=== PATIENT | male | born 1945 | race Caucasian/White ===

== ENCOUNTER → 2017-11-19 08:12 | Outpatient (CLI) | payer MEDICARE, OTHER, SELFPAY ==
[2017-11-19 12:10] LABS: Absolute Lymphocyte Count 2.06 X10^3/ul (0.83-4.51); Absolute Neutrophil Count 4.5 X10^3/uL (2.0-7.7); Basophil# 0.04 X10^3/uL; Basophil% 0.5 % (0-1); Eosinophil# 0.22 X10^3/uL; Hematocrit 39.1 % (40-54); Hemoglobin 12.3 g/dl (13.0-16.5); Lymphocyte # 2.06 X10^3/ul (4.0); Lymphocyte % 28.1 % (19-41); Mean Corp Hgb Conc 31.5 g/gl (32-36); Mean Corpuscular Hgb 28.1 pg (27.0-32.0); Mean Corpuscular Volume 89.3 fL (80-94); Mean Platelet Vol. 9.8 fl (6.2-12.0); Monocyte# 0.51 X10^3/uL; Monocyte% 6.9 % (0-10); Neutrophil # 4.51 X10^3/uL (2.7-7.7); Neutrophil % 61.5 % (47-70); Platelet Count 281 K/mm3 (150-450); RBC Distribution Width CV 14.4 % (11.6-14.6); Red Blood Count 4.38 M/mm3 (4.6-6.2); White Blood Count 7.3 K/mm3 (4.4-11.0)
[2017-11-19 12:14] LABS: POSITIVE COUNT NO; POSITIVE DIFFERENTIAL NO; POSITIVE MORPHOLOGY NO
[2017-11-19 12:43] LABS: AST(SGOT) 21 U/L (15-37); Alanine Aminotransfer ALT/SGPT 36 U/L (16-61); Albumin, Serum 3.8 g/dL (3.2-5.0); Alkaline Phosphatase 67 U/L (45-117); Anion Gap 10 (5-15); BUN 17 mg/dL (7-18); BUN/Creat Ratio 14.5 RATIO (10-20); Calcium,Total 8.9 mg/dL (8.5-10.1); Chloride 103 mmol/L (98-107); Cholesterol 125 mg/dL (200); Creatinine, Serum 1.17 mg/dL (0.70-1.30); EST Glomerular Filtration Rate 65 mL/min (>60); Est Glom Filt Rate - Afr Amer 79 mL/min (>60); Globulin 3.8 g/dL (2.2-4.2); Glucose 133 mg/dL (74-106); High Density Lipoprotein 47 mg/dL; Potassium 4.4 mmol/L (3.5-5.1); Protein, Total 7.6 g/dL (6.4-8.2); Sodium Level 139 mmol/L (136-145); Triglycerides 67 mg/dL; Very Low Density Lipoprotein 13 mg/dL (5-40)
[2017-11-19 12:44] LABS: Hemoglobin A1c 7.5 % (4.2-6.3)
[2017-11-19 12:47] LABS: Microalbumin,Random Urine < 5.0 mg/L (NO RANGE EST.)
== END ==
PROVIDERS: Visit Provider Family Medicine
DX: E11.9 Type 2 diabetes mellitus without complications (principal); I10 Essential (primary) hypertension; E78.00 Pure hypercholesterolemia, unspecified; Z12.5 Encounter for screening for malignant neoplasm of prostate
CPT/HCPCS: 36415; 80053; 80061; 82043; 82570; 83036; 85025

== ENCOUNTER → 2018-04-15 09:42 | Outpatient (CLI) | payer MEDICARE, OTHER, SELFPAY ==
[2018-04-15 09:50] LABS: Bacteria 0 SEEN /hpf (None Seen); Mucous, Urine 0 SEEN /hpf (<or=2+); Red Blood Cells-Urine 0 SEEN /hpf (0-5); Squamous Epithelial Cells - UA 0 SEEN /hpf (0-5); White Blood Cells 0 SEEN /hpf (0-5)
[2018-04-15 12:09] LABS: Color, Urine Yellow (Yellow); Glucose, Dipstick 1000 mg/dl (Normal); Ketone-Dipstick Negative (Negative); Leukocyte Esterase-Dipstick Negative /ul (Negative); Nitrite-Dipstick Negative (Negative); Occult Blood-Urine Negative /ul (Negative); Protein-Dipstick Negative (Negative); Urine Bilirubin Dipstick Negative (Negative); Urine Clarity Clear (Clear); Urine Urobilinogen Normal (Normal); Urine pH 6.5 (5.0 - 8.0)
[2018-04-15 12:12] LABS: Absolute Lymphocyte Count 1.36 X10^3/ul (0.83-4.51); Absolute Neutrophil Count 4.2 X10^3/uL (2.0-7.7); Basophil# 0.02 X10^3/uL; Basophil% 0.3 % (0-1); Eosinophil# 0.08 X10^3/uL; Eosinophils% 1.3 % (0-5); Hematocrit 38.9 % (40-54); Hemoglobin 12.3 g/dl (13.0-16.5); Lymphocyte # 1.36 X10^3/ul (4.0); Lymphocyte % 22.6 % (19-41); Mean Corp Hgb Conc 31.6 g/gl (32-36); Mean Corpuscular Hgb 28.6 pg (27.0-32.0); Mean Corpuscular Volume 90.5 fL (80-94); Mean Platelet Vol. 9.7 fl (6.2-12.0); Monocyte# 0.37 X10^3/uL; Monocyte% 6.2 % (0-10); Neutrophil # 4.17 X10^3/uL (2.7-7.7); Neutrophil % 69.4 % (47-70); Platelet Count 291 K/mm3 (150-450); RBC Distribution Width CV 13.5 % (11.6-14.6); RBC Distribution Width SD 44.9 fl (35.1-43.9)
[2018-04-15 12:19] LABS: POSITIVE COUNT NO; POSITIVE DIFFERENTIAL NO; POSITIVE MORPHOLOGY NO
[2018-04-15 12:25] LABS: Hemoglobin A1c 7.8 % (4.2-6.3)
[2018-04-15 12:27] LABS: Vitamin B12 393 pg/mL (211-911)
[2018-04-15 13:16] LABS: AST(SGOT) 20 U/L (15-37); Alanine Aminotransfer ALT/SGPT 36 U/L (16-61); Albumin, Serum 3.8 g/dL (3.2-5.0); Alkaline Phosphatase 70 U/L (45-117); Anion Gap 11 (5-15); BUN 18 mg/dL (7-18); BUN/Creat Ratio 13.8 RATIO (10-20); Calcium,Total 8.7 mg/dL (8.5-10.1); Chloride 102 mmol/L (98-107); Cholesterol 142 mg/dL (200); EST Glomerular Filtration Rate 58 mL/min (>60); Est Glom Filt Rate - Afr Amer 70 mL/min (>60); Ferritin 23 ng/mL (26-388); Globulin 3.7 g/dL (2.2-4.2); Glucose 238 mg/dL (74-106); High Density Lipoprotein 45 mg/dL; Iron 83 ug/dL (65-175); Iron Binding Capacity,Total 379 ug/dL (250-450); Potassium 4.1 mmol/L (3.5-5.1); Protein, Total 7.5 g/dL (6.4-8.2); Sodium Level 139 mmol/L (136-145); Thyroid Stim Hormone (TSH) 0.61 uIU/mL (0.358-3.74); Triglycerides 88 mg/dL; Very Low Density Lipoprotein 18 mg/dL (5-40)
== END ==
PROVIDERS: Family Provider Family Medicine; PCP Family Medicine; Visit Provider Family Medicine
DX: D64.9 Anemia, unspecified (principal); E11.9 Type 2 diabetes mellitus without complications; I10 Essential (primary) hypertension; E78.00 Pure hypercholesterolemia, unspecified
CPT/HCPCS: 36415; 80053; 80061; 81001; 82607; 82728; 82746; 83036; 83540; 83550; 84443; 85025

== ENCOUNTER → 2018-04-22 08:15 | Outpatient (CLI) | payer MEDICARE, OTHER, SELFPAY ==
[2018-04-22 10:47] LABS: Anion Gap 6 (5-15); BUN 19 mg/dL (7-18); BUN/Creat Ratio 15.1 RATIO (10-20); Calcium,Total 8.6 mg/dL (8.5-10.1); Chloride 101 mmol/L (98-107); Creatinine, Serum 1.26 mg/dL (0.70-1.30); EST Glomerular Filtration Rate 60 mL/min (>60); Est Glom Filt Rate - Afr Amer 72 mL/min (>60); Glucose 316 mg/dL (74-106); Potassium 4.7 mmol/L (3.5-5.1); Sodium Level 135 mmol/L (136-145)
== END ==
PROVIDERS: Family Provider Family Medicine; PCP Family Medicine; Referring Provider Family Medicine; Visit Provider Family Medicine
DX: R94.4 Abnormal results of kidney function studies (principal)
CPT/HCPCS: 36415; 80048

== ENCOUNTER → 2018-05-10 08:25 | Outpatient (CLI) | payer MEDICARE, OTHER, SELFPAY ==
[2018-05-10 10:36] LABS: BUN 21 mg/dL (7-18); Creatinine, Serum 1.19 mg/dL (0.70-1.30); EST Glomerular Filtration Rate 64 mL/min (>60); Glucose 275 mg/dL (74-106)
[2018-05-10 10:37] LABS: Anion Gap 10 (5-15); BUN/Creat Ratio 17.6 RATIO (10-20); Calcium,Total 8.4 mg/dL (8.5-10.1); Chloride 99 mmol/L (98-107); Est Glom Filt Rate - Afr Amer 77 mL/min (>60); Potassium 4.6 mmol/L (3.5-5.1); Sodium Level 136 mmol/L (136-145)
== END ==
PROVIDERS: Family Provider Family Medicine; PCP Family Medicine; Visit Provider Family Medicine
DX: I10 Essential (primary) hypertension (principal)
CPT/HCPCS: 36415; 80048

== ENCOUNTER → 2018-06-03 08:54 | Outpatient (CLI) | payer MEDICARE, OTHER, SELFPAY ==
[2018-06-03 10:14] LABS: Absolute Lymphocyte Count 1.72 X10^3/ul (0.83-4.51); Absolute Neutrophil Count 3.7 X10^3/uL (2.0-7.7); Basophil# 0.05 X10^3/uL; Basophil% 0.8 % (0-1); Eosinophil# 0.14 X10^3/uL; Eosinophils% 2.3 % (0-5); Hematocrit 39.6 % (40-54); Hemoglobin 12.5 g/dl (13.0-16.5); Lymphocyte # 1.72 X10^3/ul (4.0); Lymphocyte % 28.8 % (19-41); Mean Corp Hgb Conc 31.6 g/gl (32-36); Mean Corpuscular Hgb 28.3 pg (27.0-32.0); Mean Corpuscular Volume 89.8 fL (80-94); Mean Platelet Vol. 9.6 fl (6.2-12.0); Monocyte# 0.36 X10^3/uL; Neutrophil # 3.71 X10^3/uL (2.7-7.7); Neutrophil % 62.1 % (47-70); Platelet Count 333 K/mm3 (150-450); RBC Distribution Width CV 13.5 % (11.6-14.6); RBC Distribution Width SD 44.7 fl (35.1-43.9); Red Blood Count 4.41 M/mm3 (4.6-6.2)
[2018-06-03 10:15] LABS: POSITIVE COUNT NO; POSITIVE DIFFERENTIAL NO; POSITIVE MORPHOLOGY NO
[2018-06-03 10:46] LABS: Ferritin 21 ng/mL (26-388); Iron 55 ug/dL (65-175); Iron Binding Capacity,Total 373 ug/dL (250-450)
== END ==
PROVIDERS: Family Provider Family Medicine; PCP Family Medicine; Referring Provider Family Medicine; Visit Provider Family Medicine
DX: D64.9 Anemia, unspecified (principal); R79.0 Abnormal level of blood mineral
CPT/HCPCS: 36415; 82728; 83540; 83550; 85025

== ENCOUNTER → 2018-08-25 | Outpatient (CLI) | payer MEDICARE, OTHER, SELFPAY ==
[2018-08-25 10:10] LABS: Absolute Lymphocyte Count 1.84 X10^3/ul (0.83-4.51); Absolute Neutrophil Count 3.8 X10^3/uL (2.0-7.7); Basophil# 0.02 X10^3/uL; Basophil% 0.3 % (0-1); Eosinophil# 0.16 X10^3/uL; Eosinophils% 2.5 % (0-5); Hematocrit 39.9 % (40-54); Hemoglobin 13.2 g/dl (13.0-16.5); Lymphocyte # 1.84 X10^3/ul (4.0); Lymphocyte % 29.2 % (19-41); Mean Corp Hgb Conc 33.1 g/gl (32-36); Mean Corpuscular Hgb 28.9 pg (27.0-32.0); Mean Corpuscular Volume 87.5 fL (80-94); Mean Platelet Vol. 10.1 fl (6.2-12.0); Monocyte# 0.51 X10^3/uL; Monocyte% 8.1 % (0-10); Neutrophil # 3.77 X10^3/uL (2.7-7.7); Neutrophil % 59.7 % (47-70); Platelet Count 300 K/mm3 (150-450); RBC Distribution Width CV 13.7 % (11.6-14.6); RBC Distribution Width SD 43.5 fl (35.1-43.9); Red Blood Count 4.56 M/mm3 (4.6-6.2); White Blood Count 6.3 K/mm3 (4.4-11.0)
[2018-08-25 10:11] LABS: POSITIVE COUNT NO; POSITIVE DIFFERENTIAL NO; POSITIVE MORPHOLOGY NO
[2018-08-25 10:40] LABS: Microalbumin,Random Urine < 5.0 mg/L (NO RANGE EST.)
[2018-08-25 10:46] LABS: ALB/GLOB Ratio 1.1 RATIO (0.9-2.4); AST(SGOT) 31 U/L (15-37); Alanine Aminotransfer ALT/SGPT 32 U/L (16-61); Albumin, Serum 3.8 g/dL (3.2-5.0); Alkaline Phosphatase 74 U/L (45-117); Anion Gap 6 (5-15); BUN 21 mg/dL (7-18); BUN/Creat Ratio 17.8 RATIO (10-20); Calcium,Total 8.9 mg/dL (8.5-10.1); Chloride 104 mmol/L (98-107); Cholesterol 142 mg/dL (200); Creatinine, Serum 1.18 mg/dL (0.70-1.30); EST Glomerular Filtration Rate 64 mL/min (>60); Est Glom Filt Rate - Afr Amer 78 mL/min (>60); Ferritin 26 ng/mL (26-388); Globulin 3.4 g/dL (2.2-4.2); Glucose 140 mg/dL (74-106); High Density Lipoprotein 51 mg/dL; Iron 92 ug/dL (65-175); Iron Binding Capacity,Total 360 ug/dL (250-450); PERCENT IRON SATURATION 25.6 % (15.0-55.0); Protein, Total 7.2 g/dL (6.4-8.2); Sodium Level 137 mmol/L (136-145); Triglycerides 78 mg/dL; Very Low Density Lipoprotein 16 mg/dL (5-40)
[2018-08-25 10:47] LABS: Hemoglobin A1c 7.5 % (4.2-6.3)
== END | disposition home or self-care (01) ==
LOC: MFPLAB 08:19
PROVIDERS: Family Provider Family Medicine; PCP Family Medicine; Referring Provider Family Medicine; Visit Provider Family Medicine
DX: D64.9 Anemia, unspecified (principal); E11.9 Type 2 diabetes mellitus without complications; R79.0 Abnormal level of blood mineral; E78.00 Pure hypercholesterolemia, unspecified
CPT/HCPCS: 36415; 80053; 80061; 82043; 82570; 82728; 83036; 83540; 83550; 85025

== ENCOUNTER → 2018-11-24 08:12 | Outpatient (CLI) | payer MEDICARE, OTHER, SELFPAY ==
[2018-11-24 10:03] LABS: Absolute Lymphocyte Count 2.11 X10^3/uL (0.83-4.51); Absolute Neutrophil Count 4.5 X10^3/uL (2.0-7.7); Basophil# 0.06 X10^3/uL; Basophil% 0.8 % (0-1); Eosinophil# 0.41 X10^3/uL; Eosinophils% 5.3 % (0-5); Hematocrit 40.5 % (40-54); Hemoglobin 12.6 g/dL (13.0-16.5); Lymphocyte # 2.11 X10^3/ul (4.0); Lymphocyte % 27.2 % (19-41); Mean Corp Hgb Conc 31.1 g/dL (32-36); Mean Corpuscular Hgb 28.1 pg (27.0-32.0); Mean Corpuscular Volume 90.2 fL (80-94); Mean Platelet Vol. 9.8 fl (6.2-12.0); Monocyte# 0.63 X10^3/uL; Monocyte% 8.1 % (0-10); NRBC Flagged by Analyzer 0 % (0-5); Neutrophil # 4.53 X10^3/uL (2.7-7.7); Neutrophil % 58.5 % (47-70); Platelet Count 299 K/mm3 (150-450); RBC Distribution Width CV 13.4 % (11.6-14.6); RBC Distribution Width SD 44.3 fl (35.1-43.9); Red Blood Count 4.49 M/mm3 (4.6-6.2); White Blood Count 7.8 K/mm3 (4.4-11.0)
[2018-11-24 10:19] LABS: Hemoglobin A1c 7.1 % (4.2-6.3)
[2018-11-24 10:22] LABS: ALB/GLOB Ratio 0.9 RATIO (0.9-2.4); AST(SGOT) 16 U/L (15-37); Alanine Aminotransfer ALT/SGPT 31 U/L (16-61); Albumin, Serum 3.7 g/dL (3.2-5.0); Alkaline Phosphatase 68 U/L (45-117); Anion Gap 5 (5-15); BUN 22 mg/dL (7-18); BUN/Creat Ratio 17.6 RATIO (10-20); Calcium,Total 8.8 mg/dL (8.5-10.1); Chloride 102 mmol/L (98-107); Cholesterol 121 mg/dL (200); Creatinine, Serum 1.25 mg/dL (0.70-1.30); EST Glomerular Filtration Rate 60 mL/min (>60); Est Glom Filt Rate - Afr Amer 73 mL/min (>60); Glucose 135 mg/dL (74-106); High Density Lipoprotein 46 mg/dL; Potassium 4.6 mmol/L (3.5-5.1); Protein, Total 7.7 g/dL (6.4-8.2); Sodium Level 135 mmol/L (136-145); Triglycerides 86 mg/dL
[2018-11-24 10:23] LABS: Very Low Density Lipoprotein 17 mg/dL (5-40)
== END ==
PROVIDERS: Family Provider Family Medicine; PCP Family Medicine; Referring Provider Family Medicine; Visit Provider Family Medicine
DX: E11.22 Type 2 diabetes mellitus with diabetic chronic kidney disease (principal); N18.2 Chronic kidney disease, stage 2 (mild); E78.00 Pure hypercholesterolemia, unspecified
CPT/HCPCS: 36415; 80053; 80061; 83036; 85025

== ENCOUNTER → 2018-11-30 08:15 | Outpatient (CLI) | payer MEDICARE, OTHER, SELFPAY ==
[2018-11-30 10:59] LABS: Vitamin B12 435 pg/mL (211-911)
[2018-11-30 11:45] LABS: Ferritin 29 ng/mL (26-388); Iron 65 ug/dL (65-175); Iron Binding Capacity,Total 315 ug/dL (250-450); PSA,Total - Annual Screen 1.84 ng/mL (0.00-4.00)
== END ==
PROVIDERS: Family Provider Family Medicine; PCP Family Medicine; Referring Provider Family Medicine; Visit Provider Family Medicine
DX: D64.9 Anemia, unspecified (principal); Z12.5 Encounter for screening for malignant neoplasm of prostate
CPT/HCPCS: 36415; 82607; 82728; 82746; 83540; 83550; 84153; G0103

== ENCOUNTER → 2019-03-24 08:03 | Outpatient (CLI) | payer MEDICARE, OTHER, SELFPAY ==
[2019-03-24 08:06] LABS: Bacteria 0 SEEN /hpf (None Seen); Mucous, Urine 0 SEEN /hpf (<or=2+); Red Blood Cells-Urine 0 SEEN /hpf (0-5); Squamous Epithelial Cells - UA 0 SEEN /hpf (0-5); White Blood Cells 0 SEEN /hpf (0-5)
[2019-03-24 10:04] LABS: Absolute Lymphocyte Count 2.14 X10^3/uL (0.83-4.51); Absolute Neutrophil Count 4.7 X10^3/uL (2.0-7.7); Basophil# 0.05 X10^3/uL; Basophil% 0.6 % (0-1); Eosinophil# 0.32 X10^3/uL; Eosinophils% 4.1 % (0-5); Hematocrit 38.8 % (40-54); Hemoglobin 12.2 g/dL (13.0-16.5); Lymphocyte # 2.14 X10^3/ul (4.0); Lymphocyte % 27.5 % (19-41); Mean Corp Hgb Conc 31.4 g/dL (32-36); Mean Corpuscular Hgb 28.1 pg (27.0-32.0); Mean Corpuscular Volume 89.4 fL (80-94); Mean Platelet Vol. 9.7 fl (6.2-12.0); Monocyte# 0.52 X10^3/uL; Monocyte% 6.7 % (0-10); NRBC Flagged by Analyzer 0 % (0-5); Neutrophil # 4.72 X10^3/uL (2.7-7.7); Neutrophil % 60.8 % (47-70); Platelet Count 314 K/mm3 (150-450); RBC Distribution Width CV 13.2 % (11.6-14.6); RBC Distribution Width SD 43.2 fl (35.1-43.9); Red Blood Count 4.34 M/mm3 (4.6-6.2); White Blood Count 7.8 K/mm3 (4.4-11.0)
[2019-03-24 10:16] LABS: Color, Urine YELLOW (Yellow); Glucose, Dipstick NEGATIVE (Normal); Ketone-Dipstick Negative (Negative); Urine Bilirubin Dipstick Negative (Negative); Urine Clarity Clear (Clear)
[2019-03-24 10:17] LABS: Leukocyte Esterase-Dipstick Negative /ul (Negative); Nitrite-Dipstick Negative (Negative); Occult Blood-Urine Negative /ul (Negative); Protein-Dipstick Negative (Negative); Urine Urobilinogen Normal (Normal); Urine pH 6.5 (5.0 - 8.0)
[2019-03-24 10:18] LABS: Hemoglobin A1c 7.5 % (4.2-6.3)
[2019-03-24 10:33] LABS: AST(SGOT) 18 U/L (15-37); Alanine Aminotransfer ALT/SGPT 32 U/L (16-61); Albumin, Serum 3.7 g/dL (3.2-5.0); Alkaline Phosphatase 67 U/L (45-117); Anion Gap 5 (5-15); BUN 19 mg/dL (7-18); BUN/Creat Ratio 16.2 RATIO (10-20); Calcium,Total 8.7 mg/dL (8.5-10.1); Chloride 103 mmol/L (98-107); Cholesterol 131 mg/dL (200); Creatinine, Serum 1.17 mg/dL (0.70-1.30); EST Glomerular Filtration Rate 65 mL/min (>60); Est Glom Filt Rate - Afr Amer 79 mL/min (>60); Globulin 3.7 g/dL (2.2-4.2); Glucose 135 mg/dL (74-106); High Density Lipoprotein 48 mg/dL; Potassium 4.5 mmol/L (3.5-5.1); Protein, Total 7.4 g/dL (6.4-8.2); Sodium Level 137 mmol/L (136-145); Triglycerides 76 mg/dL; Very Low Density Lipoprotein 15 mg/dL (5-40)
[2019-03-24 10:45] LABS: Microalbumin,Random Urine < 5.0 mg/L (NO RANGE EST.)
== END ==
PROVIDERS: Family Provider Family Medicine; PCP Family Medicine; Referring Provider Family Medicine; Visit Provider Family Medicine
DX: I10 Essential (primary) hypertension (principal); E11.9 Type 2 diabetes mellitus without complications; E78.00 Pure hypercholesterolemia, unspecified
CPT/HCPCS: 36415; 80053; 80061; 81001; 82043; 82570; 83036; 85025

== ENCOUNTER → 2019-07-24 07:59 | Outpatient (CLI) | payer MEDICARE, OTHER, SELFPAY ==
[2019-05-10 08:37] VITALS: BMI 23.1
[2019-07-24 08:04] LABS: Bacteria 0 SEEN /hpf (None Seen); Mucous, Urine 0 SEEN /hpf (<or=2+); Red Blood Cells-Urine 0 SEEN /hpf (0-5); Squamous Epithelial Cells - UA 0 SEEN /hpf (0-5); White Blood Cells 0 SEEN /hpf (0-5)
[2019-07-24 09:46] LABS: Color, Urine Yellow (Yellow); Glucose, Dipstick Normal (Normal); Ketone-Dipstick Negative (Negative); Leukocyte Esterase-Dipstick Negative /ul (Negative); Nitrite-Dipstick Negative (Negative); Occult Blood-Urine Negative /ul (Negative); Protein-Dipstick Negative (Negative); Specific Gravity, Urine 1.015 (1.002-1.030); Urine Bilirubin Dipstick Negative (Negative); Urine Clarity Clear (Clear); Urine Urobilinogen Normal (Normal)
[2019-07-24 09:52] LABS: Absolute Lymphocyte Count 2.11 X10^3/uL (0.83-4.51); Absolute Neutrophil Count 4.1 X10^3/uL (2.0-7.7); Basophil# 0.04 X10^3/uL; Basophil% 0.6 % (0-1); Eosinophil# 0.23 X10^3/uL; Eosinophils% 3.3 % (0-5); Hematocrit 39.6 % (40-54); Hemoglobin 12.6 g/dL (13.0-16.5); Lymphocyte # 2.11 X10^3/ul (4.0); Lymphocyte % 30.1 % (19-41); Mean Corp Hgb Conc 31.8 g/dL (32-36); Mean Corpuscular Hgb 28.4 pg (27.0-32.0); Mean Corpuscular Volume 89.2 fL (80-94); Mean Platelet Vol. 9.8 fl (6.2-12.0); Monocyte# 0.55 X10^3/uL; Monocyte% 7.8 % (0-10); NRBC Flagged by Analyzer 0 % (0-5); Neutrophil # 4.08 X10^3/uL (2.7-7.7); Neutrophil % 58.1 % (47-70); Platelet Count 313 K/mm3 (150-450); RBC Distribution Width CV 13.5 % (11.6-14.6); RBC Distribution Width SD 44.2 fl (35.1-43.9); Red Blood Count 4.44 M/mm3 (4.6-6.2)
[2019-07-24 10:05] LABS: Microalbumin,Random Urine 5.1 mg/L (NO RANGE EST.); Microalbumin:Creatinine Ratio 6.3 mg/g CRE (<30 mg/g CRE)
[2019-07-24 10:20] LABS: PTHIN 85.4 pg/mL (18.4-80.1)
[2019-07-24 10:22] LABS: Hemoglobin A1c 7.6 % (4.2-6.3); Vitamin B12 410 pg/mL (211-911); Vitamin D,25 Hydroxy 41.5 ng/mL
[2019-07-24 11:07] LABS: ALB/GLOB Ratio 1.1 RATIO (0.9-2.4); AST(SGOT) 20 U/L (15-37); Alanine Aminotransfer ALT/SGPT 30 U/L (16-61); Alkaline Phosphatase 70 U/L (45-117); Anion Gap 6 (5-15); BUN 23 mg/dL (7-18); BUN/Creat Ratio 19.8 RATIO (10-20); Calcium,Total 8.7 mg/dL (8.5-10.1); Chloride 104 mmol/L (98-107); Cholesterol 145 mg/dL (200); Creatinine, Serum 1.16 mg/dL (0.70-1.30); EST Glomerular Filtration Rate 66 mL/min (>60); Est Glom Filt Rate - Afr Amer 79 mL/min (>60); Ferritin 20 ng/mL (26-388); Globulin 3.6 g/dL (2.2-4.2); Glucose 156 mg/dL (74-106); High Density Lipoprotein 46 mg/dL; Iron 74 ug/dL (65-175); Iron Binding Capacity,Total 392 ug/dL (250-450); Phosphorus 2.3 mg/dL (2.5-4.9); Potassium 4.5 mmol/L (3.5-5.1); Protein, Total 7.6 g/dL (6.4-8.2); Sodium Level 136 mmol/L (136-145); Triglycerides 81 mg/dL; Very Low Density Lipoprotein 16 mg/dL (5-40)
== END ==
PROVIDERS: PCP Family Medicine; Visit Provider Family Medicine
DX: D64.9 Anemia, unspecified (principal); E78.00 Pure hypercholesterolemia, unspecified; E11.22 Type 2 diabetes mellitus with diabetic chronic kidney disease; I12.9 Hypertensive chronic kidney disease with stage 1 through stage 4 chronic kidney disease, or unspecified chronic kidney disease; N18.2 Chronic kidney disease, stage 2 (mild)
CPT/HCPCS: 36415; 80053; 80061; 81001; 82043; 82306; 82570; 82607; 82728; 82746; 83036; 83540; 83550; 83970; 84100; 85025

== ENCOUNTER → 2019-11-22 08:04 | Outpatient (CLI) | payer MEDICARE, OTHER, SELFPAY ==
[2019-05-10 08:37] VITALS: BMI 23.1
[2019-11-22 10:09] LABS: Absolute Lymphocyte Count 2.24 X10^3/uL (0.83-4.51); Absolute Neutrophil Count 3.8 X10^3/uL (2.0-7.7); Basophil# 0.03 X10^3/uL; Basophil% 0.4 % (0-1); Eosinophil# 0.23 X10^3/uL; Eosinophils% 3.4 % (0-5); Hematocrit 39.7 % (40-54); Hemoglobin 12.7 g/dL (13.0-16.5); Lymphocyte # 2.24 X10^3/ul (4.0); Lymphocyte % 32.8 % (19-41); Mean Corpuscular Hgb 29.1 pg (27.0-32.0); Mean Corpuscular Volume 90.8 fL (80-94); Monocyte# 0.49 X10^3/uL; Monocyte% 7.2 % (0-10); NRBC Flagged by Analyzer 0 % (0-5); Neutrophil # 3.82 X10^3/uL (2.7-7.7); Neutrophil % 56.1 % (47-70); Platelet Count 294 K/mm3 (150-450); RBC Distribution Width CV 13.2 % (11.6-14.6); RBC Distribution Width SD 43.8 fl (35.1-43.9); Red Blood Count 4.37 M/mm3 (4.6-6.2); White Blood Count 6.8 K/mm3 (4.4-11.0)
[2019-11-22 10:31] LABS: Hemoglobin A1c 7.3 % (3.8-5.6)
[2019-11-22 10:35] LABS: ALB/GLOB Ratio 1.1 RATIO (0.9-2.4); AST(SGOT) 20 U/L (15-37); Alanine Aminotransfer ALT/SGPT 26 U/L (16-61); Albumin, Serum 3.8 g/dL (3.2-5.0); Alkaline Phosphatase 70 U/L (45-117); Anion Gap 5 (5-15); BUN 19 mg/dL (7-18); BUN/Creat Ratio 15.4 RATIO (10-20); Calcium,Total 8.6 mg/dL (8.5-10.1); Chloride 103 mmol/L (98-107); Cholesterol 141 mg/dL (200); Creatinine, Serum 1.23 mg/dL (0.70-1.30); EST Glomerular Filtration Rate 61 mL/min (>60); Est Glom Filt Rate - Afr Amer 74 mL/min (>60); Ferritin 30 ng/mL (26-388); Globulin 3.5 g/dL (2.2-4.2); Glucose 147 mg/dL (74-106); High Density Lipoprotein 45 mg/dL; Iron 87 ug/dL (65-175); Iron Binding Capacity,Total 376 ug/dL (250-450); Potassium 5.4 mmol/L (3.5-5.1); Protein, Total 7.3 g/dL (6.4-8.2); Sodium Level 137 mmol/L (136-145); Triglycerides 98 mg/dL; Very Low Density Lipoprotein 20 mg/dL (5-40)
[2019-11-22 10:46] LABS: Microalbumin,Random Urine < 5.0 mg/L (NO RANGE EST.)
== END ==
PROVIDERS: PCP Family Medicine; Referring Provider Family Medicine; Visit Provider Family Medicine
DX: D64.9 Anemia, unspecified (principal); E78.00 Pure hypercholesterolemia, unspecified; N18.2 Chronic kidney disease, stage 2 (mild); E11.22 Type 2 diabetes mellitus with diabetic chronic kidney disease
CPT/HCPCS: 36415; 80053; 80061; 82043; 82570; 82728; 83036; 83540; 83550; 85025

== ENCOUNTER → 2019-11-29 09:17 | Outpatient (CLI) | payer MEDICARE, OTHER, SELFPAY ==
[2019-05-10 08:37] VITALS: BMI 23.1
[2019-11-29 10:25] LABS: Potassium 4.5 mmol/L (3.5-5.1)
== END ==
PROVIDERS: PCP Family Medicine; Referring Provider Family Medicine; Visit Provider Family Medicine
DX: E87.5 Hyperkalemia (principal)
CPT/HCPCS: 36415; 84132

== ENCOUNTER → 2020-03-26 08:10 | Outpatient (CLI) | payer MEDICARE, OTHER, SELFPAY ==
[2019-05-10 08:37] VITALS: BMI 23.1
[2020-03-26 10:13] LABS: Absolute Lymphocyte Count 1.92 X10^3/uL (0.83-4.51); Absolute Neutrophil Count 4.4 X10^3/uL (2.0-7.7); Basophil# 0.05 X10^3/uL; Basophil% 0.7 % (0-1); Eosinophil# 0.22 X10^3/uL; Eosinophils% 3.1 % (0-5); Hemoglobin 13.1 g/dL (13.0-16.5); Lymphocyte # 1.92 X10^3/ul (4.0); Lymphocyte % 27.4 % (19-41); Mean Corpuscular Hgb 28.9 pg (27.0-32.0); Mean Corpuscular Volume 90.5 fL (80-94); Mean Platelet Vol. 10.1 fl (6.2-12.0); Monocyte# 0.44 X10^3/uL; Monocyte% 6.3 % (0-10); NRBC Flagged by Analyzer 0 % (0-5); Neutrophil # 4.37 X10^3/uL (2.7-7.7); Neutrophil % 62.2 % (47-70); Platelet Count 311 K/mm3 (150-450); RBC Distribution Width CV 13.5 % (11.6-14.6); Red Blood Count 4.53 M/mm3 (4.6-6.2)
[2020-03-26 10:33] LABS: Vitamin B12 471 pg/mL (211-911)
[2020-03-26 10:35] LABS: Hemoglobin A1c 7.1 % (3.8-5.6)
[2020-03-26 10:36] LABS: PTHIN 46.7 pg/mL (18.4-80.1)
[2020-03-26 11:08] LABS: AST(SGOT) 14 U/L (15-37); Alanine Aminotransfer ALT/SGPT 24 U/L (16-61); Albumin, Serum 3.9 g/dL (3.2-5.0); Alkaline Phosphatase 69 U/L (45-117); Anion Gap 7 (5-15); BUN 16 mg/dL (7-18); BUN/Creat Ratio 14.2 RATIO (10-20); Chloride 102 mmol/L (98-107); Cholesterol 148 mg/dL (200); Creatinine, Serum 1.13 mg/dL (0.70-1.30); EST Glomerular Filtration Rate 67 mL/min (>60); Est Glom Filt Rate - Afr Amer 82 mL/min (>60); Ferritin 28 ng/mL (26-388); Globulin 3.9 g/dL (2.2-4.2); Glucose 145 mg/dL (74-106); High Density Lipoprotein 58 mg/dL; Iron 73 ug/dL (65-175); Iron Binding Capacity,Total 380 ug/dL (250-450); Phosphorus 2.3 mg/dL (2.5-4.9); Potassium 4.6 mmol/L (3.5-5.1); Protein, Total 7.8 g/dL (6.4-8.2); Sodium Level 136 mmol/L (136-145); Triglycerides 90 mg/dL; Very Low Density Lipoprotein 18 mg/dL (5-40)
== END ==
PROVIDERS: PCP Family Medicine; Referring Provider Family Medicine; Visit Provider Family Medicine
DX: E11.22 Type 2 diabetes mellitus with diabetic chronic kidney disease (principal); I12.9 Hypertensive chronic kidney disease with stage 1 through stage 4 chronic kidney disease, or unspecified chronic kidney disease; N18.2 Chronic kidney disease, stage 2 (mild); D64.9 Anemia, unspecified; E78.00 Pure hypercholesterolemia, unspecified
CPT/HCPCS: 36415; 80053; 80061; 82607; 82728; 82746; 83036; 83540; 83550; 83970; 84100; 85025

== ENCOUNTER → 2020-08-28 08:06 | Outpatient (CLI) | payer MEDICARE, OTHER, SELFPAY ==
[2019-05-10 08:37] VITALS: BMI 23.1
[2020-08-28 10:01] LABS: Absolute Lymphocyte Count 2.17 X10^3/uL (0.83-4.51); Absolute Neutrophil Count 3.9 X10^3/uL (2.0-7.7); Basophil# 0.07 X10^3/uL; Eosinophil# 0.34 X10^3/uL; Eosinophils% 4.8 % (0-5); Hematocrit 38.3 % (40-54); Hemoglobin 12.2 g/dL (13.0-16.5); Lymphocyte # 2.17 X10^3/ul (0.83-4.51); Lymphocyte % 30.8 % (19-41); Mean Corp Hgb Conc 31.9 g/dL (32-36); Mean Corpuscular Hgb 28.6 pg (27.0-32.0); Mean Corpuscular Volume 89.9 fL (80-94); Monocyte# 0.51 X10^3/uL; Monocyte% 7.2 % (0-10); NRBC Flagged by Analyzer 0 % (0-5); Neutrophil # 3.94 X10^3/uL (2.7-7.7); Neutrophil % 56.1 % (47-70); Platelet Count 298 K/mm3 (150-450); RBC Distribution Width CV 13.2 % (11.6-14.6); RBC Distribution Width SD 43.1 fl (35.1-43.9); Red Blood Count 4.26 M/mm3 (4.6-6.2)
[2020-08-28 10:16] LABS: AST(SGOT) 20 U/L (15-37); Alanine Aminotransfer ALT/SGPT 28 U/L (16-61); Albumin, Serum 3.8 g/dL (3.2-5.0); Alkaline Phosphatase 65 U/L (45-117); Anion Gap 5 (5-15); BUN 20 mg/dL (7-18); Calcium,Total 8.9 mg/dL (8.5-10.1); Chloride 102 mmol/L (98-107); Cholesterol 131 mg/dL (200); Creatinine, Serum 1.11 mg/dL (0.70-1.30); EST Glomerular Filtration Rate 69 mL/min (>60); Est Glom Filt Rate - Afr Amer 83 mL/min (>60); Globulin 3.7 g/dL (2.2-4.2); Glucose 151 mg/dL (74-106); High Density Lipoprotein 52 mg/dL; Protein, Total 7.5 g/dL (6.4-8.2); Sodium Level 135 mmol/L (136-145); Triglycerides 69 mg/dL; Very Low Density Lipoprotein 14 mg/dL (5-40)
[2020-08-28 10:26] LABS: Hemoglobin A1c 7.5 % (3.8-5.6)
[2020-08-28 10:30] LABS: Microalbumin,Random Urine < 5.0 mg/L (NO RANGE EST.)
== END ==
PROVIDERS: PCP Family Medicine; Referring Provider Family Medicine; Visit Provider Family Medicine
DX: I10 Essential (primary) hypertension (principal); D64.9 Anemia, unspecified; E11.9 Type 2 diabetes mellitus without complications
CPT/HCPCS: 36415; 80053; 80061; 82043; 82570; 83036; 85025

== ENCOUNTER → 2020-09-03 08:57 | Outpatient (CLI) | payer MEDICARE, OTHER, SELFPAY ==
[2019-05-10 08:37] VITALS: BMI 23.1
[2020-09-03 11:06] LABS: PSA,Total - Annual Screen 2.89 ng/mL (0.00-4.00)
== END ==
PROVIDERS: PCP Family Medicine; Referring Provider Family Medicine; Visit Provider Family Medicine
DX: Z12.5 Encounter for screening for malignant neoplasm of prostate (principal)
CPT/HCPCS: 36415; 84153; G0103

== ENCOUNTER → 2020-11-29 08:01 | Outpatient (CLI) | payer MEDICARE, OTHER, SELFPAY ==
[2020-11-29 10:20] LABS: Absolute Lymphocyte Count 2.36 X10^3/uL (0.83-4.51); Absolute Neutrophil Count 3.8 X10^3/uL (2.0-7.7); Basophil# 0.05 X10^3/uL; Basophil% 0.7 % (0-1); Eosinophils% 4.2 % (0-5); Hematocrit 37.3 % (40-54); Hemoglobin 12.2 g/dL (13.0-16.5); Lymphocyte # 2.36 X10^3/ul (0.83-4.51); Lymphocyte % 32.8 % (19-41); Mean Corp Hgb Conc 32.7 g/dL (32-36); Mean Corpuscular Hgb 29.1 pg (27.0-32.0); Mean Platelet Vol. 10.4 fl (6.2-12.0); Monocyte# 0.66 X10^3/uL; Monocyte% 9.2 % (0-10); NRBC Flagged by Analyzer 0 % (0-5); Neutrophil % 52.8 % (47-70); Platelet Count 273 K/mm3 (150-450); RBC Distribution Width CV 13.9 % (11.6-14.6); RBC Distribution Width SD 45.1 fl (35.1-43.9); Red Blood Count 4.19 M/mm3 (4.6-6.2); White Blood Count 7.2 K/mm3 (4.4-11.0)
[2020-11-29 10:30] LABS: Vitamin B12 394 pg/mL (211-911)
[2020-11-29 11:18] LABS: ALB/GLOB Ratio 0.8 RATIO (0.9-2.4); AST(SGOT) 13 U/L (15-37); Alanine Aminotransfer ALT/SGPT 27 U/L (16-61); Albumin, Serum 3.4 g/dL (3.2-5.0); Alkaline Phosphatase 56 U/L (45-117); Anion Gap 7 (5-15); BUN 20 mg/dL (7-18); BUN/Creat Ratio 18.2 RATIO (10-20); Calcium,Total 8.9 mg/dL (8.5-10.1); Chloride 101 mmol/L (98-107); Cholesterol 118 mg/dL (200); EST Glomerular Filtration Rate 69 mL/min (>60); Est Glom Filt Rate - Afr Amer 84 mL/min (>60); Ferritin 37 ng/mL (26-388); Globulin 4.1 g/dL (2.2-4.2); Glucose 139 mg/dL (74-106); High Density Lipoprotein 47 mg/dL; Iron 61 ug/dL (65-175); Iron Binding Capacity,Total 335 ug/dL (250-450); Potassium 4.7 mmol/L (3.5-5.1); Protein, Total 7.5 g/dL (6.4-8.2); Sodium Level 135 mmol/L (136-145); Triglycerides 72 mg/dL; Very Low Density Lipoprotein 14 mg/dL (5-40)
[2020-11-29 11:53] LABS: Hemoglobin A1c 7.2 % (3.8-5.6)
== END ==
PROVIDERS: PCP Family Medicine; Referring Provider Family Medicine; Visit Provider Family Medicine
DX: E11.69 Type 2 diabetes mellitus with other specified complication (principal); D64.9 Anemia, unspecified
CPT/HCPCS: 36415; 80053; 80061; 82607; 82728; 82746; 83036; 83540; 83550; 85025

== ENCOUNTER → 2021-01-10 09:40 | Outpatient (CLI) | payer MEDICARE, OTHER, SELFPAY ==
[2021-01-10 12:37] LABS: Absolute Lymphocyte Count 2.26 X10^3/uL (0.83-4.51); Absolute Neutrophil Count 4.5 X10^3/uL (2.0-7.7); Basophil# 0.05 X10^3/uL; Basophil% 0.7 % (0-1); Eosinophil# 0.21 X10^3/uL; Eosinophils% 2.8 % (0-5); Hematocrit 38.4 % (40-54); Hemoglobin 12.4 g/dL (13.0-16.5); Lymphocyte # 2.26 X10^3/ul (0.83-4.51); Lymphocyte % 30.1 % (19-41); Mean Corp Hgb Conc 32.3 g/dL (32-36); Mean Corpuscular Hgb 29.1 pg (27.0-32.0); Mean Corpuscular Volume 90.1 fL (80-94); Mean Platelet Vol. 10.1 fl (6.2-12.0); Monocyte# 0.52 X10^3/uL; Monocyte% 6.9 % (0-10); NRBC Flagged by Analyzer 0 % (0-5); Neutrophil # 4.46 X10^3/uL (2.7-7.7); Neutrophil % 59.2 % (47-70); Platelet Count 296 K/mm3 (150-450); RBC Distribution Width CV 13.6 % (11.6-14.6); RBC Distribution Width SD 44.8 fl (35.1-43.9); Red Blood Count 4.26 M/mm3 (4.6-6.2); White Blood Count 7.5 K/mm3 (4.4-11.0)
[2021-01-10 12:50] LABS: Ferritin 26 ng/mL (26-388); Iron 96 ug/dL (65-175); Iron Binding Capacity,Total 358 ug/dL (250-450)
== END ==
PROVIDERS: PCP Family Medicine; Referring Provider Family Medicine; Visit Provider Family Medicine
DX: D64.9 Anemia, unspecified (principal)
CPT/HCPCS: 36415; 82728; 83540; 83550; 85025

== ENCOUNTER 2021-03-27 08:06 | Outpatient (CLI) | payer MEDICARE, OTHER, SELFPAY ==
[2021-03-27 10:05] LABS: Absolute Neutrophil Count 3.7 X10^3/uL (2.0-7.7); Basophil# 0.06 X10^3/uL; Basophil% 0.9 % (0-1); Eosinophil# 0.24 X10^3/uL; Eosinophils% 3.5 % (0-5); Hematocrit 39.1 % (40-54); Hemoglobin 12.6 g/dL (13.0-16.5); Lymphocyte % 33.6 % (19-41); Mean Corp Hgb Conc 32.2 g/dL (32-36); Mean Corpuscular Hgb 28.8 pg (27.0-32.0); Mean Corpuscular Volume 89.5 fL (80-94); Mean Platelet Vol. 10.2 fl (6.2-12.0); Monocyte# 0.48 X10^3/uL; NRBC Flagged by Analyzer 0 % (0-5); Neutrophil # 3.73 X10^3/uL (2.7-7.7); Neutrophil % 54.6 % (47-70); Platelet Count 286 K/mm3 (150-450); RBC Distribution Width SD 42.9 fl (35.1-43.9); Red Blood Count 4.37 M/mm3 (4.6-6.2); White Blood Count 6.8 K/mm3 (4.4-11.0)
[2021-03-27 10:28] LABS: Vitamin B12 354 pg/mL (211-911)
[2021-03-27 10:32] LABS: Hemoglobin A1c 7.1 % (3.8-5.6)
[2021-03-27 10:38] LABS: Microalbumin,Random Urine < 5.0 mg/L (NO RANGE EST.)
[2021-03-27 11:14] LABS: AST(SGOT) 16 U/L (15-37); Alanine Aminotransfer ALT/SGPT 30 U/L (16-61); Albumin, Serum 3.8 g/dL (3.2-5.0); Alkaline Phosphatase 61 U/L (45-117); Anion Gap 7 (5-15); BUN 21 mg/dL (7-18); BUN/Creat Ratio 18.8 RATIO (10-20); Calcium,Total 8.8 mg/dL (8.5-10.1); Chloride 101 mmol/L (98-107); Cholesterol 142 mg/dL (200); Creatinine, Serum 1.12 mg/dL (0.70-1.30); EST Glomerular Filtration Rate 68 mL/min (>60); Est Glom Filt Rate - Afr Amer 82 mL/min (>60); Ferritin 30 ng/mL (26-388); Globulin 3.8 g/dL (2.2-4.2); Glucose 141 mg/dL (74-106); High Density Lipoprotein 50 mg/dL; Iron 92 ug/dL (65-175); Iron Binding Capacity,Total 382 ug/dL (250-450); Potassium 4.5 mmol/L (3.5-5.1); Protein, Total 7.6 g/dL (6.4-8.2); Sodium Level 135 mmol/L (136-145); Triglycerides 77 mg/dL; Very Low Density Lipoprotein 15 mg/dL (5-40)
== END 2021-03-27 23:59 | disposition short-term general hospital (02) ==
LOC: MFPLAB 08:08
PROVIDERS: PCP Family Medicine; Referring Provider Family Medicine; Visit Provider Family Medicine
DX: D64.9 Anemia, unspecified (principal); E11.9 Type 2 diabetes mellitus without complications
CPT/HCPCS: 36415; 80053; 80061; 82043; 82570; 82607; 82728; 82746; 83036; 83540; 83550; 85025

== ENCOUNTER → 2021-08-08 | Outpatient (CLI) | payer MEDICARE, OTHER, SELFPAY ==
[2021-08-08 10:33] LABS: Absolute Lymphocyte Count 2.22 X10^3/uL (0.83-4.51); Absolute Neutrophil Count 4.9 X10^3/uL (2.0-7.7); Basophil# 0.05 X10^3/uL; Basophil% 0.6 % (0-1); Eosinophil# 0.37 X10^3/uL; Eosinophils% 4.5 % (0-5); Hemoglobin 12.4 g/dL (13.0-16.5); Lymphocyte # 2.22 X10^3/ul (0.83-4.51); Lymphocyte % 27.2 % (19-41); Mean Corp Hgb Conc 31.8 g/dL (32-36); Mean Corpuscular Volume 91.1 fL (80-94); Monocyte# 0.63 X10^3/uL; Monocyte% 7.7 % (0-10); NRBC Flagged by Analyzer 0 % (0-5); Neutrophil # 4.87 X10^3/uL (2.7-7.7); Neutrophil % 59.8 % (47-70); Platelet Count 304 K/mm3 (150-450); RBC Distribution Width SD 43.5 fl (35.1-43.9); Red Blood Count 4.28 M/mm3 (4.6-6.2); White Blood Count 8.2 K/mm3 (4.4-11.0)
[2021-08-08 11:08] LABS: Vitamin B12 404 pg/mL (211-911)
[2021-08-08 11:10] LABS: Hemoglobin A1c 7.2 % (3.8-5.6)
[2021-08-08 11:33] LABS: Microalbumin,Random Urine 5.6 mg/L (NO RANGE EST.); Microalbumin:Creatinine Ratio 7.4 mg/g CRE (<30 mg/g CRE)
[2021-08-08 11:53] LABS: ALB/GLOB Ratio 1.1 RATIO (0.9-2.4); AST(SGOT) 17 U/L (15-37); Alanine Aminotransfer ALT/SGPT 26 U/L (16-61); Albumin, Serum 3.8 g/dL (3.2-5.0); Alkaline Phosphatase 59 U/L (45-117); Anion Gap 5 (5-15); BUN 20 mg/dL (7-18); Calcium,Total 9.1 mg/dL (8.5-10.1); Chloride 102 mmol/L (98-107); Cholesterol 138 mg/dL (200); Creatinine, Serum 1.11 mg/dL (0.70-1.30); EST Glomerular Filtration Rate 69 mL/min (>60); Est Glom Filt Rate - Afr Amer 83 mL/min (>60); Ferritin 26 ng/mL (26-388); Globulin 3.6 g/dL (2.2-4.2); Glucose 159 mg/dL (74-106); High Density Lipoprotein 47 mg/dL; Iron 80 ug/dL (65-175); Iron Binding Capacity,Total 377 ug/dL (250-450); Potassium 4.7 mmol/L (3.5-5.1); Protein, Total 7.4 g/dL (6.4-8.2); Sodium Level 135 mmol/L (136-145); Thyroid Stim Hormone (TSH) 0.73 uIU/mL (0.358-3.74); Triglycerides 75 mg/dL; Very Low Density Lipoprotein 15 mg/dL (5-40)
== END | disposition home or self-care (01) ==
LOC: MFPLAB 08:23
PROVIDERS: PCP Family Medicine; Referring Provider Family Medicine; Visit Provider Family Medicine
DX: D64.9 Anemia, unspecified (principal); E11.9 Type 2 diabetes mellitus without complications
CPT/HCPCS: 36415; 80053; 80061; 82043; 82570; 82607; 82728; 82746; 83036; 83540; 83550; 84443; 85025

== ENCOUNTER → 2021-12-10 | Outpatient (CLI) | payer MEDICARE, OTHER, SELFPAY ==
[2021-12-10 10:33] LABS: Absolute Neutrophil Count 4.7 X10^3/uL (2.0-7.7); Basophil# 0.06 X10^3/uL; Basophil% 0.7 % (0-1); Eosinophil# 0.42 X10^3/uL; Eosinophils% 5.2 % (0-5); Hematocrit 38.9 % (40-54); Hemoglobin 12.4 g/dL (13.0-16.5); Lymphocyte % 27.4 % (19-41); Mean Corp Hgb Conc 31.9 g/dL (32-36); Mean Corpuscular Hgb 29.4 pg (27.0-32.0); Mean Corpuscular Volume 92.2 fL (80-94); Mean Platelet Vol. 10.4 fl (6.2-12.0); Monocyte# 0.62 X10^3/uL; Monocyte% 7.7 % (0-10); NRBC Flagged by Analyzer 0 % (0-5); Neutrophil # 4.69 X10^3/uL (2.7-7.7); Neutrophil % 58.6 % (47-70); Platelet Count 289 K/mm3 (150-450); RBC Distribution Width CV 13.5 % (11.6-14.6); RBC Distribution Width SD 46.2 fl (35.1-43.9); Red Blood Count 4.22 M/mm3 (4.6-6.2)
[2021-12-10 10:47] LABS: Vitamin B12 408 pg/mL (211-911)
[2021-12-10 10:51] LABS: Hemoglobin A1c 7.3 % (3.8-5.6)
[2021-12-10 10:52] LABS: Microalbumin,Random Urine < 5.0 mg/L (NO RANGE EST.)
[2021-12-10 11:44] LABS: AST(SGOT) 15 U/L (15-37); Alanine Aminotransfer ALT/SGPT 26 U/L (16-61); Albumin, Serum 3.7 g/dL (3.2-5.0); Alkaline Phosphatase 62 U/L (45-117); Anion Gap 6 (5-15); BUN 24 mg/dL (7-18); BUN/Creat Ratio 20.3 RATIO (10-20); Chloride 103 mmol/L (98-107); Cholesterol 129 mg/dL (200); Creatinine, Serum 1.18 mg/dL (0.70-1.30); EST Glomerular Filtration Rate 64 mL/min (>60); Est Glom Filt Rate - Afr Amer 77 mL/min (>60); Ferritin 24 ng/mL (26-388); Globulin 3.7 g/dL (2.2-4.2); Glucose 142 mg/dL (74-106); High Density Lipoprotein 52 mg/dL; Iron 59 ug/dL (65-175); Iron Binding Capacity,Total 362 ug/dL (250-450); Potassium 4.5 mmol/L (3.5-5.1); Protein, Total 7.4 g/dL (6.4-8.2); Sodium Level 139 mmol/L (136-145); Triglycerides 70 mg/dL; Very Low Density Lipoprotein 14 mg/dL (5-40)
== END | disposition home or self-care (01) ==
LOC: MFPLAB 08:09
PROVIDERS: PCP Family Medicine; Referring Provider Family Medicine; Visit Provider Family Medicine
DX: D64.9 Anemia, unspecified (principal); E11.69 Type 2 diabetes mellitus with other specified complication
CPT/HCPCS: 36415; 80053; 80061; 82043; 82570; 82607; 82728; 82746; 83036; 83540; 83550; 85025

== ENCOUNTER 2022-02-23 08:56 | Outpatient (CLI) | payer MEDICARE, OTHER, SELFPAY ==
[2022-02-23 10:15] LABS: PSA,Total - Annual Screen 1.73 ng/mL (0.00-4.00)
== END 2022-02-23 23:59 | disposition home or self-care (01) ==
LOC: LAB 08:58
PROVIDERS: PCP Family Medicine; Referring Provider Urology; Visit Provider Urology
DX: Z12.5 Encounter for screening for malignant neoplasm of prostate (principal)
CPT/HCPCS: 36415; 84153; G0103

== ENCOUNTER → 2022-04-15 | Outpatient (CLI) | payer MEDICARE, OTHER, SELFPAY ==
[2022-04-15 10:16] LABS: Absolute Lymphocyte Count 2.29 X10^3/uL (0.83-4.51); Absolute Neutrophil Count 4.3 X10^3/uL (2.0-7.7); Basophil# 0.05 X10^3/uL; Basophil% 0.7 % (0-1); Eosinophil# 0.28 X10^3/uL; Eosinophils% 3.8 % (0-5); Hematocrit 39.5 % (40-54); Hemoglobin 13.1 g/dL (13.0-16.5); Lymphocyte # 2.29 X10^3/ul (0.83-4.51); Lymphocyte % 30.9 % (19-41); Mean Corp Hgb Conc 33.2 g/dL (32-36); Mean Corpuscular Hgb 29.6 pg (27.0-32.0); Mean Corpuscular Volume 89.4 fL (80-94); Mean Platelet Vol. 10.2 fl (6.2-12.0); Monocyte# 0.53 X10^3/uL; Monocyte% 7.2 % (0-10); NRBC Flagged by Analyzer 0 % (0-5); Neutrophil # 4.25 X10^3/uL (2.7-7.7); Neutrophil % 57.3 % (47-70); Platelet Count 285 K/mm3 (150-450); Red Blood Count 4.42 M/mm3 (4.6-6.2); White Blood Count 7.4 K/mm3 (4.4-11.0)
[2022-04-15 10:27] LABS: Vitamin B12 417 pg/mL (211-911)
[2022-04-15 10:31] LABS: Hemoglobin A1c 7.6 % (3.8-5.6)
[2022-04-15 11:09] LABS: ALB/GLOB Ratio 1.1 RATIO (0.9-2.4); AST(SGOT) 16 U/L (15-37); Alanine Aminotransfer ALT/SGPT 24 U/L (16-61); Albumin, Serum 3.9 g/dL (3.2-5.0); Alkaline Phosphatase 56 U/L (45-117); Anion Gap 5 (5-15); BUN 16 mg/dL (7-18); BUN/Creat Ratio 14.7 RATIO (10-20); Calcium,Total 9.2 mg/dL (8.5-10.1); Chloride 99 mmol/L (98-107); Cholesterol 147 mg/dL (200); Creatinine, Serum 1.09 mg/dL (0.70-1.30); EST Glomerular Filtration Rate 70 mL/min (>60); Est Glom Filt Rate - Afr Amer 85 mL/min (>60); Ferritin 29 ng/mL (26-388); Globulin 3.7 g/dL (2.2-4.2); Glucose 164 mg/dL (74-106); High Density Lipoprotein 48 mg/dL; Iron 81 ug/dL (65-175); Iron Binding Capacity,Total 399 ug/dL (250-450); Potassium 4.8 mmol/L (3.5-5.1); Protein, Total 7.6 g/dL (6.4-8.2); Sodium Level 133 mmol/L (136-145); Triglycerides 88 mg/dL; Very Low Density Lipoprotein 18 mg/dL (5-40)
== END | disposition home or self-care (01) ==
LOC: MFPLAB 08:06
PROVIDERS: PCP Family Medicine; Referring Provider Family Medicine; Visit Provider Family Medicine
DX: E11.9 Type 2 diabetes mellitus without complications (principal); D64.9 Anemia, unspecified
CPT/HCPCS: 36415; 80053; 80061; 82607; 82728; 82746; 83036; 83540; 83550; 85025

== ENCOUNTER → 2022-07-16 | Outpatient (CLI) | payer MEDICARE, OTHER, SELFPAY ==
[2022-07-16 10:19] LABS: Absolute Lymphocyte Count 1.76 X10^3/uL (0.83-4.51); Absolute Neutrophil Count 5.2 X10^3/uL (2.0-7.7); Basophil# 0.05 X10^3/uL; Basophil% 0.7 % (0-1); Eosinophil# 0.15 X10^3/uL; Hematocrit 40.8 % (40-54); Hemoglobin 12.9 g/dL (13.0-16.5); Lymphocyte # 1.76 X10^3/ul (0.83-4.51); Lymphocyte % 22.9 % (19-41); Mean Corp Hgb Conc 31.6 g/dL (32-36); Mean Corpuscular Hgb 29.3 pg (27.0-32.0); Mean Corpuscular Volume 92.5 fL (80-94); Mean Platelet Vol. 10.3 fl (6.2-12.0); Monocyte# 0.48 X10^3/uL; Monocyte% 6.3 % (0-10); NRBC Flagged by Analyzer 0 % (0-5); Neutrophil # 5.21 X10^3/uL (2.7-7.7); Neutrophil % 67.8 % (47-70); Platelet Count 306 K/mm3 (150-450); RBC Distribution Width CV 13.2 % (11.6-14.6); Red Blood Count 4.41 M/mm3 (4.6-6.2); White Blood Count 7.7 K/mm3 (4.4-11.0)
[2022-07-16 10:34] LABS: AST(SGOT) 24 U/L (15-37); Alanine Aminotransfer ALT/SGPT 33 U/L (16-61); Albumin, Serum 3.8 g/dL (3.2-5.0); Alkaline Phosphatase 61 U/L (45-117); Anion Gap 2 (5-15); BUN 19 mg/dL (7-18); BUN/Creat Ratio 17.8 RATIO (10-20); Calcium,Total 8.9 mg/dL (8.5-10.1); Chloride 104 mmol/L (98-107); Cholesterol 122 mg/dL (200); Creatinine, Serum 1.07 mg/dL (0.70-1.30); EST Glomerular Filtration Rate 71 mL/min (>60); Est Glom Filt Rate - Afr Amer 86 mL/min (>60); Globulin 3.7 g/dL (2.2-4.2); Glucose 163 mg/dL (74-106); High Density Lipoprotein 51 mg/dL; Phosphorus 2.3 mg/dL (2.5-4.9); Potassium 4.4 mmol/L (3.5-5.1); Protein, Total 7.5 g/dL (6.4-8.2); Sodium Level 133 mmol/L (136-145); Triglycerides 78 mg/dL; Very Low Density Lipoprotein 16 mg/dL (5-40)
[2022-07-16 10:48] LABS: PTHIN 63.6 pg/mL (18.4-80.1)
[2022-07-16 12:26] LABS: Bacteria 0 SEEN /hpf (None Seen); Mucous, Urine 0 SEEN /hpf (<or=2+); Red Blood Cells-Urine 0 SEEN /hpf (0-5); Squamous Epithelial Cells - UA 0 SEEN /hpf (0-5); White Blood Cells 0 SEEN /hpf (0-5)
[2022-07-16 15:28] LABS: Color, Urine Yellow (Yellow); Glucose, Dipstick Normal (Normal); Ketone-Dipstick Negative (Negative); Leukocyte Esterase-Dipstick Negative /ul (Negative); Nitrite-Dipstick Negative (Negative); Occult Blood-Urine Negative /ul (Negative); Protein-Dipstick Negative (Negative); Urine Bilirubin Dipstick Negative (Negative); Urine Clarity Clear (Clear); Urine Urobilinogen Normal (Normal); Urine pH 6.5 (5.0 - 8.0)
[2022-07-16 15:57] LABS: Microalbumin,Random Urine < 5.0 mg/L (NO RANGE EST.); Protein, Urine (Random) < 6.0 mg/dL (<11.9); Protein:Creat Ratio 193 mg/g CRE (0-200)
== END | disposition home or self-care (01) ==
LOC: MFPLAB 08:41
PROVIDERS: PCP Family Medicine; Visit Provider Family Medicine
DX: E11.22 Type 2 diabetes mellitus with diabetic chronic kidney disease (principal); N18.2 Chronic kidney disease, stage 2 (mild)
CPT/HCPCS: 36415; 80053; 80061; 81001; 82043; 82570; 83036; 83970; 84100; 84156; 85025

== ENCOUNTER → 2022-07-31 | Outpatient (CLI) | payer MEDICARE, OTHER, SELFPAY ==
--- NOTE | 2022-07-30 17:00 | CYST_PTH ---
PATIENT: CHELLE SUN LOC: [facility] U#:[id number] AGE/SX: 77/M ROOM: RE07/31/[address]: Dr. Teodoro Castro MD : 1945 BED: DIS: 07/31/2022 SPEC #: [id number] RECD: 07/31/22 12:26 STATUS: JULIANA HOLGER #: [id number] RACHELLE: 07/30/22 17:[address]: Teodoro Castro DEPT: SURGICAL PATHOLOGY RECD BY: Amanda Bocanegra Tissues: CYST Procedures: Surgery Specimen Level III HEADER OPERATION: Inclusion cyst PRE-OP DIAGNOSIS: Inclusion cyst on left shoulder TISSUE SUBMITTED: Inclusion cyst MICROSCOPIC DIAGNOSIS Inclusion cyst left shoulder: Fragments of epidermal inclusion cyst with focal acute inflammation. RIAN:marylou 08/03/2022 MICROSCOPIC DESCRIPTION Slides are reviewed. GROSS DESCRIPTION Received is one container labeled with the patient's name and not further designated. The specimen consists of multiple irregular fragments of nguyen-white soft tissue that in aggregate measure 3.0 x 1.5 x 0.2 cm. The specimen is totally submitted in one cassette. / SJ:rg 07/31/2022 :5 CPT: [id number]
== END | disposition home or self-care (01) ==
LOC: LABSPEC 10:21
PROVIDERS: PCP Family Medicine; Referring Provider Family Medicine; Visit Provider Family Medicine
DX: L27.0 Generalized skin eruption due to drugs and medicaments taken internally (principal)
CPT/HCPCS: 88304

== ENCOUNTER → 2022-11-18 | Outpatient (CLI) | payer MEDICARE, OTHER, SELFPAY ==
[2022-11-18 10:23] LABS: Absolute Lymphocyte Count 2.12 X10^3/uL (0.83-4.51); Absolute Neutrophil Count 4.4 X10^3/uL (2.0-7.7); Basophil# 0.06 X10^3/uL; Basophil% 0.8 % (0-1); Eosinophil# 0.27 X10^3/uL; Eosinophils% 3.6 % (0-5); Hematocrit 40.2 % (40-54); Lymphocyte # 2.12 X10^3/ul (0.83-4.51); Lymphocyte % 28.5 % (19-41); Mean Corp Hgb Conc 32.3 g/dL (32-36); Mean Corpuscular Hgb 29.3 pg (27.0-32.0); Mean Corpuscular Volume 90.5 fL (80-94); Mean Platelet Vol. 10.1 fl (6.2-12.0); Monocyte# 0.51 X10^3/uL; Monocyte% 6.9 % (0-10); NRBC Flagged by Analyzer 0 % (0-5); Neutrophil # 4.44 X10^3/uL (2.7-7.7); Neutrophil % 59.8 % (47-70); Platelet Count 275 K/mm3 (150-450); RBC Distribution Width CV 13.4 % (11.6-14.6); RBC Distribution Width SD 44.9 fl (35.1-43.9); Red Blood Count 4.44 M/mm3 (4.6-6.2); White Blood Count 7.4 K/mm3 (4.4-11.0)
[2022-11-18 10:54] LABS: AST(SGOT) 18 U/L (15-37); Alanine Aminotransfer ALT/SGPT 27 U/L (16-61); Albumin, Serum 3.8 g/dL (3.2-5.0); Alkaline Phosphatase 61 U/L (45-117); Anion Gap 4 (5-15); BUN 17 mg/dL (7-18); Calcium,Total 8.8 mg/dL (8.5-10.1); Chloride 102 mmol/L (98-107); Cholesterol 132 mg/dL (200); Creatinine, Serum 1.13 mg/dL (0.70-1.30); EST Glomerular Filtration Rate 67 mL/min (>60); Est Glom Filt Rate - Afr Amer 81 mL/min (>60); Globulin 3.7 g/dL (2.2-4.2); Glucose 162 mg/dL (74-106); High Density Lipoprotein 52 mg/dL; Potassium 4.8 mmol/L (3.5-5.1); Protein, Total 7.5 g/dL (6.4-8.2); Sodium Level 134 mmol/L (136-145); Triglycerides 80 mg/dL; Very Low Density Lipoprotein 16 mg/dL (5-40)
[2022-11-18 11:41] LABS: Hemoglobin A1c 7.4 % (3.8-5.6)
== END | disposition home or self-care (01) ==
LOC: MFPLAB 08:09
PROVIDERS: PCP Family Medicine; Visit Provider Family Medicine
DX: E11.9 Type 2 diabetes mellitus without complications (principal)
CPT/HCPCS: 36415; 80053; 80061; 83036; 85025

== ENCOUNTER → 2023-02-18 | Outpatient (CLI) | payer MEDICARE, OTHER, SELFPAY ==
[2023-02-18 10:17] LABS: Absolute Lymphocyte Count 2.17 X10^3/uL (0.83-4.51); Absolute Neutrophil Count 4.7 X10^3/uL (2.0-7.7); Basophil# 0.05 X10^3/uL; Basophil% 0.6 % (0-1); Eosinophil# 0.27 X10^3/uL; Eosinophils% 3.5 % (0-5); Hematocrit 40.6 % (40-54); Hemoglobin 13.2 g/dL (13.0-16.5); Lymphocyte # 2.17 X10^3/ul (0.83-4.51); Lymphocyte % 28.1 % (19-41); Mean Corp Hgb Conc 32.5 g/dL (32-36); Mean Corpuscular Hgb 29.3 pg (27.0-32.0); Mean Corpuscular Volume 90.2 fL (80-94); Mean Platelet Vol. 10.1 fl (6.2-12.0); Monocyte# 0.52 X10^3/uL; Monocyte% 6.7 % (0-10); NRBC Flagged by Analyzer 0 % (0-5); Neutrophil # 4.67 X10^3/uL (2.7-7.7); Neutrophil % 60.7 % (47-70); Platelet Count 280 K/mm3 (150-450); RBC Distribution Width CV 13.1 % (11.6-14.6); White Blood Count 7.7 K/mm3 (4.4-11.0)
[2023-02-18 10:46] LABS: Hemoglobin A1c 7.4 % (3.8-5.6)
[2023-02-18 10:52] LABS: ALB/GLOB Ratio 1.1 RATIO (0.9-2.4); AST(SGOT) 17 U/L (15-37); Alanine Aminotransfer ALT/SGPT 27 U/L (16-61); Albumin, Serum 3.9 g/dL (3.2-5.0); Alkaline Phosphatase 60 U/L (45-117); Anion Gap 8 (5-15); BUN 19 mg/dL (7-18); BUN/Creat Ratio 17.1 RATIO (10-20); Calcium,Total 8.7 mg/dL (8.5-10.1); Chloride 98 mmol/L (98-107); Cholesterol 128 mg/dL (200); Creatinine, Serum 1.11 mg/dL (0.70-1.30); EST Glomerular Filtration Rate 68 mL/min (>60); Est Glom Filt Rate - Afr Amer 83 mL/min (>60); Globulin 3.6 g/dL (2.2-4.2); Glucose 157 mg/dL (74-106); High Density Lipoprotein 55 mg/dL; Potassium 4.7 mmol/L (3.5-5.1); Protein, Total 7.5 g/dL (6.4-8.2); Sodium Level 134 mmol/L (136-145); Triglycerides 79 mg/dL; Very Low Density Lipoprotein 16 mg/dL (5-40)
== END | disposition home or self-care (01) ==
LOC: MFPLAB 08:04
PROVIDERS: PCP Family Medicine; Visit Provider Family Medicine
DX: E11.8 Type 2 diabetes mellitus with unspecified complications (principal)
CPT/HCPCS: 36415; 80053; 80061; 83036; 85025

== ENCOUNTER → 2023-02-25 | Outpatient (CLI) | payer MEDICARE, OTHER, SELFPAY ==
[2023-02-25 10:03] LABS: PSA,Total- Diagnostic 1.47 ng/mL (0.0-4.0)
== END | disposition home or self-care (01) ==
LOC: LAB 08:37
PROVIDERS: PCP Family Medicine; Referring Provider Nurse Practitioner; Visit Provider Nurse Practitioner
DX: C61 Malignant neoplasm of prostate (principal)
CPT/HCPCS: 36415; 84153

== ENCOUNTER → 2023-04-07 | Outpatient (CLI) | payer MEDICARE, OTHER, SELFPAY ==
[2023-04-07 10:26] LABS: Absolute Lymphocyte Count 1.57 X10^3/uL (0.83-4.51); Absolute Neutrophil Count 7.4 X10^3/uL (2.0-7.7); Basophil# 0.04 X10^3/uL; Basophil% 0.4 % (0-1); Eosinophil# 0.11 X10^3/uL; Eosinophils% 1.2 % (0-5); Hematocrit 37.6 % (40-54); Hemoglobin 12.3 g/dL (13.0-16.5); Lymphocyte # 1.57 X10^3/ul (0.83-4.51); Lymphocyte % 16.5 % (19-41); Mean Corp Hgb Conc 32.7 g/dL (32-36); Mean Corpuscular Hgb 29.2 pg (27.0-32.0); Mean Corpuscular Volume 89.3 fL (80-94); Mean Platelet Vol. 9.8 fl (6.2-12.0); Monocyte# 0.43 X10^3/uL; Monocyte% 4.5 % (0-10); NRBC Flagged by Analyzer 0 % (0-5); Neutrophil # 7.36 X10^3/uL (2.7-7.7); Neutrophil % 77.1 % (47-70); Platelet Count 314 K/mm3 (150-450); RBC Distribution Width CV 12.9 % (11.6-14.6); RBC Distribution Width SD 42.3 fl (35.1-43.9); Red Blood Count 4.21 M/mm3 (4.6-6.2); White Blood Count 9.5 K/mm3 (4.4-11.0)
[2023-04-07 11:32] LABS: AST(SGOT) 14 U/L (15-37); Alanine Aminotransfer ALT/SGPT 23 U/L (16-61); Albumin, Serum 3.6 g/dL (3.2-5.0); Alkaline Phosphatase 67 U/L (45-117); Anion Gap 7 (5-15); BUN 16 mg/dL (7-18); BUN/Creat Ratio 13.1 RATIO (10-20); Chloride 99 mmol/L (98-107); Creatinine, Serum 1.22 mg/dL (0.70-1.30); EST Glomerular Filtration Rate 61 mL/min (>60); Est Glom Filt Rate - Afr Amer 74 mL/min (>60); Globulin 3.7 g/dL (2.2-4.2); Glucose 344 mg/dL (74-106); Lipase 15 U/L (13-75); Potassium 4.5 mmol/L (3.5-5.1); Protein, Total 7.3 g/dL (6.4-8.2); Sodium Level 132 mmol/L (136-145)
== END | disposition home or self-care (01) ==
LOC: MFPLAB 09:12
PROVIDERS: PCP Family Medicine; Visit Provider Family Medicine
DX: R10.11 Right upper quadrant pain (principal)
CPT/HCPCS: 36415; 80053; 83690; 85025

== ENCOUNTER → 2023-04-08 | Outpatient (CLI) | payer MEDICARE, OTHER, SELFPAY ==
--- NOTE | 2023-04-08 10:12 | US_ITS ---
EXAM: US ABDOMEN LIMITED, RIGHT UPPER QUADRANT CLINICAL INDICATION: ruq pain, evaluate gallbladder TECHNIQUE: Real-time ultrasound of the right upper quadrant with image documentation. COMPARISON: No relevant prior studies available. FINDINGS: LIVER: The liver measures 13.6 cm in length. There is normal echotexture. No intrahepatic biliary ductal dilation. GALLBLADDER: The gallbladder wall measures 2 mm. There are small echogenic foci adherent to the gallbladder wall which may represent adenomyomatosis. No shadowing gallstone. No pericholecystic fluid. Negative sonographic Brumfield''s sign. COMMON BILE DUCT: Common bile duct measures 4 mm. The proximal common bile duct is within normal limits for the patient''s age. PANCREAS: Unremarkable as visualized. No focal abnormality is demonstrated in the pancreas. No pancreatic ductal dilatation. RIGHT KIDNEY: Right kidney measures 8.6 x 4.4 x 5.6 cm. Right cortex measures 1.4 cm. There is no hydronephrosis. No shadowing calculus. No focal lesion or perinephric collection is demonstrated. US/Abdomen Limited IMPRESSION: No acute findings in the right upper quadrant. Electronically Signed: Ford Parar MD at 16:49 EST ,
== END | disposition home or self-care (01) ==
LOC: US 10:11
PROVIDERS: PCP Family Medicine; Referring Provider Family Medicine; Visit Provider Family Medicine
DX: R10.11 Right upper quadrant pain (principal)
CPT/HCPCS: 76705

== ENCOUNTER → 2023-05-21 | Outpatient (CLI) | payer MEDICARE, OTHER, SELFPAY ==
--- OUTSIDE RECORDS SUMMARY | 2023-05-21 08:35 | XMS RPT_ITS | CCD ---
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 Name Role Phone Dior LUCERO, Karen Vaughn Unavailable Allergies Allergy Classification Reported Allergen(s) Allergy Type Date of Onset Reaction(s) Facility (2 sources) cephalexin Drug Allergy 02-15-2017 [facility] Work Phone: (2 sources) oxyCODONE Drug Allergy 02-15-2017 [facility] Work Phone: (2 sources) sertraline Drug Allergy 02-15-2017 [facility] Work Phone: (2 sources) testosterone Drug Allergy 02-15-2017 [facility] Work Phone: Medications Completed/Discontinued Medications Medication Drug Class(es) Dates Sig (Normalized) Sig (Original) aspirin 81 mg oral tablet (2 sources) Nonsteroidal Anti-inflammatory Drug Start: 02-15-2017 take 1 tablet by mouth once daily ASPIRIN 81 MG TABS One tablet by mouth daily ASPIRIN [id number] Divina Lund chondroitin sulfates / glucosamine (2 sources) Start: 02-15-2017 take 1 tablet by mouth twice daily GLUCOSAMINE CHONDR COMPLEX 500-400 MG CAPS One tablet by mouth twice daily GLUCOSAMINE-CHONDR OITIN [id number] Divina Lund fluticasone propionate 0.05 mg/actuat metered dose nasal spray (2 sources) Corticosteroid Start: 02-15-2017 FLONASE 50 MCG/ACT SUSP Use as Directed FLUTICASONE PROPIONATE [id number] Divina Lund glimepiride 1 mg oral tablet (2 sources) Sulfonylurea Start: 02-15-2017 take 1 tablet by mouth once daily AMARYL 1 MG TABS One tablet by mouth daily GLIMEPIRIDE [id number] Divina Lund lisinopril 5 mg oral tablet (2 sources) Angiotensin Converting Enzyme Inhibitor Start: 02-15-2017 take 1 tablet by mouth once daily LISINOPRIL 5 MG TABS One tablet by mouth daily LISINOPRIL [id number] Divina Lund modified 24 hr metFORMIN hydrochloride 500 mg extended release oral tablet (2 sources) Biguanide Start: 02-15-2017 take 2 tablets by mouth twice daily METFORMIN HCL ER (MOD) 500 MG [id number]-[id number] Two tablets by mouth twice daily METFORMIN HCL [id number] Divina Lund MULTIPLE VITAMINS-MINERALS (2 sources) Start: 02-15-2017 take 1 tablet by mouth once daily DAILY MULTIVITAMIN CAPS One tablet by mouth daily MULTIPLE VITAMINS-MINERALS [id number] Divina Lund nortriptyline 10 mg oral capsule (2 sources) Tricyclic Antidepressant Start: 02-15-2017 take 1 tablet by mouth once daily at bedtime PAMELOR 10 MG CAPS One tablet by mouth daily at bedtime NORTRIPTYLINE HCL 62268518014 Divina Lund pravastatin sodium 20 mg oral tablet (2 sources) HMG-CoA Reductase Inhibitor Start: 02-15-2017 take 1 tablet by mouth once daily PRAVACHOL 20 MG TABS One tablet by mouth daily PRAVASTATIN SODIUM [id number] Divina Lund tadalafil 20 mg oral tablet (2 sources) Phosphodiesterase 5 Inhibitor Start: 02-15-2017 take 1 tablet by mouth once daily as needed CIALIS 20 MG TABS One tablet by mouth daily as needed TADALAFIL [id number] Divina Lund triamcinolone acetonide 1 mg/ml topical cream (2 sources) Corticosteroid Start: 02-15-2017 TRIAMCINOLONE ACETONIDE 0.1 % CREA use as directed TRIAMCINOLONE ACETONIDE [id number] Divina Lund Problems Active Problems Problem Classification Problem Date Documented Da te Episodic/Chronic Diabetes mellitus without complication (2 sources) Type 2 diabetes mellitus; Translations: [Type 2 diabetes mellitus without complications] Onset: 02-15-2017 02-15-2017 Chronic Disorders of lipid metabolism (2 sources) Hyperlipidemia; Translations: [Hyperlipidemia, unspecified] Onset: 02-15-2017 02-15-2017 Chronic Diverticulosis and diverticulitis (2 sources) Diverticular disease of colon; Translations: [Diverticulosis of large intestine without perforation or abscess without bleeding] Onset: 02-15-2017 02-15-2017 Chronic Hyperplasia of prostate (2 sources) Benign prostatic hypertrophy without outflow obstruction; Translations: [Benign prostatic hyperplasia without lower urinary tract symptoms] Onset: 02-15-2017 02-15-2017 Chronic Past or Other Problems Problem Classification Problem Date Documented Da te Episodic/Chronic Other and unspecified benign neoplasm (2 sources) Benign neoplasm of colon; Translations: [Benign neoplasm of colon, unspecified] Onset: 02-15-2017 02-15-2017 Episodic Other skin disorders (2 sources) Infected sebaceous cyst; Translations: [Sebaceous cyst] Onset: 02-15-2017 02-15-2017 Episodic Results Test Name Value Interpretation Reference Range Facil ity Vital Signs Date Time Vital Sign Value Performing Clinician Facility 02-15-2017 13:06-0500 BMI (Body Mass Index) 22.89 kg/m2 Karen Rader PA-C [facility] Work Phone: 02-15-2017 13:06-0500 Body Temperature 97.9 [degF] Karen Rader PA-C [facility] Work Phone: 02-15-2017 13:06-0500 BP Diastolic 76 mm[Hg] Karen Rader PA-C [facility] [employer] [facility] Work Phone: 02-15-2017 13:06-0500 BP Systolic 150 mm[Hg] Karen Rader PA-C [facility] [employer] Work Phone: 02-15-2017 13:06-0500 Height 175.26 cm Karen Rader PA-C [facility] [employer] [facility] Work Phone: 02-15-2017 13:06-0500 Pulse (Heart Rate) 90 /min Karen Radre PA-C [facility] [employer] Work Phone: 02-15-2017 13:06-0500 Respiratory Rate 18 /min Karen Dior LUCERO [facility] Work Phone: 02-15-2017 13:06-0500 Weight 70.31 kg Karen Wheelershakira LUCERO [facility] Work Phone: Procedures Date Procedure Procedure Detail Performing Clinician Start: 02-15-2017 End: 02-15-2017 Incision & drainage abscess complicated/multiple Karen Vaughn Dior LUCERO Work Phone: Plan of Treatment Date Care Activity Detail Author Start: 02-22-2017 End: 02-22-2017 Appointment Appointment [facility] Work Phone: Start: 02-15-2017 End: 02-15-2017 Appointment Appointment [facility] Work Phone: [facility] Work Phone: Additional Source Comments FOR RECORDS PERTAINING TO PATIENTS WHO ARE OR HAVE BEEN ENROLLED IN A CHEMICAL DEPENDENCY/SUBSTANCEABUSE PROGRAM, SOME INFORMATION MAY BE OMITTED. This clinical summary was aggregated from multiple sources. Caution should be exercised in using it in the provision of clinical care. This summary normalizes information from multiple sources, and as a consequence, information in this document may materially change the coding, format and clinical context of patient data. In addition, data may be omitted in some cases. CLINICAL DECISIONS SHOULD BE BASED ON THE PRIMARY CLINICAL RECORDS. [facility] [employer] [facility]. provides no warranty or guarantee of the accuracy or completeness of information in this document.
[2023-05-21 10:02] LABS: Absolute Lymphocyte Count 2.07 X10^3/uL (0.83-4.51); Absolute Neutrophil Count 7.4 X10^3/uL (2.0-7.7); Basophil# 0.05 X10^3/uL; Basophil% 0.5 % (0-1); Eosinophil# 0.34 X10^3/uL; Eosinophils% 3.2 % (0-5); Hematocrit 37.7 % (40-54); Hemoglobin 12.4 g/dL (13.0-16.5); Lymphocyte # 2.07 X10^3/ul (0.83-4.51); Lymphocyte % 19.6 % (19-41); Mean Corp Hgb Conc 32.9 g/dL (32-36); Mean Corpuscular Hgb 29.4 pg (27.0-32.0); Mean Corpuscular Volume 89.3 fL (80-94); Mean Platelet Vol. 10.2 fl (6.2-12.0); Monocyte# 0.65 X10^3/uL; Monocyte% 6.2 % (0-10); NRBC Flagged by Analyzer 0 % (0-5); Neutrophil # 7.41 X10^3/uL (2.7-7.7); Neutrophil % 70.2 % (47-70); Platelet Count 320 K/mm3 (150-450); RBC Distribution Width CV 13.4 % (11.6-14.6); RBC Distribution Width SD 43.8 fl (35.1-43.9); Red Blood Count 4.22 M/mm3 (4.6-6.2); White Blood Count 10.6 K/mm3 (4.4-11.0)
[2023-05-21 10:18] LABS: Vitamin D,25 Hydroxy 48.5 ng/mL
[2023-05-21 10:22] LABS: AST(SGOT) 17 U/L (15-37); Alanine Aminotransfer ALT/SGPT 25 U/L (16-61); Albumin, Serum 3.7 g/dL (3.2-5.0); Alkaline Phosphatase 62 U/L (45-117); Anion Gap 4 (5-15); BUN 18 mg/dL (7-18); BUN/Creat Ratio 17.6 RATIO (10-20); Chloride 104 mmol/L (98-107); Cholesterol 124 mg/dL (200); Creatinine, Serum 1.02 mg/dL (0.70-1.30); EST Glomerular Filtration Rate 75 mL/min (>60); Est Glom Filt Rate - Afr Amer 91 mL/min (>60); Globulin 3.8 g/dL (2.2-4.2); Glucose 186 mg/dL (74-106); High Density Lipoprotein 49 mg/dL; Potassium 4.9 mmol/L (3.5-5.1); Protein, Total 7.5 g/dL (6.4-8.2); Sodium Level 137 mmol/L (136-145); Triglycerides 67 mg/dL; Very Low Density Lipoprotein 13 mg/dL (5-40)
[2023-05-21 10:23] LABS: Hemoglobin A1c 8.3 % (3.8-5.6)
[2023-05-21 10:29] LABS: Protein, Urine (Random) 7.4 mg/dL (<11.9); Protein:Creat Ratio 166 mg/g CRE (0-200)
[2023-05-25 16:34] LABS: Ferritin 32 ng/mL (26-388); Iron 51 ug/dL (65-175); Iron Binding Capacity,Total 392 ug/dL (250-450)
[2023-05-25 16:37] LABS: Vitamin B12 333 pg/mL (211-911)
== END | disposition home or self-care (01) ==
LOC: MFPLAB 08:01
PROVIDERS: PCP Family Medicine; Visit Provider Family Medicine
DX: D64.9 Anemia, unspecified (principal); E11.22 Type 2 diabetes mellitus with diabetic chronic kidney disease
CPT/HCPCS: 36415; 80053; 80061; 82306; 82570; 82607; 82728; 83036; 83540; 83550; 84100; 84156; 85025

== ENCOUNTER → 2023-06-28 | Outpatient (CLI) | payer MEDICARE, OTHER, SELFPAY ==
[2023-06-28 10:45] LABS: Absolute Lymphocyte Count 2.25 X10^3/uL (0.83-4.51); Absolute Neutrophil Count 4.2 X10^3/uL (2.0-7.7); Basophil# 0.06 X10^3/uL; Basophil% 0.8 % (0-1); Eosinophil# 0.33 X10^3/uL; Eosinophils% 4.5 % (0-5); Hematocrit 35.5 % (40-54); Hemoglobin 11.2 g/dL (13.0-16.5); Lymphocyte # 2.25 X10^3/ul (0.83-4.51); Lymphocyte % 30.5 % (19-41); Mean Corp Hgb Conc 31.5 g/dL (32-36); Mean Corpuscular Hgb 28.5 pg (27.0-32.0); Mean Corpuscular Volume 90.3 fL (80-94); Mean Platelet Vol. 10.1 fl (6.2-12.0); Monocyte# 0.49 X10^3/uL; Monocyte% 6.6 % (0-10); NRBC Flagged by Analyzer 0 % (0-5); Neutrophil # 4.23 X10^3/uL (2.7-7.7); Neutrophil % 57.3 % (47-70); Platelet Count 302 K/mm3 (150-450); RBC Distribution Width SD 42.6 fl (35.1-43.9); Red Blood Count 3.93 M/mm3 (4.6-6.2); White Blood Count 7.4 K/mm3 (4.4-11.0)
[2023-06-28 11:01] LABS: Hemoglobin A1c 8.2 % (3.8-5.6)
[2023-06-28 11:30] LABS: AST(SGOT) 15 U/L (15-37); Alanine Aminotransfer ALT/SGPT 23 U/L (16-61); Albumin, Serum 3.5 g/dL (3.2-5.0); Alkaline Phosphatase 53 U/L (45-117); Anion Gap 7 (5-15); BUN 19 mg/dL (7-18); BUN/Creat Ratio 16.2 RATIO (10-20); Calcium,Total 8.8 mg/dL (8.5-10.1); Chloride 100 mmol/L (98-107); Cholesterol 130 mg/dL (200); Creatinine, Serum 1.17 mg/dL (0.70-1.30); EST Glomerular Filtration Rate 64 mL/min (>60); Est Glom Filt Rate - Afr Amer 78 mL/min (>60); Ferritin 33 ng/mL (26-388); Globulin 3.4 g/dL (2.2-4.2); Glucose 320 mg/dL (74-106); High Density Lipoprotein 43 mg/dL; Iron 84 ug/dL (65-175); Iron Binding Capacity,Total 349 ug/dL (250-450); Potassium 4.9 mmol/L (3.5-5.1); Protein, Total 6.9 g/dL (6.4-8.2); Sodium Level 134 mmol/L (136-145); Triglycerides 47 mg/dL; Very Low Density Lipoprotein 9 mg/dL (5-40)
== END | disposition home or self-care (01) ==
LOC: MFPLAB 08:08
PROVIDERS: PCP Family Medicine; Visit Provider Family Medicine
DX: D50.9 Iron deficiency anemia, unspecified (principal); E11.69 Type 2 diabetes mellitus with other specified complication; E11.59 Type 2 diabetes mellitus with other circulatory complications
CPT/HCPCS: 36415; 80053; 80061; 82728; 83036; 83540; 83550; 85025

== ENCOUNTER → 2023-08-19 | Outpatient (CLI) | payer MEDICARE, OTHER, SELFPAY ==
[2023-08-19 10:05] LABS: Absolute Lymphocyte Count 2.03 X10^3/uL (0.83-4.51); Absolute Neutrophil Count 6.2 X10^3/uL (2.0-7.7); Basophil# 0.08 X10^3/uL; Basophil% 0.8 % (0-1); Eosinophil# 0.45 X10^3/uL; Eosinophils% 4.8 % (0-5); Hemoglobin 12.3 g/dL (13.0-16.5); Lymphocyte # 2.03 X10^3/ul (0.83-4.51); Lymphocyte % 21.5 % (19-41); Mean Corp Hgb Conc 32.4 g/dL (32-36); Mean Corpuscular Hgb 28.8 pg (27.0-32.0); Mean Platelet Vol. 9.6 fl (6.2-12.0); Monocyte# 0.71 X10^3/uL; Monocyte% 7.5 % (0-10); NRBC Flagged by Analyzer 0 % (0-5); Neutrophil # 6.15 X10^3/uL (2.7-7.7); Neutrophil % 65.1 % (47-70); Platelet Count 351 K/mm3 (150-450); RBC Distribution Width CV 12.9 % (11.6-14.6); RBC Distribution Width SD 42.2 fl (35.1-43.9); Red Blood Count 4.27 M/mm3 (4.6-6.2); White Blood Count 9.5 K/mm3 (4.4-11.0)
[2023-08-19 10:42] LABS: AST(SGOT) 17 U/L (15-37); Alanine Aminotransfer ALT/SGPT 26 U/L (16-61); Albumin, Serum 3.7 g/dL (3.2-5.0); Alkaline Phosphatase 69 U/L (45-117); Anion Gap 6 (5-15); BUN 16 mg/dL (7-18); BUN/Creat Ratio 13.9 RATIO (10-20); Chloride 98 mmol/L (98-107); Cholesterol 131 mg/dL (200); Creatinine, Serum 1.15 mg/dL (0.70-1.30); EST Glomerular Filtration Rate 66 mL/min (>60); Est Glom Filt Rate - Afr Amer 79 mL/min (>60); Ferritin 33 ng/mL (26-388); Globulin 3.8 g/dL (2.2-4.2); Glucose 168 mg/dL (74-106); High Density Lipoprotein 55 mg/dL; Iron 54 ug/dL (65-175); Iron Binding Capacity,Total 381 ug/dL (250-450); PERCENT IRON SATURATION 14.2 % (15.0-55.0); Potassium 5.3 mmol/L (3.5-5.1); Protein, Total 7.5 g/dL (6.4-8.2); Sodium Level 131 mmol/L (136-145); Triglycerides 81 mg/dL; Very Low Density Lipoprotein 16 mg/dL (5-40)
[2023-08-19 11:10] LABS: Hemoglobin A1c 7.7 % (3.8-5.6)
== END | disposition home or self-care (01) ==
LOC: MFPLAB 08:02
PROVIDERS: PCP Family Medicine; Visit Provider Family Medicine
DX: E11.69 Type 2 diabetes mellitus with other specified complication (principal); E11.59 Type 2 diabetes mellitus with other circulatory complications; D50.9 Iron deficiency anemia, unspecified
CPT/HCPCS: 36415; 80053; 80061; 82728; 83036; 83540; 83550; 85025

== ENCOUNTER → 2023-08-23 | Outpatient (CLI) | payer MEDICARE, OTHER, SELFPAY ==
[2023-08-23 11:06] LABS: Anion Gap 7 (5-15); BUN 20 mg/dL (7-18); BUN/Creat Ratio 17.9 RATIO (10-20); Calcium,Total 8.8 mg/dL (8.5-10.1); Chloride 97 mmol/L (98-107); Creatinine, Serum 1.12 mg/dL (0.70-1.30); EST Glomerular Filtration Rate 68 mL/min (>60); Est Glom Filt Rate - Afr Amer 82 mL/min (>60); Glucose 303 mg/dL (74-106); Potassium 4.4 mmol/L (3.5-5.1); Sodium Level 130 mmol/L (136-145)
== END | disposition home or self-care (01) ==
LOC: MFPLAB 08:12
PROVIDERS: PCP Family Medicine; Visit Provider Family Medicine
DX: E87.5 Hyperkalemia (principal)
CPT/HCPCS: 36415; 80048

== ENCOUNTER → 2023-08-26 | Outpatient (CLI) | payer MEDICARE, OTHER, SELFPAY ==
[2023-08-26 10:48] LABS: Anion Gap 6 (5-15); BUN 16 mg/dL (7-18); BUN/Creat Ratio 14.7 RATIO (10-20); Calcium,Total 8.8 mg/dL (8.5-10.1); Chloride 99 mmol/L (98-107); Creatinine, Serum 1.09 mg/dL (0.70-1.30); EST Glomerular Filtration Rate 70 mL/min (>60); Est Glom Filt Rate - Afr Amer 84 mL/min (>60); Glucose 188 mg/dL (74-106); Potassium 4.2 mmol/L (3.5-5.1); Sodium Level 131 mmol/L (136-145)
== END | disposition home or self-care (01) ==
LOC: MFPLAB 09:13
PROVIDERS: PCP Family Medicine; Visit Provider Family Medicine
DX: E11.59 Type 2 diabetes mellitus with other circulatory complications (principal)
CPT/HCPCS: 36415; 80048

== ENCOUNTER 2023-11-12 06:22 | Day surgery (SDC) | payer MEDICARE, OTHER, SELFPAY ==
[2023-11-12] VITALS (8 sets, daily range): BP systolic 93–143; BP diastolic 52–83; PULSE 62–73; RESP 14–18; TEMP 36.2–36.6; O2SAT 98–100; BMI 21.6
[2023-11-12] MEDS: Lactated Ringers 1,000 ML 15 ML IV (06:56)
[2023-11-12 07:14] LABS: Bedside Glucose 167 mg/dL (74-106)
--- NOTE | 2023-11-12 07:22 | PCM.PRE.AN2 ---
ASA Classification* ASA Classification ASA Classification: 2 Assessment & Plan Anesthesia* Anesthesia Assessment Anesthesia Assessment: Discussed sedation and/or anesthesia options, risks, benefits, and alternatives with patient/parents/legal guardian/POA. Questions invited. The patient/parents/legal guardian/POA seems to understand and agrees to proceed with anesthesia plan. Reviewed the physical assessment, medical history, allergy history and patient home medications list prior to surgery/procedure/anesthetic and documented any changes. Performed airway and anesthesia risk assessments. Anesthesia Type Anesthesia Type: MAC Anesthesia Focused Assessment* Temperature: 97.2 F Pulse Rate: 73 Blood Pressure: 143/83 Respiratory Rate: 16 Pulse Ox: 100 Airway Assessment Mouth opens: >3 cm Mallampati Score: II Focused Labs Anesthesia Preop lab: CBC WBC 9.5 K/mm3 (4.4-11.0) 08/19/23 08:02 RBC 4.27 M/mm3 (4.6-6.2) L 08/19/23 08:02 Hgb 12.3 g/dL (13.0-16.5) L 08/19/23 08:02 Hct 38.0 % (40-54) L 08/19/23 08:02 Plt Count 351 K/mm3 (150-450) 08/19/23 08:02 CHEMISTRY Potassium 4.2 mmol/L (3.5-5.1) 08/26/23 09:13 Sodium 131 mmol/L (136-145) L 08/26/23 09:13 Phosphorus 3.0 mg/dL (2.5-4.9) 05/21/23 08:01 BUN 16 mg/dL (7-18) 08/26/23 09:13 Creatinine 1.09 mg/dL (0.70-1.30) 08/26/23 09:13 Glucose 188 mg/dL (74-106) H 08/26/23 09:13 POC Glucose 167 mg/dL (74-106) H 11/12/23 06:49 TSH 0.73 uIU/mL (0.358-3.74) 08/08/21 08:23 COAG Pre-Assessment Diagnosis/Proposed Procedure Planned Operative Procedure(s): EGD Anesthesia History Anesthesia History - election judge: Anesthesia History - election judge Hx Hospitalization No 11/10/23 09:14 Any Problems With Anesthesia No 11/10/23 09:14 Cholinesterase deficiency No 11/10/23 09:14 You/Your Family Experience No 11/10/23 09:14 fever (hyperthermia) with Relationship Recent Exposure to Contagious No 11/12/23 06:38 Disease Does patient have nerve No 11/10/23 09:14 stimulator Patient instructed to have device shut off --Does patient have Pacemaker No 11/12/23 06:38 or ICD? When Was Last Pacemaker Check QUESTION #4 FULL TEXT: You/Your Family Experience fever (hyperthermia) with Anesthesia Last Oral Intake Last Oral intake: Last Oral Intake NPO since 00:00 11/12/23 06:38 Meds taken in AM with sips of water? Meds patient instructed to take am of surgery PONV PONV - election judge: PONV - election judge Female No 11/10/23 09:14 HX of Motion Sickness No 11/10/23 09:14 HX of N/V After Surgery No 11/10/23 09:14 Non-Smoker Yes 11/10/23 09:14 Duration of Surgery greater No 11/10/23 09:14 than 60 minutes Number of Risk Factors 1 11/10/23 09:14 PONV Score Low Risk 11/10/23 09:14 Height & Weight Height & Weight: Anesthesia: Height & Weight Height 5 ft 8 in 11/12/23 06:38 Weight: 64.41 kg 11/12/23 06:38 Body Mass Index (BMI) 21.6 11/12/23 06:38 Respiratory Assessment Respiratory Assessment - election judge: Respiratory Tract Infection Hx - election judge Hx Respiratory Tract Infection No 11/10/23 09:14 STOP Sleep Apnea STOP Sleep Apnea - election judge: STOP Sleep Apnea - election judge Hx Hypertension Yes: CONTROLLED ON MED 11/10/23 09:14 Hx Sleep Apnea No 11/10/23 09:14 CPAP BIPAP Do you snore loudly (louder No 11/10/23 09:14 than talking or can be heard Do you often feel tired/ No 11/10/23 09:14 fatigued/ sleepy during daytime? Has anyone observed you stop No 11/10/23 09:14 breathing during sleep? STOP Results Negative 11/10/23 09:14 QUESTION #5 FULL TEXT : Do you snore loudly (louder than talking or can be heard through closed doors)? 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 Specify any problems Hx of Preganancy in last 3 N/A 11/10/23 09:14 Months Nurse Filling Out Transfusion VCHRISTIN 11/10/23 09:14 & Questions: Date: 11/10/23 11/10/23 09:14 Time: 09:16 11/10/23 09:14 Patient unable to answer at this time (ie. confused, unrespo /Reproduction History /Reproductive History - election judge: /Reproductive Hx- election judge Hx Now Gestational Age (in weeks): EDC: Hx Hx Para Hx Section SAB Active Medications Active Medications: Current Medications Generic Name Dose Route Start Last Admin Trade Name Freq PRN Reason Stop Dose Admin Lactated Ringer's 1,000 mls @ 15 mls/hr 11/12/23 06:30 11/12/23 06:56 IV 15 mls/hr .Q48H PAULA Administration PFSH Medical History Wears dentures Wears glasses Diabetes Arthritis High cholesterol History of diverticulitis Non-smoker Hypertension GERD (gastroesophageal reflux disease) Screening for malignant neoplasm of intestine Benign neoplasm of colon Hypertrophy of prostate without urinary obstruction Laceration of ear HLD (hyperlipidemia) Diverticular disease of colon Type II diabetes mellitus, uncontrolled Home Medications ?Medication ?Instructions ?Recorded ?Last Taken ?Type aspirin 81 mg tablet,delayed 81 mg PO DAILY 09/17/15 09/16/15 History release metformin 500 mg tablet,extended 1,000 mg PO BID 09/17/15 09/17/15 History release 24 hr ljxkbcmf-sfe-qyvet acid 0.4 1 ea PO DAILY 09/17/15 09/17/15 History mg-lycopene 300 mcg-lutein 250 mcg tablet pravastatin 20 mg tablet 20 mg PO DAILY 09/17/15 09/16/15 History ibuprofen 200 mg tablet 600 mg PO BID PRN pain 05/10/19 Unknown History amlodipine 10 mg tablet 10 mg PO QDAY 09/15/23 11/05/23 History famotidine 20 mg tablet 20 mg PO QDAY 09/15/23 Unknown History finasteride 5 mg tablet 5 mg PO DAILY 09/15/23 Unknown History glipizide 5 mg tablet 5 mg PO DAILY 09/15/23 Unknown History solifenacin 10 mg tablet 10 mg PO DAILY 09/15/23 Unknown History inulin-sorbitol 2 gram chewable 1 tab PO DAILY 11/10/23 Unknown History tablet (Fiber Supplement (inulin)) lisinopril 5 mg tablet 5 mg PO DAILY 11/10/23 Unknown History Allergy/AdvReac Type Severity Reaction Status Date / Time cephalexin monohydrate (From AdvReac Diarrhea Verified 11/12/23 06:37 Keflex) oxycodone AdvReac Other Verified 11/12/23 06:37 sertraline HCl (From Zoloft) AdvReac Upset Verified 11/12/23 06:37 Stomach Family History Mother Diabetes Heart disease Father Heart disease Surgical History Hx of external ear surgery S/P cataract extraction Hx of tonsillectomy Hx of left inguinal hernia repair History of total cystectomy S/P right rotator cuff repair S/P right inguinal hernia repair S/P colonoscopy Social History Smoking Status: Never smoker second hand exposure: No alcohol intake: never substance use type: does not use caffeine: Yes what type of physical activity do you participate in: walking frequency: 5-6 times per week seatbelt use: always Review of Systems (Anesthesia) ROS Narrative System reviewed and no additional complaints, except as documented.
--- NOTE | 2023-11-12 07:25 | HP.PCM_ITS ---
History and Physical Date of Admission: 11/12/23 Intake Vital Signs 09/15/2407:06 Height 5 ft 8 in Weight: 144 lb BMI 21.9 BP 171/76 H Blood Pressure Location Rt brachial Position Sitting Respiration 18 Intake Visit Reasons: Gastroesophageal reflux disease (GERD) Chief Complaint: GERD Pool Manager Required: No Is patient in pain?: No Allergies testosterone (From AndroGel) Allergy (Verified 09/15/23 08:07) Unknowncephalexin monohydrate (From Keflex) Adverse Reaction (Verified 09/15/23 08:07) Diarrheaoxycodone Adverse Reaction (Verified 09/15/23 08:07) Othersertraline HCl (From Zoloft) Adverse Reaction (Verified 09/15/23 08:07) Upset Stomach Medications ?Medication ?Instructions ?Recorded ?Confirmed ?Type aspirin 81 mg tablet,delayed 162 mg PO DAILY 09/17/15 05/10/19 History release metformin 500 mg tablet,extended 1,000 mg PO BID 09/17/15 05/10/19 History release 24 hr yjqrrkmr-cqd-oxvti acid 0.4 1 ea PO DAILY 09/17/15 05/10/19 History mg-lycopene 300 mcg-lutein 250 mcg tablet pravastatin 20 mg tablet 20 mg PO DAILY 09/17/15 05/10/19 History ibuprofen 200 mg tablet 600 mg PO BID PRN pain 05/10/19 05/10/19 History amlodipine 10 mg tablet 10 mg PO QDAY 09/15/23 09/15/23 History famotidine 20 mg tablet 20 mg PO QDAY 09/15/23 09/15/23 History finasteride 5 mg tablet mg PO 09/15/23 09/15/23 History glipizide 5 mg tablet mg PO 09/15/23 09/15/23 History solifenacin 10 mg tablet mg PO 09/15/23 09/15/23 History Have you fallen in the past year?: No PFSH Medical History GERD (gastroesophageal reflux disease) Screening for malignant neoplasm of intestine Benign neoplasm of colon Hypertrophy of prostate without urinary obstruction Laceration of ear HLD (hyperlipidemia) Diverticular disease of colon Type II diabetes mellitus, uncontrolled Surgical History S/P cataract extraction Hx of tonsillectomy Hx of left inguinal hernia repair History of total cystectomy S/P right rotator cuff repair S/P right inguinal hernia repair S/P colonoscopy Family History Mother Diabetes Heart diseaseFather Heart disease Social History Smoking Status: Former smoker second hand exposure: No alcohol intake: never substance use type: does not use caffeine: Yes what type of physical activity do you participate in: walking frequency: 5-6 times per week seatbelt use: always HPI HPI HPI: Patient is a 78-year-old male here for reflux. He reports his GERD has been severe lately. He is Pepcid. He denies nausea or vomiting. He had an ultrasou nd of his gallbladder did not show any gallstones or pathology. ROS General General: Yes weight change; No appetite, fatigue, colon cancer, breast cancer or weakness HEENT HEENT: No difficulty swallowing, eye injury, eye surgery, swollen glands or hoarseness Endo Endocrine: Yes diabetes mellitus; No thyroid disease, thyroid cancer, Hair loss, heat intolerance or cold intolerance Skin Skin: No rash or changing moles Breast Breast: No left breast lump, right breast lump, nipple discharge, breast pain, abnormal mammogram, abnormal US or breast enlargement Musc Musculoskeletal: No back problems, arthritis, rheumatoid arthritis, gout or joint pain Cardio Cardiovascular: Yes high blood pressure; No murmur, pacemaker, heart disease, atrial fibrillation, heart attack, heart stent, palpitations, shortness of breat with exertion or chest pain Psych Psychiatric: No depression, anxiety or hearing voices Resp Respiratory: No shortness of breath, No sleep apnea, No cough, No COPD, No asthma, No emphysema and No wheezing Gastro Gastrointestinal: No abdominal pain, No nausea or vomiting, No diarrhea, No constipation, No blood in stool, Yes acid reflux, No hemorrhoids, No ulcers, No gallbladder problem and No black,tarry stools Gt Hematologic: No blood thinners, No blood disorders, No bleeding, No anemia and No blood clots Neuro Neurologic: No system reviewed and no additional complaints, except as documented, No as per HPI, No abnormal gait, No abnormal hearing, No abnormal movements, No abnormal speech, No behavioral changes, No burning sensations, No confusion, No convulsions, No disequilibrium, No dizziness, No localized weakness, No frequent falls, No headache(s), No lack of coordination, No loss of vision, No memory loss, No numbness, No other visual disturbances, No radicular pain, No restless legs, No sensory deficit, No syncope, No tingling, No tremor(s), No weakness and No other Exam Const General: cooperative Orientation: alert and oriented x3 HENMT Head: normal to inspection Neck Neck: normal visual inspection and full ROM Chest Chest palpation & inspection: normal inspection of the chest Resp Effort & Inspection: normal respiratory effort Auscultation: clear to auscultation bilaterally Cardio Rate: regular rate Rhythm: regular rhythm GI Inspection: non-distended Palpation: soft and nontender Skin General: no rashes or lesions noted Neuro General: patient alert and patient oriented x3 Extrem General: full ROM Psych Appearance: grossly normal Mental Status: mental status grossly normal Assessment and Plan Assessment and Plan (1) Gastroesophageal reflux disease: Plan: Plan for EGD to evaluate. I explained endoscopy in detail to the patient. I explained the risks including but not limited to stroke or heart attack with anesthesia, perforation of the GI tract, bleeding, infection. I explained that any of these could necessitate further emergency surgery. The patient underst ands and all questions were answered sufficiently. The patient wishes to proceed with procedure. Paolo Fiore MD Pager: [facility] [address] [place] [address], [address] [place] [address] Office: I have examined the patient and the H&P has been reviewed. There are no clinical changes since date of exam.
--- NOTE | 2023-11-12 07:30 | EGD_PTH ---
PATIENT: CHELLE SUN LOC: EN U#:[id number] AGE/SX: 78/M ROOM: RE11/12/[address]: Dr. Paolo Fiore MD : 1945 BED: DIS: 11/12/2023 SPEC #: [id number] RECD: 11/12/23 08:47 STATUS: JULIANA WREN #: [id number] RACHELLE: 11/12/23 07:[address]: Paolo Fiore DEPT: SURGICAL PATHOLOGY RECD BY: Brenda Ochoa ENTERED: 11/12/23 09:30 SP TYPE: EGD [facility] DR: Dr. Teodoro Castro MD Tissues: Duodenum, NOS Procedures: Surgery Specimen Level IV HEADER OPERATION: EGD with biopsies PRE-OP DIAGNOSIS: Gastroesophageal reflux disease TISSUE SUBMITTED: Duodenal ulcer biopsy MICROSCOPIC DIAGNOSIS Duodenal ulcer, biopsy: Fragments of duodenal mucosa with acute and chronic inflammation. SJMercedes 11/15/2023 MICROSCOPIC DESCRIPTION Slides are reviewed. GROSS DESCRIPTION Received in fixative is one container labeled with the patient's name and designated Duodenal ulcer biopsy. The specimen consists of multiple irregular fragments of light nguyen soft tissue that in aggregate measure 0.5 x 0.3 x 0.1 cm. The specimen is totally submitted in one cassette. 11/12/2023 TC:2 CPT:[id number]
--- NOTE | 2023-11-12 07:57 | PCM.POST.ANE ---
Anesthesia: Postop Eval I Current Vital Signs Temperature: 97.9 F Pulse Rate: 67 Blood Pressure: 95/52 Respiratory Rate: 14 Pulse Ox: 100 Oxygen Delivery Method: Room Air Assessment Airway patent: Yes Spontaneous unlabored respirations: Yes Mental status: Asleep nausea: No Vomiting: No Anesthesia Complication: No Fluid Hydration Crystalloid volume administer (ml): 400 Total IV fluid infused: 400 Progress Note Anesthesia document: Postop Eval 1 completed: Yes
--- NOTE | 2023-11-12 07:58 | OP.EGD_ITS ---
Patient Name: Evan Quiroga Procedure Date: 11/12/2023 7:32 AM Date of : 1945 Age: 78 Procedure: Upper GI endoscopy Indications: Heartburn Providers: Paolo Fiore MD Referring MD: Paolo Fiore MD Medicines: Propofol per Anesthesia Patient Profile: This is a 78 year old male. Refer to note in patient chart for documentation of history and physical. Complications: No immediate complications. Estimated blood loss: Minimal. Procedure: Pre-Anesthesia Assessment: - Prior to the procedure, a History and Physical was performed, and patient medications and allergies were reviewed. The patient's tolerance of previous anesthesia was also reviewed. The risks and benefits of the procedure and the sedation options and risks were discussed with the patient. All questions were answered, and informed consent was obtained. Prior Anticoagulants: The patient has taken no anticoagulant or antiplatelet agents. After reviewing the risks and benefits, the patient was deemed in satisfactory condition to undergo the procedure. After obtaining informed consent, the endoscope was passed under direct vision. Throughout the procedure, the patient's blood pressure, pulse, and oxygen saturations were monitored continuously. The Endoscope was introduced through the mouth, and advanced to the duodenal bulb. The upper GI endoscopy was accomplished without difficulty. The patient tolerated the procedure well. Scope In: 7:42:02 AM Scope Out: 7:46:44 AM Total Procedure Duration Time 0 hours 4 minutes 42 seconds Findings: One non-bleeding cratered duodenal ulcer with no stigmata of bleeding was found in the first portion of the duodenum. Biopsies were taken with a cold forceps for histology. The stomach was normal. The esophagus was normal. Impression: - Non-bleeding duodenal ulcer with no stigmata of bleeding. Biopsied. - Normal stomach. - Normal esophagus. Recommendation: - Discharge patient to home. - Resume previous diet. - Use Prilosec (omeprazole) 20 mg PO BID for 8 weeks. - Repeat upper endoscopy in 8 weeks to check healing. - Continue present medications. Procedure Code(s): --- Professional --- 81072, Esophagogastroduodenoscopy, flexible, transoral; with biopsy, single or multiple Diagnosis Code(s): --- Professional --- K26.9, Duodenal ulcer, unspecified as acute or chronic, without hemorrhage or perforation R12, Heartburn CPT copyright 2022 [employer]. All rights reserved. The codes documented in this report are preliminary and upon corporate lawyer review may be revised to meet current compliance requirements. Paolo Fiore MD 11/12/2023 7:58:18 AM This report has been signed electronically. Number of Addenda: 0 Note Initiated On: 11/12/2023 7:32 AM
--- NOTE | 2023-11-12 07:58 | OP.CCLET_ITS ---
11/12/2023 Teodoro Castro [address] [place] [address] Re : Upper GI endoscopy procedure for Evan Quiroga Dear Dr. Castro This procedure was performed on Sunday, November 12, 2023. My impressions and recommendations are as follows: Impressions : - Non-bleeding duodenal ulcer with no stigmata of bleeding. Biopsied. - Normal stomach. - Normal esophagus. Recommendations : - Discharge patient to home. - Resume previous diet. - Use Prilosec (omeprazole) 20 mg PO BID for 8 weeks. - Repeat upper endoscopy in 8 weeks to check healing. - Continue present medications. My findings are described in the full procedure note, which is enclosed. If I can be of further assistance, please feel free to contact me at Doctor phone number(s): , Work: . Sincerely, Paolo Fiore MD 11/12/2023 7:58:18 AM This report has been signed electronically.
--- NOTE | 2023-11-12 12:49 | PCM.POSTANE2 ---
Anesthesia Postop Eval I Sum Postop Eval Completion status Anesthesia document: Postop Eval 1 completed: Yes Anesthesia Postop Eval I Summary Anesthesia Postop Eval I Summary: Anesthesia Postop Eval I: Assessment Summary Airway patent Yes 11/12/23 07:58 [email or web address] Spontaneous unlabored Yes 11/12/23 07:58 [email or web address] respirations Mental status Asleep 11/12/23 07:58 [email or web address] nausea No 11/12/23 07:58 [email or web address] Vomiting No 11/12/23 07:58 [email or web address] Anesthesia Postop Eval I: Fluid Summary Crystalloid volume administer 400 11/12/23 07:58 [email or web address] (ml) Colloids volume administered ( ml) Blood Product volume administered (ml) Total IV fluid infused 400 11/12/23 07:58 [email or web address] Anesthesia Postop Eval I: Summary Notes Anesthesia Complication No 11/12/23 07:58 [email or web address] Anesthesia Complication Comment: Post-operative progress note Anesthesia: Postop Eval II Evaluation Mental status: Awake Pain Level: 0 nausea: No Vomiting: No
== END 2023-11-12 08:28 | disposition home or self-care (01) ==
LOC: EN 06:23 → AC 06:24
PROVIDERS: PCP Family Medicine; Referring Provider Family Medicine; Visit Provider Surgery
PROC: 0DJ08ZZ Inspection of Upper Intestinal Tract, Via Natural or Artificial Opening Endoscopic (ICD-10-PCS; CPT 43235; principal; 2023-11-12 07:25)
DX: K21.9 Gastro-esophageal reflux disease without esophagitis (principal); E11.9 Type 2 diabetes mellitus without complications; K26.9 Duodenal ulcer, unspecified as acute or chronic, without hemorrhage or perforation; E78.5 Hyperlipidemia, unspecified; Z87.891 Personal history of nicotine dependence; Z79.84 Long term (current) use of oral hypoglycemic drugs; Z79.899 Other long term (current) drug therapy; Z98.49 Cataract extraction status, unspecified eye; Z90.6 Acquired absence of other parts of urinary tract
CPT/HCPCS: 43239; 82962; 88305; J7120; J2405

== ENCOUNTER → 2023-11-19 | Outpatient (CLI) | payer MEDICARE, OTHER, SELFPAY ==
[2023-11-19 10:24] LABS: Absolute Lymphocyte Count 1.76 X10^3/uL (0.83-4.51); Absolute Neutrophil Count 5.4 X10^3/uL (2.0-7.7); Basophil# 0.07 X10^3/uL; Basophil% 0.9 % (0-1); Eosinophil# 0.34 X10^3/uL; Eosinophils% 4.1 % (0-5); Hematocrit 35.6 % (40-54); Hemoglobin 11.6 g/dL (13.0-16.5); Lymphocyte # 1.76 X10^3/ul (0.83-4.51); Lymphocyte % 21.4 % (19-41); Mean Corp Hgb Conc 32.6 g/dL (32-36); Mean Corpuscular Hgb 28.4 pg (27.0-32.0); Mean Platelet Vol. 10.2 fl (6.2-12.0); Monocyte# 0.63 X10^3/uL; Monocyte% 7.7 % (0-10); NRBC Flagged by Analyzer 0 % (0-5); Neutrophil # 5.39 X10^3/uL (2.7-7.7); Neutrophil % 65.7 % (47-70); Platelet Count 308 K/mm3 (150-450); RBC Distribution Width CV 13.5 % (11.6-14.6); RBC Distribution Width SD 42.4 fl (35.1-43.9); Red Blood Count 4.09 M/mm3 (4.6-6.2); White Blood Count 8.2 K/mm3 (4.4-11.0)
[2023-11-19 10:48] LABS: Microalbumin,Random Urine < 5.0 mg/L (NO RANGE EST.)
[2023-11-19 10:50] LABS: AST(SGOT) 15 U/L (15-37); Alanine Aminotransfer ALT/SGPT 19 U/L (16-61); Albumin, Serum 3.7 g/dL (3.2-5.0); Alkaline Phosphatase 61 U/L (45-117); Anion Gap 7 (5-15); BUN 17 mg/dL (7-18); BUN/Creat Ratio 16.3 RATIO (10-20); Calcium,Total 9.2 mg/dL (8.5-10.1); Chloride 99 mmol/L (98-107); Cholesterol 137 mg/dL (200); Creatinine, Serum 1.04 mg/dL (0.70-1.30); EST Glomerular Filtration Rate 74 mL/min (>60); Est Glom Filt Rate - Afr Amer 89 mL/min (>60); Ferritin 36 ng/mL (26-388); Globulin 3.6 g/dL (2.2-4.2); Glucose 172 mg/dL (74-106); High Density Lipoprotein 47 mg/dL; Iron 65 ug/dL (65-175); Iron Binding Capacity,Total 380 ug/dL (250-450); Potassium 4.8 mmol/L (3.5-5.1); Protein, Total 7.3 g/dL (6.4-8.2); Sodium Level 132 mmol/L (136-145); Triglycerides 73 mg/dL; Very Low Density Lipoprotein 15 mg/dL (5-40)
[2023-11-19 11:35] LABS: Hemoglobin A1c 7.5 % (3.8-5.6)
== END | disposition home or self-care (01) ==
LOC: MFPLAB 08:08
PROVIDERS: PCP Family Medicine; Visit Provider Family Medicine
DX: D50.9 Iron deficiency anemia, unspecified (principal); E11.8 Type 2 diabetes mellitus with unspecified complications
CPT/HCPCS: 36415; 80053; 80061; 82043; 82570; 82728; 83036; 83540; 83550; 85025

== ENCOUNTER 2024-01-07 08:44 | Day surgery (SDC) | payer MEDICARE, OTHER, SELFPAY ==
[2024-01-07] VITALS (7 sets, daily range): BP systolic 87–134; BP diastolic 52–75; PULSE 67–81; RESP 14–18; TEMP 36.6–36.7; O2SAT 94–100; BMI 22.4
--- NOTE | 2024-01-07 08:51 | PRE.ANES_ITS ---
ASA Classification* ASA Classification ASA Classification: 2 Assessment & Plan Anesthesia* Anesthesia Assessment Anesthesia Assessment: Discussed sedation and/or anesthesia options, risks, benefits, and alternatives with patient/parents/legal guardian/POA. Questions invited. The patient/parents/legal guardian/POA seems to understand and agrees to proceed with anesthesia plan. Reviewed the physical assessment, medical history, allergy history and patient home medications list prior to surgery/procedure/anesthetic and documented any changes. Performed airway and anesthesia risk assessments. Anesthesia Type Anesthesia Type: MAC (see written pre anesthesia record for full assessment) Anesthesia Focused Assessment* Airway Assessment Mouth opens: >3 cm Mallampati Score: II Focused Labs Anesthesia Preop lab: CBC WBC 8.2 K/mm3 (4.4-11.0) 11/19/23 08:08 RBC 4.09 M/mm3 (4.6-6.2) L 11/19/23 08:08 Hgb 11.6 g/dL (13.0-16.5) L 11/19/23 08:08 Hct 35.6 % (40-54) L 11/19/23 08:08 Plt Count 308 K/mm3 (150-450) 11/19/23 08:08 CHEMISTRY Potassium 4.8 mmol/L (3.5-5.1) 11/19/23 08:08 Sodium 132 mmol/L (136-145) L 11/19/23 08:08 Phosphorus 3.0 mg/dL (2.5-4.9) 05/21/23 08:01 BUN 17 mg/dL (7-18) 11/19/23 08:08 Creatinine 1.04 mg/dL (0.70-1.30) 11/19/23 08:08 Glucose 172 mg/dL (74-106) H 11/19/23 08:08 POC Glucose 167 mg/dL (74-106) H 11/12/23 06:49 TSH 0.73 uIU/mL (0.358-3.74) 08/08/21 08:23 COAG Pre-Assessment Diagnosis/Proposed Procedure Planned Operative Procedure(s): EGD Anesthesia History 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 When Was Last Pacemaker Check QUESTION #4 FULL TEXT: You/Your Family Experience fever (hyperthermia) with Anesthesia Last Oral Intake Last Oral intake: Last Oral Intake NPO since Meds taken in AM with sips of water? 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 Female No 01/05/24 12:07 HX of Motion Sickness No 01/05/24 12:07 HX of N/V After Surgery No 01/05/24 12:07 Non-Smoker Yes 01/05/24 12:07 Duration of Surgery greater No 01/05/24 12:07 than 60 minutes Number of Risk Factors 1 01/05/24 12:07 PONV Score Low Risk 01/05/24 12:07 Height & Weight Height & Weight: Anesthesia: Height & Weight Height 5 ft 8 in 11/12/23 06:38 Respiratory Assessment Respiratory Assessment - graining machine operator: Respiratory Tract Infection Hx - graining machine operator Hx Respiratory Tract Infection No 01/05/24 12:07 STOP Sleep Apnea STOP Sleep Apnea - graining machine operator: STOP Sleep Apnea - graining machine operator Hx Hypertension Yes: CONTROLLED ON MED 01/05/24 12:07 Hx Sleep Apnea No 01/05/24 12:07 CPAP BIPAP Do you snore loudly (louder No 01/05/24 12:07 than talking or can be heard Do you often feel tired/ No 01/05/24 12:07 fatigued/ sleepy during daytime? Has anyone observed you stop No 01/05/24 12:07 breathing during sleep? STOP Results Negative 01/05/24 12:07 QUESTION #5 FULL TEXT : Do you snore loudly (louder than talking or can be heard through closed doors)? 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 Specify any problems Hx of Preganancy in last 3 N/A 01/05/24 12:07 Months Nurse Filling Out Transfusion VCHRISTIN 01/05/24 12:07 & Questions: Date: 01/05/24 01/05/24 12:07 Time: 12:08 01/05/24 12:07 Patient unable to answer at this time (ie. 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: /Reproductive Hx- graining machine operator Hx Now Gestational Age (in weeks): EDC: Hx Hx Para Hx Section SAB PFSH Medical History Wears dentures Wears glasses Diabetes Arthritis High cholesterol History of diverticulitis Non-smoker Hypertension GERD (gastroesophageal reflux disease) Screening for malignant neoplasm of intestine Benign neoplasm of colon Hypertrophy of prostate without urinary obstruction Laceration of ear HLD (hyperlipidemia) Diverticular disease of colon Type II diabetes mellitus, uncontrolled Home Medications ?Medication ?Instructions ?Recorded ?Last Taken ?Type aspirin 81 mg tablet,delayed 81 mg PO DAILY 09/17/15 01/01/24 History release metformin 500 mg tablet,extended 1,000 mg PO BID 09/17/15 09/17/15 History release 24 hr qeemegrm-fzj-blqrj acid 0.4 1 ea PO DAILY 09/17/15 09/17/15 History mg-lycopene 300 mcg-lutein 250 mcg tablet pravastatin 20 mg tablet 20 mg PO DAILY 09/17/15 09/16/15 History ibuprofen 200 mg tablet 600 mg PO BID PRN pain 05/10/19 Unknown History amlodipine 10 mg tablet 10 mg PO QDAY 09/15/23 11/05/23 History famotidine 20 mg tablet 20 mg PO QDAY 09/15/23 Unknown History finasteride 5 mg tablet 5 mg PO DAILY 09/15/23 Unknown History glipizide 5 mg tablet 5 mg PO DAILY 09/15/23 Unknown History solifenacin 10 mg tablet 10 mg PO DAILY 09/15/23 Unknown History inulin-sorbitol 2 gram chewable 1 tab PO DAILY 11/10/23 Unknown History tablet (Fiber Supplement (inulin)) lisinopril 5 mg tablet 5 mg PO DAILY 11/10/23 Unknown History Allergy/AdvReac Type Severity Reaction Status Date / Time cephalexin monohydrate (From AdvReac Diarrhea Verified 01/05/24 12:02 Keflex) oxycodone AdvReac Other Verified 01/05/24 12:02 sertraline HCl (From Zoloft) AdvReac Upset Verified 01/05/24 12:02 Stomach Family History Mother Diabetes Heart disease Father Heart disease Surgical History (Updated 01/05/24 @ 12:07 by Cristina Casanova) History of esophagogastroduodenoscopy (EGD) Hx of external ear surgery S/P cataract extraction Hx of tonsillectomy Hx of left inguinal hernia repair History of total cystectomy S/P right rotator cuff repair S/P right inguinal hernia repair S/P colonoscopy Social History Smoking Status: Never smoker second hand exposure: No alcohol intake: never substance use type: does not use caffeine: Yes what type of physical activity do you participate in: walking frequency: 5-6 times per week seatbelt use: always Review of Systems (Anesthesia) ROS Narrative System reviewed and no additional complaints, except as documented.
--- NOTE | 2024-01-07 09:39 | PCM.HP.STD ---
HPI - General HPI Narrative CHELLE SUN, is a 78 M who presents for follow-up EGD. Patient has severe pyloric ulcer during his last EGD and he has been on PPI for 2 months and he is here for repeat endoscopy. He denies abdominal pain or dysphagia symptoms FOR[facility]LY [facility], [facility] Medical History Wears dentures Wears glasses Diabetes Arthritis High cholesterol History of diverticulitis Non-smoker Hypertension GERD (gastroesophageal reflux disease) Screening for malignant neoplasm of intestine Benign neoplasm of colon Hypertrophy of prostate without urinary obstruction Laceration of ear HLD (hyperlipidemia) Diverticular disease of colon Type II diabetes mellitus, uncontrolled Home Medications ?Medication ?Instructions ?Recorded ?Last Taken ?Type aspirin 81 mg tablet,delayed 81 mg PO DAILY 09/17/15 01/01/24 History release metformin 500 mg tablet,extended 1,000 mg PO BID 09/17/15 01/06/24 History release 24 hr nrwetsmm-pgf-vytze acid 0.4 1 ea PO DAILY 09/17/15 01/01/24 History mg-lycopene 300 mcg-lutein 250 mcg tablet pravastatin 20 mg tablet 20 mg PO DAILY 09/17/15 01/06/24 History ibuprofen 200 mg tablet 600 mg PO BID PRN pain 05/10/19 01/04/24 History amlodipine 10 mg tablet 10 mg PO QDAY 09/15/23 01/06/24 History finasteride 5 mg tablet 5 mg PO DAILY 09/15/23 01/06/24 History glipizide 5 mg tablet 5 mg PO DAILY 09/15/23 01/06/24 History solifenacin 10 mg tablet 10 mg PO DAILY 09/15/23 01/06/24 History inulin-sorbitol 2 gram chewable 1 tab PO DAILY 11/10/23 01/06/24 History tablet (Fiber Supplement (inulin)) lisinopril 5 mg tablet 5 mg PO DAILY 11/10/23 01/07/24 History omeprazole 20 mg capsule,delayed 20 mg PO BID 01/07/24 01/06/24 History release Allergy/AdvReac Type Severity Reaction Status Date / Time cephalexin monohydrate (From AdvReac Diarrhea Verified 01/07/24 09:01 Keflex) oxycodone AdvReac Other Verified 01/07/24 09:01 sertraline HCl (From Zoloft) AdvReac Upset Verified 01/07/24 09:01 Stomach Family History Mother Diabetes Heart disease Father Heart disease Surgical History (Updated 01/05/24 @ 12:07 by Cristina Casanova) History of esophagogastroduodenoscopy (EGD) Hx of external ear surgery S/P cataract extraction Hx of tonsillectomy Hx of left inguinal hernia repair History of total cystectomy S/P right rotator cuff repair S/P right inguinal hernia repair S/P colonoscopy Social History Smoking Status: Never smoker second hand exposure: No alcohol intake: never substance use type: does not use caffeine: Yes what type of physical activity do you participate in: walking frequency: 5-6 times per week seatbelt use: always Vital Signs Vital Signs Vital Signs: 01/07/24 09:03 01/07/24 09:03 Temperature 98.0 F Temperature Source Temporal Pulse Rate 81 Respiratory Rate 18 Respiratory Pattern Normal Blood Pressure 134/75 H Blood Pressure Mean 94 Blood Pressure Source Monitor Blood Pressure Position Semi-Fowlers Blood Pressure Location Right Arm Pulse Ox 100 Oxygen Delivery Method Room Air Weight Weight: 147 lb 11.355 oz Body Mass Index (BMI) 22.4 Physical Exam Const oriented x3 HEENT normocephalic Eyes PERRL Resp normal respiratory effort and normal air movement Cardio regular rate and regular rhythm GI soft to palpation, non-tender and non-distended Extremity normal to inspection Assessment & Plan Assessment/Plan (1) GERD (gastroesophageal reflux disease): PLAN: I explained endoscopy in detail to the patient. I explained the risks including but not limited to stroke or heart attack with anesthesia, perforation of the GI tract, bleeding, infection. I explained that any of these could necessitate further emergency surgery. The patient understands and all questions were answered sufficiently. The patient wishes to proceed with procedure. Paolo Fiore MD Pager: [facility] [address] [place] [address], [address] [place] [address] Office:
[2024-01-07 09:50] LABS: Bedside Glucose 191 mg/dL (74-106)
--- NOTE | 2024-01-07 09:59 | PCM.POST.ANE ---
Anesthesia: Postop Eval I Current Vital Signs Temperature: 97.9 F Pulse Rate: 68 Blood Pressure: 87/52 Respiratory Rate: 14 Pulse Ox: 98 Oxygen Delivery Method: Room Air Assessment Airway patent: Yes Spontaneous unlabored respirations: Yes Mental status: Asleep nausea: No Vomiting: No Anesthesia Complication: No Fluid Hydration Crystalloid volume administer (ml): 20 Total IV fluid infused: 20 Progress Note Anesthesia document: Postop Eval 1 completed: Yes
--- NOTE | 2024-01-07 10:13 | PCM.POSTANE2 ---
Anesthesia Postop Eval I Sum Postop Eval Completion status Anesthesia document: Postop Eval 1 completed: Yes Anesthesia Postop Eval I Summary Anesthesia Postop Eval I Summary: Anesthesia Postop Eval I: Assessment Summary Airway patent Yes 01/07/24 10:01 [email or web address] Spontaneous unlabored Yes 01/07/24 10:01 [email or web address] respirations Mental status Asleep 01/07/24 10:01 [email or web address] nausea No 01/07/24 10:01 [email or web address] Vomiting No 01/07/24 10:01 [email or web address] Anesthesia Postop Eval I: Fluid Summary Crystalloid volume administer 20 01/07/24 10:01 [email or web address] (ml) Colloids volume administered ( ml) Blood Product volume administered (ml) Total IV fluid infused 20 01/07/24 10:01 [email or web address] Anesthesia Postop Eval I: Summary Notes Anesthesia Complication No 01/07/24 10:01 [email or web address] Anesthesia Complication Comment: Post-operative progress note Anesthesia: Postop Eval II Evaluation Mental status: Awake Pain Level: 0 nausea: No Vomiting: No
--- NOTE | 2024-01-10 15:27 | OP.EGD_ITS ---
Patient Name: Evan Quiroga Procedure Date: 01/07/2024 9:42 AM Date of : 1945 Age: 78 Procedure: Upper GI endoscopy Indications: Follow-up of acute duodenal ulcer Providers: Paolo Fiore MD Referring MD: Teodoro Castro Medicines: Propofol per Anesthesia Patient Profile: This is a 78 year old male. Refer to note in patient chart for documentation of history and physical. Complications: No immediate complications. Procedure: Pre-Anesthesia Assessment: - Prior to the procedure, a History and Physical was performed, and patient medications and allergies were reviewed. The patient's tolerance of previous anesthesia was also reviewed. The risks and benefits of the procedure and the sedation options and risks were discussed with the patient. All questions were answered, and informed consent was obtained. Prior Anticoagulants: The patient has taken no anticoagulant or antiplatelet agents. After reviewing the risks and benefits, the patient was deemed in satisfactory condition to undergo the procedure. After obtaining informed consent, the endoscope was passed under direct vision. Throughout the procedure, the patient's blood pressure, pulse, and oxygen saturations were monitored continuously. The Endoscope was introduced through the mouth, and advanced to the second part of duodenum. The upper GI endoscopy was accomplished without difficulty. The patient tolerated the procedure well. Scope In: 9:49:17 AM Scope Withdrawal Time 0 hours 0 minutes 2 seconds Scope Out: 9:51:33 AM Total Procedure Duration Time 0 hours 2 minutes 16 seconds Findings: The esophagus was normal. The stomach was normal. The examined duodenum was normal. Impression: - Normal esophagus. - Normal stomach. - Normal examined duodenum. - No specimens collected. Recommendation: - Discharge patient to home. - Resume previous diet. - Continue present medications. - Resume aspirin at prior dose tomorrow. Procedure Code(s): --- Professional --- 45501, Esophagogastroduodenoscopy, flexible, transoral; diagnostic, including collection of specimen(s) by brushing or washing, when performed (separate procedure) Diagnosis Code(s): --- Professional --- K26.3, Acute duodenal ulcer without hemorrhage or perforation CPT copyright 2021 [employer]. All rights reserved. The codes documented in this report are preliminary and upon supervisor instrument repair review may be revised to meet current compliance requirements. Paolo Fiore MD 01/07/2024 9:54:33 AM This report has been signed electronically. Number of Addenda: 0 Note Initiated On: 01/07/2024 9:42 AM
--- NOTE | 2024-01-10 15:27 | OP.CCLET_ITS ---
01/07/2024 Teodoro Castro [address] [place] [address] Re : Upper GI endoscopy procedure for Evan Quiroga Dear Dr. Castro This procedure was performed on Sunday, January 07, 2024. My impressions and recommendations are as follows: Impressions : - Normal esophagus. - Normal stomach. - Normal examined duodenum. - No specimens collected. Recommendations : - Discharge patient to home. - Resume previous diet. - Continue present medications. - Resume aspirin at prior dose tomorrow. My findings are described in the full procedure note, which is enclosed. If I can be of further assistance, please feel free to contact me at Doctor phone number(s): , Work: . Sincerely, Paolo Fiore MD 01/07/2024 9:54:33 AM This report has been signed electronically.
== END 2024-01-07 10:30 | disposition home or self-care (01) ==
LOC: EN 08:44 → AC 08:45
PROVIDERS: PCP Family Medicine; Referring Provider Family Medicine; Visit Provider Surgery
PROC: 0DJ08ZZ Inspection of Upper Intestinal Tract, Via Natural or Artificial Opening Endoscopic (ICD-10-PCS; CPT 43235; principal; 2024-01-07 09:40)
DX: K21.9 Gastro-esophageal reflux disease without esophagitis (principal); E11.9 Type 2 diabetes mellitus without complications; Z79.4 Long term (current) use of insulin; E78.00 Pure hypercholesterolemia, unspecified; Z79.82 Long term (current) use of aspirin; K26.3 Acute duodenal ulcer without hemorrhage or perforation; Z79.84 Long term (current) use of oral hypoglycemic drugs; I10 Essential (primary) hypertension; N40.0 Benign prostatic hyperplasia without lower urinary tract symptoms; Z79.899 Other long term (current) drug therapy; Z98.49 Cataract extraction status, unspecified eye; Z90.6 Acquired absence of other parts of urinary tract
CPT/HCPCS: 43235; 82962; A4216; J2405

== ENCOUNTER → 2024-03-01 | Outpatient (CLI) | payer MEDICARE, OTHER, SELFPAY ==
[2024-03-01 13:22] LABS: PSA,Total - Annual Screen 1.13 ng/mL (0.00-4.00)
== END | disposition home or self-care (01) ==
LOC: MFPLAB 09:46
PROVIDERS: PCP Family Medicine; Visit Provider Nurse Practitioner
DX: Z12.5 Encounter for screening for malignant neoplasm of prostate (principal)
CPT/HCPCS: 36415; 84153; G0103

== ENCOUNTER → 2024-03-24 | Outpatient (CLI) | payer MEDICARE, OTHER, SELFPAY ==
[2024-03-24 08:05] LABS: Bacteria 0 SEEN /hpf (None Seen); Mucous, Urine 0 SEEN /hpf (<or=2+); Red Blood Cells-Urine 0 SEEN /hpf (0-5); Squamous Epithelial Cells - UA 0 SEEN /hpf (0-5); White Blood Cells 0 SEEN /hpf (0-5)
[2024-03-24 10:14] LABS: Absolute Lymphocyte Count 1.79 X10^3/uL (0.83-4.51); Basophil# 0.07 X10^3/uL; Eosinophil# 0.28 X10^3/uL; Eosinophils% 4.2 % (0-5); Hematocrit 37.2 % (40-54); Lymphocyte # 1.79 X10^3/ul (0.83-4.51); Lymphocyte % 26.7 % (19-41); Mean Corp Hgb Conc 32.3 g/dL (32-36); Mean Corpuscular Hgb 28.4 pg (27.0-32.0); Mean Corpuscular Volume 87.9 fL (80-94); Monocyte# 0.52 X10^3/uL; Monocyte% 7.8 % (0-10); NRBC Flagged by Analyzer 0 % (0-5); Neutrophil # 4.02 X10^3/uL (2.7-7.7); Platelet Count 340 K/mm3 (150-450); RBC Distribution Width CV 13.8 % (11.6-14.6); RBC Distribution Width SD 44.8 fl (35.1-43.9); Red Blood Count 4.23 M/mm3 (4.6-6.2); White Blood Count 6.7 K/mm3 (4.4-11.0)
[2024-03-24 11:15] LABS: AST(SGOT) 19 U/L (15-37); Alanine Aminotransfer ALT/SGPT 26 U/L (16-61); Albumin, Serum 3.7 g/dL (3.2-5.0); Alkaline Phosphatase 69 U/L (45-117); Anion Gap 6 (5-15); BUN 20 mg/dL (7-18); BUN/Creat Ratio 18.3 RATIO (10-20); Calcium,Total 9.2 mg/dL (8.5-10.1); Chloride 100 mmol/L (98-107); Cholesterol 130 mg/dL (200); Creatinine, Serum 1.09 mg/dL (0.70-1.30); EST Glomerular Filtration Rate 70 mL/min (>60); Est Glom Filt Rate - Afr Amer 84 mL/min (>60); Ferritin 32 ng/mL (26-388); Globulin 3.8 g/dL (2.2-4.2); Glucose 174 mg/dL (74-106); High Density Lipoprotein 53 mg/dL; Iron 59 ug/dL (65-175); Iron Binding Capacity,Total 378 ug/dL (250-450); Magnesium 2.1 mg/dL (1.6-2.6); Phosphorus 3.1 mg/dL (2.5-4.9); Potassium 4.6 mmol/L (3.5-5.1); Protein, Total 7.5 g/dL (6.4-8.2); Sodium Level 133 mmol/L (136-145); Triglycerides 58 mg/dL; Very Low Density Lipoprotein 12 mg/dL (5-40)
[2024-03-24 11:27] LABS: Vitamin B12 440 pg/mL (211-911); Vitamin D,25 Hydroxy 30.4 ng/mL
[2024-03-24 11:29] LABS: Color, Urine Yellow (Yellow); Glucose, Dipstick Normal (Normal); Ketone-Dipstick Negative (Negative); Leukocyte Esterase-Dipstick Negative /ul (Negative); Nitrite-Dipstick Negative (Negative); Occult Blood-Urine Negative /ul (Negative); Protein-Dipstick Negative (Negative); Specific Gravity, Urine 1.015 (1.002-1.030); Urine Bilirubin Dipstick Negative (Negative); Urine Clarity Clear (Clear); Urine Urobilinogen Normal (Normal)
[2024-03-24 13:47] LABS: Hemoglobin A1c 8.6 % (3.8-5.6)
[2024-03-24 13:50] LABS: Microalbumin,Random Urine 5.8 mg/L (NO RANGE EST.); Microalbumin:Creatinine Ratio 9.2 mg/g CRE (<30 mg/g CRE); Protein, Urine (Random) 11.5 mg/dL (<11.9); Protein:Creat Ratio 184 mg/g CRE (0-200)
== END | disposition home or self-care (01) ==
LOC: MFPLAB 08:02
PROVIDERS: PCP Family Medicine; Referring Provider Family Medicine; Visit Provider Family Medicine
DX: E11.22 Type 2 diabetes mellitus with diabetic chronic kidney disease (principal); D50.9 Iron deficiency anemia, unspecified
CPT/HCPCS: 36415; 80053; 80061; 81001; 82043; 82306; 82570; 82607; 82728; 82746; 83036; 83540; 83550; 83735; 84100; 84156; 85025

== ENCOUNTER → 2024-05-23 | Outpatient (CLI) | payer MEDICARE, OTHER, SELFPAY ==
[2024-05-23 18:02] LABS: Absolute Lymphocyte Count 2.15 X10^3/uL (0.83-4.51); Absolute Neutrophil Count 4.2 X10^3/uL (2.0-7.7); Basophil# 0.06 X10^3/uL; Basophil% 0.8 % (0-1); Eosinophil# 0.26 X10^3/uL; Eosinophils% 3.6 % (0-5); Hemoglobin 12.8 g/dL (13.0-16.5); Lymphocyte # 2.15 X10^3/ul (0.83-4.51); Mean Corp Hgb Conc 31.2 g/dL (32-36); Mean Corpuscular Hgb 29.3 pg (27.0-32.0); Mean Corpuscular Volume 93.8 fL (80-94); Mean Platelet Vol. 9.8 fl (6.2-12.0); NRBC Flagged by Analyzer 0 % (0-5); Neutrophil # 4.17 X10^3/uL (2.7-7.7); Neutrophil % 58.3 % (47-70); Platelet Count 315 K/mm3 (150-450); RBC Distribution Width CV 14.1 % (11.6-14.6); RBC Distribution Width SD 48.6 fl (35.1-43.9); Red Blood Count 4.37 M/mm3 (4.6-6.2); White Blood Count 7.2 K/mm3 (4.4-11.0)
[2024-05-23 20:25] LABS: Albumin, Serum 4.5 g/dL (3.4-4.8); Anion Gap 16 (5-15); BUN 21 mg/dL (4-19); BUN/Creat Ratio 19.4 RATIO (10-20); Calcium,Total 9.7 mg/dL (7.6-11.0); Carbon Dioxide 21.2 mmol/L (21.0-32.0); Chloride 100 mmol/L (98-108); EST Glomerular Filtration Rate 69 (>60); Glucose 147 mg/dL (70-99); Sodium Level 136 mmol/L (133-145)
[2024-05-23 21:59] LABS: Hemoglobin A1c 8.6 % (<=5.6)
== END | disposition home or self-care (01) ==
LOC: MFPLAB 08:25
PROVIDERS: PCP Family Medicine; Referring Provider Student in an Organized Health Care Education/Training Program; Visit Provider Student in an Organized Health Care Education/Training Program
DX: Z01.810 Encounter for preprocedural cardiovascular examination (principal); Z01.818 Encounter for other preprocedural examination
CPT/HCPCS: 36415; 80048; 82040; 83036; 85025; 87081

== ENCOUNTER → 2024-05-26 | Outpatient (CLI) | payer MEDICARE, OTHER, SELFPAY ==
--- NOTE | 2024-05-26 07:43 | CT_ITS ---
PROCEDURE: EXTREMITY UPPER WITHOUT CONTRA REASON FOR EXAM: Primary osteoarthritis of the left shoulder. TECHNIQUE: Multiple axial tomographic images of the left shoulder were obtained without intravenous contrast administration. Coronal and sagittal reconstruction was obtained as well. COMPARISON: None. FINDINGS: Bones: No evidence of fracture. Joints: Osteoarthritis of the left acromioclavicular joint. There is narrowing of the distance between the acromion and humeral head most likely secondary to rotator cuff pathology and possible impingement. There is a [id number] degree of joint space narrowing of the left glenohumeral joint. Soft Tissues: The visualized portions of the lung are unremarkable. CT/Extremity Upper without Contra IMPRESSION: Degenerative changes of the acromioclavicular joint and glenohumeral joint as d escribed with findings suggestive of possible impingement due to rotator cuff pathology. One or more dose reduction techniques were used (e.g., Automated exposure contr ol, adjustment of the mA and/or kV according to patient size, use of iterative reconstruction technique). Reading Location: [id number]
== END | disposition home or self-care (01) ==
LOC: CT 07:41
PROVIDERS: PCP Family Medicine; Referring Provider Student in an Organized Health Care Education/Training Program; Visit Provider Student in an Organized Health Care Education/Training Program
DX: Z01.818 Encounter for other preprocedural examination (principal); Z01.810 Encounter for preprocedural cardiovascular examination; M19.012 Primary osteoarthritis, left shoulder
CPT/HCPCS: 73200; 93005

== ENCOUNTER 2024-06-22 05:26 | Day surgery (SDC) | payer MEDICARE, OTHER, SELFPAY ==
[2024-05-26 08:21] LABS: Absolute Neutrophil Count 4.3 X10^3/uL (2.0-7.7); Basophil# 0.05 X10^3/uL; Basophil% 0.8 % (0-1); Eosinophil# 0.09 X10^3/uL; Eosinophils% 1.4 % (0-5); Hematocrit 40.2 % (40-54); Hemoglobin 13.3 g/dL (13.0-16.5); Lymphocyte % 24.7 % (19-41); Mean Corp Hgb Conc 33.1 g/dL (32-36); Mean Corpuscular Hgb 29.8 pg (27.0-32.0); Mean Corpuscular Volume 90.1 fL (80-94); Monocyte% 6.2 % (0-10); NRBC Flagged by Analyzer 0 % (0-5); Neutrophil # 4.32 X10^3/uL (2.7-7.7); Neutrophil % 66.6 % (47-70); Platelet Count 297 K/mm3 (150-450); RBC Distribution Width CV 13.6 % (11.6-14.6); Red Blood Count 4.46 M/mm3 (4.6-6.2); White Blood Count 6.5 K/mm3 (4.4-11.0)
[2024-05-26 08:50] LABS: Hemoglobin A1c 8.4 % (<=5.6)
[2024-05-26 08:56] LABS: Albumin, Serum 4.4 g/dL (3.4-4.8); Anion Gap 13 (5-15); BUN 20 mg/dL (4-19); BUN/Creat Ratio 16.6 RATIO (10-20); Calcium,Total 9.5 mg/dL (7.6-11.0); Carbon Dioxide 24.7 mmol/L (21.0-32.0); Chloride 99 mmol/L (98-108); Creatinine, Serum 1.22 mg/dL (0.70-1.20); EST Glomerular Filtration Rate 61 (>60); Glucose 182 mg/dL (70-99); Potassium 4.7 mmol/L (3.3-5.1); Sodium Level 137 mmol/L (133-145)
--- NOTE | 2024-05-26 15:07 | PAT.ANE_ITS ---
Pre-Assessment Diagnosis/Proposed Procedure Planned Operative Procedure(s): LEFT REVERSE TOTAL SHOULDER ARTHROPLASTY Anesthesia History Anesthesia History - interlibrary loan specialist: Anesthesia History - interlibrary loan specialist Hx Hospitalization No 05/24/24 09:07 Any Problems With Anesthesia No 05/24/24 09:07 Cholinesterase deficiency No 05/24/24 09:07 You/Your Family Experience No 05/24/24 09:07 fever (hyperthermia) with Relationship Recent Exposure to Contagious No 01/07/24 09:03 Disease Does patient have nerve No 05/24/24 09:07 stimulator Patient instructed to have device shut off --Does patient have Pacemaker or ICD? When Was Last Pacemaker Check QUESTION #4 FULL TEXT: You/Your Family Experience fever (hyperthermia) with Anesthesia Last Oral Intake Last Oral intake: Last Oral Intake NPO since Meds taken in AM with sips of water? Meds patient instructed to take am of surgery PONV PONV - interlibrary loan specialist: PONV - interlibrary loan specialist Female No 05/24/24 09:07 HX of Motion Sickness No 05/24/24 09:07 HX of N/V After Surgery No 05/24/24 09:07 Non-Smoker Yes 05/24/24 09:07 Duration of Surgery greater Yes 05/24/24 09:07 than 60 minutes Number of Risk Factors 2 05/24/24 09:07 PONV Score Moderate Risk 05/24/24 09:07 Height & Weight Height & Weight: Anesthesia: Height & Weight Height 5 ft 8 in 01/07/24 09:03 Respiratory Assessment Respiratory Assessment - interlibrary loan specialist: Respiratory Tract Infection Hx - interlibrary loan specialist Hx Respiratory Tract Infection No 05/24/24 09:07 STOP Sleep Apnea STOP Sleep Apnea - interlibrary loan specialist: STOP Sleep Apnea - interlibrary loan specialist Hx Hypertension Yes 05/24/24 09:07 Hx Sleep Apnea No 05/24/24 09:07 CPAP BIPAP Do you snore loudly (louder No 05/24/24 09:07 than talking or can be heard Do you often feel tired/ No 05/24/24 09:07 fatigued/ sleepy during daytime? Has anyone observed you stop No 05/24/24 09:07 breathing during sleep? STOP Results Negative 05/24/24 09:07 QUESTION #5 FULL TEXT : Do you snore loudly (louder than talking or can be heard through closed doors)? 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 Specify any problems Hx of Preganancy in last 3 N/A 05/24/24 09:07 Months Nurse Filling Out Transfusion [email or web address] 05/24/24 09:07 & Questions: Date: 05/24/24 05/24/24 09:07 Time: 09:08 05/24/24 09:07 Patient unable to answer at this time (ie. confused, unrespo /Reproduction History /Reproductive History - interlibrary loan specialist: /Reproductive Hx- interlibrary loan specialist Hx Now Gestational Age (in weeks): EDC: Hx Hx Para Hx Section SAB PFSH Medical History Former smoker Wears dentures Wears glasses Diabetes Arthritis High cholesterol History of diverticulitis Non-smoker Hypertension GERD (gastroesophageal reflux disease) Screening for malignant neoplasm of intestine Benign neoplasm of colon Hypertrophy of prostate without urinary obstruction Laceration of ear HLD (hyperlipidemia) Diverticular disease of colon Type II diabetes mellitus, uncontrolled Home Medications ?Medication ?Instructions ?Recorded ?Last Taken ?Type aspirin 81 mg tablet,delayed 81 mg PO DAILY 09/17/15 1 History release metformin 500 mg tablet,extended 1,000 mg PO BID 09/1601/06/24 History release 24 hr oslkpvrd-ckb-vucvx acid 0.4 1 ea PO DAILY 09/17/1503/14 History mg-lycopene 300 mcg-lutein 250 mcg tablet pravastatin 20 mg tablet 20 mg PO DAILY 09/17/1512/20 History amlodipine 10 mg tablet 10 mg PO QDAY 09/15/2301/05 History finasteride 5 mg tablet 5 mg PO DAILY 09/15/2301/05 History glipizide 5 mg tablet 5 mg PO DAILY 09/15/2301/05 History solifenacin 10 mg tablet 10 mg PO DAILY 09/15/2312/20 History inulin-sorbitol 2 gram chewable 1 tab PO DAILY 4 01/06/24 History tablet (Fiber Supplement (inulin)) lisinopril 5 mg tablet 5 mg PO DAILY 11/10/2301/06 History acetaminophen 650 mg 1,300 mg PO Q12H PRN pain Unknown History tablet,extended release (8 Hour Pain Reliever) empagliflozin 25 mg tablet 25 mg PO DAILY 05/24/24 Unk nown History (Jardiance) famotidine 20 mg tablet 20 mg PO DAILY 05/24/24 Unkn own History Allergy/AdvReac Type Severity Reaction Status Date / Time cephalexin monohydrate (From AdvReac Diarrhea Verified 05/24/24 08:31 Keflex) oxycodone AdvReac Other Verified 05/24/24 08:31 sertraline HCl (From Zoloft) AdvReac Upset Verified 05/24/24 08:31 Stomach Family History Mother Diabetes Heart disease Father Heart disease Surgical History (Updated 05/24/24 @ 08:46 by Warner Chatman) History of esophagogastroduodenoscopy (EGD) Hx of external ear surgery S/P cataract extraction Hx of tonsillectomy Hx of left inguinal hernia repair History of total cystectomy S/P right rotator cuff repair S/P right inguinal hernia repair S/P colonoscopy Social History Smoking Status: Never smoker second hand exposure: No alcohol intake: never substance use type: does not use caffeine: Yes what type of physical activity do you participate in: walking frequency: 5-6 times per week seatbelt use: always Audit: Pertinent Findings Pertinent Findings Additional pertinent findings: HB A1C elevated to 8.4. . Surgeon aware Recommendation Anesthesia Recommendation Anesthesia recommendation: OPTIMIZED for anesthesia
[2024-06-22] VITALS (11 sets, daily range): BP systolic 112–158; BP diastolic 60–74; PULSE 73–99; RESP 16–18; TEMP 36.1–36.9; O2SAT 95–100; BMI 21.4
[2024-06-22] MEDS: Lactated Ringers 1,000 ML 999 ML IV (05:55)
[2024-06-22] MEDS: Magnesium 1 GM over 15 mins IV (06:00)
[2024-06-22] MEDS: Acetaminophen 500 MG Tablet 1000 MG PO (06:43)
[2024-06-22] MEDS: Gabapentin 600 MG Tablet PO (06:43)
[2024-06-22] MEDS: Celecoxib 200 MG Capsule 400 MG PO (06:43)
--- NOTE | 2024-06-22 06:52 | PCM.PRE.AN2 ---
ASA Classification* ASA Classification ASA Classification: 2 Assessment & Plan Anesthesia* Anesthesia Assessment Anesthesia Assessment: Discussed sedation and/or anesthesia options, risks, benefits, and alternatives with patient/parents/legal guardian/POA. Questions invited. The patient/parents/legal guardian/POA seems to understand and agrees to proceed with anesthesia plan. Reviewed the physical assessment, medical history, allergy history and patient home medications list prior to surgery/procedure/anesthetic and documented any changes. Performed airway and anesthesia risk assessments. Anesthesia Type Anesthesia Type: General and Block (Patient is consented for interscalene block.) Anesthesia Focused Assessment* Temperature: 98.2 F Pulse Rate: 86 Blood Pressure: 158/74 Respiratory Rate: 18 Pulse Ox: 100 Oxygen Delivery Method: Room Air Airway Assessment Mouth opens: >3 cm Mallampati Score: II Teeth Condition: Dentures (Patient has top dentures.) and Missing (Patient is missing several molars on the lower jaw. Rest are tight.) Neck Range of motion (ROM): Limited ROM (Slight decrease in extension) Focused Labs Anesthesia Preop lab: CBC WBC 6.5 K/mm3 (4.4-11.0) 05/26/24 08:12 05/26/24 RBC 4.46 M/mm3 (4.6-6.2) L 05/26/24 08:12 05/26/24 Hgb 13.3 g/dL (13.0-16.5) 05/26/24 08:12 05/26/24 Hct 40.2 % (40-54) 05/26/24 08:12 05/26/24 Plt Count 297 K/mm3 (150-450) 05/26/24 08:12 05/26/24 CHEMISTRY Potassium 4.7 mmol/L (3.3-5.1) 05/26/24 08:12 05/26/24 Sodium 137 mmol/L (133-145) 05/26/24 08:12 05/26/24 Magnesium 2.0 mg/dL (1.5-2.2) 05/26/24 08:11 05/26/24 Phosphorus 3.1 mg/dL (2.5-4.9) 03/24/24 08:03 03/24/24 BUN 20 mg/dL (4-19) H 05/26/24 08:12 05/26/24 Creatinine 1.22 mg/dL (0.70-1.20) H 05/26/24 08:12 05/26/24 Glucose 182 mg/dL (70-99) H 05/26/24 08:12 05/26/24 POC Glucose 191 mg/dL (74-106) H 01/07/24 09:00 01/07/24 TSH 0.73 uIU/mL (0.358-3.74) 08/08/21 08:23 08/08/21 COAG Pre-Assessment Diagnosis/Proposed Procedure Planned Operative Procedure(s): LEFT REVERSE TOTAL SHOULDER ARTHROPLASTY Anesthesia History 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 When Was Last Pacemaker Check QUESTION #4 FULL TEXT: You/Your Family Experience fever (hyperthermia) with Anesthesia Last Oral Intake Last Oral intake: Last Oral Intake NPO since 03:30 06/22/24 06:33 Meds taken in AM with sips of Yes 06/22/24 06:33 water? Meds patient instructed to amlodipine, famotidine 06/22/24 06:33 take am of surgery Any additional information?: Yes NPO since: 03:30 (Patient had preop Ensure at 3:30 AM) Meds taken in AM with sips of water?: Yes PONV PONV - vice president of engineering: PONV - vice president of engineering Female No 05/24/24 09:07 HX of Motion Sickness No 05/24/24 09:07 HX of N/V After Surgery No 05/24/24 09:07 Non-Smoker Yes 05/24/24 09:07 Duration of Surgery greater Yes 05/24/24 09:07 than 60 minutes Number of Risk Factors 2 05/24/24 09:07 PONV Score Moderate Risk 05/24/24 09:07 Height & Weight Height & Weight: Anesthesia: Height & Weight Height 5 ft 8 in 06/22/24 06:33 Weight: 64 kg 06/22/24 06:33 Body Mass Index (BMI) 21.4 06/22/24 06:33 Respiratory Assessment Respiratory Assessment - vice president of engineering: Respiratory Tract Infection Hx - vice president of engineering Hx Respiratory Tract Infection No 05/24/24 09:07 STOP Sleep Apnea STOP Sleep Apnea - vice president of engineering: STOP Sleep Apnea - vice president of engineering Hx Hypertension Yes 05/24/24 09:07 Hx Sleep Apnea No 05/24/24 09:07 CPAP BIPAP Do you snore loudly (louder No 05/24/24 09:07 than talking or can be heard Do you often feel tired/ No 05/24/24 09:07 fatigued/ sleepy during daytime? Has anyone observed you stop No 05/24/24 09:07 breathing during sleep? STOP Results Negative 05/24/24 09:07 QUESTION #5 FULL TEXT : Do you snore loudly (louder than talking or can be heard through closed doors)? 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 Specify any problems Hx of Preganancy in last 3 N/A 05/24/24 09:07 Months Nurse Filling Out Transfusion [email or web address] 05/24/24 09:07 & Questions: Date: 05/24/24 05/24/24 09:07 Time: 09:08 05/24/24 09:07 Patient unable to answer at this time (ie. confused, unrespo /Reproduction History /Reproductive History - vice president of engineering: /Reproductive Hx- vice president of engineering Hx Now Gestational Age (in weeks): EDC: Hx Hx Para Hx Section SAB Active Medications Active Medications: Current Medications Generic Name Dose Route Start Last Admin Trade Name Freq PRN Reason Stop Dose Admin Acetaminophen 1,000 mg 06/22/24 07:30 06/22/24 06:43 Acetaminophen 500 Mg Tablet PO 06/22/24 07:31 1,000 mg X1 ONE Administration Celecoxib 400 mg 06/22/24 07:30 06/22/24 06:43 Celecoxib 200 Mg Capsule PO 06/22/24 07:31 400 mg X1 ONE Administration Gabapentin 600 mg 06/22/24 07:30 06/22/24 06:43 Gabapentin 600 Mg Tablet PO 06/22/24 07:31 600 mg X1 ONE Administration Cefazolin Sodium 2 gm/ N/A 20 mls @ 400 mls/hr 06/22/24 07:30 IV 06/22/24 07:32 PREOP ONE Tranexamic Acid 1,000 mg/ 110 mls @ 660 mls/hr 06/22/24 07:30 Sodium Chloride IV 06/22/24 07:39 X1 ONE Magnesium Sulfate 1 gm/ 102 mls @ 408 mls/hr 06/22/24 07:30 06/22/24 06:00 Dextrose IV 06/22/24 07:44 408 mls/hr X1 ONE Administration Lactated Ringer's 1,000 mls @ 999 mls/hr 06/22/24 06:00 06/22/24 05:55 IV 06/22/24 07:00 999 mls/hr .Q1H1M PAULA Administration Lactated Ringer's 1,000 mls @ 75 mls/hr 06/22/24 06:00 IV .[id number] PAULA Insulin Human Lispro 1 - 6 unit 06/22/24 07:30 Insulin Lispro 100 Unit/Ml Insuln.Pen SC Q4H PRN PRN BG>/= 180, SEE PROTOCOL Protocol PFSH Medical History Former smoker Wears dentures Wears glasses Diabetes Arthritis High cholesterol History of diverticulitis Non-smoker Hypertension GERD (gastroesophageal reflux disease) Screening for malignant neoplasm of intestine Benign neoplasm of colon Hypertrophy of prostate without urinary obstruction Laceration of ear HLD (hyperlipidemia) Diverticular disease of colon Type II diabetes mellitus, uncontrolled Home Medications ?Medication ?Instructions ?Recorded ?Last Taken ?Type aspirin 81 mg tablet,delayed 81 mg PO DAILY 09/17/15 06/17/24 History release metformin 500 mg tablet,extended 1,000 mg PO BID 09/17/15 06/21/24 18:00 History release 24 hr azvxmnlt-jcd-pxlvn acid 0.4 1 ea PO DAILY 09/17/15 06/11/24 History mg-lycopene 300 mcg-lutein 250 mcg tablet pravastatin 20 mg tablet 20 mg PO DAILY 09/17/15 06/21/24 History amlodipine 10 mg tablet 10 mg PO QDAY 09/15/23 06/22/24 03:30 History finasteride 5 mg tablet 5 mg PO DAILY 09/15/23 06/19/24 History glipizide 5 mg tablet 5 mg PO DAILY 09/15/23 06/21/24 History solifenacin 10 mg tablet 10 mg PO DAILY 09/15/23 06/21/24 History inulin-sorbitol 2 gram chewable 1 tab PO DAILY 11/10/23 06/21/24 History tablet (Fiber Supplement (inulin)) lisinopril 5 mg tablet 5 mg PO DAILY 11/10/23 06/21/24 History acetaminophen 650 mg 1,300 mg PO Q12H PRN pain 05/24/24 06/21/24 05:00 History tablet,extended release (8 Hour Pain Reliever) empagliflozin 25 mg tablet 25 mg PO DAILY 05/24/24 06/18/24 History (Jardiance) famotidine 20 mg tablet 20 mg PO DAILY 05/24/24 06/22/24 History Allergy/AdvReac Type Severity Reaction Status Date / Time cephalexin monohydrate (From AdvReac Diarrhea Verified 06/22/24 06:28 Keflex) oxycodone AdvReac Other Verified 06/22/24 06:28 sertraline HCl (From Zoloft) AdvReac Upset Verified 06/22/24 06:28 Stomach Family History Mother Diabetes Heart disease Father Heart disease Surgical History History of esophagogastroduodenoscopy (EGD) Hx of external ear surgery S/P cataract extraction Hx of tonsillectomy Hx of left inguinal hernia repair History of total cystectomy S/P right rotator cuff repair S/P right inguinal hernia repair S/P colonoscopy Social History Smoking Status: Never smoker second hand exposure: No alcohol intake: never substance use type: does not use caffeine: Yes what type of physical activity do you participate in: walking frequency: 5-6 times per week seatbelt use: always Review of Systems (Anesthesia) ROS Narrative System reviewed and no additional complaints, except as documented.
--- NOTE | 2024-06-22 07:30 | SHO_PTH ---
PATIENT: CHELLE SUN LOC: [facility] – [place] U#:[id number] AGE/SX: 79/M ROOM: RE06/22/[address]: Dr. Holger Stoner DO : 1945 BED: DIS: 06/22/2024 SPEC #: [id number] RECD: 06/22/24 11:20 STATUS: JULIANA REGlynn #: [id number] RACHELLE: 06/22/24 07:[address]: Holger Stoner DEPT: SURGICAL PATHOLOGY RECD BY: Beau Granger ENTERED: 06/22/24 11:20 SP TYPE: HUMERUS OTHR DR: Dr. Teodoro Castro MD Tissues: A - Humerus, NOS Procedures: Decalcification bone/plaque Surgery Specimen Level III HEADER OPERATION: left reverse total shoulder arthroplasty PRE-OP DIAGNOSIS: Left rotator cuff tear, rotator cuff arthroplasty TISSUE SUBMITTED: A- Left humeral head MICROSCOPIC DIAGNOSIS A. Left humeral head, left rotator cuff tear, total arthroplasty: * Articular bone with reactive/degenerative change and patchy trilineage hematopoiesis. MICROSCOPIC DESCRIPTION Slides are reviewed. GROSS DESCRIPTION A. Received in formalin in a container labeled with the patient's name, date of , and left humeral head is a 5.5 x 4.8 x 2.2 cm semispherical portion of firm and nguyen-pink humeral head. The resection margin is smooth and firm, and the cortical surface is white-nguyen and somewhat roughened. It is quadrisected to reveal uniform, nguyen, firm surfaces. Fine Arts Model sections are submitted in A1 following decalcification. [facility] 06-22-2024 CT:[id number]
[2024-06-22 07:33] LABS: Bedside Glucose 171 mg/dL (74-106)
[2024-06-22] MEDS: Cefazolin 2 GM in Syringe 10 ML IV (07:34)
[2024-06-22] MEDS: TXA 1000mg in NS100 100ml (IVPB at Incision) 660 MG IV (08:06)
--- NOTE | 2024-06-22 08:58 | RAD_ITS ---
PROCEDURE: SHOULDER MIN 2 VIEWS 06/22/2024 REASON FOR EXAM: POST OP TECHNIQUE: Two views of the left shoulder were obtained. COMPARISON: None FINDINGS: The patient is status post left reverse shoulder replacement. There is good alignment. Postoperative soft tissue changes. RAD/Shoulder min 2 Views IMPRESSION: Status post left reverse shoulder replacement. There is good alignment. Postoperative soft tissue changes. [id number]
--- NOTE | 2024-06-22 09:21 | OP.PCM_ITS ---
Operative Report (Standard) Operative Information Date of Procedure: 06/22/24 Pre-Operative Diagnosis: Left shoulder rotator cuff tear arthropathy Post-Operative Diagnosis: Left shoulder rotator cuff tear arthropathy Surgery/Procedure Performed: Left reverse total shoulder arthroplasty assistant toddler teacher: Yes Rotary Soil Stabilizer: Lina Lyons Tasks completed by retail store assistant: Opening & closing, Implanting device, Hemostasis: Electrocautery and Retracting Additional phlebotomist lab assistant?: No Type of Anesthesia: General/Regional RN Documented Start/Stop Times: Operation Date: 06/22/24 07:30 Case Time Into Pre-Op 06/22/24 05:39 Anesthesia Start 06/22/24 07:34 Into Room 06/22/24 07:34 Procedure Start 06/22/24 08:06 Procedure End 06/22/24 09:07 Anesthesia End 06/22/24 09:17 Out of Room 06/22/24 09:17 Procedure Start Time: 08:06 Procedure Stop Time: 09:07 Select all DRAINS/GRAFTS/IMPLANTS that apply: Implanted device Implanted device details: Tornier Aequalis PerFORM+ reversed baseplate 29 mm diameter +6 mm lateralization, standard glenosphere cobalt chrome 42 mm diameter, Tornier perform inlay stem size #4, + 3 mm retentive size number 4 42 mm diameter polyethylene insert, short central post and peripheral screws x4. Estimated Blood Loss: 50 cc Specimen collected: Yes Description of specimen(s) removed: Left humeral head Description of surgery: Patient arrived to [facility] morning of the procedure and was greeted by the same day surgery staff. Prior to his procedure, I greeted the patient in the preoperative holding area I identified the patient by name, record number, and date of . Informed consent was confirmed. The operative extremity was marked. All questions were answered to patient satisfaction. An interscalene block was administered prior to procedure by anesthesia staff for postoperative and intraoperative analgesia. At time of his procedure, patient was brought to the operative suite and positioned supine on a standard table with a beachchair attachment. General anesthesia was induced after all bony prominences were well-padded. Endotracheal tube was placed. After adequate anesthesia and securing the tube, we prepared the patient to be positioned in the beachchair position. A well- padded bulkhead carpenter was applied. The nonoperative extremity was placed in a well arm carrillo. He was then brought into the beachchair position after we confirmed an appropriate blood pressure. We then spun the bed 45 degrees. The operative extremity was then prepared. In the butterfly wing of the bed was removed and a well-padded torso strap was applied to secure the patient to the bed. The operative extremity was now free. We then prepped and draped the left upper extremity in normal, sterile orthopedic fashion. We then performed a timeout with all parties in attendance in agreement with the side, site, and operation be performed. 2 g Ancef was administered prior to incision by anesthesia staff, as well as 1 g TXA IV. No concerns were voiced and we elected to proceed. I first marked a standard deltopectoral incision just lateral to the coracoid process in line with the long axis of the humerus. Skin was sharply incised with 10 blade scalpel. I then dissected bluntly through the subcutaneous layers and found the fat stripe between the deltoid and pectoralis major. The cephalic vein was then identified and protected. It was retracted laterally with the deltoid. I then bluntly dissected underneath the deltoid with a Reeves elevator. Kolbel retractor was placed. The upper 1 cm of the pectoralis major was released. I then identified the long head of the biceps tendon in the intertubercular groove. This was tenodesed in situ with #2 FiberWire. I then amputated the biceps proximal to the tenodesis site and followed the tendon to the supraglenoid tubercle where it was amputated. This identified the lesser and greater tuberosities. The supraspinatus was completely torn and retracted with an exposed greater tuberosity. I then performed a subscapularis peel while rotating the humerus externally. I tagged the subscapularis for possible repair later with a tagging suture. Humeral head was then dislocated anteriorly. Appropriate access to the humeral head was confirmed. I then subluxed the humeral head posteriorly with a Fukuda retractor placed around the posterior lip of the glenoid. Inferior capsule was tension. I was able to palpate the axillary nerve. Inferior capsule was then released to the 4 o'clock position of the glenoid face. 3 sided subscapularis release was performed with Bovie cautery. I then remove the Fukuda retractor and redislocated the shoulder anteriorly. I then made a anatomic neck cut of the cartilaginous surface of the humeral head. Sizing plate for a size # 4 stem was utilized to determine appropriate reaming size. A central pin was placed engaging the lateral cortex of the humerus. A size # 4 reamer was used to ream the humeral metaphysis and prepare for the inlay stem. A canal finding reamer was utilized prior to sequential broaching to a size # 4 short stem with excellent rotational and axial purchase in the humerus. I remove the broach handle left the size # [address] I then subluxed the humerus posterior to the glenoid. I then placed retractors around the posterior and anterior glenoid to expose the glenoid. Glenoid labrum was removed with Bovie cautery protecting the axillary nerve. We then used the custom guide from [employer] to position our centering pin, exiting approximately 25 mm from the joint surface along the anterior scapula. Guide was removed and pin was analyzed and compared to preoperative planning. It appeared to be in appropriate position. The Nautilus shaped reamer was then placed over top of the centering pin. I reamed a flat surface of the glenoid. We then removed the reamer and used the cannulated drill for the short central post. Post and baseplate was assembled on the back table. We then inserted the baseplate and central post the assembled baseplate to an appropriate depth with good press-fit purchase. A Gary was used to confirm depth. Cortical screws then were placed in the peripheral holes with good purchase. The baseplate had excellent purchase and the entire scapula would rotate with rotation of the baseplate. We then impacted the 42 mm glenosphere with a standard eccentricity and tightened the locking screw mechanism. We then removed retractors and turned our attention back to the humerus. I placed a standard +3 millimeters retentive polyethylene insert. I then reduced the shoulder. There was excellent range of motion and stability in all planes of motion. We selected this as our final size. We removed trials from the humerus after final dislocation. I copiously irrigated the canal. Broach was placed on hand and then impacted to an appropriate depth. Final + 3 mm retentive polyethylene insert was placed. Final reduction was then performed. The subscapularis was then identified with a tagging suture. Repair would have been likely under undue tension and likely failed. I elected to not perform a subscapularis repair. We then copiously irrigated the wound with sterile Betadine and normal saline solution. We reapproximated the interval with 0 Vicryl suture. Subcutaneous layers were reapproximated with 2 -0 Vicryl suture. Skin was finally running V- Loc 3-0 Monocryl suture and Dermabond. A sterile silver Mepilex dressing was applied. Patient was then placed in an ultra sling. Patient tolerated procedure well without complication. He was positioned back in the supine position extubated in the operative suite. He was transferred to the [facility] and subsequently to PACU in stable condition. Need for skilled phlebotomist lab assistant: Lina Lyons PA-C was critical to the outcome of the case. During the course of the procedure the physician phlebotomist lab assistant played a vital role. Her intimate knowledge of my steps in the procedure aided in safe and expedient completion of the procedure. The PA played a vital role in positioning particularly in obtaining the appropriate positioning. The PA was also vital in the retraction of soft tissues during the exposure and protecting vital structures. The PA was also vital and protecting soft tissues during times of bony cuts. She also played a vital role in closure with my direct supervision. The PA was also important during reduction and dislocation of the joint and trials intraoperatively. Intraoperative medications: 2 g Ancef IV, 1 g TXA IV x2 Post Operative Plan: Weightbearing: Nonweightbearing left upper extremity, okay for pendulums. Range of motion of wrist elbow and hand as tolerated. Antibiotics: 2 g Ancef IV prior to incision, 24 hours IV antibiotics postoperatively DVT Prophylaxis: Aspirin enteric-coated 81 mg twice daily starting tomorrow Rushing: None Dressing: Maintain silver dressing x5 days. Okay to shower dressing on started on day 4 X-Rays: 2 weeks postop in the office Pain Medication: Oxycodone Rx upon discharge Follow-up: 2 weeks post-operatively with me in the office Surgical Findings: Cuff tear arthropathy with massive rotator cuff tear. Stable shoulder following final reduction Complications Complications: No Admit VTE Documentation VTE Present on Admission: No VTE Mechan Device Prophylaxis: SCD's VTE Pharm Prophylaxis ordered?: Yes
--- NOTE | 2024-06-22 09:24 | PCM.POST.ANE ---
Anesthesia: Postop Eval I Current Vital Signs Temperature: 97 F Pulse Rate: 82 Blood Pressure: 112/62 Respiratory Rate: 16 Pulse Ox: 95 Assessment Airway patent: Yes Spontaneous unlabored respirations: Yes nausea: No Vomiting: No Anesthesia Complication: No Fluid Hydration Crystalloid volume administer (ml): 1,300 Total IV fluid infused: 1,300 Progress Note Anesthesia document: Postop Eval 1 completed: Yes
--- NOTE | 2024-06-22 10:51 | POSTOPAN2_ITS ---
Anesthesia Postop Eval I Sum Postop Eval Completion status Anesthesia document: Postop Eval 1 completed: Yes Anesthesia Postop Eval I Summary Anesthesia Postop Eval I Summary: Anesthesia Postop Eval I: Assessment Summary Airway patent Yes 06/22/24 09:24 DIRECTOR [email or web address] Spontaneous unlabored Yes 06/22/24 09:24 DIRECTOR [email or web address] respirations Mental status nausea No 06/22/24 09:24 DIRECTOR [email or web address] Vomiting No 06/22/24 09:24 DIRECTOR [email or web address] Anesthesia Postop Eval I: Fluid Summary Crystalloid volume administer 1,300 06/22/24 09:24 DIRECTOR [email or web address] (ml) Colloids volume administered ( ml) Blood Product volume administered (ml) Total IV fluid infused 1,300 06/22/24 09:24 DIRECTOR [email or web address] Anesthesia Postop Eval I: Summary Notes Anesthesia Complication No 06/22/24 09:24 DIRECTOR [email or web address] Anesthesia Complication Comment: Post-operative progress note Anesthesia: Postop Eval II Evaluation Mental status: Awake and Calm Pain Level: 0 nausea: No Vomiting: No Complications Anesthesia Complication: No
--- NOTE | 2024-06-22 10:51 | PCM.POSTANE2 ---
Anesthesia Postop Eval I Sum Postop Eval Completion status Anesthesia document: Postop Eval 1 completed: Yes Anesthesia Postop Eval I Summary Anesthesia Postop Eval I Summary: Anesthesia Postop Eval I: Assessment Summary Airway patent Yes 06/22/24 09:24 PRINT BINDING AND FINISHING WORKER.[email or web address] Spontaneous unlabored Yes 06/22/24 09:24 PRINT BINDING AND FINISHING [email or web address] respirations Mental status nausea No 06/22/24 09:24 PRINT BINDING AND FINISHING [email or web address] Vomiting No 06/22/24 09:24 PRINT BINDING AND FINISHING [email or web address] Anesthesia Postop Eval I: Fluid Summary Crystalloid volume administer 1,300 06/22/24 09:24 PRINT BINDING AND FINISHING WORKER.[email or web address] (ml) Colloids volume administered ( ml) Blood Product volume administered (ml) Total IV fluid infused 1,300 06/22/24 09:24 PRINT BINDING AND FINISHING [email or web address] Anesthesia Postop Eval I: Summary Notes Anesthesia Complication No 06/22/24 09:24 PRINT BINDING AND FINISHING [email or web address] Anesthesia Complication Comment: Post-operative progress note Anesthesia: Postop Eval II Evaluation Mental status: Awake and Calm Pain Level: 0 nausea: No Vomiting: No Complications Anesthesia Complication: No
[2024-06-22] MEDS: Cefazolin 1 GM/50 ML BAG IV (12:02)
== END 2024-06-22 14:15 | disposition home or self-care (01) ==
LOC: SDC 05:26 → AC 05:27
PROVIDERS: Anesthesiology; PCP Family Medicine; Referring Provider Student in an Organized Health Care Education/Training Program; Visit Provider Student in an Organized Health Care Education/Training Program
PROC: (CPT 23472; principal; 2024-06-22 07:00)
DX: S46.012A Strain of muscle(s) and tendon(s) of the rotator cuff of left shoulder, initial encounter (principal); E11.22 Type 2 diabetes mellitus with diabetic chronic kidney disease; M19.012 Primary osteoarthritis, left shoulder; W19.XXXA Unspecified fall, initial encounter; E78.00 Pure hypercholesterolemia, unspecified; I12.9 Hypertensive chronic kidney disease with stage 1 through stage 4 chronic kidney disease, or unspecified chronic kidney disease; N18.2 Chronic kidney disease, stage 2 (mild); F32.A Depression, unspecified; K21.9 Gastro-esophageal reflux disease without esophagitis; Z79.82 Long term (current) use of aspirin; Z79.84 Long term (current) use of oral hypoglycemic drugs; Z79.899 Other long term (current) drug therapy; Z87.891 Personal history of nicotine dependence
CPT/HCPCS: 23472; 01638; 64415; 36415; 73030; 80048; 82040; 82962; 83036; 83735; 85025; 87081; 88305; 88311; 97167; C1713; C1776; J2405; J3475

== ENCOUNTER 2024-07-12 13:13 | Outpatient (CLI) | payer MEDICARE, OTHER, SELFPAY ==
[2024-07-12 15:28] LABS: Absolute Lymphocyte Count 1.45 X10^3/uL (0.83-4.51); Absolute Neutrophil Count 5.2 X10^3/uL (2.0-7.7); Basophil# 0.05 X10^3/uL; Basophil% 0.7 % (0-1); Eosinophil# 0.12 X10^3/uL; Eosinophils% 1.6 % (0-5); Hematocrit 35.7 % (40-54); Hemoglobin 11.5 g/dL (13.0-16.5); Lymphocyte # 1.45 X10^3/ul (0.83-4.51); Lymphocyte % 19.4 % (19-41); Mean Corp Hgb Conc 32.2 g/dL (32-36); Mean Corpuscular Hgb 29.4 pg (27.0-32.0); Mean Corpuscular Volume 91.3 fL (80-94); Mean Platelet Vol. 9.3 fl (6.2-12.0); Monocyte# 0.59 X10^3/uL; Monocyte% 7.9 % (0-10); NRBC Flagged by Analyzer 0 % (0-5); Neutrophil # 5.23 X10^3/uL (2.7-7.7); Neutrophil % 70.1 % (47-70); Platelet Count 554 K/mm3 (150-450); Red Blood Count 3.91 M/mm3 (4.6-6.2); White Blood Count 7.5 K/mm3 (4.4-11.0)
[2024-07-12 18:13] LABS: Hemoglobin A1c 8.4 % (<=5.6)
[2024-07-12 18:29] LABS: ALB/GLOB Ratio 1.2 RATIO (0.9-2.4); AST(SGOT) 18 U/L (<=37); Alanine Aminotransfer ALT/SGPT 14 U/L (<=46); Alkaline Phosphatase 91 U/L (40-129); Anion Gap 13 (5-15); BUN 21 mg/dL (4-19); BUN/Creat Ratio 17.5 RATIO (10-20); Bilirubin, Direct 0.13 mg/dL (0.00-0.30); Calcium,Total 9.4 mg/dL (7.6-11.0); Carbon Dioxide 26.2 mmol/L (21.0-32.0); Chloride 99 mmol/L (98-108); Cholesterol 128 mg/dL (<=200); Creatinine, Serum 1.18 mg/dL (0.70-1.20); EST Glomerular Filtration Rate 63 (>60); Globulin 3.3 g/dL (2.2-4.2); Glucose 217 mg/dL (70-99); High Density Lipoprotein 40 mg/dL; Low Density Lipoprotein Calc. 58 mg/dL; Potassium 4.4 mmol/L (3.3-5.1); Protein, Total 7.3 g/dL (5.9-8.4); Sodium Level 138 mmol/L (133-145); Total Bilirubin 0.24 mg/dL (0.00-1.30); Triglycerides 149 mg/dL; Very Low Density Lipoprotein 30 mg/dL (5-40); cholesterol:hdl ratio screen 3.18
[2024-07-12 20:00] LABS: Iron 42 ug/dL (65-175)
[2024-07-12 20:01] LABS: Ferritin 128 ng/mL (37-417); Vitamin D,25 Hydroxy 34.9 ng/mL (30-100)
[2024-07-12 20:53] LABS: Microalbumin,Random Urine < 12.0 mg/L (NO RANGE EST.); Microalbumin:Creatinine Ratio UNABLE TO CALCULATE mg/g CRE; Protein, Urine (Random) 6.5 mg/dL (0.0-12.0); Protein:Creat Ratio 83 mg/g CRE (0-200)
== END 2024-07-12 23:59 | disposition home or self-care (01) ==
LOC: MFPLAB 13:15
PROVIDERS: PCP Family Medicine; Referring Provider Family Medicine; Visit Provider Family Medicine
DX: R19.5 Other fecal abnormalities (principal); E11.22 Type 2 diabetes mellitus with diabetic chronic kidney disease; D50.9 Iron deficiency anemia, unspecified; N18.9 Chronic kidney disease, unspecified; E55.9 Vitamin D deficiency, unspecified
CPT/HCPCS: 36415; 80053; 80061; 82043; 82248; 82306; 82570; 82728; 83036; 83540; 84156; 85025

== ENCOUNTER → 2024-07-14 | Outpatient (CLI) | payer MEDICARE, OTHER, SELFPAY | END | disposition home or self-care (01) | LOC: LABSPEC 11:52 | PROVIDERS: PCP Family Medicine; Referring Provider Family Medicine; Visit Provider Family Medicine | DX: R19.7 Diarrhea, unspecified (principal) | CPT/HCPCS: 87493 ==

== ENCOUNTER → 2024-07-18 | Outpatient (CLI) | payer MEDICARE, OTHER, SELFPAY ==
--- NOTE | 2024-07-18 07:21 | US_ITS ---
PROCEDURE: LIVER (USLI), 07/18/2024 REASON FOR EXAM: LALY COLORED STOOLS COMPARISON: None FINDINGS: Liver: Unremarkable. 11.7 cm in length. Gallbladder: Trace sludge versus sessile polyps, up to 9 x 3 mm, not evaluated with Doppler. No definite shadowing stones, wall thickening or pericholecystic fluid. Reportedly, sonographic Brumfield's was negative. Biliary tree: Unremarkable. CBD measures 4 mm. Pancreas: Partially obscured by shadowing bowel gas, grossly unremarkable as visualized. Right kidney: Unremarkable. 10.2 cm in length. Other: No visualized free fluid. US/Liver IMPRESSION: 1. No biliary dilatation. If concern or unexplained exam findings persist, con painter apprentice CT with contrast. 2. Trace layering sludge versus sessile polyps up to 9 x 3 mm. Recommend follo w-up in 6-12 months. 3. Additional description as above. Reading Location: [id number]
== END | disposition home or self-care (01) ==
LOC: US 07:16
PROVIDERS: PCP Family Medicine; Referring Provider Family Medicine; Visit Provider Family Medicine
DX: R19.5 Other fecal abnormalities (principal)
CPT/HCPCS: 76705

== ENCOUNTER → 2024-07-28 | Outpatient (CLI) | payer MEDICARE, OTHER, SELFPAY ==
--- NOTE | 2024-07-28 09:42 | CT_ITS ---
PROCEDURE: ABDOMEN/PELVIS WITH CONTRAST 07/28/2024 REASON FOR EXAM: DIVERTICULITIS/ABDOMINAL PAIN TECHNIQUE: Contiguous axial scans of 3.75 mm slice thicknesses. Sagittal and coronal reconstruction images were obtained. One or more dose reduction techniques were used (e.g., automated exposure control, adjustment of mA and/or kv according to patient size, use of iterative reconstruction technique). PATIENT PREPARATION: Per protocol ORAL CONTRAST TYPE: Given CONTRAST: Isovue-300 VOLUME: Not given. RADIATION DOSE SUMMARY: DLP: 257.64 mGycm COMPARISON: No relevant prior. FINDINGS: Lung bases: Unremarkable. Liver: Normal-size and attenuation. No masses. Gallbladder: No gallstones. No ductal dilatation. Spleen: Normal in size. Pancreas: Unremarkable. Prominence of the pancreatic duct. Adrenals: No nodules. No thickening Kidneys: Excrete contrast material symmetrically. Kidneys normal in size. No masses or calcifications. Bladder: Unremarkable. Reproductive Organs: Small prostate gland. Calcifications in the prostate. Bowel: , Sigmoid colon. No definite signs of diverticulitis. Large amount of fecal debris in the rectum. Appendix: Unremarkable. Lymph nodes: No lymphadenopathy. Vasculature: Atherosclerotic calcifications of the aorta, mild. Peritoneum / Retroperitoneum: No masses, free air, or free fluid. Bones: Multilevel spondylosis and degenerative disc disease. Lumbar levocurvature. Small bone islands are noted in the bilateral femoral necks. CT/Abdomen/Pelvis WITH Contrast IMPRESSION: Diverticulosis of the sigmoid colon. No definite signs of diverticulitis altho ugh very early inflammation can not be excluded. Large amount of fecal debris in the rectum. Chronic prostatitis. Other nonacute findings detailed above. Reading Location: [id number]
== END | disposition home or self-care (01) ==
PROVIDERS: PCP Family Medicine; Referring Provider Family Medicine; Visit Provider Family Medicine
DX: K57.92 Diverticulitis of intestine, part unspecified, without perforation or abscess without bleeding (principal)
CPT/HCPCS: 74177; Q9967

== ENCOUNTER → 2024-07-28 | Outpatient (CLI) | payer MEDICARE, OTHER, SELFPAY ==
[2024-07-28 10:26] LABS: Absolute Lymphocyte Count 1.51 X10^3/uL (0.83-4.51); Absolute Neutrophil Count 4.8 X10^3/uL (2.0-7.7); Basophil# 0.04 X10^3/uL; Basophil% 0.6 % (0-1); Eosinophil# 0.07 X10^3/uL; Hematocrit 37.8 % (40-54); Hemoglobin 12.3 g/dL (13.0-16.5); Lymphocyte # 1.51 X10^3/ul (0.83-4.51); Lymphocyte % 22.1 % (19-41); Mean Corp Hgb Conc 32.5 g/dL (32-36); Mean Corpuscular Hgb 29.5 pg (27.0-32.0); Mean Corpuscular Volume 90.6 fL (80-94); Mean Platelet Vol. 10.4 fl (6.2-12.0); Monocyte# 0.43 X10^3/uL; Monocyte% 6.3 % (0-10); NRBC Flagged by Analyzer 0 % (0-5); Neutrophil # 4.78 X10^3/uL (2.7-7.7); Neutrophil % 69.9 % (47-70); Platelet Count 228 K/mm3 (150-450); RBC Distribution Width CV 12.9 % (11.6-14.6); RBC Distribution Width SD 42.6 fl (35.1-43.9); Red Blood Count 4.17 M/mm3 (4.6-6.2); White Blood Count 6.8 K/mm3 (4.4-11.0)
[2024-07-28 10:42] LABS: Microalbumin,Random Urine < 12.0 mg/L (NO RANGE EST.); Microalbumin:Creatinine Ratio UNABLE TO CALCULATE mg/g CRE; Protein, Urine (Random) 7.1 mg/dL (0.0-12.0); Protein:Creat Ratio 90 mg/g CRE (0-200)
[2024-07-28 10:49] LABS: Hemoglobin A1c 8.9 % (<=5.6)
[2024-07-28 11:33] LABS: ALB/GLOB Ratio 1.2 RATIO (0.9-2.4); AST(SGOT) 19 U/L (<=37); Alanine Aminotransfer ALT/SGPT 23 U/L (<=46); Albumin, Serum 3.9 g/dL (3.4-4.8); Alkaline Phosphatase 90 U/L (40-129); Anion Gap 11 (5-15); BUN 20 mg/dL (4-19); BUN/Creat Ratio 18.1 RATIO (10-20); Calcium,Total 9.1 mg/dL (7.6-11.0); Carbon Dioxide 23.3 mmol/L (21.0-32.0); Chloride 97 mmol/L (98-108); Cholesterol 133 mg/dL (<=200); Creatinine, Serum 1.12 mg/dL (0.70-1.20); EST Glomerular Filtration Rate 67 (>60); Ferritin 121 ng/mL (37-417); Globulin 3.1 g/dL (2.2-4.2); Glucose 348 mg/dL (70-99); High Density Lipoprotein 52 mg/dL; Low Density Lipoprotein Calc. 64 mg/dL; Potassium 4.9 mmol/L (3.3-5.1); Sodium Level 132 mmol/L (133-145); Total Bilirubin 0.36 mg/dL (0.00-1.30); Triglycerides 85 mg/dL; Very Low Density Lipoprotein 17 mg/dL (5-40); Vitamin D,25 Hydroxy 33.4 ng/mL (30-100); cholesterol:hdl ratio screen 2.57
[2024-07-28 11:57] LABS: Iron 43 ug/dL (65-175); Iron Binding Capacity,Total 272 ug/dL (250-450); Iron Binding Capacity,Unsat 229 ug/dL (228-428)
== END | disposition home or self-care (01) ==
LOC: MFPLAB 09:12
PROVIDERS: PCP Family Medicine; Referring Provider Family Medicine; Visit Provider Family Medicine
DX: E11.69 Type 2 diabetes mellitus with other specified complication (principal); E11.22 Type 2 diabetes mellitus with diabetic chronic kidney disease; N18.2 Chronic kidney disease, stage 2 (mild); D50.9 Iron deficiency anemia, unspecified
CPT/HCPCS: 36415; 80053; 80061; 82043; 82306; 82570; 82728; 83036; 83540; 83550; 84156; 85025

== ENCOUNTER → 2024-11-15 | Outpatient (CLI) | payer MEDICARE, OTHER, SELFPAY ==
--- OUTSIDE RECORDS SUMMARY | 2024-11-15 09:34 | XMS RPT_ITS | CCD ---
Author Organization [facility] Care Team Providers Care Perinatal Breastfeeding Assistant Name Role Phone Karen Rader PA-C Unavailable Gloria MADDOX, Dr. Teodoro Taylor Primary Care Provider Cielo Ga Attending Provider Gloria MADDOX, Dr. Teodoro Taylor Attending Provider [phone] Dr. Teodoro Castro MD Referring Provider Dr. Holger Stoner DO Attending Provider Dr. Holger Stoner DO Referring Provider Gloria MADDOX, Dr. Teodoro Taylor Primary Care Provider [phone] Dr. Teodoro Castro MD Primary Care Provider [phone] Dr. Teodoro Castro MD Attending Provider Dr. Teodoro Castro MD Referring Provider [phone] Dr. Linus Lo DO Other Provider Dr. Linus Lo DO Attending Provider Dr. Teodoro Castro MD Primary Care Provider [phone] Teodoro Castro Attending Unavailable Teodoro Castro Primary Care Unavailable Teodoro Castro Primary Care Unavailable Teodoro Castro Referring Unavailable Paolo Fiore Attending Unavailable Paolo Fiore Consulting Unavailable Teodoro Castro Primary Care Unavailable Teodoro Casrto Referring Unavailable Paolo Fiore Consulting Unavailable Paolo Fiore Attending Unavailable Teodoro Castro Referring Unavailable Teodoro Castro Primary Care Unavailable Linus Lo Attending Unavailable Schinner, Teodoro E Referring Unavailable Schinner, Teodoro E Primary Care Unavailable Linus Lo Attending Unavailable SchTeodoro saenz Attending Unavailable Schinloreto, Teodoro E Referring Unavailable Schinloreto, Teodoro E Primary Care Unavailable SchinTeodoro dangelo E Attending Unavailable Schinner, Teodoro E Referring Unavailable Schinner, Teodoro E Primary Care Unavailable Schinloreto, Teodoro E Attending Unavailable Schinner, Teodoro E Primary Care Unavailable Schinner, Teodoro E Referring Unavailable Schinner, Teodoro E Referring Unavailable Schinloreto, Teodoro E Attending Unavailable Schinner, Teodoro E Primary Care Unavailable Teresita, Linus Consulting Unavailable Schinner, Teodoro E Referring Unavailable Schinner, Teodoro E Attending Unavailable Schinner, Teodoro E Primary Care Unavailable Holger Stoner Referring Unavailable Holger Stoner Attending Unavailable Schinner, Teodoro E Primary Care Unavailable Schinner, Teodoro E Primary Care Unavailable Schinner, Teodoro E Referring Unavailable Paolo Fiore Attending Unavailable Gloria, Teodoro E Primary Care Unavailable Schletty, Teodoro E Referring Unavailable Paolo Fiore Attending Unavailable Cielo Ga Attending Unavailable Schinner, Teodoro E Primary Care Unavailable Holger Stoner Referring Unavailable Holger Stoner Attending Unavailable Schinner, Teodoro E Primary Care Unavailable Holger Stoner Referring Unavailable Schletty, Teodoro E Primary Care Unavailable Holger Stoner Attending Unavailable Teodoro Castro E Attending Unavailable Schletty, Teodoro E Referring Unavailable Schinloreto, Teodoro E Primary Care Unavailable Allergies Allergy Classification Reported Allergen(s) Allergy Type Date of Onset Reaction(s) Facility (2 sources) cephalexin Drug Allergy 7 [facility] Work Phone: (2 sources) oxyCODONE Drug Allergy 7 [facility] Work Phone: (20 sources) sertraline Drug Allergy 7 Upset Stomach [facility] Work Phone: (2 sources) testosterone Drug Allergy 7 [facility] Work Phone: (19 sources) Cephalexin; Translations: [cephalexin monohydrate] Drug Allergy 0 Diarrhea [facility] (18 sources) oxyCODONE Drug Allergy 0 Other [facility] (10 sources) Testosterone Drug Allergy 0 Unknown [facility] (1 source) oxyCODONE Drug Allergy 5 [facility] (1 source) Sertraline Drug Allergy 5 [facility] Medications Current Medications Medication Drug Class(es) Dates Sig (Normalized) Sig (Original) 8 hr acetaminophen 650 mg extended release oral tablet (8 sources) Start: 05-24-2024 Acetaminophen (8 Hour Pain Reliever) 650 mg tablet extended release Active 1300 mg PO Q12H as needed for pain May 24, 2024 1:00am amLODIPine 10 mg oral tablet (8 sources) Dihydropyridine Calcium Channel Yasmeen Start: 09-15-2023 take 1 tablet by mouth once daily Amlodipine 10 mg tablet Active 10 mg PO daily September 15, 2023 12:00am empagliflozin 25 mg oral tablet (8 sources) Sodium-Glucose Cotransporter 2 Inhibitor Start: 05-24-2024 take 1 tablet by mouth once daily Empagliflozin (Empagliflozin 25 Mg Tablet) 25 mg tablet Active 25 mg PO DAILY May 24, 2024 1:00am famotidine 20 mg oral tablet (16 sources) Histamine-2 Receptor Antagonist Start: 05-24-2024 take 1 tablet by mouth once daily Famotidine 20 mg tablet Active 20 mg PO DAILY May 24, 2024 1:00am Start: 09-15-2023 End: 01-07-2024 take 1 tablet by mouth once daily Famotidine 20 mg tablet Discontinued 20 mg PO daily September 15, 2023 12:00am January 07, 2024 9:02am finasteride 5 mg oral tablet (8 sources) 5-alpha Reductase Inhibitor Start: 09-15-2023 take 1 tablet by mouth once daily Finasteride 5 mg tablet Active 5 mg PO DAILY September 15, 2023 12:00am glipiZIDE 5 mg oral tablet (12 sources) Sulfonylurea Start: 07-26-2024 take 2 tablets by mouth once daily Glipizide 5 mg tablet Active 10 mg PO DAILY July 26, 2024 4:45pm Start: 09-15-2023 End: 07-26-2024 take 1 tablet by mouth once daily Glipizide 5 mg tablet Discontinued 5 mg PO DAILY September 15, 2023 12:00am July 26, 2024 4:48pm Inulin-Sorbitol (Fiber Supplement (Inulin)) 2 gram tablet,chewable (8 sources) Start: 11-10-2023 take 1 tablet by mouth once daily Inulin-Sorbitol (Fiber Supplement (Inulin)) 2 gram tablet,chewable Active 1 {tbl} PO DAILY November 10, 2023 12:00am lisinopril 5 mg oral tablet (20 sources) Angiotensin Converting Enzyme Inhibitor Start: 11-10-2023 take 1 tablet by mouth once daily Lisinopril 5 mg tablet Active 5 mg PO DAILY November 10, 2023 12:00am Start: 09-17-2015 End: 09-15-2023 take 1 tablet by mouth once daily Lisinopril 5 MG tablet Discontinued 5 mg PO DAILY September 17, 2015 12:00am September 15, 2023 8:08am meloxicam 7.5 mg oral tablet (6 sources) Nonsteroidal Anti-inflammatory Drug Start: 06-22-2024 take 1 tablet by mouth once daily as needed for pain Meloxicam 7.5 mg tablet Active 7.5 mg PO DAILY as needed for pain 14 14 0 June 22, 2024 11:24am Kxvmdxuf-Qzy-Cr- Lycopen-Lutein (10 sources) Start: 09-17-2015 Frjjzvpf-Obi-L a -Lycopen-Lutein Active 1 EACH PO DAILY September 17, 2015 2:41pm Start: 09-17-2015 Frbjghin-Oev-A b-Iwbndai-Oowcim Active 1 EACH PO DAILY September 17, 2015 12:00am Start: 09-17-2015 Fkeigief-Moa-S x-Dzbueyu-Kkditt Active 1 EACH PO DAILY September 16, 2015 11:00pm Qtwpgxhp-Rbn-Uv-Lycopen-Lute in 1 EACH tablet (8 sources) Start: 09-17-2015 Buzvovly-Dyv-Wr-Lycopen-Lute in 1 EACH tablet Active 1 NMA PO DAILY September 17, 2015 12:00am oxyCODONE hydrochloride 5 mg oral tablet (6 sources) Opioid Agonis t Start: 06-22-2024 take 1 tablet by mouth every four hours as needed for pain Oxycodone 5 mg tablet Active 5 mg PO Q4H as needed for pain 20 5 0 June 22, 2024 Other acute postprocedural pain Other acute postprocedural pain solifenacin succinate 10 mg oral tablet (8 sources) Cholin ergic Muscar inic Antago nist Start: 09-15-2023 take 1 tablet by mouth once daily Solifenacin 10 mg tablet Active 10 mg PO DAILY September 15, 2023 12:00am Completed/Discontinued Medications Medication Drug Class(es) Dates Sig (Normalized) Sig (Original) acetaminophen 325 mg / oxyCODONE hydrochloride 5 mg oral tablet (18 sources) Opioid Agonist Start: 09-17-2015 End: 05-10-2019 Oxycodone-Acetamino phen 1 TABLET tablet Discontinued 1 {tbl} PO EVERY 6 HOURS NEEDED as needed for Pain 10 0 September 17, 2015 12:00am May 10, 2019 9:44am Start: 09-17-2015 End: 05-10-2019 take 1 tablet by mouth every six hours as needed Oxycodone-Acetaminophen Discontinued 1 TABLET PO EVERY 6 HOURS NEEDED September 17, 2015 12:00am May 10, 2019 9:44am aspirin 81 mg oral tablet (20 sources) Nonsteroidal Anti-inflammatory Drug Start: 02-15-2017 take 1 tablet by mouth once daily ASPIRIN 81 MG TABS One tablet by mouth daily ASPIRIN [id number] Divina Lund Start: 09-17-2015 take 1 tablet by mouth once da hang Aspirin 81 MG tablet Active 81 mg PO DAILY September 17, 2015 12:00am Start: 09-17-2015 take 162 mg by mouth once samuel y Aspirin Active 162 MG PO DAILY September 17, 2015 12:00am chlorpheniramine maleate 4 mg oral tablet (18 sources) Histamine-1 Receptor Antagonist Start: 09-17-2015 End: 02-20-2017 take 1 tablet by mouth twice daily Chlorpheniramine Maleate 4 MG tablet Discontinued 4 mg PO TWICE A DAY September 17, 2015 12:00am February 20, 2017 5:23pm chondroitin sulfates / glucosamine (2 sources) Start: 02-15-2017 take 1 tablet by mouth twice daily GLUCOSAMINE CHONDR COMPLEX 500-400 MG CAPS One tablet by mouth twice daily GLUCOSAMINE-CHONDROI TIN [id number] Divina Lund ciprofloxacin 500 mg oral tablet (18 sources) Quinolone Antimicrobial Start: 09-17-2015 End: 05-10-2019 take 1 tablet by mouth twice daily Ciprofloxacin Hcl 500 MG tablet Discontinued 500 mg PO TWICE A DAY 12 0 September 17, 2015 12:00am May 10, 2019 9:38am fluticasone propionate 0.05 mg/actuat metered dose nasal spray (20 sources) Corticosteroid Start: 02-20-2017 End: 05-10-2019 Fluticasone Propionate 50 mcg/actuation spray,suspension Discontinued 50 ug INTRANASAL daily as needed February 20, 2017 1:00am May 10, 2019 9:38am Start: 02-15-2017 FLONASE 50 MCG /ACT SUSP Use as Directed FLUTICASONE PROPIONATE [id number] Divina Lund glimepiride 2 mg oral tablet (20 sources) Sulfonylurea Start: 05-10-2019 End: 09-15-2023 take 1 tablet by mouth once daily Glimepiride (Amaryl) 2 mg tablet Discontinued 2 mg PO DAILY May 10, 2019 1:00am September 15, 2023 8:08am Start: 09-17-2015 End: 05-10-2019 take 1 tablet by mouth once daily Glimepiride 1 MG tablet Discontinued 1 mg PO DAILY September 17, 2015 12:00am May 10, 2019 9:39am Dascfqwjvhk-Tkurmikfi-Poz C-Mn (Glucosamine Chondroitin Maxstr) 500-400 mg capsule (18 sources) Start: 02-20-2017 End: 05-10-2019 take 1 capsule by mouth once daily Mlhxtdhrbmi-Pwunpoeii-Kqf C-Mn (Glucosamine Chondroitin Maxstr) 500-400 mg capsule Discontinued CAP PO .once daily February 20, 2017 5:24pm May 10, 2019 9:45am Start: 02-20-2017 End: 05-10-2019 Iwwulpqhvjg-Hirlkdnhh-Iqb C- Mn (Glucosamine Chondroitin Maxstr) 500-400 mg capsule Discontinued NMA PO .once daily 0 February 20, 2017 1:00am May 10, 2019 9:45am Start: 02-20-2017 End: 05-10-2019 Agwoliuvdoa-Rskzytcfa-Xit C- Mn (Glucosamine Chondroitin Maxstr) 500-400 mg capsule Discontinued NMA PO .once daily February 20, 2017 1:00am May 10, 2019 9:45am Start: 02-20-2017 End: 05-10-2019 take 1 capsule by mouth once daily Cigltlvuexw-Qlebrdvzd-Ndr C-Mn (Glucosamine Chondroitin Maxstr) 500-400 mg capsule Discontinued CAP PO .once daily February 20, 2017 1:00am May 10, 2019 9:45am Start: 02-20-2017 End: 05-10-2019 take 1 capsule by mouth once daily Mkveftwggvz-Pydtygwre-Beb C-Mn (Glucosamine Chondroitin Maxstr) 500-400 mg capsule Discontinued CAP PO .once daily February 20, 2017 12:00am May 10, 2019 8:45am ibuprofen 200 mg oral tablet (20 sources) Nonsteroidal Anti-inflammatory Drug Start: 09-17-2015 End: 05-24-2024 take 3 tablets by mouth twice daily as needed for pain Ibuprofen 200 mg tablet Discontinued 600 mg PO TWICE A DAY as needed for pain May 10, 2019 9:44am May 24, 2024 9:32am Start: 09-17-2015 End: 05-10-2019 take 600 mg by mouth twice daily Ibuprofen Active 600 MG PO TWICE A DAY May 10, 2019 9:44am modified 24 hr metFORMIN hydrochloride 500 mg extended release oral tablet (20 sources) Biguanide Start: 02-15-2017 take 2 tablets by mouth twice daily METFORMIN HCL ER (MOD) 500 MG [id number] Two tablets by mouth twice daily METFORMIN HCL [id number] Divina Lund Start: 09-17-2015 take 2 tablets by mo uth twice daily Metformin 500 MG tablet Active 1000 mg PO TWICE A DAY September 17, 2015 12:00am Start: 09-17-2015 take 1000 mg by mouth twice da hang Metformin Active 1000 MG PO TWICE A DAY September 17, 2015 12:00am MULTIPLE VITAMINS-MINERALS (2 sources) Start: 02-15-2017 take 1 tablet by mouth once daily DAILY MULTIVITAMIN CAPS One tablet by mouth daily MULTIPLE VITAMINS-MINERALS [id number] Divina Lund nortriptyline 10 mg oral capsule (20 sources) Tricyclic Antidepressant Start: 09-17-2015 End: 05-10-2019 take 1 capsule by mouth once daily Nortriptyline 10 MG capsule Discontinued 10 mg PO DAILY September 17, 2015 12:00am May 10, 2019 9:44am Otis 4-Uel-Jaf-Fish Oil (10 sources) Start: 09-17-2015 End: 02-20-2017 take 1000 mg by mouth once daily Otis 1-Wex-Zws-Fish Oil Discontinued 1000 MG PO DAILY September 17, 2015 2:41pm February 20, 2017 5:23pm Start: 09-17-2015 End: 02-20-2017 take 1000 mg by mouth once daily Otis 5-Qtm-Qhy-Fish Oil Discontinued 1000 MG PO DAILY September 17, 2015 12:00am February 20, 2017 5:23pm Start: 09-17-2015 End: 02-20-2017 take 1000 mg by mouth once daily Otis 6-Obc-Kwl-Fish Oil Discontinued 1000 MG PO DAILY September 16, 2015 11:00pm February 20, 2017 4:23pm Otis 1-Xxd-Qgb-Fish Oil 500 MG capsule,delayed release(DR/EC) (8 sources) Start: 09-17-2015 End: 02-20-2017 Otis 3-Dlf-Mqa-Fish Oil 500 MG capsule,delayed release(DR/EC) Discontinued 1000 mg PO DAILY September 17, 2015 12:00am February 20, 2017 5:23pm omeprazole 20 mg delayed release oral capsule (16 sources) Proton Pump Inhibitor Start: 01-07-2024 End: 05-24-2024 take 1 capsule by mouth twice daily Omeprazole 20 mg capsule,delayed release(DR/EC) Discontinued 20 mg PO TWICE A DAY January 07, 2024 12:00am May 24, 2024 9:33am Start: 11-12-2023 End: 01-05-2024 take 1 tablet by mouth twice daily Omeprazole 20 mg tablet,delayed release (DR/EC) Discontinued 20 mg PO TWICE A DAY November 12, 2023 12:00am January 05, 2024 12:06pm pravastatin sodium 20 mg oral tablet (20 sources) HMG-CoA Reductase Inhibitor Start: 09-17-2015 End: 07-26-2024 take 1 tablet by mouth once daily Pravastatin 20 MG tablet Discontinued 20 mg PO DAILY September 17, 2015 12:00am July 26, 2024 4:46pm tadalafil 20 mg oral tablet (20 sources) Phosphodiesterase 5 Inhibitor Start: 02-15-2017 End: 05-10-2019 take 1 tablet by mouth once Tadalafil (Cialis) 20 mg tablet Discontinued 20 mg PO ONCE February 20, 2017 1:00am May 10, 2019 9:44am triamcinolone acetonide 1 mg/ml topical cream (20 sources) Corticosteroid Start: 02-20-2017 End: 05-10-2019 Triamcinolone Acetonide 0.1 % cream Discontinued 1 NMA TOPICAL daily February 20, 2017 1:00am May 10, 2019 9:44am Start: 02-15-2017 TRIAMCINOLONE ACETONIDE 0.1 % CREA use as directed TRIAMCINOLONE ACETONIDE [id number] Divina Lund Problems Active Problems Problem Classification Problem Date Documented Da te Episodic/Chronic Diabetes mellitus with complications (20 sources) Type II diabetes mellitus uncontrolled; Translations: [Uncontrolled type II diabetes mellitus] Onset: 5 02-20-2017 Chronic Diabetes mellitus without complication (2 sources) Type 2 diabetes mellitus; Translations: [Type 2 diabetes mellitus without complications] Onset: 7 02-15-2017 Chronic Disorders of lipid metabolism (20 sources) Hyperlipidemia; Translations: [Hyperlipidemia, unspecified] Onset: 7 02-15-2017 Chronic Diverticulosis and diverticulitis (20 sources) Diverticular disease of colon; Translations: [Diverticulosis of colon] Onset: 7 02-15-2017 Chronic Esophageal disorders (13 sources) Gastroesophageal reflux disease; Translations: [Gastro-esophageal reflux disease without esophagitis] Onset: 4 09-15-2023 Chronic Hyperplasia of prostate (20 sources) Benign prostatic hypertrophy without outflow obstruction; Translations: [Hyperplasia of prostate] Onset: 7 02-15-2017 Chronic Open wounds of head; neck; and trunk (18 sources) Open wound of ear; Translations: [Laceration without foreign body of unspecified ear, initial encounter] 02-20-2017 Episodic Other and unspecified benign neoplasm (20 sources) Benign neoplasm of colon; Translations: [Benign neoplasm of colon, unspecified] Onset: 7 02-15-2017 Episodic Other gastrointestinal disorders (6 sources) Diarrhea; Translations: [Diarrhea, unspecified] 08-01-2024 Episodic Residual codes; unclassified (18 sources) History of total cystectomy; Translations: [Acquired absence of other parts of urinary tract] 05-10-2019 Episodic Comment on above: Excision of infected sebaceous cyst Left lower back 07/15/2011 Residual codes; unclassified (20 sources) History of colonoscopy; Translations: [Other specified postprocedural states] 05-10-2019 Episodic Comment on above: 04/08/2009, 04/24/19 10 Past or Other Problems Problem Classification Problem Date Documented Da te Episodic/Chronic Deficiency and other anemia (1 source) Iron deficiency anemia, unspecified; Translations: [Iron deficiency anemia, unspecified] Onset: 11-26-2023 Episodic Other gastrointestinal disorders (1 source) Other fecal abnormalities; Translations: [Other fecal abnormalities] Onset: 07-24-2024 Episodic Other gastrointestinal disorders (1 source) Diarrhea, unspecified; Translations: [Diarrhea, unspecified] Onset: 07-18-2024 Episodic Other screening for suspected conditions (not mental disorders or infectious disease) (19 sources) Patient encounter status; Translations: [Encounter for screening for malignant neoplasm of intestinal tract, unspecified] Onset: 04-03-2024 05-10-2019 Episodic Other skin disorders (2 sources) Infected sebaceous cyst; Translations: [Sebaceous cyst] Onset: 02-15-2017 02-15-2017 Episodic Sprains and strains (1 source) Strain of muscle(s) and tendon(s) of the rotator cuff of left shoulder, initial encounter; Translations: [Strain of muscle(s) and tendon(s) of the rotator cuff of left shoulder, initial encounter] Onset: 06-29-2024 Episodic Results Test Name Value Interpretation Reference Range Facility Gastroenterology Visit Repor ton 11-01-2024 Gastroenterology Visit Report [facility] [address] [place] [address] OFFICE VISIT Date of Service: 11/01/24 MR#: [id number] Acct: [id number] Name: CHELLE SUN Rep #: [id number] 2 : 1945 Provider: Linus Lo DO Age/Sex: 79/M [place] [facility] [place]: [place] Intake Vital Signs 06/22/24 06:33 Height 5 ft 8 in Intake Visit Reasons: 3 M FU Allergies cephalexin monohydrate (From Keflex) Adverse Reaction (Verified 08/01/24 07:34) Diarrhea oxycodone Adverse Reaction (Verified 08/01/24 07:34) Other sertraline HCl (From Zoloft) Adverse Reaction (Verified 08/01/24 07:34) Upset Stomach Medications ???Medication ???Instructions ???Recorded ???Confirmed ???Type aspirin 81 mg tablet,delayed 81 mg PO DAILY 09/17/15 11/01/24 H istory release metformin 500 mg tablet,extended 1,000 mg PO BID 09/17/15 11/01/24 History release 24 hr hpozbvkg-tgr-msvrs acid 0.4 1 ea PO DAILY 09/17/15 11/01/24 Hi story mg-lycopene 300 mcg-lutein 250 mcg tablet amlodipine 10 mg tablet 10 mg PO QDAY 09/15/23 11/01/24 Hi story finasteride 5 mg tablet 5 mg PO DAILY 09/15/23 11/01/24 Hi story solifenacin 10 mg tablet 10 mg PO DAILY 09/15/23 11/01/24 H istory inulin-sorbitol 2 gram chewable 1 tab PO DAILY 11/10/23 11/01/24 H istory tablet (Fiber Supplement (inulin)) lisinopril 5 mg tablet 5 mg PO DAILY 11/10/23 11/01/24 Hi story acetaminophen 650 mg 1,300 mg PO Q12H PRN pain 05/24/24 11/01/24 History tablet,extended release (8 Hour Pain Reliever) empagliflozin 25 mg tablet 25 mg PO DAILY 05/24/24 11/01/24 H istory (Jardiance) famotidine 20 mg tablet 20 mg PO DAILY 05/24/24 11/01/24 H istory meloxicam 7.5 mg tablet 7.5 mg PO DAILY PRN pain 14 days 0 06/22/24 11/01/24 Rx #14 tabs oxycodone 5 mg tablet 5 mg PO Q4H PRN pain 5 days #20 11/01/24 Rx tabs glipizide 5 mg tablet 10 mg PO DAILY 07/26/24 11/01/24 H istory cholestyramine 4 gram oral powder 4 g PO HS #239.4 grams 11/01/24 0 11/01/24 Rx Have you fallen in the past year?: No PFSH Medical History Former smoker Wears dentures Wears glasses Diabetes Arthritis High cholesterol History of diverticulitis Non-smoker Hypertension GERD (gastroesophageal reflux disease) Screening for malignant neoplasm of intestine Benign neoplasm of colon Hypertrophy of prostate without urinary obstruction Laceration of ear HLD (hyperlipidemia) Diverticular disease of colon Type II diabetes mellitus, uncontrolled Surgical History History of esophagogastroduodenoscop y (EGD) Hx of external ear surgery S/P cataract extraction Hx of tonsillectomy Hx of left inguinal hernia repair History of total cystectomy S/P right rotator cuff repair S/P right inguinal hernia repair S/P colonoscopy Family History Mother Diabetes Heart disease Father Heart disease Social History Smoking Status: Never smoker second hand exposure: No alcohol intake: never substance use type: does not use caffeine: Yes what type of physical activity do you participate in: walking frequency: 5-6 times per week seatbelt use: always HPI HPI Details: CHELLE SUN, is a 79 M who presents to the office today for follow up. abd/pelvis CT 5.9.25 Diverticulosis of the sigmoid colon. No definite signs of diverticulitis although very early inflammation can not be excluded. Large amount of fecal debris in the rectum. Chronic prostatitis. Other nonacute findings detailed above. *BGI established 5.13.25 Pt states he had LT shoulder surgery 5 weeks ago and then began having yellow diarrhea, abd pain and cramping. PCP ordered C.Diff and Enteric Panel that were negative. OTC Imodium was helpful. Pt states the last week or so his sx have improved. Does not have anymore abdominal pain. Stools continue to be mushy but are normal color. Pt states he had a bout of diverticulitis back in 2000 that was treated with ATB, PCP ordered CT scan on 07/28 that showed diverticulosis and large ammount of fecal debris in rectum. Pt was called by PCP and instructed to do an enema but has been unable due to recent shoulder surgery. OV 8.13.25 pt reports that he is feeling well overall and denies GI symptoms of concern at this time. Pt reports occasional diarrhea and infrequent blood in his stool; pt reports I am not worried about this. ROS Const Constitutional: No fatigue, fever(s) or weight change ENT ENT: No difficulty swallowing Gastro GI: Positive for change in bowel habits, diarrhea and Blood in stool; No abdominal pain, belching, bl (more content not included)... Normal [facility] Gastroenterology Visit Repor ton 08-01-2024 Gastroenterology Visit Report [facility] [address] [place] [address] OFFICE VISIT Date of Service: 08/01/24 MR#: [id number] Acct: [id number] Name: CHELLE SUN Rep #: [id number] 9 : 1945 Provider: Linus Lo DO Age/Sex: 79/M Location: [facility] [place] Status: Signed Intake Vital Signs 06/22/24 06:33 Height 5 ft 8 in Intake Visit Reasons: LOOSE STOOL, L LOWER ABD PAIN Allergies cephalexin monohydrate (From Keflex) Adverse Reaction (Verified 08/01/24 07:34) Diarrhea oxycodone Adverse Reaction (Verified 08/01/24 07:34) Other sertraline HCl (From Zoloft) Adverse Reaction (Verified 08/01/24 07:34) Upset Stomach Medications ???Medication ???Instructions ???Recorded ???Confirmed ???Type aspirin 81 mg tablet,delayed 81 mg PO DAILY 09/17/15 07/26/24 H istory release metformin 500 mg tablet,extended 1,000 mg PO BID 09/17/15 07/26/24 History release 24 hr zofctinh-qom-ktvne acid 0.4 1 ea PO DAILY 09/17/15 07/26/24 Hi story mg-lycopene 300 mcg-lutein 250 mcg tablet amlodipine 10 mg tablet 10 mg PO QDAY 09/15/23 07/26/24 Hi story finasteride 5 mg tablet 5 mg PO DAILY 09/15/23 07/26/24 Hi story solifenacin 10 mg tablet 10 mg PO DAILY 09/15/23 07/26/24 H istory inulin-sorbitol 2 gram chewable 1 tab PO DAILY 11/10/23 06/22/24 H istory tablet (Fiber Supplement (inulin)) lisinopril 5 mg tablet 5 mg PO DAILY 11/10/23 07/26/24 Hi story acetaminophen 650 mg 1,300 mg PO Q12H PRN pain 05/24/24 07/26/24 History tablet,extended release (8 Hour Pain Reliever) empagliflozin 25 mg tablet 25 mg PO DAILY 05/24/24 07/26/24 H istory (Jardiance) famotidine 20 mg tablet 20 mg PO DAILY 05/24/24 07/26/24 H istory meloxicam 7.5 mg tablet 7.5 mg PO DAILY PRN pain 14 days 0 06/22/24 Rx #14 tabs oxycodone 5 mg tablet 5 mg PO Q4H PRN pain 5 days #20 Rx tabs glipizide 5 mg tablet 10 mg PO DAILY 07/26/24 07/26/24 H istory Have you fallen in the past year?: No PFSH Medical History Former smoker Wears dentures Wears glasses Diabetes Arthritis High cholesterol History of diverticulitis Non-smoker Hypertension GERD (gastroesophageal reflux disease) Screening for malignant neoplasm of intestine Benign neoplasm of colon Hypertrophy of prostate without urinary obstruction Laceration of ear HLD (hyperlipidemia) Diverticular disease of colon Type II diabetes mellitus, uncontrolled Surgical History History of esophagogastroduodenoscop y (EGD) Hx of external ear surgery S/P cataract extraction Hx of tonsillectomy Hx of left inguinal hernia repair History of total cystectomy S/P right rotator cuff repair S/P right inguinal hernia repair S/P colonoscopy Family History Mother Diabetes Heart disease Father Heart disease Social History Smoking Status: Never smoker second hand exposure: No alcohol intake: never substance use type: does not use caffeine: Yes what type of physical activity do you participate in: walking frequency: 5-6 times per week seatbelt use: always HPI HPI Details: CHELLE SUN, is a 79 M who presents to the office today for initial consult. Pt states he had LT shoulder surgery 5 weeks ago and then began having yellow diarrhea, abd pain and cramping. PCP ordered C.Diff and Enteric Panel that were negative. OTC Imodium was helpful. Pt states the last week or so his sx have improved. Does not have anymore abdominal pain. Stools continue to be mushy but are normal color. Pt states he had a bout of diverticulitis back in 2000 that was treated with ATB, PCP ordered CT scan on 07/28 that showed diverticulosis and large ammount of fecal debris in rectum. Pt was called by PCP and instructed to do an enema but has been unable due to recent shoulder surgery. ROS Const Constitutional: Positive for fatigue and weight change; No fever(s) ENT ENT: No difficulty swallowing Gastro GI: Positive for abdominal pain, bloating, change in bowel habits, constipation, diarrhea and excessive flatus; No belching, change in stool character, coffee ground emesis, cramping, heartburn, difficulty swallowing, feeling full early, incontinent of stools, Vomiting blood/hematemesis, Blood in stool, loose stools, Black,tarry stools, nausea/dyspepsia, pain with swallowing, vomiting or other Musc Musculoskeletal: Positive for abnormal gait and Arthritis; No joint pain Skin Skin: No yellowing of the eye or itchy eyes Neuro Neurology: Positive for abnormal gait Psych Psychiatric: Positive for anxiety and No depression Endo Endocrin (more content not included)... Normal [facility] Abdomen/Pelvis WITH Contrast on 07-28-2024 Abdomen/Pelvis WITH Contrast [facility] [address] [place] [id number] Abdomen/Pelvis WITH Contrast MR#: [id number] Acct: [id number] Name: CHELLE SUN Rep #: [id number] : 1945 M 79 From: Dillon Koenig MD PCP: Dr. Teodoro Castro MD Status: REG CLI Study: Abdomen/Pelvis WITH Contrast Date of Exam: 12/14 Exam# [id number] Ordering Dr: Teodoro Castro MD PROCEDURE: ABDOMEN/PELVIS WITH CONTRAST 07/28/2024 REASON FOR EXAM: DIVERTICULITIS/ABDOMINAL PAIN TECHNIQUE: Contiguous axial scans of 3.75 mm slice thicknesses. Sagittal and coronal reconstruction images were obtained. One or more dose reduction techniques were used (e.g., automated exposure control, adjustment of mA and/or kv according to patient size, use of iterative reconstruction technique). PATIENT PREPARATION: Per protocol ORAL CONTRAST TYPE: Given CONTRAST: Isovue-300 VOLUME: Not given. RADIATION DOSE SUMMARY: DLP: 257.64 mGycm COMPARISON: No relevant prior. FINDINGS: Lung bases: Unremarkable. Liver: Normal-size and attenuation. No masses. Gallbladder: No gallstones. No ductal dilatation. Spleen: Normal in size. Pancreas: Unremarkable. Prominence of the pancreatic duct. Adrenals: No nodules. No thickening Kidneys: Excrete contrast material symmetrically. Kidneys normal in size. No masses or calcifications. Bladder: Unremarkable. Reproductive Organs: Small prostate gland. Calcifications in the prostate. Bowel: , Sigmoid colon. No definite signs of diverticulitis. Large amount of fecal debris in the rectum. Appendix: Unremarkable. Lymph nodes: No lymphadenopathy. Vasculature: Atherosclerotic calcifications of the aorta, mild. Peritoneum / Retroperitoneum: No masses, free air, or free fluid. Bones: Multilevel spondylosis and degenerative disc disease. Lumbar levocurvature. Small bone islands are noted in the bilateral femoral necks. CT/Abdomen/Pelvis WITH Contrast IMPRESSION: Diverticulosis of the sigmoid colon. No definite signs of diverticulitis although very early inflammation can not be excluded. Large amount of fecal debris in the rectum. Chronic prostatitis. Other nonacute findings detailed above. Reading Location: [id number] CC: Dr. Teodoro Castro MD Body Care Manager: Signed Normal [facility] Absolute lymphocyte countOrd ered By: Teodoro Castro on 07-28-2024 Lymphocytes Auto (Unsp spec) [#/Vol] 1.51 10*3/uL 0.83-4.51 [facility] Absolute neutrophil countOrd ered By: Teodoro Castro on 07-28-2024 Neutrophils (Bld) [#/Vol] 4.8 10*3/uL 2.0-7.7 [facility] Anion gap in Serum or Plasma Ordered By: Toedoro Castro on 07-28-2024 Anion gap [Moles/Vol] 11 mmol/L 5-15 [facility] Automated lymphocyte count a s percentage of total leukocytesOrdered By: Teodoro Castro on 07-28-2024 Lymphocytes/100 WBC Auto (Unsp spec) 22.1 % 19- [facility] BUN/creatinine ratioOrdered By: Teodoro Castro on 07-28-2024 Urea nitrogen/Creatinine [Mass ratio] 18.1 mg/mg 10-20 [facility] Basophil percentageOrdered B y: Teodoro Castro on 07-28-2024 Basophils/100 WBC (Bld) 0.6 % 0-1 [facility] Bilirubin, totalOrdered By: Teodoro Castro on 07-28-2024 Bilirubin [Mass/Vol] 0.36 mg/dL 0.00-1.30 [facility] CBC W/Diff, Automatedon Absolute Lymph 1.51 X10 3/uL Normal 0.83-4.51 [facility] Comment on above: Performed By: #### L 502.0250, L100.0100, L503.6030, L500.4050, L501.0900, L506.1001, L503.6550, L501.9985, L500.4100 #### [facility] [address] [place], [address] Absolute Neut 4.8 X10 3/uL Normal 2.0-7.7 [facility] Comment on above: Performed By: #### L 502.0250, L100.0100, L503.6030, L500.4050, L501.0900, L506.1001, L503.6550, L501.9985, L500.4100 #### [facility] [address] [place], [address] Basophils/100 WBC (Bld) 0.6 % Normal 0-1 [facility] Comment on above: Performed By: #### L 502.0250, L100.0100, L503.6030, L500.4050, L501.0900, L506.1001, L503.6550, L501.9985, L500.4100 #### [facility] [address] [place], [address] Eosinophils/100 WBC (Bld) 1.0 % Normal 0-5 [facility] Comment on above: Performed By: #### L 502.0250, L100.0100, L503.6030, L500.4050, L501.0900, L506.1001, L503.6550, L501.9985, L500.4100 #### [facility] [address] [place], [address] Erythrocyte distribution width (RBC) [Ratio] 12.9 % Normal 11.6-14.6 [facility] Comment on above: Performed By: #### L 502.0250, L100.0100, L503.6030, L500.4050, L501.0900, L506.1001, L503.6550, L501.9985, L500.4100 #### [facility] [address] [place], [address] Hematocrit (Bld) [Volume fraction] 37.8 % Low 40-54 [facility] Comment on above: Performed By: #### L 502.0250, L100.0100, L503.6030, L500.4050, L501.0900, L506.1001, L503.6550, L501.9985, L500.4100 #### [facility] [address] [place], [address] Hemoglobin (Bld) [Mass/Vol] 12.3 g/dL Low 13.0-16.5 [facility] Comment on above: Performed By: #### L 502.0250, L100.0100, L503.6030, L500.4050, L501.0900, L506.1001, L503.6550, L501.9985, L500.4100 #### [facility] [address] [place], [address] IG% 0.100 Normal 0.0-0.9 [facility] Comment on above: Result Comment: IG% - Immature Granulocytes (promyelocytes, myelocytes and metamyelocytes) > 1% indicates that a LEFT SHIFT is Present. Performed By: #### L 502.0250, L100.0100, L503.6030, L500.4050, L501.0900, L506.1001, L503.6550, L501.9985, L500.4100 #### [facility] [address] [place], [address] Lymphocytes/100 WBC (Bld) 22.1 % Normal 19-41 [facility] Comment on above: Performed By: #### L 502.0250, L100.0100, L503.6030, L500.4050, L501.0900, L506.1001, L503.6550, L501.9985, L500.4100 #### [facility] [address] [place], [address] MCH (RBC) [Entitic mass] 29.5 pg Normal 27.0-32.0 [facility] Comment on above: Performed By: #### L 502.0250, L100.0100, L503.6030, L500.4050, L501.0900, L506.1001, L503.6550, L501.9985, L500.4100 #### [facility] [address] [place], [address] MCHC (RBC) [Mass/Vol] 32.5 g/dL Normal 32-36 [facility] Comment on above: Performed By: #### L 502.0250, L100.0100, L503.6030, L500.4050, L501.0900, L506.1001, L503.6550, L501.9985, L500.4100 #### [facility] [address] [place], [address] MCV (RBC) [Entitic vol] 90.6 fL Normal 80-94 [facility] Comment on above: Performed By: #### L 502.0250, L100.0100, L503.6030, L500.4050, L501.0900, L506.1001, L503.6550, L501.9985, L500.4100 #### [facility] [address] [place], [address] Monocytes/100 WBC (Bld) 6.3 % Normal 0-10 [facility] Comment on above: Performed By: #### L 502.0250, L100.0100, L503.6030, L500.4050, L501.0900, L506.1001, L503.6550, L501.9985, L500.4100 #### [facility] [address] [place], [address] Neutrophils/100 WBC (Bld) 69.9 % Normal 47-70 [facility] Comment on above: Performed By: #### L 502.0250, L100.0100, L503.6030, L500.4050, L501.0900, L506.1001, L503.6550, L501.9985, L500.4100 #### [facility] [address] [place], [address] Nucleated RBC (Bld) [#/Vol] 0 10*3/uL Normal 0-5 [facility] Comment on above: Performed By: #### L 502.0250, L100.0100, L503.6030, L500.4050, L501.0900, L506.1001, L503.6550, L501.9985, L500.4100 #### [facility] [address] [place], [address] Platelet mean volume (Bld) [Entitic vol] 10.4 fL Normal 6.2-12.0 [facility] Comment on above: Performed By: #### L 502.0250, L100.0100, L503.6030, L500.4050, L501.0900, L506.1001, L503.6550, L501.9985, L500.4100 #### [facility] [address] [place], [address] Platelets (Bld) [#/Vol] 228 10*3/uL Normal 150-450 [facility] Comment on above: Performed By: #### L 502.0250, L100.0100, L503.6030, L500.4050, L501.0900, L506.1001, L503.6550, L501.9985, L500.4100 #### [facility] [address] [facility], [address] RBC (Bld) [#/Vol] 4.17 10*6/uL Low 4.6-6.2 [facility] Comment on above: Performed By: #### L 502.0250, L100.0100, L503.6030, L500.4050, L501.0900, L506.1001, L503.6550, L501.9985, L500.4100 #### [facility] [address] [facility], [address] RDW SD 42.6 fl Normal 35.1-43.9 [facility] Comment on above: Performed By: #### L 502.0250, L100.0100, L503.6030, L500.4050, L501.0900, L506.1001, L503.6550, L501.9985, L500.4100 #### [facility] [address] [place], [address] WBC (Bld) [#/Vol] 6.8 10*3/uL Normal 4.4-11.0 [facility] Comment on above: Performed By: #### L 502.0250, L100.0100, L503.6030, L500.4050, L501.0900, L506.1001, L503.6550, L501.9985, L500.4100 #### [facility] [address] [place], [place], [id number] Calculated very low density lipoprotein (VLDL) cholesterol measurementOrdered By: Teodoro Castro on 07-28-2024 Calculated very low density lipoprotein (VLDL) cholesterol measurement 17 mg/dL 5-40 [facility] Carbon dioxide, total [Moles /volume] in Central venous bloodOrdered By: Teodoro Castro on 07-28-2024 CO2 [Moles/Vol] 23.3 mmol/L 21.0-32.0 [facility] Chloride assayOrdered By: Nicole Castro on 07-28-2024 Chloride [Moles/Vol] 97 mmol/L Low 98-108 [facility] Comprehensive Metabolic Prof ilon 07-28-2024 Albumin [Mass/Vol] 3.9 g/dL Normal 3.4-4.8 [facility] Comment on above: Performed By: #### L 502.0250, L100.0100, L503.6030, L500.4050, L501.0900, L506.1001, L503.6550, L501.9985, L500.4100 #### [facility] [address] [place], [place], [id number] Albumin/Globulin [Mass ratio] 1.2 {ratio} Normal 0.9-2.4 [facility] Comment on above: Performed By: #### L 502.0250, L100.0100, L503.6030, L500.4050, L501.0900, L506.1001, L503.6550, L501.9985, L500.4100 #### [facility] [address] [place], [address] ALK PHOS 90 U/L Normal 40-129 [facility] Comment on above: Performed By: #### L 502.0250, L100.0100, L503.6030, L500.4050, L501.0900, L506.1001, L503.6550, L501.9985, L500.4100 #### [facility] [address] [place], [place], [id number] (545) ALT [Catalytic activity/Vol] 23 U/L Normal <=46 [facility] Comment on above: Performed By: #### L 502.0250, L100.0100, L503.6030, L500.4050, L501.0900, L506.1001, L503.6550, L501.9985, L500.4100 #### [facility] [address] [place], [address] AST [Catalytic activity/Vol] 19 U/L Normal <=37 [facility] Comment on above: Performed By: #### L 502.0250, L100.0100, L503.6030, L500.4050, L501.0900, L506.1001, L503.6550, L501.9985, L500.4100 #### [facility] [address] [place], [place], [phone] Bilirubin [Mass/Vol] 0.36 mg/dL Normal 0.00-1.30 [facility] Comment on above: Performed By: #### L 502.0250, L100.0100, L503.6030, L500.4050, L501.0900, L506.1001, L503.6550, L501.9985, L500.4100 #### [facility] [address] [place], [address] BUN/CRE 18.1 RATIO Normal 10-20 [facility] Comment on above: Performed By: #### L 502.0250, L100.0100, L503.6030, L500.4050, L501.0900, L506.1001, L503.6550, L501.9985, L500.4100 #### [facility] [address] [place], [address] Calcium [Mass/Vol] 9.1 mg/dL Normal 7.6-11.0 [facility] Comment on above: Performed By: #### L 502.0250, L100.0100, L503.6030, L500.4050, L501.0900, L506.1001, L503.6550, L501.9985, L500.4100 #### [facility] [address] [place], [address] Chloride [Moles/Vol] 97 mmol/L Low 98-108 [facility] Comment on above: Performed By: #### L 502.0250, L100.0100, L503.6030, L500.4050, L501.0900, L506.1001, L503.6550, L501.9985, L500.4100 #### [facility] [address] [place], [address] CO2 [Moles/Vol] 23.3 mmol/L Normal 21.0-32.0 [facility] Comment on above: Performed By: #### L 502.0250, L100.0100, L503.6030, L500.4050, L501.0900, L506.1001, L503.6550, L501.9985, L500.4100 #### [facility] [address] [place], [address] Creatinine [Mass/Vol] 1.12 mg/dL Normal 0.70-1.20 [facility] Comment on above: Performed By: #### L 502.0250, L100.0100, L503.6030, L500.4050, L501.0900, L506.1001, L503.6550, L501.9985, L500.4100 #### [facility] [address] [place], [address] GAP 11 Normal 5-15 [facility] Comment on above: Performed By: #### L 502.0250, L100.0100, L503.6030, L500.4050, L501.0900, L506.1001, L503.6550, L501.9985, L500.4100 #### [facility] [address] [place], [address] GFR/1.73 sq M.predicted among non-blacks MDRD (S/P/Bld) [Vol rate/Area] 67 mL/min/{1.73_m2} Normal >60 [facility] Comment on above: Result Comment: mL/m in/1.73m2 CKD-EPI Creatinine Equation (2020) Performed By: #### L 502.0250, L100.0100, L503.6030, L500.4050, L501.0900, L506.1001, L503.6550, L501.9985, L500.4100 #### [facility] [address] [place], [address] Globulin (S) [Mass/Vol] 3.1 g/dL Normal 2.2-4.2 [facility] Comment on above: Performed By: #### L 502.0250, L100.0100, L503.6030, L500.4050, L501.0900, L506.1001, L503.6550, L501.9985, L500.4100 #### [facility] [address] [place], [address] Glucose [Mass/Vol] 348 mg/dL High 70-99 [facility] Comment on above: Performed By: #### L 502.0250, L100.0100, L503.6030, L500.4050, L501.0900, L506.1001, L503.6550, L501.9985, L500.4100 #### [facility] [address] [place], [address] Potassium [Moles/Vol] 4.9 mmol/L Normal 3.3-5.1 [facility] Comment on above: Performed By: #### L 502.0250, L100.0100, L503.6030, L500.4050, L501.0900, L506.1001, L503.6550, L501.9985, L500.4100 #### [facility] [address] [place], [address] Sodium [Moles/Vol] 132 mmol/L Low 133-145 [facility] Comment on above: Performed By: #### L 502.0250, L100.0100, L503.6030, L500.4050, L501.0900, L506.1001, L503.6550, L501.9985, L500.4100 #### [facility] [address] [place], [address] T PROT 7.0 g/dL Normal 5.9-8.4 [facility] Comment on above: Performed By: #### L 502.0250, L100.0100, L503.6030, L500.4050, L501.0900, L506.1001, L503.6550, L501.9985, L500.4100 #### [facility] [address] [place], [address] Urea nitrogen [Mass/Vol] 20 mg/dL High 4-19 [facility] Comment on above: Performed By: #### L 502.0250, L100.0100, L503.6030, L500.4050, L501.0900, L506.1001, L503.6550, L501.9985, L500.4100 #### [facility] [address] [place], [address] Eosinophil percentageOrdered By: Teodoro Castro on 07-28-2024 Eosinophils/100 WBC (Bld) 1.0 % 0-5 [facility] Erythrocyte distribution wid th ratioOrdered By: Teodoro Castro on 07-28-2024 Erythrocyte distribution width (RBC) [Ratio] 12.9 % 11.6-14.6 [facility] Erythrocyte distribution wid th standard deviationOrdered By: Teodoro Castro on 07-28-2024 Erythrocyte distribution width (RBC) [Ratio] 42.6 fl 35.1-43.9 [facility] Ferritinon 07-28-2024 Ferritin [Mass/Vol] 121 ng/mL Normal 37-417 [facility] Comment on above: Performed By: #### L 501.1800, M100.651, L500.2500, L100.0100, L501.9985 #### [facility] [address] [place], [place], [id number] Glomerular filtration rate ( GFR) estimation/1.73 sq m using serum, plasma, or whole bOrdered By: Teodoro Castro on 07-28-2024 GFR/1.73 sq M.predicted among non-blacks MDRD (S/P/Bld) [Vol rate/Area] 67 mL/min/{1.73_m2} >60 [facility] Comment on above: mL/min/1.73m2 CKD-EP I Creatinine Equation (2020) Hematocrit Auto (Bld) [Volum e fraction]Ordered By: Teodoro Castro on 07-28-2024 Hematocrit (Bld) [Volume fraction] 37.8 % Low 40-54 [facility] Hemoglobin A1con 07-28-2024 HbA1c (Bld) [Mass fraction] 8.9 % High <=5.6 [facility] Comment on above: Result Comment: Norm al < 5.7 % Prediabetic 5.7 - 6.4 % Diabetic >or= 6.5 % Please note range changes. Performed By: #### L 502.0250, L100.0100, L503.6030, L500.4050, L501.0900, L506.1001, L503.6550, L501.9985, L500.4100 #### [facility] [address] [place], [place], [id number] Hemoglobin A1c percentageOrd ered By: Teodoro Castro on 07-28-2024 HbA1c (Bld) [Mass fraction] 8.9 % High <5.7 [facility] Comment on above: Normal < 5.7 % Predi abetic 5.7 - 6.4 % Diabetic >or= 6.5 % Please note range changes. Hemoglobin measurementOrdere d By: Teodoro Castro on 07-28-2024 Hemoglobin (Bld) [Mass/Vol] 12.3 g/dL Low 13.0-16.5 [facility] Immature granulocytes/100 WB C Auto (Bld)Ordered By: Teodoro Castro on 07-28-2024 Immature granulocytes/100 WBC (Bld) 0.100 % 0.0-0.9 [facility] Comment on above: IG% - Immature Granu locytes (promyelocytes, myelocytes and metamyelocytes) > 1% indicates that a LEFT SHIFT is Present. Iron measurement (mass/mass) Ordered By: Teodoro Castro on 07-28-2024 Iron (Unsp spec) [Mass/Mass] 43 ug/dL Low 65-175 [facility] Iron+Iron Binding Capacityon 07-28-2024 Iron [Mass/Vol] 43 ug/dL Low 65-175 [facility] Comment on above: Performed By: #### L 501.1800, M100.651, L500.2500, L100.0100, L501.9985 #### [facility] [address] [place], [place], [phone] IRON SATURATION 16.0 Normal 9-55 [facility] Comment on above: Performed By: #### L 501.1800, M100.651, L500.2500, L100.0100, L501.9985 #### [facility] [address] [facility] [place], [place], [phone] ([address] TIBC 272 ug/dL Normal 250-450 [facility] Comment on above: Performed By: #### L 501.1800, M100.651, L500.2500, L100.0100, L501.9985 #### [facility] [address] [place], [address] UIBC 229 ug/dL Normal 228-428 [facility] Comment on above: Performed By: #### L 501.1800, M100.651, L500.2500, L100.0100, L501.9985 #### [facility] [address] [place], [address] LDL calc ser/plasOrdered By: Teodoro Castro on 07-28-2024 Cholesterol in LDL [Mass/Vol] 64 mg/dL [facility] Comment on above: Jkhqiemcyz=832-797 m g/dL & Higher Jzhc=383 mg/dL or greater Laboratory - Chemistry and C hemistry - challengeOrdered By: Teodoro Castro on 07-28-2024 AST [Catalytic activity/Vol] 19 U/L <38 [facility] Lipid Profileon 07-28-2024 CHOL:HDL 2.57 Normal [facility] Comment on above: Performed By: #### L 501.1800, M100.651, L500.2500, L100.0100, L501.9985 #### [facility] [address] [place], [address] Cholesterol [Mass/Vol] 133 mg/dL Normal <=200 [facility] Comment on above: Result Comment: Chol esterol level, Desirable <200 mg/dL Borderline high cholesterol 200-239 mg/dL High cholesterol >=240 mg/dL Recommendations of the NCEP Adult Treatment Panel for the following risk-cutoff thresholds for the [place] population. Performed By: #### L 501.1800, M100.651, L500.2500, L100.0100, L501.9985 #### [facility] [address] [place], [address] Cholesterol in HDL [Mass/Vol] 52 mg/dL Normal [facility] Comment on above: Result Comment: Dee [place] onal Cholesterol Education Program (NCEP) guidelines: <40 mg/dL: Low HDL-cholesterol (major risk factor for CHD) >= 60 mg/dL: High HDL-cholesterol (negative risk factor for CHD) HDL-cholesterol is affected by a number of factors, e.g. smoking, exercise, hormones, sex and age. Performed By: #### L 501.1800, M100.651, L500.2500, L100.0100, L501.9985 #### [facility] [address] [place], [address] Cholesterol in LDL [Mass/Vol] 64 mg/dL Normal [facility] Comment on above: Result Comment: Bord elzxpo=662-895 mg/dL Higher Cntf=258 mg/dL or greater Performed By: #### L 501.1800, M100.651, L500.2500, L100.0100, L501.9985 #### [facility] [address] [place], [address] Cholesterol in VLDL [Mass/Vol] 17 mg/dL Normal 5-40 [facility] Comment on above: Performed By: #### L 501.1800, M100.651, L500.2500, L100.0100, L501.9985 #### [facility] [address] [place], [address] Triglyceride [Mass/Vol] 85 mg/dL Normal [facility] Comment on above: Result Comment: The drugs N-Acetylcysteine and Metamizole may falsely depress this assay. Normal range: <150 mg/dL Borderline High: 150-199 mg/dL High: 200-499 mg/dL Very High: >500 mg/dL Performed By: #### L 501.1800, M100.651, L500.2500, L100.0100, L501.9985 #### [facility] [address] [place], [address] MCV (mean corpuscular volume ) determinationOrdered By: Teodoro Castro on 07-28-2024 MCV (RBC) [Entitic vol] 90.6 fL 80-94 [facility] Mean corpuscular hemoglobin (MCH) determinationOrdered By: Teodoro Castro on 07-28-2024 MCH (RBC) [Entitic mass] 29.5 pg 27.0-32.0 [facility] Mean corpuscular hemoglobin concentration (MCHC) determinationOrdered By: Teodoro Castro on 07-28-2024 MCHC (RBC) [Mass/Vol] 32.5 g/dL 32-36 [facility] Mean platelet volume determi nationOrdered By: Teodoro Castro on 07-28-2024 Platelet mean volume (Bld) [Entitic vol] 10.4 fL 6.2-12.0 [facility] Microalb:Creat Ratio,Random URon 07-28-2024 MALB:CREAT UNABLE TO CALCULATE Normal [facility] Comment on above: Performed By: #### L 502.0250, L100.0100, L503.6030, L500.4050, L501.0900, L506.1001, L503.6550, L501.9985, L500.4100 #### [facility] [address] [place], [place], [id number] (455) MICROALBUMIN,UR < 12.0 Normal NO RANGE EST. [facility] Comment on above: Performed By: #### L 502.0250, L100.0100, L503.6030, L500.4050, L501.0900, L506.1001, L503.6550, L501.9985, L500.4100 #### [facility] [address] [place], [address] Microalbumin/creat ratio urO rdered By: Teodoro Castro on 07-28-2024 Urine microalbumin/creatinine ratio measurement UNABLE TO CALCULATE mg/g CRE [facility] Monocyte percentageOrdered B y: Teodoro Castro on 07-28-2024 Monocytes/100 WBC (Bld) 6.3 % 0-10 [facility] Neutrophil percentageOrdered By: Teodoor Castro on 07-28-2024 Neutrophils/100 WBC (Bld) 69.9 % 47-70 [facility] No Panel InformationOrdered By: Teodoro Castro on 07-28-2024 Unsaturated Iron Binding Capacity 229 ug/dL 228-428 [facility] Nucleated red blood cell per centageOrdered By: Teodoro Castro on 07-28-2024 Nucleated RBC/100 WBC (Bld) [Ratio] 0 % 0-5 [facility] Platelet countOrdered By: Nicole Castro on 07-28-2024 Platelets (Bld) [#/Vol] 228 10*3/uL 150-450 [facility] Potassium measurement (mass/ volume)Ordered By: Teodoro Castro on 07-28-2024 Potassium (Unsp spec) [Mass/Vol] 4.9 mmol/L 3.3-5.1 [facility] Protein+Creatinine Ratio,Uri neon 07-28-2024 PROT:CRE RATIO 90 mg/g CRE Normal 0-200 [facility] Comment on above: Performed By: #### L 502.0250, L100.0100, L503.6030, L500.4050, L501.0900, L506.1001, L503.6550, L501.9985, L500.4100 #### [facility] [address] [place], [address] Protein (U) [Mass/Vol] 7.1 mg/dL Normal 0.0-12.0 [facility] Comment on above: Performed By: #### L 502.0250, L100.0100, L503.6030, L500.4050, L501.0900, L506.1001, L503.6550, L501.9985, L500.4100 #### [facility] [address] [place], [address] UR CREAT 79.00 mg/dL Normal 39.00-259. 00 [facility] Comment on above: Performed By: #### L 502.0250, L100.0100, L503.6030, L500.4050, L501.0900, L506.1001, L503.6550, L501.9985, L500.4100 #### [facility] [address] [place], [address] RBC Auto (Bld) [#/Vol]Ordere d By: Teodoro Castro on 07-28-2024 RBC (Bld) [#/Vol] 4.17 10*6/uL Low 4.6-6.2 [facility] Random urine creatinine petrona urement (mass/volume)Ordered By: Teodoro Castro on 07-28-2024 Creatinine Unsp time (U) [Mass/Vol] 79.00 mg/dL 39.00-259. 00 [facility] Screening total cholesterol/ high density lipoprotein (HDL) cholesterol ratioOrdered By: Teodoro Castro on 07-28-2024 Cholesterol.total/Choles terol in HDL [Mass ratio] 2.57 {ratio} [facility] Serum creatinine measurement (mass/volume)Ordered By: Teodoro Castro on 07-28-2024 Creatinine [Mass/Vol] 1.12 mg/dL 0.70-1.20 [facility] Serum globulin measurementOr dered By: Teodoro Castro on 07-28-2024 Globulin (S) [Mass/Vol] 3.1 g/dL 2.2-4.2 [facility] Serum glucose measurement (m ass/volume)Ordered By: Teodoro Castro on 07-28-2024 Glucose [Mass/Vol] 348 mg/dL High 70-99 [facility] Serum or plasma alanine tucker otransferase (ALT) measurementOrdered By: Teodoro Castro on 07-28-2024 ALT [Catalytic activity/Vol] 23 U/L <47 [facility] Serum or plasma albumin petrona urement (mass/volume)Ordered By: Teodoro Castro on 07-28-2024 Albumin [Mass/Vol] 3.9 g/dL 3.4-4.8 [facility] Serum or plasma albumin/glob ulin mass ratioOrdered By: Teodoro Castro on 07-28-2024 Albumin/Globulin [Mass ratio] 1.2 {ratio} 0.9-2.4 [facility] Serum or plasma alkaline domi sphatase measurementOrdered By: Teodoro Castro on 07-28-2024 ALP [Catalytic activity/Vol] 90 U/L 40-129 [facility] Serum or plasma calcium petrona urement (mass/volume)Ordered By: Teodoro Castro on 07-28-2024 Calcium [Mass/Vol] 9.1 mg/dL 7.6-11.0 [facility] Serum or plasma cholesterol in HDL measurement (mass/volume)Ordered By: Teodoro Castro on 07-28-2024 Cholesterol in HDL [Mass/Vol] 52 mg/dL >40 [facility] Comment on above: National Cholesterol Education Program (NCEP) guidelines:<40 mg/dL: Low HDL-cholesterol (major risk factor for CHD)>= 60 mg/dL: High HDL-cholesterol (negative risk factor for CHD)HDL-cholesterol is affected by a number of factors, e.g. smoking, exercise, hormones, sex and age. Serum or plasma cholesterol measurement (mass/volume)Ordered By: Teodoro Castro on 07-28-2024 Cholesterol [Mass/Vol] 133 mg/dL <201 [facility] Comment on above: Cholesterol level, D esirable <200 mg/dLBorderline high cholesterol 200-239 mg/dLHigh cholesterol >=240 mg/dLRecommendations of the NCEP Adult Treatment Panel for the following risk-cutoff thresholds for the [place] population. Serum or plasma ferritin mary surement (mass/volume)Ordered By: Teodoro Castro on 07-28-2024 Ferritin [Mass/Vol] 121 ng/mL 37-417 [facility] Serum or plasma iron saturat ion measurement (mass fraction)Ordered By: Teodoro Castro on 07-28-2024 Iron saturation [Mass fraction] 16.0 % 9-55 [facility] Serum or plasma urea nitroge n measurement (mass/volume)Ordered By: Teodoro Castro on 07-28-2024 Urea nitrogen [Mass/Vol] 20 mg/dL High 4-19 [facility] Sodium levelOrdered By: Teodoro Castro on 07-28-2024 Sodium [Moles/Vol] 132 mmol/L Low 133-145 [facility] Total proteinOrdered By: Amadeo Castro on 07-28-2024 Protein [Mass/Vol] 7.0 g/dL 5.9-8.4 [facility] Triglycerides measurementOrd ered By: Teodoro Castro on 07-28-2024 Triglyceride [Mass/Vol] 85 mg/dL <199 [facility] Comment on above: The drugs N-Acetylcy steine and Metamizole may falsely depress this assay. Normal range: <150 mg/dLBorderline High: 150-199 mg/dLHigh: 200-499 mg/dLVery High: >500 mg/dL Urine albumin measurement [facility] detection limit of 20 mg/L or less (mass/volume)Ordered By: Teodoro Castro on 07-28-2024 Albumin DL <= 20 mg/L (U) [Mass/Vol] < 12.0 mg/L NO RANGE EST. [facility] Urine protein measurement (m ass/volume)Ordered By: Teodoro Castro on 07-28-2024 Protein (U) [Mass/Vol] 7.1 mg/dL 0.0-12.0 [facility] Urine protein/creatinine mas s ratioOrdered By: Teodoro Castro on 07-28-2024 Protein/Creatinine (U) [Mass ratio] 90 mg/g CRE 0-200 [facility] Vitamin D,25 Hydroxyon 07-28 Vitamin D 25-OH 33.4 ng/mL Normal 30-100 [facility] Comment on above: Result Comment: Mary Alice min D Status Deficiency: <20 ng/mL (50nmol/L) Insufficiency: 20-30 ng/mL (50-75 nmol/L) Sufficiency: 30-100 ng/mL (75-250 nmol/L) Toxicity: >100 ng/mL (>250 nmol/L) Performed By: #### L 501.1800, M100.651, L500.2500, L100.0100, L501.9985 #### [facility] [address] [place], [address] White blood cell (WBC) count Ordered By: Teodoro Castro on 07-28-2024 WBC (Bld) [#/Vol] 6.8 10*3/uL 4.4-11.0 [facility] L3410.9992on 07-19-2024 [facility] Misc. COMMENT Normal . [facility] Comment on above: Order Comment: [id number] 4STOOL CULTURE STL RF Result Comment: Test Ordered: [id number] Stool Culture Salmonella/Shigella Screen Note: Final report Reference Range: . Result 1 Comment CB Reference Range: . No Salmonella or Shigella recovered. Campylobacter Culture Note: Final report Reference Range: . Result 1 Comment CB Reference Range: . No Campylobacter species isolated. E coli Shiga Toxin EIA Negative Reference Range: Negative Performed at: - [facility] [id number] Chief Design Drafter: Nathan Rouse PhD, Phone: [phone] Performed By: #### L 502.0250, L100.0100, L503.6030, L500.4050, L501.0900, L506.1001, L503.6550, L501.9985, L500.4100 #### [facility] [address] [place], [place], [id number] Liveron 07-18-2024 Liver [facility] [address] [place] [address] Liver MR#: [id number] Acct: [id number] Name: CHELLE SUN Rep #: [id number] : 1945 M 79 From: Gulshan Hector MD PCP: Dr. Teodoro Castro MD Status: REG CLI Study: Liver Date of Exam: 07/18/24 Exam# [id number] Ordering Dr: Teodoro Csatro MD PROCEDURE: LIVER (USLI), 07/18/2024 REASON FOR EXAM: LALY COLORED STOOLS COMPARISON: None FINDINGS: Liver: Unremarkable. 11.7 cm in length. Gallbladder: Trace sludge versus sessile polyps, up to 9 x 3 mm, not evaluated with Doppler. No definite shadowing stones, wall thickening or pericholecystic fluid. Reportedly, sonographic Brumfield's was negative. Biliary tree: Unremarkable. CBD measures 4 mm. Pancreas: Partially obscured by shadowing bowel gas, grossly unremarkable as visualized. Right kidney: Unremarkable. 10.2 cm in length. Other: No visualized free fluid. US/Liver IMPRESSION: 1. No biliary dilatation. If concern or unexplained exam findings persist, consider CT with contrast. 2. Trace layering sludge versus sessile polyps up to 9 x 3 mm. Recommend follow-up in 6-12 months. 3. Additional description as above. Reading Location: [id number] CC: Dr. Teodoro Castro MD Body Care Manager: Signed Normal [facility] C. difficile DNA AKHIL+probe Q l (Unsp spec)Ordered By: Teodoro Castro on 07-14-2024 Clostridioides difficile (PCR) [facility] CDIFF (PCR)on 07-14-2024 CDIFF Pending [id number] NAP1-B1 Presumptive Negative *for epidemiolologic???use C. Diff PCR Negative- No toxigenic C. Diff Detected Normal [facility] Comment on above: Performed By: #### L 501.1800, M100.651, L500.2500, L100.0100, L501.9985 #### [facility] [address] [place] [address], [id number] Clostridium difficile detect ion by polymerase chain reactionOrdered By: Teodoro Castro on 07-14-2024 C. difficile DNA AKHIL+probe Ql (Unsp spec) [facility] Absolute lymphocyte countOrd ered By: Teodoro Castro on 07-12-2024 Lymphocytes Auto (Unsp spec) [#/Vol] 1.45 10*3/uL 0.83-4.51 [facility] Absolute neutrophil countOrd ered By: Teodoro Castro on 07-12-2024 Neutrophils (Bld) [#/Vol] 5.2 10*3/uL 2.0-7.7 [facility] Albumin DL <= 20 mg/L (U) [M ass/Vol]Ordered By: Teodoro Castro on 07-12-2024 Urine Random Microalbumin < 12.0 mg/L NO RANGE EST. [facility] Anion gap in Serum or Plasma Ordered By: Teodoro Castro on 07-12-2024 Anion gap [Moles/Vol] 13 mmol/L 5-15 [facility] Automated lymphocyte count a s percentage of total leukocytesOrdered By: Teodoro Castro on 07-12-2024 Lymphocytes/100 WBC Auto (Unsp spec) 19.4 % [facility] BUN/creatinine ratioOrdered By: Teodoro Castro on 07-12-2024 Urea nitrogen/Creatinine [Mass ratio] 17.5 mg/mg 10- [facility] Basophil percentageOrdered B y: Teodoro Paulaletty on 07-12-2024 Basophils/100 WBC (Bld) 0.7 % 0-1 [facility] Bilirubin directOrdered By: Teodoro Castro on 07-12-2024 Bilirubin.direct [Mass/Vol] 0.13 mg/dL 0.00-0.30 [facility] Bilirubin, Directon 07-13-19 Bilirubin.direct [Mass/Vol] 0.13 mg/dL Normal 0.00-0.30 [facility] Comment on above: Order Comment: Order Date: 03/29/24Order Info: [id number] - CMPOrder Info: [id number] - LIPIDOrder Info: [id number] - FEOrder Info: [id number] - BROOKE Performed By: #### L 502.0250, L100.0100, L503.6030, L500.4050, L501.0900, L506.1001, L503.6550, L501.9985, L500.4100 #### [facility] [address] [place], [place], [id number] (044) Bilirubin, totalOrdered By: Teodoro Castro on 07-12-2024 Bilirubin [Mass/Vol] 0.24 mg/dL 0.00-1.30 [facility] CBC W/Diff, Automatedon 06-21 Absolute Lymph 1.45 X10 3/uL Normal 0.83-4.51 [facility] Comment on above: Order Comment: Order Date: 03/29/24Order Info: [id number] - CBCD Performed By: #### L 502.0250, L100.0100, L503.6030, L500.4050, L501.0900, L506.1001, L503.6550, L501.9985, L500.4100 #### [facility] [address] [place], [address] Absolute Neut 5.2 X10 3/uL Normal 2.0-7.7 [facility] Comment on above: Order Comment: Order Date: 03/29/24Order Info: [id number] - CBCD Performed By: #### L 502.0250, L100.0100, L503.6030, L500.4050, L501.0900, L506.1001, L503.6550, L501.9985, L500.4100 #### [facility] [address] [place], [address] Basophils/100 WBC (Bld) 0.7 % Normal 0-1 [facility] Comment on above: Order Comment: Order Date: 03/29/24Order Info: [id number] - CBCD Performed By: #### L 502.0250, L100.0100, L503.6030, L500.4050, L501.0900, L506.1001, L503.6550, L501.9985, L500.4100 #### [facility] [address] [place], [address] Eosinophils/100 WBC (Bld) 1.6 % Normal 0-5 [facility] Comment on above: Order Comment: Order Date: 03/29/24Order Info: [id number] - CBCD Performed By: #### L 502.0250, L100.0100, L503.6030, L500.4050, L501.0900, L506.1001, L503.6550, L501.9985, L500.4100 #### [facility] [address] [place], [address] Erythrocyte distribution width (RBC) [Ratio] 13.0 % Normal 11.6-14.6 [facility] Comment on above: Order Comment: Order Date: 03/29/24Order Info: [id number] - CBCD Performed By: #### L 502.0250, L100.0100, L503.6030, L500.4050, L501.0900, L506.1001, L503.6550, L501.9985, L500.4100 #### [facility] [address] [place], [address] Hematocrit (Bld) [Volume fraction] 35.7 % Low 40-54 [facility] Comment on above: Order Comment: Order Date: 03/29/24Order Info: [id number] - CBCD Performed By: #### L 502.0250, L100.0100, L503.6030, L500.4050, L501.0900, L506.1001, L503.6550, L501.9985, L500.4100 #### [facility] [address] [place], [address] Hemoglobin (Bld) [Mass/Vol] 11.5 g/dL Low 13.0-16.5 [facility] Comment on above: Order Comment: Order Date: 03/29/24Order Info: [id number] - CBCD Performed By: #### L 502.0250, L100.0100, L503.6030, L500.4050, L501.0900, L506.1001, L503.6550, L501.9985, L500.4100 #### [facility] [address] [place], [address] IG% 0.300 Normal 0.0-0.9 [facility] Comment on above: Order Comment: Order Date: 03/29/24Order Info: [id number] - CBCD Result Comment: IG% - Immature Granulocytes (promyelocytes, myelocytes and metamyelocytes) > 1% indicates that a LEFT SHIFT is Present. Performed By: #### L 502.0250, L100.0100, L503.6030, L500.4050, L501.0900, L506.1001, L503.6550, L501.9985, L500.4100 #### [facility] [address] [place], [address] Lymphocytes/100 WBC (Bld) 19.4 % Normal 19-41 [facility] Comment on above: Order Comment: Order Date: 03/29/24Order Info: [id number] - CBCD Performed By: #### L 502.0250, L100.0100, L503.6030, L500.4050, L501.0900, L506.1001, L503.6550, L501.9985, L500.4100 #### [facility] [address] [place], [address] MCH (RBC) [Entitic mass] 29.4 pg Normal 27.0-32.0 [facility] Comment on above: Order Comment: Order Date: 03/29/24Order Info: [id number] - CBCD Performed By: #### L 502.0250, L100.0100, L503.6030, L500.4050, L501.0900, L506.1001, L503.6550, L501.9985, L500.4100 #### [facility] [address] [place], [address] MCHC (RBC) [Mass/Vol] 32.2 g/dL Normal 32-36 [facility] Comment on above: Order Comment: Order Date: 03/29/24Order Info: [id number] - CBCD Performed By: #### L 502.0250, L100.0100, L503.6030, L500.4050, L501.0900, L506.1001, L503.6550, L501.9985, L500.4100 #### [facility] [address] [place], [address] MCV (RBC) [Entitic vol] 91.3 fL Normal 80-94 [facility] Comment on above: Order Comment: Order Date: 03/29/24Order Info: [id number] - CBCD Performed By: #### L 502.0250, L100.0100, L503.6030, L500.4050, L501.0900, L506.1001, L503.6550, L501.9985, L500.4100 #### [facility] [address] [place], [address] Monocytes/100 WBC (Bld) 7.9 % Normal 0-10 [facility] Comment on above: Order Comment: Order Date: 03/29/24Order Info: [id number] - CBCD Performed By: #### L 502.0250, L100.0100, L503.6030, L500.4050, L501.0900, L506.1001, L503.6550, L501.9985, L500.4100 #### [facility] [address] [place], [address] Neutrophils/100 WBC (Bld) 70.1 % High 47-70 [facility] Comment on above: Order Comment: Order Date: 03/29/24Order Info: [id number] - CBCD Performed By: #### L 502.0250, L100.0100, L503.6030, L500.4050, L501.0900, L506.1001, L503.6550, L501.9985, L500.4100 #### [facility] [address] [place], [address] Nucleated RBC (Bld) [#/Vol] 0 10*3/uL Normal 0-5 [facility] Comment on above: Order Comment: Order Date: 03/29/24Order Info: [id number] - CBCD Performed By: #### L 502.0250, L100.0100, L503.6030, L500.4050, L501.0900, L506.1001, L503.6550, L501.9985, L500.4100 #### [facility] [address] [place], [address] Platelet mean volume (Bld) [Entitic vol] 9.3 fL Normal 6.2-12.0 [facility] Comment on above: Order Comment: Order Date: 03/29/24Order Info: [id number] - CBCD Performed By: #### L 502.0250, L100.0100, L503.6030, L500.4050, L501.0900, L506.1001, L503.6550, L501.9985, L500.4100 #### [facility] [address] [place], [address] Platelets (Bld) [#/Vol] 554 10*3/uL High 150-450 [facility] Comment on above: Order Comment: Order Date: 03/29/24Order Info: [id number] - CBCD Performed By: #### L 502.0250, L100.0100, L503.6030, L500.4050, L501.0900, L506.1001, L503.6550, L501.9985, L500.4100 #### [facility] [address] [place], [address] RBC (Bld) [#/Vol] 3.91 10*6/uL Low 4.6-6.2 [facility] Comment on above: Order Comment: Order Date: 03/29/24Order Info: [id number] - CBCD Performed By: #### L 502.0250, L100.0100, L503.6030, L500.4050, L501.0900, L506.1001, L503.6550, L501.9985, L500.4100 #### [facility] [address] [place], [address] RDW SD 44.0 fl High 35.1-43.9 [facility] Comment on above: Order Comment: Order Date: 03/29/24Order Info: [id number] - CBCD Performed By: #### L 502.0250, L100.0100, L503.6030, L500.4050, L501.0900, L506.1001, L503.6550, L501.9985, L500.4100 #### [facility] [address] [place], [address] WBC (Bld) [#/Vol] 7.5 10*3/uL Normal 4.4-11.0 [facility] Comment on above: Order Comment: Order Date: 03/29/24Order Info: [id number] - CBCD Performed By: #### L 502.0250, L100.0100, L503.6030, L500.4050, L501.0900, L506.1001, L503.6550, L501.9985, L500.4100 #### [facility] [address] [place], [place], [address] Calculated very low density lipoprotein (VLDL) cholesterol measurementOrdered By: Teodoro Castro on 07-12-2024 Calculated very low density lipoprotein (VLDL) cholesterol measurement 30 mg/dL [facility] VLDL Cholesterol 30 mg/dL [facility] Carbon dioxide, total [Moles /volume] in Central venous bloodOrdered By: Teodoro Castro on 07-12-2024 CO2 [Moles/Vol] 26.2 mmol/L 21.0-32.0 [facility] Chloride assayOrdered By: Nicole Castro on 07-12-2024 Chloride [Moles/Vol] 99 mmol/L 98-108 [facility] Comprehensive Metabolic Prof ilon 07-12-2024 Albumin [Mass/Vol] 4.0 g/dL Normal 3.4-4.8 [facility] Comment on above: Order Comment: Order Date: 03/29/24Order Info: [id number] - CMPOrder Info: [id number] - LIPIDOrder Info: [id number] - FEOrder Info: [id number] - BROOKE Performed By: #### L 502.0250, L100.0100, L503.6030, L500.4050, L501.0900, L506.1001, L503.6550, L501.9985, L500.4100 #### [facility] [address] [place], [address] Albumin/Globulin [Mass ratio] 1.2 {ratio} Normal 0.9-2.4 [facility] Comment on above: Order Comment: Order Date: 03/29/24Order Info: [id number] - CMPOrder Info: [id number] - LIPIDOrder Info: [id number] - FEOrder Info: [id number] - BROOKE Performed By: #### L 502.0250, L100.0100, L503.6030, L500.4050, L501.0900, L506.1001, L503.6550, L501.9985, L500.4100 #### [facility] [address] [place], [address] ALK PHOS 91 U/L Normal 40-129 [facility] Comment on above: Order Comment: Order Date: 03/29/24Order Info: [id number] - CMPOrder Info: - LIPIDOrder Info: [id number] - FEOrder Info: [id number] - BROOKE Performed By: #### L 502.0250, L100.0100, L503.6030, L500.4050, L501.0900, L506.1001, L503.6550, L501.9985, L500.4100 #### [facility] [address] [place], [place], 4[address]72 (803) ALT [Catalytic activity/Vol] 14 U/L Normal <=46 [facility] Comment on above: Order Comment: Order Date: 03/29/24Order Info: [id number]- - CMPOrder Info: [id number] - LIPIDOrder Info: [id number] - FEOrder Info: [id number] - BROOKE Performed By: #### L 502.0250, L100.0100, L503.6030, L500.4050, L501.0900, L506.1001, L503.6550, L501.9985, L500.4100 #### [facility] [address] [place], [address] AST [Catalytic activity/Vol] 18 U/L Normal <=37 [facility] Comment on above: Order Comment: Order Date: 03/29/24Order Info: [id number] - CMPOrder Info: [id number] - LIPIDOrder Info: [id number] - FEOrder Info: [id number] - BROOKE Performed By: #### L 502.0250, L100.0100, L503.6030, L500.4050, L501.0900, L506.1001, L503.6550, L501.9985, L500.4100 #### [facility] [address] [place], [address] Bilirubin [Mass/Vol] 0.24 mg/dL Normal 0.00-1.30 [facility] Comment on above: Order Comment: Order Date: 03/29/24Order Info: [id number] - CMPOrder Info: - LIPIDOrder Info: [id number] - FEOrder Info: [id number] - BROOKE Performed By: #### L 502.0250, L100.0100, L503.6030, L500.4050, L501.0900, L506.1001, L503.6550, L501.9985, L500.4100 #### [facility] [address] [place], [address] BUN/CRE 17.5 RATIO Normal 10-20 [facility] Comment on above: Order Comment: Order Date: 03/29/24Order Info: [id number] - CMPOrder Info: [id number] - LIPIDOrder Info: [id number] - FEOrder Info: [id number] - BROOKE Performed By: #### L 502.0250, L100.0100, L503.6030, L500.4050, L501.0900, L506.1001, L503.6550, L501.9985, L500.4100 #### [facility] [address] [place], [address] Calcium [Mass/Vol] 9.4 mg/dL Normal 7.6-11.0 [facility] Comment on above: Order Comment: Order Date: 03/29/24Order Info: 07 - CMPOrder Info: [id number] - LIPIDOrder Info: [id number] - FEOrder Info: [id number] - BROOKE Performed By: #### L 502.0250, L100.0100, L503.6030, L500.4050, L501.0900, L506.1001, L503.6550, L501.9985, L500.4100 #### [facility] [address] [place], [address] Chloride [Moles/Vol] 99 mmol/L Normal 98-108 [facility] Comment on above: Order Comment: Order Date: 03/29/24Order Info: [id number] - CMPOrder Info: [id number] - LIPIDOrder Info: [id number] - FEOrder Info: [id number] - BROOKE Performed By: #### L 502.0250, L100.0100, L503.6030, L500.4050, L501.0900, L506.1001, L503.6550, L501.9985, L500.4100 #### [facility] [address] [place], [address] CO2 [Moles/Vol] 26.2 mmol/L Normal 21.0-32.0 [facility] Comment on above: Order Comment: Order Date: 03/29/24Order Info: 07 - CMPOrder Info: [id number] - LIPIDOrder Info: [id number] - FEOrder Info: [id number] - BROOKE Performed By: #### L 502.0250, L100.0100, L503.6030, L500.4050, L501.0900, L506.1001, L503.6550, L501.9985, L500.4100 #### [facility] [address] [place], [address] Creatinine [Mass/Vol] 1.18 mg/dL Normal 0.70-1.20 [facility] Comment on above: Order Comment: Order Date: 03/29/24Order Info: [id number]- - CMPOrder Info: [id number] - LIPIDOrder Info: [id number] - FEOrder Info: [id number] - BROOKE Performed By: #### L 502.0250, L100.0100, L503.6030, L500.4050, L501.0900, L506.1001, L503.6550, L501.9985, L500.4100 #### [facility] [address] [place], [place], [address] GAP 13 Normal 5-15 [facility] Comment on above: Order Comment: Order Date: 03/29/24Order Info: 07 - CMPOrder Info: [id number] - LIPIDOrder Info: [id number] - FEOrder Info: [id number] - BROOKE Performed By: #### L 502.0250, L100.0100, L503.6030, L500.4050, L501.0900, L506.1001, L503.6550, L501.9985, L500.4100 #### [facility] [address] [place], [place], [address] GFR/1.73 sq M.predicted among non-blacks MDRD (S/P/Bld) [Vol rate/Area] 63 mL/min/{1.73_m2} Normal >60 [facility] Comment on above: Order Comment: Order Date: 03/29/24Order Info: [id number]- - CMPOrder Info: [id number] - LIPIDOrder Info: [id number] - FEOrder Info: [id number] - BROOKE Result Comment: mL/m in/1.73m2 CKD-EPI Creatinine Equation (2020) Performed By: #### L 502.0250, L100.0100, L503.6030, L500.4050, L501.0900, L506.1001, L503.6550, L501.9985, L500.4100 #### [facility] [address] [place], [address] Globulin (S) [Mass/Vol] 3.3 g/dL Normal 2.2-4.2 [facility] Comment on above: Order Comment: Order Date: 03/29/24Order Info: [id number] - CMPOrder Info: [id number] - LIPIDOrder Info: [id number] - FEOrder Info: [id number] - BROOKE Performed By: #### L 502.0250, L100.0100, L503.6030, L500.4050, L501.0900, L506.1001, L503.6550, L501.9985, L500.4100 #### [facility] [address] [place], [address] Glucose [Mass/Vol] 217 mg/dL High 70-99 [facility] Comment on above: Order Comment: Order Date: 03/29/24Order Info: [id number] - CMPOrder Info: [id number] - LIPIDOrder Info: [id number] - FEOrder Info: [id number] - BROOKE Performed By: #### L 502.0250, L100.0100, L503.6030, L500.4050, L501.0900, L506.1001, L503.6550, L501.9985, L500.4100 #### [facility] [address] [place], [address] Potassium [Moles/Vol] 4.4 mmol/L Normal 3.3-5.1 [facility] Comment on above: Order Comment: Order Date: 03/29/24Order Info: 07-1 - CMPOrder Info: [id number] - LIPIDOrder Info: [id number] - FEOrder Info: [id number] - BROOKE Performed By: #### L 502.0250, L100.0100, L503.6030, L500.4050, L501.0900, L506.1001, L503.6550, L501.9985, L500.4100 #### [facility] [address] [place], [address] Sodium [Moles/Vol] 138 mmol/L Normal 133-145 [facility] Comment on above: Order Comment: Order Date: 03/29/24Order Info: [id number] - CMPOrder Info: [id number] - LIPIDOrder Info: [id number] - FEOrder Info: [id number] - BROOKE Performed By: #### L 502.0250, L100.0100, L503.6030, L500.4050, L501.0900, L506.1001, L503.6550, L501.9985, L500.4100 #### [facility] [address] [place], [place], [id number] (919) T PROT 7.3 g/dL Normal 5.9-8.4 [facility] Comment on above: Order Comment: Order Date: 03/29/24Order Info: 07- - CMPOrder Info: [id number] - LIPIDOrder Info: [id number] - FEOrder Info: [id number] - BROOKE Performed By: #### L 502.0250, L100.0100, L503.6030, L500.4050, L501.0900, L506.1001, L503.6550, L501.9985, L500.4100 #### [facility] [address] [place], [place], [address] Urea nitrogen [Mass/Vol] 21 mg/dL High 4-19 [facility] Comment on above: Order Comment: Order Date: 03/29/24Order Info: [id number] - CMPOrder Info: [id number] - LIPIDOrder Info: [id number] - FEOrder Info: [id number] - BROOKE Performed By: #### L 502.0250, L100.0100, L503.6030, L500.4050, L501.0900, L506.1001, L503.6550, L501.9985, L500.4100 #### [facility] [address] [place], [place], [id number] [phone] Creatinine Unsp time (U) [Ma ss/Vol]Ordered By: Teodoro Castro on 07-12-2024 Creatinine (U) [Mass/Vol] 78.20 mg/dL 39.00-259. 00 [facility] Eosinophil percentageOrdered By: Teodoro Castro on 07-12-2024 Eosinophils/100 WBC (Bld) 1.6 % 0-5 [facility] Erythrocyte distribution wid th (RBC) [Ratio]Ordered By: Teodoro Castro on 07-12-2024 Erythrocyte distribution width (RBC) [Entitic vol] 44.0 fL High 35.1-43.9 [facility] Erythrocyte distribution wid th ratioOrdered By: Teodoro Castro on 07-12-2024 Erythrocyte distribution width (RBC) [Ratio] 13.0 % 11.6-14.6 [facility] Erythrocyte distribution wid th standard deviationOrdered By: Teodoro Castro on 07-12-2024 Erythrocyte distribution width (RBC) [Ratio] 44.0 fl High 35.1-43.9 [facility] Ferritinon 07-12-2024 Ferritin [Mass/Vol] 128 ng/mL Normal 37-417 [facility] Comment on above: Order Comment: Order Date: 03/29/24Order Info: [id number] - CMPOrder Info: [id number] - LIPIDOrder Info: [id number] - FEOrder Info: [id number] - BROOKE Performed By: #### L 502.0250, L100.0100, L503.6030, L500.4050, L501.0900, L506.1001, L503.6550, L501.9985, L500.4100 #### [facility] [address] [facility] [place], [place], [address] GFR/1.73 sq M.predicted chapincito g non-blacks MDRD (S/P/Bld) [Vol rate/Area]Ordered By: Teodoro Castro on 07-12-2024 Estimated GFR (MDRD) Non-Af Amer 63 >60 [facility] Comment on above: mL/min/1.73m2 CKD-EP I Creatinine Equation (2020) Glomerular filtration rate ( GFR) estimation/1.73 sq m using serum, plasma, or whole bOrdered By: Teodoro Castro on 07-12-2024 GFR/1.73 sq M.predicted among non-blacks MDRD (S/P/Bld) [Vol rate/Area] 63 mL/min/{1.73_m2} >60 [facility] Comment on above: mL/min/1.73m2 CKD-EP I Creatinine Equation (2020) Hematocrit Auto (Bld) [Volum e fraction]Ordered By: Teodoro Castro on 07-12-2024 Hematocrit (Bld) [Volume fraction] 35.7 % Low 40-54 [facility] Hemoglobin A1con 07-12-2024 HbA1c (Bld) [Mass fraction] 8.4 % High <=5.6 [facility] Comment on above: Order Comment: Order Date: 03/29/24Order Info: [id number] - A1C Result Comment: Norm al < 5.7 % Prediabetic 5.7 - 6.4 % Diabetic >or= 6.5 % Please note range changes. Performed By: #### L 502.0250, L100.0100, L503.6030, L500.4050, L501.0900, L506.1001, L503.6550, L501.9985, L500.4100 #### [facility] [address] [place], [place], [id number] Hemoglobin A1c percentageOrd ered By: Teodoro Castro on 07-12-2024 HbA1c (Bld) [Mass fraction] 8.4 % High <5.7 [facility] Comment on above: Normal < 5.7 % Predi abetic 5.7 - 6.4 % Diabetic >or= 6.5 % Please note range changes. Hemoglobin measurementOrdere d By: Teodoro Castro on 07-12-2024 Hemoglobin (Bld) [Mass/Vol] 11.5 g/dL Low 13.0-16.5 [facility] Immature granulocytes/100 WB C Auto (Bld)Ordered By: Teodoro Castro on 07-12-2024 Immature granulocytes/100 WBC (Bld) 0.300 % 0.0-0.9 [facility] Comment on above: IG% - Immature Granu locytes (promyelocytes, myelocytes and metamyelocytes) > 1% indicates that a LEFT SHIFT is Present. Iron measurement (mass/mass) Ordered By: Teodoro Castro on 07-12-2024 Iron (Unsp spec) [Mass/Mass] 42 ug/dL Low 65-175 [facility] Iron [Mass/Vol] 42 ug/dL Low 65-175 [facility] Comment on above: Order Comment: Order Date: 03/29/24Order Info: [id number] - CMPOrder Info: [id number] - LIPIDOrder Info: [id number] - FEOrder Info: [id number] - BROOKE Performed By: #### L 502.0250, L100.0100, L503.6030, L500.4050, L501.0900, L506.1001, L503.6550, L501.9985, L500.4100 #### [facility] [address] [facility] [place], [place], [id number] LDL calc ser/plasOrdered By: Teodoro Castro on 07-12-2024 Cholesterol in LDL [Mass/Vol] 58 mg/dL [facility] Comment on above: Nbmyhntxoo=669-270 m g/dL & Higher Xzlq=770 mg/dL or greater LDL Cholesterol, Calculated 58 mg/dL [facility] Comment on above: Hjznymjqhe=143-186 m g/dL & Higher Tzbb=696 mg/dL or greater Laboratory - Chemistry and C hemistry - challengeOrdered By: Teodoro Castro on 07-12-2024 AST [Catalytic activity/Vol] 18 U/L <38 [facility] Lipid Profileon 07-12-2024 CHOL:HDL 3.18 Normal [facility] Comment on above: Order Comment: Order Date: 03/29/24Order Info: [id number] - CMPOrder Info: [id number] - LIPIDOrder Info: [id number] - FEOrder Info: [id number] - BROOKE Performed By: #### L 502.0250, L100.0100, L503.6030, L500.4050, L501.0900, L506.1001, L503.6550, L501.9985, L500.4100 #### [facility] [address] [place], [place], [id number] (275) Cholesterol [Mass/Vol] 128 mg/dL Normal <=200 [facility] Comment on above: Order Comment: Order Date: 03/29/24Order Info: [id number] - CMPOrder Info: [id number] - LIPIDOrder Info: [id number] - FEOrder Info: [id number] - BROOKE Result Comment: Chol esterol level, Desirable <200 mg/dL Borderline high cholesterol 200-239 mg/dL High cholesterol >=240 mg/dL Recommendations of the NCEP Adult Treatment Panel for the following risk-cutoff thresholds for the [place] population. Performed By: #### L 502.0250, L100.0100, L503.6030, L500.4050, L501.0900, L506.1001, L503.6550, L501.9985, L500.4100 #### [facility] [address] [place], [address] Cholesterol in HDL [Mass/Vol] 40 mg/dL Normal [facility] Comment on above: Order Comment: Order Date: 03/29/24Order Info: [id number] - CMPOrder Info: [id number] - LIPIDOrder Info: [id number] - FEOrder Info: [id number] - BROOKE Result Comment: [place] on[place] Cholesterol Education Program (NCEP) guidelines: <40 mg/dL: Low HDL-cholesterol (major risk factor for CHD) >= 60 mg/dL: High HDL-cholesterol (negative risk factor for CHD) HDL-cholesterol is affected by a number of factors, e.g. smoking, exercise, hormones, sex and age. Performed By: #### L 502.0250, L100.0100, L503.6030, L500.4050, L501.0900, L506.1001, L503.6550, L501.9985, L500.4100 #### [facility] [address] [place], [address] Cholesterol in LDL [Mass/Vol] 58 mg/dL Normal [facility] Comment on above: Order Comment: Order Date: 03/29/24Order Info: [id number]- - CMPOrder Info: [id number] - LIPIDOrder Info: [id number] - FEOrder Info: [id number] - BROOKE Result Comment: Bord bbztvb=852-613 mg/dL Higher Asnt=195 mg/dL or greater Performed By: #### L 502.0250, L100.0100, L503.6030, L500.4050, L501.0900, L506.1001, L503.6550, L501.9985, L500.4100 #### [facility] [address] [place], [address] Cholesterol in VLDL [Mass/Vol] 30 mg/dL Normal 5-40 [facility] Comment on above: Order Comment: Order Date: 03/29/24Order Info: [id number] - CMPOrder Info: [id number] - LIPIDOrder Info: [id number] - FEOrder Info: [id number] - BROOKE Performed By: #### L 502.0250, L100.0100, L503.6030, L500.4050, L501.0900, L506.1001, L503.6550, L501.9985, L500.4100 #### [facility] [address] [facility] [place], [address] Triglyceride [Mass/Vol] 149 mg/dL Normal [facility] Comment on above: Order Comment: Order Date: 03/29/24Order Info: [id number] - CMPOrder Info: [id number] - LIPIDOrder Info: [id number] - FEOrder Info: [id number] - BROOKE Result Comment: The drugs N-Acetylcysteine and Metamizole may falsely depress this assay. Normal range: <150 mg/dL Borderline High: 150-199 mg/dL High: 200-499 mg/dL Very High: >500 mg/dL Performed By: #### L 502.0250, L100.0100, L503.6030, L500.4050, L501.0900, L506.1001, L503.6550, L501.9985, L500.4100 #### [facility] [address] [place], [place], [id number] Lymphocytes Auto (Unsp spec) [#/Vol]Ordered By: Teodoro Castro on 07-12-2024 Lymphocytes (Bld) [#/Vol] 1.45 10*3/uL 0.83-4.51 [facility] Lymphocytes/100 WBC Auto (Un sp spec)Ordered By: Teodoro Castro on 07-12-2024 Lymphocytes/100 WBC (Bld) 19.4 % 19-41 [facility] MCV (mean corpuscular volume ) determinationOrdered By: Teodoro Castro on 07-12-2024 MCV (RBC) [Entitic vol] 91.3 fL 80-94 [facility] Mean corpuscular hemoglobin (MCH) determinationOrdered By: Teodoro Castro on 07-12-2024 MCH (RBC) [Entitic mass] 29.4 pg 27.0-32.0 [facility] Mean corpuscular hemoglobin concentration (MCHC) determinationOrdered By: Teodoro Castro on 07-12-2024 MCHC (RBC) [Mass/Vol] 32.2 g/dL 32-36 [facility] Mean platelet volume determi nationOrdered By: Teodoro Castro on 07-12-2024 Platelet mean volume (Bld) [Entitic vol] 9.3 fL 6.2-12.0 [facility] Microalb:Creat Ratio,Random URon 07-12-2024 MALB:CREAT UNABLE TO CALCULATE Normal [facility] Comment on above: Order Comment: Order Date: 03/29/24Order Info: [id number] - MIACRE Performed By: #### L 502.0250, L100.0100, L503.6030, L500.4050, L501.0900, L506.1001, L503.6550, L501.9985, L500.4100 #### [facility] [address] [place], [address] MICROALBUMIN,UR < 12.0 Normal NO RANGE EST. [facility] Comment on above: Order Comment: Order Date: 03/29/24Order Info: [id number] - MIACRE Performed By: #### L 502.0250, L100.0100, L503.6030, L500.4050, L501.0900, L506.1001, L503.6550, L501.9985, L500.4100 #### [facility] [address] [place], [address] Microalbumin/creat ratio urO rdered By: Teodoro Castro on 07-12-2024 Urine Microalbumin/Creatinine Ratio UNABLE TO CALCULATE mg/g CRE [facility] Urine microalbumin/creatinine ratio measurement UNABLE TO CALCULATE mg/g CRE [facility] Monocyte percentageOrdered B y: Teodoro Castro on 07-12-2024 Monocytes/100 WBC (Bld) 7.9 % 0-10 [facility] Neutrophil percentageOrdered By: Teodoro Castro on 07-12-2024 Neutrophils/100 WBC (Bld) 70.1 % High 47-70 [facility] Nucleated red blood cell per centageOrdered By: Teodoro Castro on 07-12-2024 Nucleated RBC/100 WBC (Bld) [Ratio] 0 % 0-5 [facility] Platelet countOrdered By: Nicole Castro on 07-12-2024 Platelets (Bld) [#/Vol] 554 10*3/uL High 150-450 [facility] Potassium (Unsp spec) [Mass/ Vol]Ordered By: Teodoro Castro on 07-12-2024 Potassium [Moles/Vol] 4.4 mmol/L 3.3-5.1 [facility] Potassium measurement (mass/ volume)Ordered By: Teodoro Castro on 07-12-2024 Potassium (Unsp spec) [Mass/Vol] 4.4 mmol/L 3.3-5.1 [facility] Protein+Creatinine Ratio,Uri neon 07-12-2024 PROT:CRE RATIO 83 mg/g CRE Normal 0-200 [facility] Comment on above: Order Comment: Order Date: 03/29/24Order Info: [id number] - MIACRE Performed By: #### L 502.0250, L100.0100, L503.6030, L500.4050, L501.0900, L506.1001, L503.6550, L501.9985, L500.4100 #### [facility] [address] [place], [address] Protein (U) [Mass/Vol] 6.5 mg/dL Normal 0.0-12.0 [facility] Comment on above: Order Comment: Order Date: 03/29/24Order Info: [id number] - MIACRE Performed By: #### L 502.0250, L100.0100, L503.6030, L500.4050, L501.0900, L506.1001, L503.6550, L501.9985, L500.4100 #### [facility] [address] [place], [address] UR CREAT 78.20 mg/dL Normal 39.00-259. 00 [facility] Comment on above: Order Comment: Order Date: 03/29/24Order Info: [id number] - MIACRE Performed By: #### L 502.0250, L100.0100, L503.6030, L500.4050, L501.0900, L506.1001, L503.6550, L501.9985, L500.4100 #### [facility] [address] [place], [address] Protein/Creatinine (U) [Mass ratio]Ordered By: Teodoro Castro on 07-12-2024 Urine Protein/Creatinine Ratio 83 mg/g CRE 0-200 [facility] RBC Auto (Bld) [#/Vol]Ordere d By: Teodoro Castro on 07-12-2024 RBC (Bld) [#/Vol] 3.91 10*6/uL Low 4.6-6.2 [facility] Random urine creatinine petrona urement (mass/volume)Ordered By: Teodoro Castro on 07-12-2024 Creatinine Unsp time (U) [Mass/Vol] 78.20 mg/dL 39.00-259. 00 [facility] Screening total cholesterol/ high density lipoprotein (HDL) cholesterol ratioOrdered By: Teodoro Castro on 07-12-2024 Cholesterol.total/Choles terol in HDL [Mass ratio] 3.18 {ratio} [facility] Serum creatinine measurement (mass/volume)Ordered By: Teodoro Castro on 07-12-2024 Creatinine [Mass/Vol] 1.18 mg/dL 0.70-1.20 [facility] Serum globulin measurementOr dered By: Teodoro Castro on 07-12-2024 Globulin (S) [Mass/Vol] 3.3 g/dL 2.2-4.2 [facility] Serum glucose measurement (m ass/volume)Ordered By: Teodoro Castro on 07-12-2024 Glucose [Mass/Vol] 217 mg/dL High 70-99 [facility] Serum or plasma alanine tucker otransferase (ALT) measurementOrdered By: Toedoro Castro on 07-12-2024 ALT [Catalytic activity/Vol] 14 U/L <47 [facility] Serum or plasma albumin petrona urement (mass/volume)Ordered By: Teodoro Castro on 07-12-2024 Albumin [Mass/Vol] 4.0 g/dL 3.4-4.8 [facility] Serum or plasma albumin/glob ulin mass ratioOrdered By: Teodoro Castro on 07-12-2024 Albumin/Globulin [Mass ratio] 1.2 {ratio} 0.9-2.4 [facility] Serum or plasma alkaline domi sphatase measurementOrdered By: Teodoro Castro on 07-12-2024 ALP [Catalytic activity/Vol] 91 U/L 40-129 [facility] Serum or plasma calcium petrona urement (mass/volume)Ordered By: Teodoro Castro on 07-12-2024 Calcium [Mass/Vol] 9.4 mg/dL 7.6-11.0 [facility] Serum or plasma cholesterol in HDL measurement (mass/volume)Ordered By: Teodoro Castro on 07-12-2024 Cholesterol in HDL [Mass/Vol] 40 mg/dL >40 [facility] Comment on above: National Cholesterol Education Program (NCEP) guidelines:<40 mg/dL: Low HDL-cholesterol (major risk factor for CHD)>= 60 mg/dL: High HDL-cholesterol (negative risk factor for CHD)HDL-cholesterol is affected by a number of factors, e.g. smoking, exercise, hormones, sex and age. Serum or plasma cholesterol measurement (mass/volume)Ordered By: Teodoro Castro on 07-12-2024 Cholesterol [Mass/Vol] 128 mg/dL <201 [facility] Comment on above: Cholesterol level, D esirable <200 mg/dLBorderline high cholesterol 200-239 mg/dLHigh cholesterol >=240 mg/dLRecommendations of the NCEP Adult Treatment Panel for the following risk-cutoff thresholds for the [place] population. Serum or plasma ferritin mary surement (mass/volume)Ordered By: Teodoro Castro on 07-12-2024 Ferritin [Mass/Vol] 128 ng/mL 37-417 [facility] Serum or plasma urea nitroge n measurement (mass/volume)Ordered By: Teodoro Castro on 07-12-2024 Urea nitrogen [Mass/Vol] 21 mg/dL High 4-19 [facility] Sodium levelOrdered By: Teodoro Castro on 07-12-2024 Sodium [Moles/Vol] 138 mmol/L 133-145 [facility] Total proteinOrdered By: Amadeo Castro on 07-12-2024 Protein [Mass/Vol] 7.3 g/dL 5.9-8.4 [facility] Triglycerides measurementOrd ered By: Teodoro Castro on 07-12-2024 Triglyceride [Mass/Vol] 149 mg/dL <199 [facility] Comment on above: The drugs N-Acetylcy steine and Metamizole may falsely depress this assay. Normal range: <150 mg/dLBorderline High: 150-199 mg/dLHigh: 200-499 mg/dLVery High: >500 mg/dL Urine albumin measurement wi th detection limit of 20 mg/L or less (mass/volume)Ordered By: Teodoro Castro on 07-12-2024 Albumin DL <= 20 mg/L (U) [Mass/Vol] < 12.0 mg/L NO RANGE EST. [facility] Urine protein measurement (m ass/volume)Ordered By: Teodoro Castro on 07-12-2024 Protein (U) [Mass/Vol] 6.5 mg/dL 0.0-12.0 [facility] Urine protein/creatinine mas s ratioOrdered By: Teodoro Castro on 07-12-2024 Protein/Creatinine (U) [Mass ratio] 83 mg/g CRE 0-200 [facility] Vitamin D, 25-hydroxyOrdered By: Teodoro Castro on 07-12-2024 Vitamin D 25-Hydroxy 34.9 ng/mL 30-100 [facility] Comment on above: Vitamin D StatusDefi ciency: <20 ng/mL (50nmol/L)Insufficiency: 20-30 ng/mL (50-75 nmol/L)Sufficiency: 30-100 ng/mL (75-250 nmol/L)Toxicity: >100 ng/mL (>250 nmol/L) Vitamin D,25 Hydroxyon 07-12 Vitamin D 25-OH 34.9 ng/mL Normal 30-100 [facility] [facility] Comment on above: Order Comment: Order Date: 03/29/24Order Info: [id number] - CMPOrder Info: [id number] - LIPIDOrder Info: [id number] - FEOrder Info: [id number] - BROOKE Result Comment: Mary Alice min D Status Deficiency: <20 ng/mL (50nmol/L) Insufficiency: 20-30 ng/mL (50-75 nmol/L) Sufficiency: 30-100 ng/mL (75-250 nmol/L) Toxicity: >100 ng/mL (>250 nmol/L) Performed By: #### L 502.0250, L100.0100, L503.6030, L500.4050, L501.0900, L506.1001, L503.6550, L501.9985, L500.4100 #### [facility] [address] [facility], [address] White blood cell (WBC) count Ordered By: Teodoro Castro on 07-12-2024 WBC (Bld) [#/Vol] 7.5 10*3/uL 4.4-11.0 [facility] Basic Metabolic Profile (BMP )on 06-23-2024 BUN Normal 4-19 [facility] Comment on above: Result Comment: Canc elled via OM: Order cancelled - Patient discharged Performed By: #### L 501.1800, M100.651, L500.2500, L100.0100, L501.9985 #### [facility] [address] [place], [address] BUN/CRE Normal 10-20 [facility] Comment on above: Result Comment: Canc elled via OM: Order cancelled - Patient discharged Performed By: #### L 501.1800, M100.651, L500.2500, L100.0100, L501.9985 #### [facility] [address] [place], [address] Calcium Normal 7.6-11.0 [facility] Comment on above: Result Comment: Canc elled via OM: Order cancelled - Patient discharged Performed By: #### L 501.1800, M100.651, L500.2500, L100.0100, L501.9985 #### [facility] [address] [place], [address] CL Normal 98-108 [facility] Comment on above: Result Comment: Canc elled via OM: Order cancelled - Patient discharged Performed By: #### L 501.1800, M100.651, L500.2500, L100.0100, L501.9985 #### [facility] [address] [place], [address] CO2 Normal 21.0-32.0 [facility] Comment on above: Result Comment: Canc elled via OM: Order cancelled - Patient discharged Performed By: #### L 501.1800, M100.651, L500.2500, L100.0100, L501.9985 #### [facility] [address] [place], [address] CREAT,SERUM Normal 0.70-1.20 [facility] Comment on above: Result Comment: Canc elled via OM: Order cancelled - Patient discharged Performed By: #### L 501.1800, M100.651, L500.2500, L100.0100, L501.9985 #### [facility] [address] [place], [address] eGFR Normal >60 [facility] Comment on above: Result Comment: Canc elled via OM: Order cancelled - Patient discharged Performed By: #### L 501.1800, M100.651, L500.2500, L100.0100, L501.9985 #### [facility] [address] [place], [address] GAP Normal 5-15 [facility] Comment on above: Result Comment: Canc elled via OM: Order cancelled - Patient discharged Performed By: #### L 501.1800, M100.651, L500.2500, L100.0100, L501.9985 #### [facility] [address] [place], [address] GLU Normal 70-99 [facility] Comment on above: Result Comment: Canc elled via OM: Order cancelled - Patient discharged Performed By: #### L 501.1800, M100.651, L500.2500, L100.0100, L501.9985 #### [facility] [address] [place], [address] Potassium Normal 3.3-5.1 [facility] Comment on above: Result Comment: Canc elled via OM: Order cancelled - Patient discharged Performed By: #### L 501.1800, M100.651, L500.2500, L100.0100, L501.9985 #### [facility] [address] [place], [address] Basic Metabolic Profile (BMP) Normal 133-145 [facility] Comment on above: Result Comment: Canc elled via OM: Order cancelled - Patient discharged Performed By: #### L 501.1800, M100.651, L500.2500, L100.0100, L501.9985 #### [facility] [address] [place], [address] CBC-Complete Blood Cnt No Di ffon 06-23-2024 HCT Normal 40-54 [facility] Comment on above: Result Comment: Canc elled via OM: Order cancelled - Patient discharged Performed By: #### L 501.1800, M100.651, L500.2500, L100.0100, L501.9985 #### [facility] [address] [place], [address] HGB Normal 13.0-16.5 [facility] Comment on above: Result Comment: Canc elled via OM: Order cancelled - Patient discharged Performed By: #### L 501.1800, M100.651, L500.2500, L100.0100, L501.9985 #### [facility] [address] [place], [address] MCH Normal 27.0-32.0 [facility] Comment on above: Result Comment: Canc elled via OM: Order cancelled - Patient discharged Performed By: #### L 501.1800, M100.651, L500.2500, L100.0100, L501.9985 #### [facility] [address] [place], [address] MCHC Normal 32-36 [facility] Comment on above: Result Comment: Canc elled via OM: Order cancelled - Patient discharged Performed By: #### L 501.1800, M100.651, L500.2500, L100.0100, L501.9985 #### [facility] [address] [place], [address] MCV Normal 80-94 [facility] Comment on above: Result Comment: Canc elled via OM: Order cancelled - Patient discharged Performed By: #### L 501.1800, M100.651, L500.2500, L100.0100, L501.9985 #### [facility] [address] [place], [address] PLT Normal 150-450 [facility] Comment on above: Result Comment: Canc elled via OM: Order cancelled - Patient discharged Performed By: #### L 501.1800, M100.651, L500.2500, L100.0100, L501.9985 #### [facility] [address] [place], [address] RBC Normal 4.6-6.2 [facility] Comment on above: Result Comment: Canc elled via OM: Order cancelled - Patient discharged Performed By: #### L 501.1800, M100.651, L500.2500, L100.0100, L501.9985 #### [facility] [address] [place], [address] RDW CV Normal 11.6-14.6 [facility] Comment on above: Result Comment: Canc elled via OM: Order cancelled - Patient discharged Performed By: #### L 501.1800, M100.651, L500.2500, L100.0100, L501.9985 #### [facility] [address] [place], [address] RDW SD Normal 35.1-43.9 [facility] Comment on above: Result Comment: Canc elled via OM: Order cancelled - Patient discharged Performed By: #### L 501.1800, M100.651, L500.2500, L100.0100, L501.9985 #### [facility] [address] [place], [address] WBC Normal 4.4-11.0 [facility] Comment on above: Result Comment: Canc elled via OM: Order cancelled - Patient discharged Performed By: #### L 501.1800, M100.651, L500.2500, L100.0100, L501.9985 #### [facility] [address] [place], [address] Bedside Glucoseon 06-22-2024 FINGERSTICK GLU 171 mg/dL High 74-106 [facility] Comment on above: Result Comment: SAUD ARMSTRONG OF PATIENT CARE PER NURSING PROTOCOL Performed By: #### L 502.0250, L100.0100, L503.6030, L500.4050, L501.0900, L506.1001, L503.6550, L501.9985, L500.4100 #### [facility] [address] [place], [place], [address] Decalcification bone/plaqueo n 06-22-2024 Decalcification bone/plaque Patient Age/Sex Location Account Attending Physician CHELLE SUN 79/M [place] [facility] [place] [id number] Dr. Holger Stoner, DO Specimen: [id number] Received: 06/22/24 Status: JULIANA Hernandez Num: [id number] Spec Type: HUMERUS Subm Dr: Dr. Holger Stoner [facility] OPERATION: left reverse total shoulder arthroplasty PRE-OP DIAGNOSIS: Left rotator cuff tear, rotator cuff arthroplasty TISSUE SUBMITTED: A- Left humeral head MICROSCOPIC DIAGNOSIS A. Left humeral head, left rotator cuff tear, total arthroplasty: * Articular bone with reactive/degenerative change and patchy trilineage hematopoiesis. MICROSCOPIC DESCRIPTION Slides are reviewed. GROSS DESCRIPTION A. Received in formalin in a container labeled with the patient's name, date of , and left humeral head is a 5.5 x 4.8 x 2.2 cm semispherical portion of firm and nguyen-pink humeral head. The resection margin is smooth and firm, and the cortical surface is white-nguyen and somewhat roughened. It is quadrisected to reveal uniform, nguyen, firm surfaces. Farmworker Fruit sections are submitted in A1 following decalcification. [facility] 06-22-2024 CT:[id number] Patient Age/Sex Location Account Attending Physician CHELLE SUN 79/M [facility] [place] [id number] Dr. Holger Stoner, DO Signed (signature on file) Dr. Gemini Reardon MD 07/17/24 1035 Normal [facility] Comment on above: Performed By: #### L 502.0250, L100.0100, L503.6030, L500.4050, L501.0900, L506.1001, L503.6550, L501.9985, L500.4100 #### [facility] [address] [facility] [place], [place], [address] Gl[facility] at [facility] deOrdered By: Holger Stoner on 06-22-2024 Bedside Glucose ([facility] Panel) 171 mg/dL High 74-106 [facility] Comment on above: MANAGEMENT OF PATIEN T CARE PER NURSING PROTOCOL Glucose [Mass/Vol] 171 mg/dL High 74-106 [facility] Comment on above: MANAGEMENT OF PATIEN T CARE PER NURSING PROTOCOL MR/POSTOP.ANEon 06-22-2024 MR/POSTOP.ANE [facility] Medical Records Department [address] [place] [address] Anesthesia Postop Eval I 06/22/24923 MR#: [id number] Acct: [id number] Name: CHELLE SUN Rep #: [id number] : 1945 79 From: Kaiser Wallace CRNA PCP: Dr. Teodoro Castro MD Status:REG [facility] [place] Y Race: C Location: [place] [address] Anesthesia: Postop Eval I Current Vital Signs Temperature: 97 F Pulse Rate: 82 Blood Pressure: 112/62 Respiratory Rate: 16 Pulse Ox: 95 Assessment Airway patent: Yes Spontaneous unlabored respirations: Yes nausea: No Vomiting: No Anesthesia Complication: No Fluid Hydration Crystalloid volume administer (ml): 1,300 Total IV fluid infused: 1,300 Progress Note Anesthesia document: Postop Eval 1 completed: Yes 06/22/24924 Date Kaiser Wallace CAN FILLING ROOM SWEEPER Cosigner Signature: Date CC: Signed Normal [facility] MR/[id number] 06-22-2024 [facility] Medical Records Department [address] [place] [address] Anesthesia Postop Eval II 06/22/24 1051 MR#: [id number] Acct: [id number] Name: CHELLE SUN ROWDY Rep #: [id number] : 1945 79 From: Pamela Sam PCP: Dr. Teodoro Castro MD Status:REG [facility] [place] Y Race: C Location: [place] [address] Anesthesia Postop Eval I Sum Postop Eval Completion status Anesthesia document: Postop Eval 1 completed: Yes Anesthesia Postop Eval I Summary Anesthesia Postop Eval I Summary: Anesthesia Postop Eval I: Assessment Summary Airway patent Yes 06/22/24 09:24 CAN FILLING ROOM SWEEPER.TNES Spontaneous unlabored Yes 06/22/24 09:24 CAN FILLING ROOM SWEEPER.TNES respirations Mental status nausea No 06/22/24 09:24 CAN FILLING ROOM SWEEPER.TNES Vomiting No 06/22/24 09:24 CAN FILLING ROOM SWEEPER.TNES Anesthesia Postop Eval I: Fluid Summary Crystalloid volume administer 1,300 06/22/24 09:24 CAN FILLING ROOM SWEEPER.TNES (ml) Colloids volume administered ( ml) Blood Product volume administered (ml) Total IV fluid infused 1,300 06/22/24 09:24 CAN FILLING ROOM SWEEPER.TNES Anesthesia Postop Eval I: Summary Notes Anesthesia Complication No 06/22/24 09:24 CAN FILLING ROOM SWEEPER.TNES Anesthesia Complication Comment: Post-operative progress note Anesthesia: Postop Eval II Evaluation Mental status: Awake and Calm Pain Level: 0 nausea: No Vomiting: No Complications Anesthesia Complication: No 06/22/24 1051 Date Pamela Flaco Cosigner Signature: Date CC: Signed Normal [facility] Operative Reporton 5 Operative Report [facility] Medical Records Department [address] [place] [address] Operative Report 06/22/24920 MR#: [id number] Acct: [id number] Name: CHELLE SUN Rep #: [id number] : 1945 79 From: Holger Stoner DO PCP: Dr. Teodoro Castro MD Status:[facility] Location: [place] [address] Operative Report (Standard) Operative Information Date of Procedure: 06/22/24 Pre-Operative Diagnosis: Left shoulder rotator cuff tear arthropathy Post-Operative Diagnosis: Left shoulder rotator cuff tear arthropathy Surgery/Procedure Performed: Left reverse total shoulder arthroplasty bilingual social worker: Yes Shipping Coordinator: Lina Lyons Tasks completed by first aid teacher: Opening closing, Implanting device, Hemostasis: Electrocautery and Retracting Additional pastry assistant?: No Type of Anesthesia: General/Regional RN Documented Start/Stop Times: Operation Date: 06/22/24 07:30 Case Time Into Pre-Op 06/22/24 05:39 Anesthesia Start 06/22/24 07:34 Into Room 06/22/24 07:34 Procedure Start 06/22/24 08:06 Procedure End 06/22/24 09:07 Anesthesia End 06/22/24 09:17 Out of Room 06/22/24 09:17 Procedure Start Time: 08:06 Procedure Stop Time: :07 Select all DRAINS/GRAFTS/IMPLANTS that apply: Implanted device Implanted device details: Tornier Aequalis PerFORM+ reversed baseplate 29 mm diameter +6 mm lateralization, standard glenosphere cobalt chrome 42 mm diameter, Tornier perform inlay stem size #4, + 3 mm retentive size number 4 42 mm diameter polyethylene insert, short central post and peripheral screws x4. Estimated Blood Loss: 50 cc Specimen collected: Yes Description of specimen(s) removed: Left humeral head Description of surgery: Patient arrived to [facility] morning of the procedure and was greeted by the same day surgery staff. Prior to his procedure, I greeted the patient in the preoperative holding area I identified the patient by name, record number, and date of . Informed consent was confirmed. The operative extremity was marked. All questions were answered to patient satisfaction. An interscalene block was administered prior to procedure by anesthesia staff for postoperative and intraoperative analgesia. At time of his procedure, patient was brought to the operative suite and positioned supine on a standard table with a beachchair attachment. General anesthesia was induced after all bony prominences were well-padded. Endotracheal tube was placed. After adequate anesthesia and securing the tube, we prepared the patient to be positioned in the beachchair position. A well-padded head school custodian was applied. The nonoperative extremity was placed in a well arm carrillo. He was then brought into the beachchair position after we confirmed an appropriate blood pressure. We then spun the bed 45 degrees. The operative extremity was then prepared. In the butterfly wing of the bed was removed and a well-padded torso strap was applied to secure the patient to the bed. The operative extremity was now free. We then prepped and draped the left upper extremity in normal, sterile orthopedic fashion. We then performed a timeout with all parties in attendance in agreement with the side, site, and operation be performed. 2 g Ancef was administered prior to incision by anesthesia staff, as well as 1 g TXA IV. No concerns were voiced and we elected to proceed. I first marked a standard deltopectoral incision just lateral to the coracoid process in line with the long axis of the humerus. Skin was sharply incised with 10 blade scalpel. I then dissected bluntly through the subcutaneous layers and found the fat stripe between the deltoid and pectoralis major. The cephalic vein was then identified and protected. It was retracted laterally with the deltoid. I then bluntly dissected underneath the deltoid with a Reeves elevator. Kolbel retractor was placed. The upper 1 cm of the pectoralis major was released. I then identified the long head of the biceps tendon in the intertubercular groove. This was tenodesed in situ with #2 FiberWire. I then amputated the biceps proximal to the tenodesis site and followed the tendon to the supraglenoid tubercle where it was amputated. This identified the lesser and greater tuberosities. The supraspinatus was completely torn and retracted with an exposed greater tuberosity. I then performed a subscapularis peel while rotating the humerus externally. I tagged the subscapularis for possible repair later with a tagging suture. Humeral head was then dislocated anteriorly. Appropriate access to the humeral head was confirmed. I then subluxed the humeral head posteriorly with a Fukuda retractor placed around the posterior lip of the glenoid. Inferior capsule was tension. I was able to palpate the axillary nerve. Inferior capsule was then released to the 4 o'clock position of the glenoid face (more content not included)... Normal [facility] Shoulder min 2 Viewson 06-22 Shoulder min 2 Views [facility] Imaging Services [address] [place], [place] [id number] Shoulder min 2 Views MR#: [id number] Acct: [id number] Name: CHELLE SUN Rep #: [id number] : 1945 M 79 From: Bobby heard MD PCP: Dr. Teodoro Castro MD Status: [facility] Study: Shoulder min 2 Views Date of Exam: 06/22/24 Exam# [id number] Ordering Dr: Holger Stoner DO PROCEDURE: SHOULDER MIN 2 VIEWS 06/22/2024 REASON FOR EXAM: POST OP TECHNIQUE: Two views of the left shoulder were obtained. COMPARISON: None FINDINGS: The patient is status post left reverse shoulder replacement. There is good alignment. Postoperative soft tissue changes. RAD/Shoulder min 2 Views IMPRESSION: Status post left reverse shoulder replacement. There is good alignment. Postoperative soft tissue changes. Reading Location: [place] [address] CC: Dr. Teodoro Castro MD; Dr. Holger Stoner DO Body Care Manager: Signed Normal [facility] MRSA/SAID NASAL SCREENon MRSA+SAID SCRN Negative Normal [facility] Comment on above: Performed By: #### L 501.1800, M100.651, L500.2500, L100.0100, L501.9985 #### [facility] [address] [place], [address] Absolute lymphocyte countOrd ered By: Holger Stoner on 05-26-2024 Lymphocytes Auto (Unsp spec) [#/Vol] 1.60 10*3/uL 0.83-4.51 [facility] Absolute neutrophil countOrd ered By: Holger Stoner on 05-26-2024 Neutrophils (Bld) [#/Vol] 4.3 10*3/uL 2.0-7.7 [facility] Albumin, Serumon 05-26-2024 Albumin [Mass/Vol] 4.4 g/dL Normal 3.4-4.8 [facility] Comment on above: Performed By: #### L 501.1800, M100.651, L500.2500, L100.0100, L501.9985 #### [facility] [address] [place], [address] Anion gap in Serum or Plasma Ordered By: Holger Stoner on 05-26-2024 Anion gap [Moles/Vol] 13 mmol/L 5-15 [facility] Automated lymphocyte count a s percentage of total leukocytesOrdered By: Holger Stoner on 2025 Lymphocytes/100 WBC Auto (Unsp spec) 24.7 % 19-41 [facility] BUN/creatinine ratioOrdered By: Holger Stoner on 05-26-2024 Urea nitrogen/Creatinine [Mass ratio] 16.6 mg/mg - [facility] Basic Metabolic Profile (BMP )on 05-26-2024 BUN/CRE 16.6 RATIO Normal - [facility] Comment on above: Performed By: #### L 501.1800, M100.651, L500.2500, L100.0100, L501.9985 #### [facility] [address] [place], [address] Calcium [Mass/Vol] 9.5 mg/dL Normal 7.6-11.0 [facility] Comment on above: Performed By: #### L 501.1800, M100.651, L500.2500, L100.0100, L501.9985 #### [facility] [address] [place], [address] Chloride [Moles/Vol] 99 mmol/L Normal 98-108 [facility] Comment on above: Performed By: #### L 501.1800, M100.651, L500.2500, L100.0100, L501.9985 #### [facility] [address] [place], [address] CO2 [Moles/Vol] 24.7 mmol/L Normal 21.0-32.0 [facility] Comment on above: Performed By: #### L 501.1800, M100.651, L500.2500, L100.0100, L501.9985 #### [facility] [address] [place], [address] Creatinine [Mass/Vol] 1.22 mg/dL High 0.70-1.20 [facility] Comment on above: Performed By: #### L 501.1800, M100.651, L500.2500, L100.0100, L501.9985 #### [facility] [address] [place], [address] GAP 13 Normal 5-15 [facility] Comment on above: Performed By: #### L 501.1800, M100.651, L500.2500, L100.0100, L501.9985 #### [facility] [address] [place], [address] GFR/1.73 sq M.predicted among non-blacks MDRD (S/P/Bld) [Vol rate/Area] 61 mL/min/{1.73_m2} Normal >60 [facility] Comment on above: Result Comment: mL/m in/1.73m2 CKD-EPI Creatinine Equation (2020) Performed By: #### L 501.1800, M100.651, L500.2500, L100.0100, L501.9985 #### [facility] [address] [place], [address] Glucose [Mass/Vol] 182 mg/dL High 70-99 [facility] Comment on above: Performed By: #### L 501.1800, M100.651, L500.2500, L100.0100, L501.9985 #### [facility] [address] [place], [address] Potassium [Moles/Vol] 4.7 mmol/L Normal 3.3-5.1 [facility] Comment on above: Performed By: #### L 501.1800, M100.651, L500.2500, L100.0100, L501.9985 #### [facility] [address] [place], [address] Sodium [Moles/Vol] 137 mmol/L Normal 133-145 [facility] Comment on above: Performed By: #### L 501.1800, M100.651, L500.2500, L100.0100, L501.9985 #### [facility] [address] [place], [address] Urea nitrogen [Mass/Vol] 20 mg/dL High 4-19 [facility] Comment on above: Performed By: #### L 501.1800, M100.651, L500.2500, L100.0100, L501.9985 #### [facility] [address] [place], [address] Basophil percentageOrdered B y: Holger Stoner on 05-26-2024 Basophils/100 WBC (Bld) 0.8 % 0-1 [facility] CBC W/Diff, Automatedon Absolute Lymph 1.60 X10 3/uL Normal 0.83-4.51 [facility] Comment on above: Performed By: #### L 501.1800, M100.651, L500.2500, L100.0100, L501.9985 #### [facility] [address] [place], [address] Absolute Neut 4.3 X10 3/uL Normal 2.0-7.7 [facility] Comment on above: Performed By: #### L 501.1800, M100.651, L500.2500, L100.0100, L501.9985 #### [facility] [address] [place], [address] Basophils/100 WBC (Bld) 0.8 % Normal 0-1 [facility] Comment on above: Performed By: #### L 501.1800, M100.651, L500.2500, L100.0100, L501.9985 #### [facility] [address] [place], [address] Eosinophils/100 WBC (Bld) 1.4 % Normal 0-5 [facility] Comment on above: Performed By: #### L 501.1800, M100.651, L500.2500, L100.0100, L501.9985 #### [facility] [address] [place], [address] Erythrocyte distribution width (RBC) [Ratio] 13.6 % Normal 11.6-14.6 [facility] Comment on above: Performed By: #### L 501.1800, M100.651, L500.2500, L100.0100, L501.9985 #### [facility] [address] [place], [address] Hematocrit (Bld) [Volume fraction] 40.2 % Normal 40-54 [facility] Comment on above: Performed By: #### L 501.1800, M100.651, L500.2500, L100.0100, L501.9985 #### [facility] [address] [facility] [place], [address] Hemoglobin (Bld) [Mass/Vol] 13.3 g/dL Normal 13.0-16.5 [facility] Comment on above: Performed By: #### L 501.1800, M100.651, L500.2500, L100.0100, L501.9985 #### [facility] [address] [facility] [place], [address] IG% 0.300 Normal 0.0-0.9 [facility] Comment on above: Result Comment: IG% - Immature Granulocytes (promyelocytes, myelocytes and metamyelocytes) > 1% indicates that a LEFT SHIFT is Present. Performed By: #### L 501.1800, M100.651, L500.2500, L100.0100, L501.9985 #### [facility] [address] [place], [address] Lymphocytes/100 WBC (Bld) 24.7 % Normal 19-41 [facility] Comment on above: Performed By: #### L 501.1800, M100.651, L500.2500, L100.0100, L501.9985 #### [facility] [address] [place], [address] MCH (RBC) [Entitic mass] 29.8 pg Normal 27.0-32.0 [facility] Comment on above: Performed By: #### L 501.1800, M100.651, L500.2500, L100.0100, L501.9985 #### [facility] [address] [place], [address] MCHC (RBC) [Mass/Vol] 33.1 g/dL Normal 32-36 [facility] Comment on above: Performed By: #### L 501.1800, M100.651, L500.2500, L100.0100, L501.9985 #### [facility] [address] [place], [address] MCV (RBC) [Entitic vol] 90.1 fL Normal 80-94 [facility] Comment on above: Performed By: #### L 501.1800, M100.651, L500.2500, L100.0100, L501.9985 #### [facility] [address] [place], [address] Monocytes/100 WBC (Bld) 6.2 % Normal 0-10 [facility] Comment on above: Performed By: #### L 501.1800, M100.651, L500.2500, L100.0100, L501.9985 #### [facility] [address] [place], [address] Neutrophils/100 WBC (Bld) 66.6 % Normal 47-70 [facility] Comment on above: Performed By: #### L 501.1800, M100.651, L500.2500, L100.0100, L501.9985 #### [facility] [address] [place], [address] Nucleated RBC (Bld) [#/Vol] 0 10*3/uL Normal 0-5 [facility] Comment on above: Performed By: #### L 501.1800, M100.651, L500.2500, L100.0100, L501.9985 #### [facility] [address] [place], [address] Platelet mean volume (Bld) [Entitic vol] 9.0 fL Normal 6.2-12.0 [facility] Comment on above: Performed By: #### L 501.1800, M100.651, L500.2500, L100.0100, L501.9985 #### [facility] [address] [place], [address] Platelets (Bld) [#/Vol] 297 10*3/uL Normal 150-450 [facility] Comment on above: Performed By: #### L 501.1800, M100.651, L500.2500, L100.0100, L501.9985 #### [facility] [address] [place], [address] RBC (Bld) [#/Vol] 4.46 10*6/uL Low 4.6-6.2 [facility] Comment on above: Performed By: #### L 501.1800, M100.651, L500.2500, L100.0100, L501.9985 #### [facility] [address] [place], [address] RDW SD 45.0 fl High 35.1-43.9 [facility] Comment on above: Performed By: #### L 501.1800, M100.651, L500.2500, L100.0100, L501.9985 #### [facility] [address] [place], [address] WBC (Bld) [#/Vol] 6.5 10*3/uL Normal 4.4-11.0 [facility] Comment on above: Performed By: #### L 501.1800, M100.651, L500.2500, L100.0100, L501.9985 #### [facility] [address] [place], [address] Carbon dioxide, total [Moles /volume] in Central venous bloodOrdered By: Holger Stoner on 05-26-2024 CO2 [Moles/Vol] 24.7 mmol/L 21.0-32.0 [facility] Chloride assayOrdered By: Sherin cholas Herbie on 05-26-2024 Chloride [Moles/Vol] 99 mmol/L 98-108 [facility] Eosinophil percentageOrdered By: Holger Stoner on 05-26-2024 Eosinophils/100 WBC (Bld) 1.4 % 0-5 [facility] Erythrocyte distribution wid th (RBC) [Ratio]Ordered By: Holgercosta Stoner on 05-26-2024 Erythrocyte distribution width (RBC) [Entitic vol] 45.0 fL High 35.1-43.9 [facility] Erythrocyte distribution wid th ratioOrdered By: Holger Stoner on 05-26-2024 Erythrocyte distribution width (RBC) [Ratio] 13.6 % 11.6-14.6 [facility] Erythrocyte distribution wid th standard deviationOrdered By: Holger Stoner on 05-26-2024 Erythrocyte distribution width (RBC) [Ratio] 45.0 fl High 35.1-43.9 [facility] Extremity Upper without Cont raon 05-26-2024 Extremity Upper without Contra [facility] Imaging Services [address] [place], [place] [address] Extremity Upper without Contra MR#: [id number] Acct: [id number] Name: CHELLE SUN Rep #: [id number] : 1945 M 79 From: Bobby heard MD PCP: Dr. Teodoro Castro MD Status: REG CLI Study: Extremity Upper without Contra Date of Exam: 0 05/26/24 Exam# [id number] Ordering Dr: Holger Stoner DO PROCEDURE: EXTREMITY UPPER WITHOUT CONTRA REASON FOR EXAM: Primary osteoarthritis of the left shoulder. TECHNIQUE: Multiple axial tomographic images of the left shoulder were obtained without intravenous contrast administration. Coronal and sagittal reconstruction was obtained as well. COMPARISON: None. FINDINGS: Bones: No evidence of fracture. Joints: Osteoarthritis of the left acromioclavicular joint. There is narrowing of the distance between the acromion and humeral head most likely secondary to rotator cuff pathology and possible impingement. There is a [id number] degree of joint space narrowing of the left glenohumeral joint. Soft Tissues: The visualized portions of the lung are unremarkable. CT/Extremity Upper without Contra IMPRESSION: Degenerative changes of the acromioclavicular joint and glenohumeral joint as described with findings suggestive of possible impingement due to rotator cuff pathology. One or more dose reduction techniques were used (e.g., Automated exposure control, adjustment of the mA and/or kV according to patient size, use of iterative reconstruction technique). Reading Location: [id number] CC: Dr. Teodoro Castro MD; Dr. Holger Stoner DO Body Care Manager: Signed Normal [facility] GFR/1.73 sq M.predicted chapincito g non-blacks MDRD (S/P/Bld) [Vol rate/Area]Ordered By: Holger Stoner on 05-26-2024 Estimated GFR (MDRD) Non-Af Amer 61 >60 [facility] Comment on above: mL/min/1.73m2 CKD-EP I Creatinine Equation (2020) Glomerular filtration rate ( GFR) estimation/1.73 sq m using serum, plasma, or whole bOrdered By: Holger Stoner on 05-26-2024 GFR/1.73 sq M.predicted among non-blacks MDRD (S/P/Bld) [Vol rate/Area] 61 mL/min/{1.73_m2} >60 [facility] Comment on above: mL/min/1.73m2 CKD-EP I Creatinine Equation (2020) Hematocrit Auto (Bld) [Volum e fraction]Ordered By: Holger Stoner on 05-26-2024 Hematocrit (Bld) [Volume fraction] 40.2 % 40-54 [facility] Hemoglobin A1con 05-26-2024 HbA1c (Bld) [Mass fraction] 8.4 % Normal <=5.6 [facility] Comment on above: Order Comment: SEND A1C TO Performed By: #### L 501.1800, M100.651, L500.2500, L100.0100, L501.9985 #### [facility] [address] [facility] [address] [place], [place], [address] Hemoglobin A1c percentageOrd ered By: Charles Carpenter on 05-26-2024 HbA1c (Bld) [Mass fraction] 8.4 % >5.7 [facility] Hemoglobin measurementOrdere d By: Holger Stoner on 05-26-2024 Hemoglobin (Bld) [Mass/Vol] 13.3 g/dL 13.0-16.5 [facility] Immature granulocytes/100 WB C Auto (Bld)Ordered By: Holger Stoner on 05-26-2024 Immature granulocytes/100 WBC (Bld) 0.300 % 0.0-0.9 [facility] Comment on above: IG% - Immature Granu locytes (promyelocytes, myelocytes and metamyelocytes) > 1% indicates that a LEFT SHIFT is Present. Lymphocytes Auto (Unsp spec) [#/Vol]Ordered By: Holger Stoner on 05-26-2024 Lymphocytes (Bld) [#/Vol] 1.60 10*3/uL 0.83-4.51 [facility] Lymphocytes/100 WBC Auto (Un sp spec)Ordered By: Holger Stoner on 05-26-2024 Lymphocytes/100 WBC (Bld) 24.7 % 19-41 [facility] MCV (mean corpuscular volume ) determinationOrdered By: Holger Stoner on 05-26-2024 MCV (RBC) [Entitic vol] 90.1 fL 80-94 [facility] MR/PAT.ANEon 05-26-2024 MR/PAT.ANE [facility] Medical Records Department [address] [place] [address] PAT - Anesthesia 05/26/24 1507 MR#: [id number] Acct: [id number] Name: CHELLE SUN Rep #: [id number] : 1945 79 From: Charles Carpenter MD PCP: Dr. Teodoro Castro MD Status:PRE [facility] [place] Y Race: C Location: [facility] [place] Pre-Assessment Diagnosis/Proposed Procedure Planned Operative Procedure(s): LEFT REVERSE TOTAL SHOULDER ARTHROPLASTY Anesthesia History Anesthesia History - paraoptometric: Anesthesia History - paraoptometric Hx Hospitalization No 05/24/24 09:07 Any Problems With Anesthesia No 05/24/24 09:07 Cholinesterase deficiency No 05/24/24 09:07 You/Your Family Experience No 05/24/24 09:07 fever (hyperthermia) with Relationship Recent Exposure to Contagious No 01/07/24 09:03 Disease Does patient have nerve No 05/24/24 09:07 stimulator Patient instructed to have device shut off --Does patient have Pacemaker or ICD? When Was Last Pacemaker Check QUESTION #4 FULL TEXT: You/Your Family Experience fever (hyperthermia) with Anesthesia Last Oral Intake Last Oral intake: Last Oral Intake NPO since Meds taken in AM with sips of water? Meds patient instructed to take am of surgery PONV PONV - paraoptometric: PONV - paraoptometric Female No 05/24/24 09:07 HX of Motion Sickness No 05/24/24 09:07 HX of N/V After Surgery No 05/24/24 09:07 Non-Smoker Yes 05/24/24 09:07 Duration of Surgery greater Yes 05/24/24 09:07 than 60 minutes Number of Risk Factors 2 05/24/24 09:07 PONV Score Moderate Risk 05/24/24 09:07 Height Weight Height Weight: Anesthesia: Height Weight Height 5 ft 8 in 01/07/24 09:03 Respiratory Assessment Respiratory Assessment - paraoptometric: Respiratory Tract Infection Hx - paraoptometric Hx Respiratory Tract Infection No 05/24/24 09:07 STOP Sleep Apnea STOP Sleep Apnea - paraoptometric: STOP Sleep Apnea - paraoptometric Hx Hypertension Yes 05/24/24 09:07 Hx Sleep Apnea No 05/24/24 09:07 CPAP BIPAP Do you snore loudly (louder No 05/24/24 09:07 than talking or can be heard Do you often feel tired/ No 05/24/24 09:07 fatigued/ sleepy during daytime? Has anyone observed you stop No 05/24/24 09:07 breathing during sleep? STOP Results Negative 05/24/24 09:07 QUESTION #5 FULL TEXT : Do you snore loudly (louder than talking or can be heard through closed doors)? 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 Specify any problems Hx of Preganancy in last 3 N/A 05/24/24 09:07 Months Nurse Filling Out Transfusion [id number] 05/24/24 09:07 Questions: Date: 05/24/24 05/24/24 09:07 Time: 09:08 05/24/24 09:07 Patient unable to answer at this time (ie. confused, unrespo /Reproduction History /Reproductive History - paraoptometric: /Reproductive Hx- paraoptometric Hx Now Gestational Age (in weeks): EDC: Hx Hx Para Hx Section SAB PFSH Medical History Former smoker Wears dentures Wears glasses Diabetes Arthritis High cholesterol History of diverticulitis Non-smoker Hypertension GERD (gastroesophageal reflux disease) Screening for malignant neoplasm of intestine Benign neoplasm of colon Hypertrophy of prostate without urinary obstruction Laceration of ear HLD (hyperlipidemia) Diverticular disease of colon Type II diabetes mellitus, uncontrolled Home Medications ???Medication ???Instructions ???Recorded ???Last Taken ???Type aspirin 81 mg tablet,delayed 81 mg PO DAILY 09/17/1524 H istory release metformin 500 mg tablet,extended 1,000 mg PO BID 09/17/15 01/06/24 History release 24 hr ufeviddg-vth-rnxkn acid 0.4 1 ea PO DAILY 09/17/15 01/01/24 Hi story mg-lycopene 300 mcg-lutein 250 mcg tablet pravastatin 20 mg tablet 20 mg PO DAILY 09/17/15 01/06/24 H istory amlodipine 10 m (more content not included)... Normal [facility] MRSA screenOrdered By: Luis Enrique Stoner on 05-26-2024 MRSA DNA AKHIL+probe Ql (Unsp spec) [facility] Nasal Screen MRSA/MSSA [facility] Magnesiumon 05-26-2024 Magnesium [Mass/Vol] 2.0 mg/dL Normal 1.5-2.2 [facility] Comment on above: Order Comment: SEND A1C TO Performed By: #### L 501.1800, M100.651, L500.2500, L100.0100, L501.9985 #### [facility] [address] [place], [address] Magnesium (Unsp spec) [Mass/ Vol]Ordered By: Charles Carpenter on 05-26-2024 Magnesium [Mass/Vol] 2.0 mg/dL 1.5-2.2 [facility] Magnesium measurement (mass/ volume)Ordered By: Charles Carpenter on 05-26-2024 Magnesium (Unsp spec) [Mass/Vol] 2.0 mg/dL 1.5-2.2 [facility] Mean corpuscular hemoglobin (MCH) determinationOrdered By: Holger Stoner on 05-26-2024 MCH (RBC) [Entitic mass] 29.8 pg 27.0-32.0 [facility] Mean corpuscular hemoglobin concentration (MCHC) determinationOrdered By: Holger Stoner on 05-26-2024 MCHC (RBC) [Mass/Vol] 33.1 g/dL 32-36 [facility] Comment on above: Delta: 31.2 on 05/23-4 Mean platelet volume determi nationOrdered By: Holger Stoner on 05-26-2024 Platelet mean volume (Bld) [Entitic vol] 9.0 fL 6.2-12.0 [facility] Monocyte percentageOrdered B y: Holger Stoner on 05-26-2024 Monocytes/100 WBC (Bld) 6.2 % 0-10 [facility] Neutrophil percentageOrdered By: Holger Stoner on 05-26-2024 Neutrophils/100 WBC (Bld) 66.6 % 47-70 [facility] Nucleated red blood cell per centageOrdered By: Holger Stoner on 05-26-2024 Nucleated RBC/100 WBC (Bld) [Ratio] 0 % 0-5 [facility] Platelet countOrdered By: Sherin Stoner on 05-26-2024 Platelets (Bld) [#/Vol] 297 10*3/uL 150-450 [facility] Potassium (Unsp spec) [Mass/ Vol]Ordered By: Holger Stoner on 05-26-2024 Potassium [Moles/Vol] 4.7 mmol/L 3.3-5.1 [facility] Potassium measurement (mass/ volume)Ordered By: Holger Stoner on 05-26-2024 Potassium (Unsp spec) [Mass/Vol] 4.7 mmol/L 3.3-5.1 [facility] RBC Auto (Bld) [#/Vol]Ordere d By: Holger Stoner on 05-26-2024 RBC (Bld) [#/Vol] 4.46 10*6/uL Low 4.6-6.2 [facility] Serum creatinine measurement (mass/volume)Ordered By: Holger Stoner on 05-26-2024 Creatinine [Mass/Vol] 1.22 mg/dL High 0.70-1.20 [facility] Serum glucose measurement (m ass/volume)Ordered By: Holger Stoner on 05-26-2024 Glucose [Mass/Vol] 182 mg/dL High 70-99 [facility] Serum or plasma albumin petrona urement (mass/volume)Ordered By: Holger Stoner on 05-26-2024 Albumin [Mass/Vol] 4.4 g/dL 3.4-4.8 [facility] Serum or plasma calcium petrona urement (mass/volume)Ordered By: Holger Stoner on 05-26-2024 Calcium [Mass/Vol] 9.5 mg/dL 7.6-11.0 [facility] Serum or plasma urea nitroge n measurement (mass/volume)Ordered By: Holger Stoner on 05-26-2024 Urea nitrogen [Mass/Vol] 20 mg/dL High 4-19 [facility] Sodium levelOrdered By: Mike Stoner on 05-26-2024 Sodium [Moles/Vol] 137 mmol/L 133-145 [facility] White blood cell (WBC) count Ordered By: Holger Stoner on 05-26-2024 WBC (Bld) [#/Vol] 6.5 10*3/uL 4.4-11.0 [facility] MRSA/SAID NASAL SCREENon MRSA+SAID SCRN Negative Normal [facility] Comment on above: Performed By: #### L 501.1800, M100.651, L500.2500, L100.0100, L501.9985 #### [facility] [address] [place], [place], [id number] Absolute lymphocyte countOrd ered By: Holger Stoner on 05-23-2024 Lymphocytes Auto (Unsp spec) [#/Vol] 2.15 10*3/uL 0.83-4.51 [facility] Absolute neutrophil countOrd ered By: Holger Stoner on 05-23-2024 Neutrophils (Bld) [#/Vol] 4.2 10*3/uL 2.0-7.7 [facility] Albumin, Serumon 05-23-2024 Albumin [Mass/Vol] 4.5 g/dL Normal 3.4-4.8 [facility] Comment on above: Performed By: #### L 501.1800, M100.651, L500.2500, L100.0100, L501.9985 #### [facility] [address] [place], [place], [id number] Anion gap in Serum or Plasma Ordered By: Holger Stoner on 05-23-2024 Anion gap [Moles/Vol] 16 mmol/L High 5-15 [facility] Automated lymphocyte count a s percentage of total leukocytesOrdered By: Holger Stoner on 05-23-2024 Lymphocytes/100 WBC Auto (Unsp spec) 30.0 % [facility] BUN/creatinine ratioOrdered By: Holger Stoner on 05-23-2024 Urea nitrogen/Creatinine [Mass ratio] 19.4 mg/mg - [facility] Basic Metabolic Profile (BMP )on 05-23-2024 BUN/CRE 19.4 RATIO Normal - [facility] Comment on above: Performed By: #### L 501.1800, M100.651, L500.2500, L100.0100, L501.9985 #### [facility] [address] [place], [address] Calcium [Mass/Vol] 9.7 mg/dL Normal 7.6-11.0 [facility] Comment on above: Performed By: #### L 501.1800, M100.651, L500.2500, L100.0100, L501.9985 #### [facility] [address] [place], [address] Chloride [Moles/Vol] 100 mmol/L Normal 98-108 [facility] Comment on above: Performed By: #### L 501.1800, M100.651, L500.2500, L100.0100, L501.9985 #### [facility] [address] [place], [address] CO2 [Moles/Vol] 21.2 mmol/L Normal 21.0-32.0 [facility] Comment on above: Performed By: #### L 501.1800, M100.651, L500.2500, L100.0100, L501.9985 #### [facility] [address] [place], [address] Creatinine [Mass/Vol] 1.10 mg/dL Normal 0.70-1.20 [facility] Comment on above: Performed By: #### L 501.1800, M100.651, L500.2500, L100.0100, L501.9985 #### [facility] [address] [place], [address] GAP 16 High 5-15 [facility] Comment on above: Performed By: #### L 501.1800, M100.651, L500.2500, L100.0100, L501.9985 #### [facility] [address] [place], [address] GFR/1.73 sq M.predicted among non-blacks MDRD (S/P/Bld) [Vol rate/Area] 69 mL/min/{1.73_m2} Normal >60 [facility] Comment on above: Result Comment: mL/m in/1.73m2 CKD-EPI Creatinine Equation (2020) Performed By: #### L 501.1800, M100.651, L500.2500, L100.0100, L501.9985 #### [facility] [address] [place], [address] Glucose [Mass/Vol] 147 mg/dL High 70-99 [facility] Comment on above: Performed By: #### L 501.1800, M100.651, L500.2500, L100.0100, L501.9985 #### [facility] [address] [place], [address] Potassium [Moles/Vol] 5.0 mmol/L Normal 3.3-5.1 [facility] Comment on above: Performed By: #### L 501.1800, M100.651, L500.2500, L100.0100, L501.9985 #### [facility] [address] [place], [address] Sodium [Moles/Vol] 136 mmol/L Normal 133-145 [facility] Comment on above: Performed By: #### L 501.1800, M100.651, L500.2500, L100.0100, L501.9985 #### [facility] [address] [place], [address] Urea nitrogen [Mass/Vol] 21 mg/dL High 4-19 [facility] Comment on above: Performed By: #### L 501.1800, M100.651, L500.2500, L100.0100, L501.9985 #### [facility] [address] [place], [address] Basophil percentageOrdered B y: Holger Stoner on 05-23-2024 Basophils/100 WBC (Bld) 0.8 % 0-1 [facility] CBC W/Diff, Automatedon Absolute Lymph 2.15 X10 3/uL Normal 0.83-4.51 [facility] Comment on above: Performed By: #### L 501.1800, M100.651, L500.2500, L100.0100, L501.9985 #### [facility] [address] [place], [address] Absolute Neut 4.2 X10 3/uL Normal 2.0-7.7 [facility] Comment on above: Performed By: #### L 501.1800, M100.651, L500.2500, L100.0100, L501.9985 #### [facility] [address] [place], [address] Basophils/100 WBC (Bld) 0.8 % Normal 0-1 [facility] Comment on above: Performed By: #### L 501.1800, M100.651, L500.2500, L100.0100, L501.9985 #### [facility] [address] [place], [address] Eosinophils/100 WBC (Bld) 3.6 % Normal 0-5 [facility] Comment on above: Performed By: #### L 501.1800, M100.651, L500.2500, L100.0100, L501.9985 #### [facility] [address] [place], [address] Erythrocyte distribution width (RBC) [Ratio] 14.1 % Normal 11.6-14.6 [facility] Comment on above: Performed By: #### L 501.1800, M100.651, L500.2500, L100.0100, L501.9985 #### [facility] [address] [place], [address] Hematocrit (Bld) [Volume fraction] 41.0 % Normal 40-54 [facility] Comment on above: Performed By: #### L 501.1800, M100.651, L500.2500, L100.0100, L501.9985 #### [facility] [address] [place], [address] Hemoglobin (Bld) [Mass/Vol] 12.8 g/dL Low 13.0-16.5 [facility] Comment on above: Performed By: #### L 501.1800, M100.651, L500.2500, L100.0100, L501.9985 #### [facility] [address] [place], [address] IG% 0.300 Normal 0.0-0.9 [facility] Comment on above: Result Comment: IG% - Immature Granulocytes (promyelocytes, myelocytes and metamyelocytes) > 1% indicates that a LEFT SHIFT is Present. Performed By: #### L 501.1800, M100.651, L500.2500, L100.0100, L501.9985 #### [facility] [address] [place], [address] Lymphocytes/100 WBC (Bld) 30.0 % Normal 19-41 [facility] Comment on above: Performed By: #### L 501.1800, M100.651, L500.2500, L100.0100, L501.9985 #### [facility] [facility] [address] [place], [address] MCH (RBC) [Entitic mass] 29.3 pg Normal 27.0-32.0 [facility] Comment on above: Performed By: #### L 501.1800, M100.651, L500.2500, L100.0100, L501.9985 #### [facility] [address] [place], [address] MCHC (RBC) [Mass/Vol] 31.2 g/dL Low 32-36 [facility] Comment on above: Performed By: #### L 501.1800, M100.651, L500.2500, L100.0100, L501.9985 #### [facility] [address] [place], [address] MCV (RBC) [Entitic vol] 93.8 fL Normal 80-94 [facility] Comment on above: Performed By: #### L 501.1800, M100.651, L500.2500, L100.0100, L501.9985 #### [facility] [address] [place], [address] Monocytes/100 WBC (Bld) 7.0 % Normal 0-10 [facility] Comment on above: Performed By: #### L 501.1800, M100.651, L500.2500, L100.0100, L501.9985 #### [facility] [address] [place], [address] Neutrophils/100 WBC (Bld) 58.3 % Normal 47-70 [facility] Comment on above: Performed By: #### L 501.1800, M100.651, L500.2500, L100.0100, L501.9985 #### [facility] [address] [place], [address] Nucleated RBC (Bld) [#/Vol] 0 10*3/uL Normal 0-5 [facility] Comment on above: Performed By: #### L 501.1800, M100.651, L500.2500, L100.0100, L501.9985 #### [facility] [address] [place], [address] Platelet mean volume (Bld) [Entitic vol] 9.8 fL Normal 6.2-12.0 [facility] Comment on above: Performed By: #### L 501.1800, M100.651, L500.2500, L100.0100, L501.9985 #### [facility] [address] [place], [address] Platelets (Bld) [#/Vol] 315 10*3/uL Normal 150-450 [facility] Comment on above: Performed By: #### L 501.1800, M100.651, L500.2500, L100.0100, L501.9985 #### [facility] [address] [place], [address] RBC (Bld) [#/Vol] 4.37 10*6/uL Low 4.6-6.2 [facility] Comment on above: Performed By: #### L 501.1800, M100.651, L500.2500, L100.0100, L501.9985 #### [facility] [address] [place], [address] RDW SD 48.6 fl High 35.1-43.9 [facility] Comment on above: Performed By: #### L 501.1800, M100.651, L500.2500, L100.0100, L501.9985 #### [facility] [address] [place], [address] WBC (Bld) [#/Vol] 7.2 10*3/uL Normal 4.4-11.0 [facility] Comment on above: Performed By: #### L 501.1800, M100.651, L500.2500, L100.0100, L501.9985 #### [facility] [address] [place], [address] Carbon dioxide, total [Moles /volume] in Central venous bloodOrdered By: Holger Stoner on 05-23-2024 CO2 [Moles/Vol] 21.2 mmol/L 21.0-32.0 [facility] Chloride assayOrdered By: Sherin cholcindy Stoner on 05-23-2024 Chloride [Moles/Vol] 100 mmol/L 98-108 [facility] Eosinophil percentageOrdered By: Holger Stoner on 05-23-2024 Eosinophils/100 WBC (Bld) 3.6 % 0-5 [facility] Erythrocyte distribution wid th ratioOrdered By: Holger Stoner on 05-23-2024 Erythrocyte distribution width (RBC) [Ratio] 14.1 % 11.6-14.6 [facility] Erythrocyte distribution wid th standard deviationOrdered By: Holger Stoner on 05-23-2024 Erythrocyte distribution width (RBC) [Entitic vol] 48.6 fL High 35.1-43.9 [facility] Erythrocyte distribution width (RBC) [Ratio] 48.6 fl High 35.1-43.9 [facility] GFR/1.73 sq M.predicted [place] g non-blacks MDRD (S/P/Bld) [Vol rate/Area]Ordered By: Holger Stoner on 05-23-2024 Estimated GFR (MDRD) Non-Af Amer 69 >60 [facility] Comment on above: mL/min/1.73m2 CKD-EP I Creatinine Equation (2020) Glomerular filtration rate ( GFR) estimation/1.73 sq m using serum, plasma, or whole bOrdered By: Holger Stoner on 05-23-2024 GFR/1.73 sq M.predicted among non-blacks MDRD (S/P/Bld) [Vol rate/Area] 69 mL/min/{1.73_m2} >60 [facility] Comment on above: mL/min/1.73m2 CKD-EP I Creatinine Equation (2020) Hematocrit Auto (Bld) [Volum e fraction]Ordered By: Holger Stoner on 05-23-2024 Hematocrit (Bld) [Volume fraction] 41.0 % 40-54 [facility] Hemoglobin A1con 05-23-2024 HbA1c (Bld) [Mass fraction] 8.6 % Normal <=5.6 [facility] Comment on above: Performed By: #### L 501.1800, M100.651, L500.2500, L100.0100, L501.9985 #### [facility] [address] [place], [address] Hemoglobin A1c percentageOrd ered By: Holger Stoner on 05-23-2024 HbA1c (Bld) [Mass fraction] 8.6 % >5.7 [facility] Hemoglobin measurementOrdere d By: Holger Stoner on 05-23-2024 Hemoglobin (Bld) [Mass/Vol] 12.8 g/dL Low 13.0-16.5 [facility] Immature granulocytes/100 WB C Auto (Bld)Ordered By: Holger Stoner on 05-23-2024 Immature granulocytes/100 WBC (Bld) 0.300 % 0.0-0.9 [facility] Comment on above: IG% - Immature Granu locytes (promyelocytes, myelocytes and metamyelocytes) > 1% indicates that a LEFT SHIFT is Present. Lymphocytes Auto (Unsp spec) [#/Vol]Ordered By: Holger Stoner on 05-23-2024 Lymphocytes (Bld) [#/Vol] 2.15 10*3/uL 0.83-4.51 [facility] Lymphocytes/100 WBC Auto (Un sp spec)Ordered By: Holger Stoner on 05-23-2024 Lymphocytes/100 WBC (Bld) 30.0 % 19-41 [facility] MCV (mean corpuscular volume ) determinationOrdered By: Holger Stoner on 05-23-2024 MCV (RBC) [Entitic vol] 93.8 fL 80-94 [facility] MRSA screenOrdered By: Luis Enrique Stoner on 05-23-2024 MRSA DNA AKHIL+probe Ql (Unsp spec) [facility] Nasal Screen MRSA/MSSA [facility] Mean corpuscular hemoglobin (MCH) determinationOrdered By: Holger Stoner on 05-23-2024 MCH (RBC) [Entitic mass] 29.3 pg 27.0-32.0 [facility] Mean corpuscular hemoglobin concentration (MCHC) determinationOrdered By: Holger Stoner on 05-23-2024 MCHC (RBC) [Mass/Vol] 31.2 g/dL Low 32-36 [facility] Mean platelet volume determi nationOrdered By: Holger Stoner on 05-23-2024 Platelet mean volume (Bld) [Entitic vol] 9.8 fL 6.2-12.0 [facility] Monocyte percentageOrdered B y: Holger Stoner on 05-23-2024 Monocytes/100 WBC (Bld) 7.0 % 0-10 [facility] Neutrophil percentageOrdered By: Holger Stoner on 05-23-2024 Neutrophils/100 WBC (Bld) 58.3 % 47-70 [facility] Nucleated red blood cell per centageOrdered By: Holger Stoner on 05-23-2024 Nucleated RBC/100 WBC (Bld) [Ratio] 0 % 0-5 [facility] Platelet countOrdered By: Sherin Stoner on 05-23-2024 Platelets (Bld) [#/Vol] 315 10*3/uL 150-450 [facility] Potassium (Unsp spec) [Mass/ Vol]Ordered By: Holger Stoner on 05-23-2024 Potassium [Moles/Vol] 5.0 mmol/L 3.3-5.1 [facility] Potassium measurement (mass/ volume)Ordered By: Holger Stoner on 05-23-2024 Potassium (Unsp spec) [Mass/Vol] 5.0 mmol/L 3.3-5.1 [facility] RBC Auto (Bld) [#/Vol]Ordere d By: Holger Stoner on 05-23-2024 RBC (Bld) [#/Vol] 4.37 10*6/uL Low 4.6-6.2 [facility] Serum creatinine measurement (mass/volume)Ordered By: Holger Stoner on 05-23-2024 Creatinine [Mass/Vol] 1.10 mg/dL 0.70-1.20 [facility] Serum glucose measurement (m ass/volume)Ordered By: Holger Stoner on 05-23-2024 Glucose [Mass/Vol] 147 mg/dL High 70-99 [facility] Serum or plasma albumin petrona urement (mass/volume)Ordered By: Holger Stoner on 05-23-2024 Albumin [Mass/Vol] 4.5 g/dL 3.4-4.8 [facility] Serum or plasma calcium petrona urement (mass/volume)Ordered By: Holger Stoner on 05-23-2024 Calcium [Mass/Vol] 9.7 mg/dL 7.6-11.0 [facility] Serum or plasma urea nitroge n measurement (mass/volume)Ordered By: Holger Stoenr on 05-23-2024 Urea nitrogen [Mass/Vol] 21 mg/dL High 4-19 [facility] Sodium levelOrdered By: Mike Stoner on 05-23-2024 Sodium [Moles/Vol] 136 mmol/L 133-145 [facility] White blood cell (WBC) count Ordered By: Holger Stoner on 05-23-2024 WBC (Bld) [#/Vol] 7.2 10*3/uL 4.4-11.0 [facility] 78-GI-Hjkuobv DOrdered By: Kenna Castro on 03-24-2024 Vitamin D 25-Hydroxy 30.4 ng/mL [facility] Comment on above: Vitamin D 25(OH) Sta tus Range Deficiency <20 ng/mL (50nmol/L) Insufficiency 20 - 30 ng/mL (50 - 75 nmol/L) Sufficiency 30 - 100 ng/mL (75 - 250 nmol/L) Toxicity >100 ng/mL (>250 nmol/L) Absolute neutrophil countOrd ered By: Teodoro Castro on 03-24-2024 Neutrophils (Bld) [#/Vol] 4.0 10*3/uL 2.0-7.7 [facility] Albumin to globulin ratioOrd ered By: Teodoro Lucianoloreto on 03-24-2024 Albumin/Globulin [Mass ratio] 1.0 {ratio} 0.9-2.4 [facility] Basophil percentageOrdered B y: Teodoro Ferminletty on 03-24-2024 Basophils/100 WBC (Bld) 1.0 % 0-1 [facility] Bilirubin Test strip Ql (U)O rdered By: Teodoro Castro on 03-24-2024 Bilirubin Ql (U) Negative Negative [facility] Bilirubin, totalOrdered By: Teodoro Castro on 03-24-2024 Bilirubin [Mass/Vol] 0.50 mg/dL 0.20-1.00 [facility] Comment on above: For patients on eltr ombopag therapy, use of Dimension [place] TBIL is not recommended. Blood urea nitrogen (BUN)/cr eatinine ratioOrdered By: Teodoro Castro on 03-24-2024 Urea nitrogen/Creatinine [Mass ratio] 18.3 mg/mg 10-20 [facility] CBC W/Diff, Automatedon Absolute Lymph 1.79 X10 3/uL Normal 0.83-4.51 [facility] Comment on above: Order Comment: Order Date: 02/01/24Order Info: [id number] - CBCD Performed By: #### L 501.1800, M100.651, L500.2500, L100.0100, L501.9985 #### [facility] [address] [place], [place], [address] Absolute Neut 4.0 X10 3/uL Normal 2.0-7.7 [facility] Comment on above: Order Comment: Order Date: 02/01/24Order Info: [id number] - CBCD Performed By: #### L 501.1800, M100.651, L500.2500, L100.0100, L501.9985 #### [facility] [address] [place], [address] Basophils/100 WBC (Bld) 1.0 % Normal 0-1 [facility] Comment on above: Order Comment: Order Date: 02/01/24Order Info: [id number]- - CBCD Performed By: #### L 501.1800, M100.651, L500.2500, L100.0100, L501.9985 #### [facility] [address], [address] Eosinophils/100 WBC (Bld) 4.2 % Normal 0-5 [facility] Comment on above: Order Comment: Order Date: 02/01/24Order Info: [id number]- - CBCD Performed By: #### L 501.1800, M100.651, L500.2500, L100.0100, L501.9985 #### [facility] [address], [address] Erythrocyte distribution width (RBC) [Ratio] 13.8 % Normal 11.6-14.6 [facility] Comment on above: Order Comment: Order Date: 02/01/24Order Info: [id number]- - CBCD Performed By: #### L 501.1800, M100.651, L500.2500, L100.0100, L501.9985 #### [facility] [address] [place], [address] Hematocrit (Bld) [Volume fraction] 37.2 % Low 40-54 [facility] Comment on above: Order Comment: Order Date: 02/01/24Order Info: [id number]- - CBCD Performed By: #### L 501.1800, M100.651, L500.2500, L100.0100, L501.9985 #### [facility] [address] [place], [address] Hemoglobin (Bld) [Mass/Vol] 12.0 g/dL Low 13.0-16.5 [facility] Comment on above: Order Comment: Order Date: 02/01/24Order Info: [id number] - CBCD Performed By: #### L 501.1800, M100.651, L500.2500, L100.0100, L501.9985 #### [facility] [address] [place], [address] IG% 0.300 Normal 0.0-0.9 [facility] Comment on above: Order Comment: Order Date: 02/01/24Order Info: [id number] - CBCD Result Comment: IG% - Immature Granulocytes (promyelocytes, myelocytes and metamyelocytes) > 1% indicates that a LEFT SHIFT is Present. Performed By: #### L 501.1800, M100.651, L500.2500, L100.0100, L501.9985 #### [facility] [address] [place], [address] Lymphocytes/100 WBC (Bld) 26.7 % Normal 19-41 [facility] Comment on above: Order Comment: Order Date: 02/01/24Order Info: [id number] - CBCD Performed By: #### L 501.1800, M100.651, L500.2500, L100.0100, L501.9985 #### [facility] [address] [place], [address] MCH (RBC) [Entitic mass] 28.4 pg Normal 27.0-32.0 [facility] Comment on above: Order Comment: Order Date: 02/01/24Order Info: [id number] - CBCD Performed By: #### L 501.1800, M100.651, L500.2500, L100.0100, L501.9985 #### [facility] [address] [place], [address] MCHC (RBC) [Mass/Vol] 32.3 g/dL Normal 32-36 [facility] Comment on above: Order Comment: Order Date: 02/01/24Order Info: [id number]- - CBCD Performed By: #### L 501.1800, M100.651, L500.2500, L100.0100, L501.9985 #### [facility] [address] [place], [address] MCV (RBC) [Entitic vol] 87.9 fL Normal 80-94 [facility] Comment on above: Order Comment: Order Date: 02/01/24Order Info: [id number] - CBCD Performed By: #### L 501.1800, M100.651, L500.2500, L100.0100, L501.9985 #### [facility] [address] [place], [address] Monocytes/100 WBC (Bld) 7.8 % Normal 0-10 [facility] Comment on above: Order Comment: Order Date: 02/01/24Order Info: [id number]- - CBCD Performed By: #### L 501.1800, M100.651, L500.2500, L100.0100, L501.9985 #### [facility] [address] [place], [address] Neutrophils/100 WBC (Bld) 60.0 % Normal 47-70 [facility] Comment on above: Order Comment: Order Date: 02/01/24Order Info: [id number]- - CBCD Performed By: #### L 501.1800, M100.651, L500.2500, L100.0100, L501.9985 #### [facility] [address] [place], [address] Nucleated RBC (Bld) [#/Vol] 0 10*3/uL Normal 0-5 [facility] Comment on above: Order Comment: Order Date: 02/01/24Order Info: [id number] - CBCD Performed By: #### L 501.1800, M100.651, L500.2500, L100.0100, L501.9985 #### [facility] [address] [place], [address] Platelet mean volume (Bld) [Entitic vol] 10.0 fL Normal 6.2-12.0 [facility] Comment on above: Order Comment: Order Date: 02/01/24Order Info: [id number] - CBCD Performed By: #### L 501.1800, M100.651, L500.2500, L100.0100, L501.9985 #### [facility] [address] [place], [address] Platelets (Bld) [#/Vol] 340 10*3/uL Normal 150-450 [facility] Comment on above: Order Comment: Order Date: 02/01/24Order Info: [id number] - CBCD Performed By: #### L 501.1800, M100.651, L500.2500, L100.0100, L501.9985 #### [facility] [address] [place], [address] RBC (Bld) [#/Vol] 4.23 10*6/uL Low 4.6-6.2 [facility] Comment on above: Order Comment: Order Date: 02/01/24Order Info: 018- - CBCD Performed By: #### L 501.1800, M100.651, L500.2500, L100.0100, L501.9985 #### [facility] [address] [place], [address] RDW SD 44.8 fl High 35.1-43.9 [facility] Comment on above: Order Comment: Order Date: 02/01/24Order Info: 018- - CBCD Performed By: #### L 501.1800, M100.651, L500.2500, L100.0100, L501.9985 #### [facility] [address] [place], [address] WBC (Bld) [#/Vol] 6.7 10*3/uL Normal 4.4-11.0 [facility] Comment on above: Order Comment: Order Date: 02/01/24Order Info: 018- - CBCD Performed By: #### L 501.1800, M100.651, L500.2500, L100.0100, L501.9985 #### [facility] [address] [place], [address] Carbon dioxide measurementOr dered By: Teodoro Castro on 03-24-2024 CO2 [Moles/Vol] 27.0 mmol/L 21.0-32.0 [facility] Chloride measurementOrdered By: Teodoro Castro on 03-24-2024 Chloride [Moles/Vol] 100 mmol/L 98-107 [facility] Comprehensive Metabolic Prof ilon 03-24-2024 Albumin [Mass/Vol] 3.7 g/dL Normal 3.2-5.0 [facility] Comment on above: Order Comment: Order Date: 02/01/24Order Info: [id number] - CMPOrder Info: [id number] - LIPIDOrder Info: [id number] - PHOSOrder Info: [id number] - MGOrder Info: 7 - TIBCOrder Info: [id number] - FEOrder Info: [id number] - FEROrder Info: [id number] - FOLSN Performed By: #### L 501.1800, M100.651, L500.2500, L100.0100, L501.9985 #### [facility] [address] [place], [address] Albumin/Globulin [Mass ratio] 1.0 {ratio} Normal 0.9-2.4 [facility] Comment on above: Order Comment: Order Date: 02/01/24Order Info: [id number] - CMPOrder Info: [id number] - LIPIDOrder Info: [id number] - PHOSOrder Info: [id number] - MGOrder Info: [id number] - TIBCOrder Info: [id number] - FEOrder Info: 4 - FEROrder Info: 8 - FOLSN Performed By: #### L 501.1800, M100.651, L500.2500, L100.0100, L501.9985 #### [facility] [address] [place], [address] ALK P 69 U/L Normal 45-117 [facility] Comment on above: Order Comment: Order Date: 02/01/24Order Info: [id number] - CMPOrder Info: [id number] - LIPIDOrder Info: [id number] - PHOSOrder Info: [id number] - MGOrder Info: [id number] - TIBCOrder Info: [id number] - FEOrder Info: [id number] - FEROrder Info: [id number] - FOLSN Performed By: #### L 501.1800, M100.651, L500.2500, L100.0100, L501.9985 #### [facility] [address] [place], [address] ALT [Catalytic activity/Vol] 26 U/L Normal 16-61 [facility] Comment on above: Order Comment: Order Date: 02/01/24Order Info: [id number] - CMPOrder Info: [id number] - LIPIDOrder Info: [id number] - PHOSOrder Info: [id number] - MGOrder Info: [id number] - TIBCOrder Info: [id number] - FEOrder Info: [id number] - FEROrder Info: 228-8 - FOLSN Performed By: #### L 501.1800, M100.651, L500.2500, L100.0100, L501.9985 #### [facility] [address] [place], [address] AST [Catalytic activity/Vol] 19 U/L Normal 15-37 [facility] Comment on above: Order Comment: Order Date: 02/01/24Order Info: [id number] - CMPOrder Info: [id number] - LIPIDOrder Info: [id number] - PHOSOrder Info: [id number] - MGOrder Info: [id number] - TIBCOrder Info: [id number] - FEOrder Info: [id number] - FEROrder Info: [id number] - FOLSN Performed By: #### L 501.1800, M100.651, L500.2500, L100.0100, L501.9985 #### [facility] [address] [place], [address] Bilirubin [Mass/Vol] 0.50 mg/dL Normal 0.20-1.00 [facility] Comment on above: Order Comment: Order Date: 02/01/24Order Info: [id number] - CMPOrder Info: [id number] - LIPIDOrder Info: 7-1 - PHOSOrder Info: [id number] - MGOrder Info: [id number] - TIBCOrder Info: [id number] - FEOrder Info: 227-4 - FEROrder Info: [id number] - FOLSN Result Comment: For patients on eltrombopag therapy, use of Dimension [place] TBIL is not recommended. Performed By: #### L 501.1800, M100.651, L500.2500, L100.0100, L501.9985 #### [facility] [address] [place], [address] BUN/CRE 18.3 RATIO Normal 10-20 [facility] Comment on above: Order Comment: Order Date: 02/01/24Order Info: 07-1 - CMPOrder Info: [id number] - LIPIDOrder Info: 7- - PHOSOrder Info: [id number] - MGOrder Info: [id number] - TIBCOrder Info: 249-4 - FEOrder Info: [id number] - FEROrder Info: 8 - FOLSN Performed By: #### L 501.1800, M100.651, L500.2500, L100.0100, L501.9985 #### [facility] [address] [place], [address] CA,Total 9.2 mg/dL Normal 8.5-10.1 [facility] Comment on above: Order Comment: Order Date: 02/01/24Order Info: [id number] - CMPOrder Info: [id number] - LIPIDOrder Info: [id number] - PHOSOrder Info: [id number] - MGOrder Info: [id number] - TIBCOrder Info: [id number] - FEOrder Info: [id number] - FEROrder Info: 228-8 - FOLSN Performed By: #### L 501.1800, M100.651, L500.2500, L100.0100, L501.9985 #### [facility] [address] [place], [address] Chloride [Moles/Vol] 100 mmol/L Normal 98-107 [facility] Comment on above: Order Comment: Order Date: 02/01/24Order Info: 86-1 - CMPOrder Info: [id number] - LIPIDOrder Info: [id number] - PHOSOrder Info: [id number] - MGOrder Info: [id number] - TIBCOrder Info: [id number] - FEOrder Info: [id number] - FEROrder Info: [id number] - FOLSN Performed By: #### L 501.1800, M100.651, L500.2500, L100.0100, L501.9985 #### [facility] [address] [place], [address] CO2 [Moles/Vol] 27.0 mmol/L Normal 21.0-32.0 [facility] Comment on above: Order Comment: Order Date: 02/01/24Order Info: 86-1 - CMPOrder Info: [id number] - LIPIDOrder Info: 7-1 - PHOSOrder Info: [id number] - MGOrder Info: [id number] - TIBCOrder Info: [id number] - FEOrder Info: 4 - FEROrder Info: [id number] - FOLSN Performed By: #### L 501.1800, M100.651, L500.2500, L100.0100, L501.9985 #### [facility] [address] [place], [address] Creatinine [Mass/Vol] 1.09 mg/dL Normal 0.70-1.30 [facility] Comment on above: Order Comment: Order Date: 02/01/24Order Info: 86-1 - CMPOrder Info: [id number] - LIPIDOrder Info: [id number]- - PHOSOrder Info: [id number] - MGOrder Info: [id number] - TIBCOrder Info: [id number] - FEOrder Info: 227-4 - FEROrder Info: [id number] - FOLSN Result Comment: The validity of the calculated GFR GFRAA in patients over 70 years has not been determined. Clinical correlation is essential. Performed By: #### L 501.1800, M100.651, L500.2500, L100.0100, L501.9985 #### [facility] [address] [place], [address] EST GFR - AA 84 mL/min Normal >60 [facility] Comment on above: Order Comment: Order Date: 02/01/24Order Info: [id number] - CMPOrder Info: [id number] - LIPIDOrder Info: [id number]- - PHOSOrder Info: [id number] - MGOrder Info: 7 - TIBCOrder Info: [id number] - FEOrder Info: [id number] - FEROrder Info: [id number] - FOLSN Result Comment: Afri can [place] GFR Calc Performed By: #### L 501.1800, M100.651, L500.2500, L100.0100, L501.9985 #### [facility] [address] [place], [address] GAP 6 Normal 5-15 [facility] Comment on above: Order Comment: Order Date: 02/01/24Order Info: 07-1 - CMPOrder Info: [id number] - LIPIDOrder Info: 7-1 - PHOSOrder Info: [id number] - MGOrder Info: [id number] - TIBCOrder Info: [id number] - FEOrder Info: [id number] - FEROrder Info: [id number] - FOLSN Performed By: #### L 501.1800, M100.651, L500.2500, L100.0100, L501.9985 #### [facility] [address] [place], [address] GFR/1.73 sq M.predicted among non-blacks MDRD (S/P/Bld) [Vol rate/Area] 70 mL/min/{1.73_m2} Normal >60 [facility] Comment on above: Order Comment: Order Date: 02/01/24Order Info: [id number] - CMPOrder Info: [id number] - LIPIDOrder Info: [id number] - PHOSOrder Info: [id number] - MGOrder Info: [id number] - TIBCOrder Info: [id number] - FEOrder Info: 4 - FEROrder Info: 228-8 - FOLSN Result Comment: Non- GFR Calc Performed By: #### L 501.1800, M100.651, L500.2500, L100.0100, L501.9985 #### [facility] [address] [place], [address] Globulin (S) [Mass/Vol] 3.8 g/dL Normal 2.2-4.2 [facility] Comment on above: Order Comment: Order Date: 02/01/24Order Info: [id number]- - CMPOrder Info: [id number] - LIPIDOrder Info: 7-1 - PHOSOrder Info: [id number] - MGOrder Info: 7 - TIBCOrder Info: [id number] - FEOrder Info: [id number] - FEROrder Info: [id number] - FOLSN Performed By: #### L 501.1800, M100.651, L500.2500, L100.0100, L501.9985 #### [facility] [address] [place], [address] Glucose [Mass/Vol] 174 mg/dL High 74-106 [facility] Comment on above: Order Comment: Order Date: 02/01/24Order Info: 86-1 - CMPOrder Info: [id number] - LIPIDOrder Info: [id number] - PHOSOrder Info: [id number] - MGOrder Info: 2500-7 - TIBCOrder Info: [id number] - FEOrder Info: 227-4 - FEROrder Info: 228-8 - FOLSN Result Comment: Fast ing Glucose result greater than or equal to 126 mg/dL suggests DIABETES MELLITUS per A.D.A. criteria. Performed By: #### L 501.1800, M100.651, L500.2500, L100.0100, L501.9985 #### [facility] [address] [place], [address] Potassium [Moles/Vol] 4.6 mmol/L Normal 3.5-5.1 [facility] Comment on above: Order Comment: Order Date: 02/01/24Order Info: [id number] - CMPOrder Info: [id number] - LIPIDOrder Info: [id number] - PHOSOrder Info: [id number] - MGOrder Info: 2500-7 - TIBCOrder Info: [id number] - FEOrder Info: [id number] - FEROrder Info: [id number] - FOLSN Performed By: #### L 501.1800, M100.651, L500.2500, L100.0100, L501.9985 #### [facility] [address] [place], [address] Sodium [Moles/Vol] 133 mmol/L Low 136-145 [facility] Comment on above: Order Comment: Order Date: 02/01/24Order Info: [id number] - CMPOrder Info: [id number] - LIPIDOrder Info: [id number] - PHOSOrder Info: [id number] - MGOrder Info: 2499-7 - TIBCOrder Info: [id number] - FEOrder Info: [id number] - FEROrder Info: [id number] - FOLSN Performed By: #### L 501.1800, M100.651, L500.2500, L100.0100, L501.9985 #### [facility] [address] [place], [address] T PROT 7.5 g/dL Normal 6.4-8.2 [facility] Comment on above: Order Comment: Order Date: 02/01/24Order Info: [id number] - CMPOrder Info: [id number] - LIPIDOrder Info: [id number] - PHOSOrder Info: [id number] - MGOrder Info: 2500-7 - TIBCOrder Info: [id number] - FEOrder Info: [id number] - FEROrder Info: 228-8 - FOLSN Performed By: #### L 501.1800, M100.651, L500.2500, L100.0100, L501.9985 #### [facility] [address] [place], [place], [id number] Urea nitrogen [Mass/Vol] 20 mg/dL High 7-18 [facility] Comment on above: Order Comment: Order Date: 02/01/24Order Info: [id number] - CMPOrder Info: [id number] - LIPIDOrder Info: [id number] - PHOSOrder Info: [id number] - MGOrder Info: 2499-7 - TIBCOrder Info: [id number] - FEOrder Info: 4 - FEROrder Info: 8 - FOLSN Performed By: #### L 501.1800, M100.651, L500.2500, L100.0100, L501.9985 #### [facility] [address] [place], [place], [id number] Eosinophil percentageOrdered By: Teodoro Castro on 03-24-2024 Eosinophils/100 WBC (Bld) 4.2 % 0-5 [facility] Epithelial cells.squamous LM Ql (Urine sed)Ordered By: Teodoro Castro on 03-24-2024 Epithelial cells.squamous LM.HPF (Urine sed) [#/Area] 0 /[HPF] 0-5 [facility] Erythrocyte distribution wid th ratioOrdered By: Teodoro Castro on 03-24-2024 Erythrocyte distribution width (RBC) [Ratio] 13.8 % 11.6-14.6 [facility] Erythrocyte distribution wid th standard deviationOrdered By: Teodoro Castro on 03-24-2024 Erythrocyte distribution width (RBC) [Entitic vol] 44.8 fL High 35.1-43.9 [facility] Estimated glomerular filtrat ion rate (GFR) AmericanOrdered By: Teodoro Castro on 03-24-2024 Estimated GFR (MDRD) Amer 84 mL/min >60 [facility] Comment on above: GFR Calc Ferritinon 03-24-2024 Ferritin [Mass/Vol] 32 ng/mL Normal 26-388 [facility] Comment on above: Order Comment: Order Date: 02/01/24Order Info: [id number] - CMPOrder Info: [id number] - LIPIDOrder Info: [id number] - PHOSOrder Info: [id number] - MGOrder Info: [id number] - TIBCOrder Info: [id number] - FEOrder Info: 4 - FEROrder Info: [id number] - FOLSN Performed By: #### L 501.1800, M100.651, L500.2500, L100.0100, L501.9985 #### [facility] [address] [place], [place], [id number] Ferritin measurementOrdered By: Teodoro Castro on 03-24-2024 Ferritin [Mass/Vol] 32 ng/mL 26-388 [facility] Folates, (Folic Acid)on FOLATES 60.50 ng/mL High 3.1-55.4 [facility] Comment on above: Order Comment: Order Date: 02/01/24Order Info: [id number]- - CMPOrder Info: [id number] - LIPIDOrder Info: [id number] - PHOSOrder Info: [id number] - MGOrder Info: [id number] - TIBCOrder Info: 2494 - FEOrder Info: 4 - FEROrder Info: 228-8 - FOLSN Performed By: #### L 501.1800, M100.651, L500.2500, L100.0100, L501.9985 #### [facility] [address] [place], [place], [address] Folic acid measurementOrdere d By: Teodoro Castro on 03-24-2024 Folate 60.50 ng/mL High 3.1-55.4 [facility] Glomerular filtration rate ( GFR) estimationOrdered By: Teodoro Castro on 03-24-2024 Estimated GFR (MDRD) Non-Af Amer 70 mL/min >60 [facility] Comment on above: Non- GFR Calc Glucose Ql (U)Ordered By: Nicole Castro on 03-24-2024 Urine Glucose (UA) Normal mg/dl Normal [facility] Glucose measurementOrdered B y: Teodoro Castro on 03-24-2024 Glucose [Mass/Vol] 174 mg/dL High 74-106 [facility] Comment on above: Fasting Glucose resu lt greater than or equal to 126 mg/dL suggests DIABETES MELLITUS per A.D.A. criteria. Hematocrit Auto (Bld) [Volum e fraction]Ordered By: Teodoro Castro on 03-24-2024 Hematocrit (Bld) [Volume fraction] 37.2 % Low 40-54 [facility] Hemoglobin A1con 03-24-2024 HbA1c (Bld) [Mass fraction] 8.6 % High 3.8-5.6 [facility] Comment on above: Order Comment: Order Date: 02/01/24Order Info: [id number] - A1C Result Comment: Norm al < 5.7 % Prediabetic 5.7 - 6.4 % Diabetic >or= 6.5 % Please note range changes. Performed By: #### L 501.1800, M100.651, L500.2500, L100.0100, L501.9985 #### [facility] [place], [place], [id number] Hemoglobin A1c percentageOrd ered By: Teodoro Castro on 03-24-2024 HbA1c (Bld) [Mass fraction] 8.6 % High 3.8-5.6 [facility] Comment on above: Normal < 5.7 % Predi abetic 5.7 - 6.4 % Diabetic >or= 6.5 % Please note range changes. Hemoglobin measurementOrdere d By: Teodoro Castro on 03-24-2024 Hemoglobin (Bld) [Mass/Vol] 12.0 g/dL Low 13.0-16.5 [facility] High density lipoprotein (HD L) measurementOrdered By: Teodoro Castro on 03-24-2024 Cholesterol in HDL [Mass/Vol] 53 mg/dL >40 [facility] Comment on above: The drugs N-Acetylcy steine and Metamizole may falsely depress this assay. Reference Range HDL <40 mg/dL Low HDL Cholesterol HDL >or= 60 mg/dL High HDL Cholesterol Immature granulocytes/100 WB C Auto (Bld)Ordered By: Teodoro Castro on 03-24-2024 Immature granulocytes/100 WBC (Bld) 0.300 % 0.0-0.9 [facility] Comment on above: IG% - Immature Granu locytes (promyelocytes, myelocytes and metamyelocytes) > 1% indicates that a LEFT SHIFT is Present. Ironon 03-24-2024 Iron [Mass/Vol] 59 ug/dL Low 65-175 [facility] Comment on above: Order Comment: Order Date: 02/01/24Order Info: [id number] - CMPOrder Info: [id number] - LIPIDOrder Info: [id number]- - PHOSOrder Info: [id number] - MGOrder Info: [id number] - TIBCOrder Info: [id number] - FEOrder Info: [id number] - FEROrder Info: 8 - FOLSN Performed By: #### L 501.1800, M100.651, L500.2500, L100.0100, L501.9985 #### [facility] [address] [place], [address] Iron (Unsp spec) [Mass/Mass] Ordered By: Teodoro Castro on 03-24-2024 Iron [Mass/Vol] 59 ug/dL Low 65-175 [facility] Iron Binding Capacity,Totalo n 03-24-2024 TIBC 378 ug/dL Normal 250-450 [facility] Comment on above: Order Comment: Order Date: 02/01/24Order Info: [id number] - CMPOrder Info: [id number] - LIPIDOrder Info: 7-1 - PHOSOrder Info: [id number] - MGOrder Info: [id number] - TIBCOrder Info: [id number] - FEOrder Info: 227-4 - FEROrder Info: 8 - FOLSN Performed By: #### L 501.1800, M100.651, L500.2500, L100.0100, L501.9985 #### [facility] [address] [place], [address] Ketones Test strip Ql (U)Ord ered By: Teodoro Castro on 03-24-2024 Ketones Ql (U) Negative Negative [facility] - Chemistry and C hemistry - challengeOrdered By: Teodoro Castro on 03-24-2024 AST [Catalytic activity/Vol] 19 U/L 15-37 [facility] Lipid Profileon 03-24-2024 Cholesterol [Mass/Vol] 130 mg/dL Normal 200 [facility] Comment on above: Order Comment: Order Date: 02/01/24Order Info: [id number] - CMPOrder Info: [id number] - LIPIDOrder Info: [id number] - PHOSOrder Info: [id number] - MGOrder Info: [id number] - TIBCOrder Info: [id number] - FEOrder Info: 4 - FEROrder Info: 8 - FOLSN Result Comment: <200 mg/dL Desirable 200-240 mg/dL Borderline >240 mg/dL High Risk Performed By: #### L 501.1800, M100.651, L500.2500, L100.0100, L501.9985 #### [facility] [address] [place], [address] Cholesterol in HDL [Mass/Vol] 53 mg/dL Normal [facility] Comment on above: Order Comment: Order Date: 02/01/24Order Info: [id number] - CMPOrder Info: [id number] - LIPIDOrder Info: [id number] - PHOSOrder Info: [id number] - MGOrder Info: 2500-7 - TIBCOrder Info: [id number] - FEOrder Info: [id number] - FEROrder Info: [id number] - FOLSN Result Comment: The drugs N-Acetylcysteine and Metamizole may falsely depress this assay. Reference Range HDL <40 mg/dL Low HDL Cholesterol HDL >or= 60 mg/dL High HDL Cholesterol Performed By: #### L 501.1800, M100.651, L500.2500, L100.0100, L501.9985 #### [facility] [address] [place], [address] Cholesterol in LDL [Mass/Vol] 65 mg/dL Normal 0-130 [facility] Comment on above: Order Comment: Order Date: 02/01/24Order Info: [id number] - CMPOrder Info: [id number] - LIPIDOrder Info: [id number] - PHOSOrder Info: [id number] - MGOrder Info: 2500-7 - TIBCOrder Info: [id number] - FEOrder Info: [id number] - FEROrder Info: [id number] - FOLSN Performed By: #### L 501.1800, M100.651, L500.2500, L100.0100, L501.9985 #### [facility] [address] [place], [address] Cholesterol in VLDL [Mass/Vol] 12 mg/dL Normal 5-40 [facility] Comment on above: Order Comment: Order Date: 02/01/24Order Info: 86-1 - CMPOrder Info: [id number] - LIPIDOrder Info: [id number] - PHOSOrder Info: [id number] - MGOrder Info: 2500-7 - TIBCOrder Info: [id number] - FEOrder Info: [id number] - FEROrder Info: 2283-8 - FOLSN Performed By: #### L 501.1800, M100.651, L500.2500, L100.0100, L501.9985 #### [facility] [address] [place], [address] Triglyceride [Mass/Vol] 58 mg/dL Normal [facility] Comment on above: Order Comment: Order Date: 02/01/24Order Info: [id number] - CMPOrder Info: [id number] - LIPIDOrder Info: [id number] - PHOSOrder Info: [id number] - MGOrder Info: 2500-7 - TIBCOrder Info: [id number] - FEOrder Info: [id number] - FEROrder Info: [id number] - FOLSN Result Comment: The drugs N-Acetylcysteine and Metamizole may falsely depress this assay. Serum Triglycerides Reference Interval Normal <150 mg/dL Borderline high 150 - 199 mg/dL High 200 - 499 mg/dL Very High > or = 500 mg/dL Performed By: #### L 501.1800, M100.651, L500.2500, L100.0100, L501.9985 #### [facility] [address] [facility] [place], [place], [id number] Low density lipoprotein (LDL ) cholesterol measurementOrdered By: Teodoro Castro on 03-24-2024 Cholesterol in LDL [Mass/Vol] 65 mg/dL 0-130 [facility] Lymphocytes Auto (Unsp spec) [#/Vol]Ordered By: Teodoro Castro on 03-24-2024 Lymphocytes (Bld) [#/Vol] 1.79 10*3/uL 0.83-4.51 [facility] Lymphocytes/100 WBC Auto (Un sp spec)Ordered By: Teodoro Castro on 03-24-2024 Lymphocytes/100 WBC (Bld) 26.7 % 19-41 [facility] MCV (mean corpuscular volume ) determinationOrdered By: Teodoro Castro on 03-24-2024 MCV (RBC) [Entitic vol] 87.9 fL 80-94 [facility] Magnesiumon 03-24-2024 Magnesium [Mass/Vol] 2.1 mg/dL Normal 1.6-2.6 [facility] Comment on above: Order Comment: Order Date: 02/01/24Order Info: [id number] - CMPOrder Info: [id number] - LIPIDOrder Info: [id number] - PHOSOrder Info: [id number] - MGOrder Info: 2500-7 - TIBCOrder Info: [id number] - FEOrder Info: [id number] - FEROrder Info: [id number] - FOLSN Performed By: #### L 501.1800, M100.651, L500.2500, L100.0100, L501.9985 #### [facility] [address] [facility] [place], [place], [id number] Magnesium measurementOrdered By: Teodoro Castro on 03-24-2024 Magnesium [Mass/Vol] 2.1 mg/dL 1.6-2.6 [facility] Mean corpuscular hemoglobin (MCH) determinationOrdered By: Teodoro Castro on 03-24-2024 MCH (RBC) [Entitic mass] 28.4 pg 27.0-32.0 [facility] Mean corpuscular hemoglobin concentration (MCHC) determinationOrdered By: Teodoro Castro on 03-24-2024 MCHC (RBC) [Mass/Vol] 32.3 g/dL 32-36 [facility] Mean platelet volume determi nationOrdered By: Teodoro Castro on 03-24-2024 Platelet mean volume (Bld) [Entitic vol] 10.0 fL 6.2-12.0 [facility] Microalb:Creat Ratio,Random URon 03-24-2024 MALB:CRE 9.2 mg/g CRE Normal <30 mg/g CRE [facility] Comment on above: Order Comment: Order Date: 02/01/24Order Info: [id number] - MIACRE Performed By: #### L 501.1800, M100.651, L500.2500, L100.0100, L501.9985 #### [facility] [address] [place], [address] MICROALBUMIN,UR 5.8 mg/L Normal NO RANGE EST. [facility] Comment on above: Order Comment: Order Date: 02/01/24Order Info: [id number] - MIACRE Performed By: #### L 501.1800, M100.651, L500.2500, L100.0100, L501.9985 #### [facility] [address] [place], [address] Microscopic analysis of urin e for red blood cells (RBC)Ordered By: Teodoro Castro on 03-24-2024 Urine RBC 0 SEEN /hpf 0-5 [facility] Monocyte percentageOrdered B y: Teodoro Castro on 03-24-2024 Monocytes/100 WBC (Bld) 7.8 % 0-10 [facility] Mucus LM Ql (Urine sed)Order ed By: Teodoro Castro on 03-24-2024 Mucus Ql (Urine sed) 0 SEEN /hpf [facility] Neutrophil percentageOrdered By: Teodoro Castro on 03-24-2024 Neutrophils/100 WBC (Bld) 60.0 % 47-70 [facility] Nitrite Test strip Ql (U)Ord ered By: Teodoro Castro on 03-24-2024 Nitrite Ql (U) Negative Negative [facility] Nucleated red blood cell per centageOrdered By: Teodoro Castro on 03-24-2024 Nucleated RBC/100 WBC (Bld) [Ratio] 0 % 0-5 [facility] Phosphoruson 03-24-2024 Phosphate [Mass/Vol] 3.1 mg/dL Normal 2.5-4.9 [facility] Comment on above: Order Comment: Order Date: 02/01/24Order Info: [id number] - CMPOrder Info: [id number] - LIPIDOrder Info: [id number] - PHOSOrder Info: [id number] - MGOrder Info: [id number] - TIBCOrder Info: [id number] - FEOrder Info: [id number] - FEROrder Info: [id number] - FOLSN Performed By: #### L 501.1800, M100.651, L500.2500, L100.0100, L501.9985 #### [facility] [address] [place] [address]. [place], [address] Phosphorus measurementOrdere d By: Teodoro Castro on 03-24-2024 Phosphorus Level 3.1 mg/dL 2.5-4.9 [facility] Platelet countOrdered By: Nicole Castro on 03-24-2024 Platelets (Bld) [#/Vol] 340 10*3/uL 150-450 [facility] Potassium measurementOrdered By: Teodoro Castro on 03-24-2024 Potassium [Moles/Vol] 4.6 mmol/L 3.5-5.1 [facility] Protein Test strip Ql (U)Ord ered By: Teodoro Castro on 03-24-2024 Protein Ql (U) Negative Negative [facility] Protein+Creatinine Ratio,Uri neon 03-24-2024 PROT:CRE RATIO 184 mg/g CRE Normal 0-200 [facility] Comment on above: Order Comment: Order Date: 02/01/24Order Info: [id number] - MIACRE Performed By: #### L 501.1800, M100.651, L500.2500, L100.0100, L501.9985 #### [facility] [address] [place], [address] Protein (U) [Mass/Vol] 11.5 mg/dL Normal <11.9 [facility] Comment on above: Order Comment: Order Date: 02/01/24Order Info: [id number] - MIACRE Performed By: #### L 501.1800, M100.651, L500.2500, L100.0100, L501.9985 #### [facility] [address] [place], [address] UR CREAT 62.50 mg/dL Normal NO RANGE EST. [facility] Comment on above: Order Comment: Order Date: 02/01/24Order Info: [id number] - MIACRE Performed By: #### L 501.1800, M100.651, L500.2500, L100.0100, L501.9985 #### [facility] [address] [place], [address] Protein/Creatinine (U) [Mass ratio]Ordered By: Teodoro Castro on 03-24-2024 Urine Protein/Creatinine Ratio 184 mg/g CRE 0-200 [facility] RBC Auto (Bld) [#/Vol]Ordere d By: Teodoro Castro on 03-24-2024 RBC (Bld) [#/Vol] 4.23 10*6/uL Low 4.6-6.2 [facility] Random urine microalbumin me asurementOrdered By: Teodoro Castro on 03-24-2024 Urine Random Microalbumin 5.8 mg/L NO RANGE EST. [facility] Random urine protein measure mentOrdered By: Teodoro Castro on 03-24-2024 Protein (U) [Mass/Vol] 11.5 mg/dL 0.0-11.8 [facility] Serum anion gap measurementO rdered By: Teodoro Castro on 03-24-2024 Anion gap [Moles/Vol] 6 mmol/L 5-15 [facility] Serum globulin measurementOr dered By: Teodoro Castro on 03-24-2024 Globulin (S) [Mass/Vol] 3.8 g/dL 2.2-4.2 [facility] Serum or plasma alanine tucker otransferase (ALT) measurementOrdered By: Teodoro Castro on 03-24-2024 ALT [Catalytic activity/Vol] 26 U/L 16-61 [facility] Serum or plasma albumin petrona urement (mass/volume)Ordered By: Teodoro Castro on 03-24-2024 Albumin [Mass/Vol] 3.7 g/dL 3.2-5.0 [facility] Serum or plasma alkaline domi sphatase measurementOrdered By: Teodoro Castro on 03-24-2024 ALP [Catalytic activity/Vol] 69 U/L 45-117 [facility] Serum or plasma calcium petrona urement (mass/volume)Ordered By: Teodoro Castro on 03-24-2024 Calcium [Mass/Vol] 9.2 mg/dL 8.5-10.1 [facility] Serum or plasma cholesterol measurement (mass/volume)Ordered By: Teodoro Castro on 03-24-2024 Cholesterol [Mass/Vol] 130 mg/dL <200 [facility] Comment on above: <200 mg/dL Desirable 200-240 mg/dL Borderline >240 mg/dL High Risk Serum or plasma creatinine m easurement (mass/volume)Ordered By: Teodoro Castro on 03-24-2024 Creatinine [Mass/Vol] 1.09 mg/dL 0.70-1.30 [facility] Comment on above: The validity of the calculated GFR & GFRAA in patients over 70 years has not been determined. Clinical correlation is essential. Serum or plasma urea nitroge n measurement (mass/volume)Ordered By: Teodoro Castro on 03-24-2024 Urea nitrogen [Mass/Vol] 20 mg/dL High 7-18 [facility] Sodium levelOrdered By: Teodoro Castro on 03-24-2024 Sodium [Moles/Vol] 133 mmol/L Low 136-145 [facility] TIBCOrdered By: Teodoro kamara on 03-24-2024 Total Iron Binding Capacity 378 ug/dL 250-450 [facility] Total proteinOrdered By: Amadeo Castro on 03-24-2024 Protein [Mass/Vol] 7.5 g/dL 6.4-8.2 [facility] Triglycerides measurementOrd ered By: Teodoro Castro on 03-24-2024 Triglyceride [Mass/Vol] 58 mg/dL <199 [facility] Comment on above: The drugs N-Acetylcy steine and Metamizole may falsely depress this assay.Serum Triglycerides Reference Interval Normal <150 mg/dL Borderline high 150 - 199 mg/dL High 200 - 499 mg/dL Very High > or = 500 mg/dL Urinalysis, Completeon 03-24 BACTERIA 0 SEEN Normal None Seen [facility] Comment on above: Order Comment: Order Date: 02/01/24Order Info: [id number] - UACCOLLECTOR TO SPECIFY Performed By: #### L 501.1800, M100.651, L500.2500, L100.0100, L501.9985 #### [facility] [address] [place], [address] EPI,SQUAMOUS 0 SEEN Normal 0-5 [facility] Comment on above: Order Comment: Order Date: 02/01/24Order Info: [id number] - UACCOLLECTOR TO SPECIFY Performed By: #### L 501.1800, M100.651, L500.2500, L100.0100, L501.9985 #### [facility] [address] [place], [address] Mucus Ql (Urine sed) 0 SEEN Normal [facility] Comment on above: Order Comment: Order Date: 02/01/24Order Info: [id number] - UACCOLLECTOR TO SPECIFY Performed By: #### L 501.1800, M100.651, L500.2500, L100.0100, L501.9985 #### [facility] [address] [place], [address] RBC 0 SEEN Normal 0-5 [facility] Comment on above: Order Comment: Order Date: 02/01/24Order Info: [id number] - UACCOLLECTOR TO SPECIFY Performed By: #### L 501.1800, M100.651, L500.2500, L100.0100, L501.9985 #### [facility] [address] [place], [address] WBC 0 SEEN Normal 0-5 [facility] Comment on above: Order Comment: Order Date: 02/01/24Order Info: [id number] - UACCOLLECTOR TO SPECIFY Performed By: #### L 501.1800, M100.651, L500.2500, L100.0100, L501.9985 #### [facility] [address] [facility], [address] Urine albumin/creatinine rat io for detection of microalbuminuriaOrdered By: Teodoro Castro on 03-24-2024 Urine Microalbumin/Creatinine Ratio 9.2 mg/g CRE <30 [facility] Urine blood detectionOrdered By: Teodoro Castro on 03-24-2024 Urine Occult Blood Negative Negative [facility] Urine clarityOrdered By: Amadeo Castro on 03-24-2024 Clarity (U) Clear Clear [facility] Urine color determinationOrd ered By: Teodoro Castro on 03-24-2024 Color (U) Yellow Yellow [facility] Urine creatinine measurement (mass/volume)Ordered By: Teodoro Castro on 03-24-2024 Creatinine (U) [Mass/Vol] 62.50 mg/dL NO RANGE EST. [facility] Urine leukocyte esterase det ection by dipstickOrdered By: Teodoro Castro on 03-24-2024 Leukocyte esterase Test strip Ql (U) Negative Negative [facility] Urine pHOrdered By: Teodoro saenz on 03-24-2024 pH (U) 6.0 [pH] 5.0 - 8.0 [facility] Urine sediment bacteria coun t by microscopy (number/high power field)Ordered By: Teodoro Castro on 03-24-2024 Bacteria LM.HPF (Urine sed) [#/Area] 0 /[HPF] None Seen [facility] Urine specific gravity measu rementOrdered By: Teodoro Castro on 03-24-2024 Specific gravity (U) [Rel density] 1.015 1.002-1.03 0 [facility] Urobilinogen Ql (U)Ordered B y: Teodoro Castro on 03-24-2024 Urine Urobilinogen Normal mg/dl Normal [facility] Very low density lipoprotein (VLDL) cholesterol measurementOrdered By: Teodoro Castro on 03-24-2024 VLDL Cholesterol 12 mg/dL 5-40 [facility] Vitamin B12on 03-24-2024 Cobalamin (Vitamin B12) [Mass/Vol] 440 pg/mL Normal 211-911 [facility] Comment on above: Order Comment: Order Date: 02/01/24Order Info: 9 - [id number] Info: [id number] - VITD25 Performed By: #### L 501.1800, M100.651, L500.2500, L100.0100, L501.9985 #### [facility] [place], [address] Vitamin B12 measurementOrder ed By: Teodoro Castro on 03-24-2024 Cobalamin (Vitamin B12) [Mass/Vol] 440 pg/mL -911 [facility] Vitamin D,25 Hydroxyon 03-24 Vitamin D 25-OH 30.4 ng/mL Normal [facility] Comment on above: Order Comment: Order Date: 02/01/24Order Info: 9 - [id number] Info: [id number] - VITD25 Result Comment: Mary Alice min D 25(OH) Status Range Deficiency <20 ng/mL (50nmol/L) Insufficiency 20 - 30 ng/mL (50 - 75 nmol/L) Sufficiency 30 - 100 ng/mL (75 - 250 nmol/L) Toxicity >100 ng/mL (>250 nmol/L) Performed By: #### L 501.1800, M100.651, L500.2500, L100.0100, L501.9985 #### [facility] [address], [place], [id number] White blood cell (WBC) count Ordered By: Teodoro Castro on 03-24-2024 WBC (Bld) [#/Vol] 6.7 10*3/uL 4.4-11.0 [facility] White blood cell countOrdere d By: Teodoro Castro on 03-24-2024 Urine WBC 0 SEEN /hpf 0-5 [facility] PSA,Total - Annual Screenon 03-01-2024 PSA,TOT SCREEN 1.13 ng/mL Normal 0.00-4.00 [facility] Comment on above: Result Comment: This test was performed using the TPSA assay method for the [employer] chemistry system. Values obtained with different assay methods cannot be used interchangably. When changing PSA assays in the course of monitoring a patient, additional sequential testing should be carried out to confirm baseline values. Performed By: #### L 502.0250, L100.0100, L503.6030, L500.4050, L501.0900, L506.1001, L503.6550, L501.9985, L500.4100 #### [facility] [address], [place], [id number] Screening prostate specific antigen (PSA) measurementOrdered By: Cielo Ga on 03-01-2024 Prostate Specific Antigen Screen 1.13 ng/mL 0.00-4.00 [facility] Comment on above: This test was perfor med using the TPSA assay method for [employer] chemistry system. Values obtained with differentassay methods cannot be used interchangably.When changing PSA assays in the course of monitoring apatient, additional sequential testing should be carriedout to confirm baseline values. EGD Reporton 01-10-2024 EGD Report [facility] Medical Records Department [address] [place] [address] EGD Report MR#: [id number] Acct: [id number] Name: CHELLE SUN Rep #: [id number] : 1945 78 From: Paolo Fiore MD PCP: Dr. Teodoro Castro MD Status:[facility] Patient Name: Chelle Sun Procedure Date: 01/07/2024 9:42 AM Date of : 1945 Age: 78 Procedure: Upper GI endoscopy Indications: Follow-up of acute duodenal ulcer Providers: Paolo Fiore MD Referring MD: Teodoro Castro Medicines: Propofol per Anesthesia Patient Profile: This is a 78 year old male. Refer to note in patient chart for documentation of history and physical. Complications: No immediate complications. Procedure: Pre-Anesthesia Assessment: - Prior to the procedure, a History and Physical was performed, and patient medications and allergies were reviewed. The patient's tolerance of previous anesthesia was also reviewed. The risks and benefits of the procedure and the sedation options and risks were discussed with the patient. All questions were answered, and informed consent was obtained. Prior Anticoagulants: The patient has taken no anticoagulant or antiplatelet agents. After reviewing the risks and benefits, the patient was deemed in satisfactory condition to undergo the procedure. After obtaining informed consent, the endoscope was passed under direct vision. Throughout the procedure, the patient's blood pressure, pulse, and oxygen saturations were monitored continuously. The Endoscope was introduced through the mouth, and advanced to the second part of duodenum. The upper GI endoscopy was accomplished without difficulty. The patient tolerated the procedure well. Scope In: 9:49:17 AM Scope Withdrawal Time 0 hours 0 minutes 2 seconds Scope Out: 9:51:33 AM Total Procedure Duration Time 0 hours 2 minutes 16 seconds Findings: The esophagus was normal. The stomach was normal. The examined duodenum was normal. Impression: - Normal esophagus. - Normal stomach. - Normal examined duodenum. - No specimens collected. Recommendation: - Discharge patient to home. - Resume previous diet. - Continue present medications. - Resume aspirin at prior dose tomorrow. Procedure Code(s): --- Professional --- 77817, Esophagogastroduodenoscop y, flexible, transoral; diagnostic, including collection of specimen(s) by brushing or washing, when performed (separate procedure) Diagnosis Code(s): --- Professional --- K26.3, Acute duodenal ulcer without hemorrhage or perforation CPT copyright 2021 [employer]. All rights reserved. The codes documented in this report are preliminary and upon court worker review may be revised to meet current compliance requirements. Paolo Fiore MD 01/07/2024 9:54:33 AM This report has been signed electronically. Number of Addenda: 0 Note Initiated On: 01/07/2024 9:42 AM 01/07/24953 Date Paolo Fiore MD Cosigner Signature: Date (if indicated) CC: Dr. Paolo Fiore MD; Dr. Teodoro Castro MD Date Dictated: 01/07/24941 Date Transcribed: Body Care Manager: AC Signed Normal [facility] Bedside Glucoseon 01-07-2024 FINGERSTICK GLU 191 mg/dL High 74-106 [facility] Comment on above: Result Comment: SAUD GEMENT OF PATIENT CARE PER NURSING PROTOCOL Performed By: #### L 502.0250, L100.0100, L503.6030, L500.4050, L501.0900, L506.1001, L503.6550, L501.9985, L500.4100 #### [facility] [address] [place], [address] H AND P Exam - Surgicalon H&P Exam - Surgical [facility] Medical Records Department [address] [place] [address] H P Exam - Surgical 01/07/2439 MR#: [id number] Acct: [id number] Name: CHELLE SUN Rep #: [id number] : 1945 78 From: Paolo Fiore MD PCP: Dr. Teodoro Castro MD Status:[facility] Location: [facility]19-1 HPI - General HPI Narrative CHELLE YUTZY, is a 78 M who presents for follow-up EGD. Patient has severe pyloric ulcer during his last EGD and he has been on PPI for 2 months and he is here for repeat endoscopy. He denies abdominal pain or dysphagia symptoms [facility] Medical History Wears dentures Wears glasses Diabetes Arthritis High cholesterol History of diverticulitis Non-smoker Hypertension GERD (gastroesophageal reflux disease) Screening for malignant neoplasm of intestine Benign neoplasm of colon Hypertrophy of prostate without urinary obstruction Laceration of ear HLD (hyperlipidemia) Diverticular disease of colon Type II diabetes mellitus, uncontrolled Home Medications ???Medication ???Instructions ???Recorded ???Last Taken ???Type aspirin 81 mg tablet,delayed 81 mg PO DAILY 09/17/15 01/01/24 History release metformin 500 mg tablet,extended 1,000 mg PO BID 09/17/15 01/06/24 History release 24 hr lunhuxyf-bkq-svnjr acid 0.4 1 ea PO DAILY 09/17/15 01/01/24 History mg-lycopene 300 mcg-lutein 250 mcg tablet pravastatin 20 mg tablet 20 mg PO DAILY 09/17/15 01/06/24 History ibuprofen 200 mg tablet 600 mg PO BID PRN pain 05/10/19 01/04/24 History amlodipine 10 mg tablet 10 mg PO QDAY 09/15/23 01/06/24 History finasteride 5 mg tablet 5 mg PO DAILY 09/15/23 01/06/24 History glipizide 5 mg tablet 5 mg PO DAILY 09/15/23 01/06/24 History solifenacin 10 mg tablet 10 mg PO DAILY 09/15/23 01/06/24 History inulin-sorbitol 2 gram chewable 1 tab PO DAILY 11/10/23 01/06/24 History tablet (Fiber Supplement (inulin)) lisinopril 5 mg tablet 5 mg PO DAILY 11/10/23 01/07/24 History omeprazole 20 mg capsule,delayed 20 mg PO BID 01/07/24 01/06/24 History release Allergy/AdvReac Type Severity Reaction Status Date / Time cephalexin monohydrate (From AdvReac Diarrhea Verified 01/07/24 09:01 Keflex) oxycodone AdvReac Other Verified 01/07/24 09:01 sertraline HCl (From Zoloft) AdvReac Upset Verified 01/07/24 09:01 Stomach Family History Mother Diabetes Heart disease Father Heart disease Surgical History (Updated 01/05/24 @ 12:07 by Cristina Casanova) History of esophagogastroduodenoscop y (EGD) Hx of external ear surgery S/P cataract extraction Hx of tonsillectomy Hx of left inguinal hernia repair History of total cystectomy S/P right rotator cuff repair S/P right inguinal hernia repair S/P colonoscopy Social History Smoking Status: Never smoker second hand exposure: No alcohol intake: never substance use type: does not use caffeine: Yes what type of physical activity do you participate in: walking frequency: 5-6 times per week seatbelt use: always Vital Signs Vital Signs Vital Signs: 01/07/24 09:03 01/07/24 09:03 Temperature 98.0 F Temperature Source Temporal Pulse Rate 81 Respiratory Rate 18 Respiratory Pattern Normal Blood Pressure 134/75 H Blood Pressure Mean 94 Blood Pressure Source Monitor Blood Pressure Position Semi-Fowlers Blood Pressure Location Right Arm Pulse Ox 100 Oxygen Delivery Method Room Air Weight Weight: 147 lb 11.355 oz Body Mass Index (BMI) 22.4 Physical Exam Const oriented x3 HEENT normocephalic Eyes PERRL Resp normal respiratory effort and normal air movement Cardio regular rate and regular rhythm GI soft to palpation, non-tender and non-distended Extremity normal to inspection Assessment Plan Assessment/Plan (1) GERD (gastroesophageal reflux disease): PLAN: I explained endoscopy in detail to the patient. I explained the risks including but not limited to stroke or heart attack with anesthesia, perforation of the GI tract, bleeding, infection. I explained that any of these could necessitate further emergency surgery. The patient understands and all questions were answered sufficiently. The patient wishes to proceed with procedure. Paolo Fiore MD Pager: [facility] [address] [place] [address], [address] [place] [address] Office: [phone] Cosigner Signature (if applicable): CC: Dr. Paolo Fiore MD; Dr. Teodoro Castro MD Signed [facility] MR/POSTOP.ANEon 01-07-2024 MR/POSTOP.[facility] Medical Records Department [address] [place] [address] Anesthesia Postop Eval I 01/07/24 0959 MR#: [id number] Acct: [id number] Name: CHELLE SUN Rep #: [id number] : 1945 78 From: Deion Martel PCP: Dr. Teodoro Castro MD Status:REG SDC Y Race: C Location: [place] [address] Anesthesia: Postop Eval I Current Vital Signs Temperature: 97.9 F Pulse Rate: 68 Blood Pressure: 87/52 Respiratory Rate: 14 Pulse Ox: 98 Oxygen Delivery Method: Room Air Assessment Airway patent: Yes Spontaneous unlabored respirations: Yes Mental status: Asleep nausea: No Vomiting: No Anesthesia Complication: No Fluid Hydration Crystalloid volume administer (ml): 20 Total IV fluid infused: 20 Progress Note Anesthesia document: Postop Eval 1 completed: Yes 01/07/24 100 Date Deion Varela Signature: Date CC: Signed [facility] MR/[id number] 01-07-2024 MR/POSTOPAN2 [facility] Medical Records Department [address] [place] [address] Anesthesia Postop Eval II 01/07/24 1013 MR#: [id number] Acct: [id number] Name: HAZELYUECassyCHELLEKANG RENO Rep #: [id number] : 1945 78 From: Dillon Pickens MD PCP: Dr. Teodoro Castro MD Status:REG SDC Y Race: C Location: [place] [address]-1 Anesthesia Postop Eval I Sum Postop Eval Completion status Anesthesia document: Postop Eval 1 completed: Yes Anesthesia Postop Eval I Summary Anesthesia Postop Eval I Summary: Anesthesia Postop Eval I: Assessment Summary Airway patent Yes 01/07/24 10:01 [email or web address] Spontaneous unlabored Yes 01/07/24 10:01 [email or web address] respirations Mental status Asleep 01/07/24 10:01 [email or web address] nausea No 01/07/24 10:01 [email or web address] Vomiting No 01/07/24 10:01 [email or web address] Anesthesia Postop Eval I: Fluid Summary Crystalloid volume administer 20 01/07/24 10:01 [email or web address] (ml) Colloids volume administered ( ml) Blood Product volume administered (ml) Total IV fluid infused 20 01/07/24 10:01 [email or web address] Anesthesia Postop Eval I: Summary Notes Anesthesia Complication No 01/07/24 10:01 [email or web address] Anesthesia Complication Comment: Post-operative progress note Anesthesia: Postop Eval II Evaluation Mental status: Awake Pain Level: 0 nausea: No Vomiting: No 01/07/24 1013 Date Dillon Goncalvesigner Signature: Date CC: Signed Normal [facility] CBC W/Diff, Automatedon 10-22 Absolute Lymph 1.76 X10 3/uL Normal 0.83-4.51 [facility] Comment on above: Order Comment: Order Date: 08/26/23Order Info: [id number] - CBCD Performed By: #### L 501.1800, M100.651, L500.2500, L100.0100, L501.9985 #### [facility] [address] [place], [address] Absolute Neut 5.4 X10 3/uL Normal 2.0-7.7 [facility] Comment on above: Order Comment: Order Date: 08/26/23Order Info: [id number] - CBCD Performed By: #### L 501.1800, M100.651, L500.2500, L100.0100, L501.9985 #### [facility] [address] [place], [address] Basophils/100 WBC (Bld) 0.9 % Normal 0-1 [facility] Comment on above: Order Comment: Order Date: 08/26/23Order Info: [id number] - CBCD Performed By: #### L 501.1800, M100.651, L500.2500, L100.0100, L501.9985 #### [facility] [address] [place], [address] Eosinophils/100 WBC (Bld) 4.1 % Normal 0-5 [facility] Comment on above: Order Comment: Order Date: 08/26/23Order Info: [id number] - CBCD Performed By: #### L 501.1800, M100.651, L500.2500, L100.0100, L501.9985 #### [facility] [address] [place], [address] Erythrocyte distribution width (RBC) [Ratio] 13.5 % Normal 11.6-14.6 [facility] Comment on above: Order Comment: Order Date: 08/26/23Order Info: [id number] - CBCD Performed By: #### L 501.1800, M100.651, L500.2500, L100.0100, L501.9985 #### [facility] [address] [place], [address] Hematocrit (Bld) [Volume fraction] 35.6 % Low 40-54 [facility] Comment on above: Order Comment: Order Date: 08/26/23Order Info: [id number] - CBCD Performed By: #### L 501.1800, M100.651, L500.2500, L100.0100, L501.9985 #### [facility] [address] [place], [address] Hemoglobin (Bld) [Mass/Vol] 11.6 g/dL Low 13.0-16.5 [facility] Comment on above: Order Comment: Order Date: 08/26/23Order Info: 018- - CBCD Performed By: #### L 501.1800, M100.651, L500.2500, L100.0100, L501.9985 #### [facility] [address] [place], [address] IG% 0.200 Normal 0.0-0.9 [facility] Comment on above: Order Comment: Order Date: 08/26/23Order Info: 018- - CBCD Result Comment: IG% - Immature Granulocytes (promyelocytes, myelocytes and metamyelocytes) > 1% indicates that a LEFT SHIFT is Present. Performed By: #### L 501.1800, M100.651, L500.2500, L100.0100, L501.9985 #### [facility] [address] [place], [address] Lymphocytes/100 WBC (Bld) 21.4 % Normal 19-41 [facility] Comment on above: Order Comment: Order Date: 08/26/23Order Info: 018- - CBCD Performed By: #### L 501.1800, M100.651, L500.2500, L100.0100, L501.9985 #### [facility] [address] [place], [address] MCH (RBC) [Entitic mass] 28.4 pg Normal 27.0-32.0 [facility] Comment on above: Order Comment: Order Date: 08/26/23Order Info: 018- - CBCD Performed By: #### L 501.1800, M100.651, L500.2500, L100.0100, L501.9985 #### [facility] [address] [place], [address] MCHC (RBC) [Mass/Vol] 32.6 g/dL Normal 32-36 [facility] Comment on above: Order Comment: Order Date: 08/26/23Order Info: [id number] - CBCD Performed By: #### L 501.1800, M100.651, L500.2500, L100.0100, L501.9985 #### [facility] [address] [place], [address] MCV (RBC) [Entitic vol] 87.0 fL Normal 80-94 [facility] Comment on above: Order Comment: Order Date: 08/26/23Order Info: 183- - CBCD Performed By: #### L 501.1800, M100.651, L500.2500, L100.0100, L501.9985 #### [facility] [address] [place], [address] Monocytes/100 WBC (Bld) 7.7 % Normal 0-10 [facility] Comment on above: Order Comment: Order Date: 08/26/23Order Info: 183- - CBCD Performed By: #### L 501.1800, M100.651, L500.2500, L100.0100, L501.9985 #### [facility] [address] [place], [address] Neutrophils/100 WBC (Bld) 65.7 % Normal 47-70 [facility] Comment on above: Order Comment: Order Date: 08/26/23Order Info: [id number] - CBCD Performed By: #### L 501.1800, M100.651, L500.2500, L100.0100, L501.9985 #### [facility] [address] [place], [address] Nucleated RBC (Bld) [#/Vol] 0 10*3/uL Normal 0-5 [facility] Comment on above: Order Comment: Order Date: 08/26/23Order Info: [id number] - CBCD Performed By: #### L 501.1800, M100.651, L500.2500, L100.0100, L501.9985 #### [facility] [address] [place], [address] Platelet mean volume (Bld) [Entitic vol] 10.2 fL Normal 6.2-12.0 [facility] Comment on above: Order Comment: Order Date: 08/26/23Order Info: [id number] - CBCD Performed By: #### L 501.1800, M100.651, L500.2500, L100.0100, L501.9985 #### [facility] [address] [place], [address] Platelets (Bld) [#/Vol] 308 10*3/uL Normal 150-450 [facility] Comment on above: Order Comment: Order Date: 08/26/23Order Info: 0184- - CBCD Performed By: #### L 501.1800, M100.651, L500.2500, L100.0100, L501.9985 #### [facility] [address] [place], [address] RBC (Bld) [#/Vol] 4.09 10*6/uL Low 4.6-6.2 [facility] Comment on above: Order Comment: Order Date: 08/26/23Order Info: [id number] - CBCD Performed By: #### L 501.1800, M100.651, L500.2500, L100.0100, L501.9985 #### [facility] [address] [place], [address] RDW SD 42.4 fl Normal 35.1-43.9 [facility] Comment on above: Order Comment: Order Date: 08/26/23Order Info: [id number] - CBCD Performed By: #### L 501.1800, M100.651, L500.2500, L100.0100, L501.9985 #### [facility] [address] [place], [address] WBC (Bld) [#/Vol] 8.2 10*3/uL Normal 4.4-11.0 [facility] Comment on above: Order Comment: Order Date: 08/26/23Order Info: [id number] - CBCD Performed By: #### L 501.1800, M100.651, L500.2500, L100.0100, L501.9985 #### [facility] [address] [place], [address] Comprehensive Metabolic Prof [facility] 11-19-2023 Albumin [Mass/Vol] 3.7 g/dL Normal 3.2-5.0 [facility] Comment on above: Order Comment: Order Date: 08/26/23Order Info: [id number] - CMPOrder Info: [id number] - LIPIDOrder Info: [id number] - TIBCOrder Info: [id number] - FEOrder Info: [id number] - BROOKE Performed By: #### L 501.1800, M100.651, L500.2500, L100.0100, L501.9985 #### [facility] [address] [place], [address] Albumin/Globulin [Mass ratio] 1.0 {ratio} Normal 0.9-2.4 [facility] Comment on above: Order Comment: Order Date: 08/26/23Order Info: [id number] - CMPOrder Info: [id number] - LIPIDOrder Info: [id number] - TIBCOrder Info: [id number] - FEOrder Info: [id number] - BROOKE Performed By: #### L 501.1800, M100.651, L500.2500, L100.0100, L501.9985 #### [facility] [address] [place], [address] ALK P 61 U/L Normal 45-117 [facility] Comment on above: Order Comment: Order Date: 08/26/23Order Info: [id number] - CMPOrder Info: [id number] - LIPIDOrder Info: 7 - TIBCOrder Info: [id number] - FEOrder Info: [id number] - BROOKE Performed By: #### L 501.1800, M100.651, L500.2500, L100.0100, L501.9985 #### [facility] [address] [place], [address] ALT [Catalytic activity/Vol] 19 U/L Normal 16-61 [facility] Comment on above: Order Comment: Order Date: 08/26/23Order Info: [id number] - CMPOrder Info: [id number] - LIPIDOrder Info: 7 - TIBCOrder Info: [id number]- - FEOrder Info: [id number] - BROOKE Performed By: #### L 501.1800, M100.651, L500.2500, L100.0100, L501.9985 #### [facility] [address] [place], [address] AST [Catalytic activity/Vol] 15 U/L Normal 15-37 [facility] Comment on above: Order Comment: Order Date: 08/26/23Order Info: [id number] - CMPOrder Info: [id number] - LIPIDOrder Info: 7 - TIBCOrder Info: [id number] - FEOrder Info: [id number] - BROOKE Performed By: #### L 501.1800, M100.651, L500.2500, L100.0100, L501.9985 #### [facility] [address] [place], [address] Bilirubin [Mass/Vol] 0.40 mg/dL Normal 0.20-1.00 [facility] Comment on above: Order Comment: Order Date: 08/26/23Order Info: [id number] - CMPOrder Info: [id number] - LIPIDOrder Info: 7 - TIBCOrder Info: [id number] - FEOrder Info: [id number]- - BROOKE Result Comment: For patients on eltrombopag therapy, use of Dimension [place] TBIL is not recommended. Performed By: #### L 501.1800, M100.651, L500.2500, L100.0100, L501.9985 #### [facility] [address] [place], [address] BUN/CRE 16.3 RATIO Normal 10-20 [facility] Comment on above: Order Comment: Order Date: 08/26/23Order Info: [id number] - CMPOrder Info: [id number] - LIPIDOrder Info: [id number] - TIBCOrder Info: [id number] - FEOrder Info: [id number] - BROOKE Performed By: #### L 501.1800, M100.651, L500.2500, L100.0100, L501.9985 #### [facility] [address] [place], [address] CA,Total 9.2 mg/dL Normal 8.5-10.1 [facility] Comment on above: Order Comment: Order Date: 08/26/23Order Info: [id number] - CMPOrder Info: [id number] - LIPIDOrder Info: [id number] - TIBCOrder Info: [id number] - FEOrder Info: [id number] - BROOKE Performed By: #### L 501.1800, M100.651, L500.2500, L100.0100, L501.9985 #### [facility] [address] [place], [address] Chloride [Moles/Vol] 99 mmol/L Normal 98-107 [facility] Comment on above: Order Comment: Order Date: 08/26/23Order Info: [id number] - CMPOrder Info: [id number] - LIPIDOrder Info: 7 - TIBCOrder Info: [id number] - FEOrder Info: [id number] - BROOKE Performed By: #### L 501.1800, M100.651, L500.2500, L100.0100, L501.9985 #### [facility] [address] [place], [address] CO2 [Moles/Vol] 26.0 mmol/L Normal 21.0-32.0 [facility] Comment on above: Order Comment: Order Date: 08/26/23Order Info: [id number] - CMPOrder Info: [id number] - LIPIDOrder Info: [id number] - TIBCOrder Info: [id number] - FEOrder Info: [id number] - BROOKE Performed By: #### L 501.1800, M100.651, L500.2500, L100.0100, L501.9985 #### [facility] [address] [place], [address] Creatinine [Mass/Vol] 1.04 mg/dL Normal 0.70-1.30 [facility] Comment on above: Order Comment: Order Date: 08/26/23Order Info: [id number]- - CMPOrder Info: [id number] - LIPIDOrder Info: 7 - TIBCOrder Info: [id number] - FEOrder Info: [id number] - BROOKE Result Comment: The validity of the calculated GFR GFRAA in patients over 70 years has not been determined. Clinical correlation is essential. Performed By: #### L 501.1800, M100.651, L500.2500, L100.0100, L501.9985 #### [facility] [address] [place], [address] EST GFR - AA 89 mL/min Normal >60 [facility] Comment on above: Order Comment: Order Date: 08/26/23Order Info: [id number] - CMPOrder Info: [id number] - LIPIDOrder Info: [id number] - TIBCOrder Info: [id number] - FEOrder Info: [id number] - BROOKE Result Comment: Afri can [place] GFR Calc Performed By: #### L 501.1800, M100.651, L500.2500, L100.0100, L501.9985 #### [facility] [address] [place], [address] GAP 7 Normal 5-15 [facility] Comment on above: Order Comment: Order Date: 08/26/23Order Info: [id number] - CMPOrder Info: [id number] - LIPIDOrder Info: [id number] - TIBCOrder Info: [id number] - FEOrder Info: [id number] - BROOKE Performed By: #### L 501.1800, M100.651, L500.2500, L100.0100, L501.9985 #### [facility] [address] [place], [address] GFR/1.73 sq M.predicted among non-blacks MDRD (S/P/Bld) [Vol rate/Area] 74 mL/min/{1.73_m2} Normal >60 [facility] Comment on above: Order Comment: Order Date: 08/26/23Order Info: [id number]- - CMPOrder Info: - LIPIDOrder Info: [id number] - TIBCOrder Info: [id number] - FEOrder Info: [id number] - BROOKE Result Comment: Non- GFR Calc Performed By: #### L 501.1800, M100.651, L500.2500, L100.0100, L501.9985 #### [facility] [address] [place], [address] Globulin (S) [Mass/Vol] 3.6 g/dL Normal 2.2-4.2 [facility] Comment on above: Order Comment: Order Date: 08/26/23Order Info: [id number]- - CMPOrder Info: [id number] - LIPIDOrder Info: 7 - TIBCOrder Info: [id number] - FEOrder Info: 227-4 - BROOKE Performed By: #### L 501.1800, M100.651, L500.2500, L100.0100, L501.9985 #### [facility] [address] [place], [address] Glucose [Mass/Vol] 172 mg/dL High 74-106 [facility] Comment on above: Order Comment: Order Date: 08/26/23Order Info: [id number] - CMPOrder Info: [id number] - LIPIDOrder Info: 7 - TIBCOrder Info: [id number] - FEOrder Info: [id number] - BROOKE Result Comment: Fast ing Glucose result greater than or equal to 126 mg/dL suggests DIABETES MELLITUS per A.D.A. criteria. Performed By: #### L 501.1800, M100.651, L500.2500, L100.0100, L501.9985 #### [facility] [address] [place], [address] Potassium [Moles/Vol] 4.8 mmol/L Normal 3.5-5.1 [facility] Comment on above: Order Comment: Order Date: 08/26/23Order Info: [id number] - CMPOrder Info: [id number] - LIPIDOrder Info: [id number] - TIBCOrder Info: [id number] - FEOrder Info: [id number] - BROOKE Performed By: #### L 501.1800, M100.651, L500.2500, L100.0100, L501.9985 #### [facility] [address] [place], [address] Sodium [Moles/Vol] 132 mmol/L Low 136-145 [facility] Comment on above: Order Comment: Order Date: 08/26/23Order Info: [id number] - CMPOrder Info: [id number] - LIPIDOrder Info: 7 - TIBCOrder Info: [id number] - FEOrder Info: [id number] - BROOKE Performed By: #### L 501.1800, M100.651, L500.2500, L100.0100, L501.9985 #### [facility] [address] [place], [address] T PROT 7.3 g/dL Normal 6.4-8.2 [facility] Comment on above: Order Comment: Order Date: 08/26/23Order Info: [id number] - CMPOrder Info: [id number] - LIPIDOrder Info: [id number] - TIBCOrder Info: [id number] - FEOrder Info: [id number] - BROOKE Performed By: #### L 501.1800, M100.651, L500.2500, L100.0100, L501.9985 #### [facility] [address] [place], [address] Urea nitrogen [Mass/Vol] 17 mg/dL Normal 7-18 [facility] Comment on above: Order Comment: Order Date: 08/26/23Order Info: [id number] - CMPOrder Info: [id number] - LIPIDOrder Info: [id number] - TIBCOrder Info: [id number] - FEOrder Info: [id number] - BROOKE Performed By: #### L 501.1800, M100.651, L500.2500, L100.0100, L501.9985 #### [facility] [address] [place], [address] Ferritinon 11-19-2023 Ferritin [Mass/Vol] 36 ng/mL Normal 26-388 [facility] Comment on above: Order Comment: Order Date: 08/26/23Order Info: [id number] - CMPOrder Info: [id number] - LIPIDOrder Info: [id number] - TIBCOrder Info: [id number] - FEOrder Info: 227-4 - BROOKE Performed By: #### L 501.1800, M100.651, L500.2500, L100.0100, L501.9985 #### [facility] [address] [place], [address] Hemoglobin A1con 11-19-2023 HbA1c (Bld) [Mass fraction] 7.5 % High 3.8-5.6 [facility] Comment on above: Order Comment: Order Date: 08/26/23Order Info: [id number] - A1C Result Comment: Norm al < 5.7 % Prediabetic 5.7 - 6.4 % Diabetic >or= 6.5 % Please note range changes. Performed By: #### L 501.1800, M100.651, L500.2500, L100.0100, L501.9985 #### [facility] [address] [place], [address] Ironon 11-19-2023 Iron [Mass/Vol] 65 ug/dL Normal 65-175 [facility] Comment on above: Order Comment: Order Date: 08/26/23Order Info: [id number] - CMPOrder Info: [id number] - LIPIDOrder Info: [id number] - TIBCOrder Info: [id number] - FEOrder Info: 227- - BROOKE Performed By: #### L 501.1800, M100.651, L500.2500, L100.0100, L501.9985 #### [facility] [address] [place], [place], [address] Iron Binding Capacity,Totalo n 11-19-2023 TIBC 380 ug/dL Normal 250-450 [facility] Comment on above: Order Comment: Order Date: 08/26/23Order Info: [id number] - CMPOrder Info: [id number] - LIPIDOrder Info: [id number] - TIBCOrder Info: [id number] - FEOrder Info: [id number] - BROOKE Performed By: #### L 501.1800, M100.651, L500.2500, L100.0100, L501.9985 #### [facility] [address] [place], [address] Lipid Profileon 11-19-2023 Cholesterol [Mass/Vol] 137 mg/dL Normal 200 [facility] Comment on above: Order Comment: Order Date: 08/26/23Order Info: [id number] - CMPOrder Info: [id number] - LIPIDOrder Info: [id number] - TIBCOrder Info: [id number] - FEOrder Info: 227-4 - BROOKE Result Comment: <200 mg/dL Desirable 200-240 mg/dL Borderline >240 mg/dL High Risk Performed By: #### L 501.1800, M100.651, L500.2500, L100.0100, L501.9985 #### [facility] [address] [place], [address] Cholesterol in HDL [Mass/Vol] 47 mg/dL Normal [facility] Comment on above: Order Comment: Order Date: 08/26/23Order Info: [id number] - CMPOrder Info: [id number] - LIPIDOrder Info: [id number] - TIBCOrder Info: [id number] - FEOrder Info: [id number] - BROOKE Result Comment: The drugs N-Acetylcysteine and Metamizole may falsely depress this assay. Reference Range HDL <40 mg/dL Low HDL Cholesterol HDL >or= 60 mg/dL High HDL Cholesterol Performed By: #### L 501.1800, M100.651, L500.2500, L100.0100, L501.9985 #### [facility] [address] [place], [address] Cholesterol in LDL [Mass/Vol] 75 mg/dL Normal 0-130 [facility] Comment on above: Order Comment: Order Date: 08/26/23Order Info: 785- - CMPOrder Info: [id number] - LIPIDOrder Info: [id number] - TIBCOrder Info: [id number] - FEOrder Info: [id number] - BROOKE Performed By: #### L 501.1800, M100.651, L500.2500, L100.0100, L501.9985 #### [facility] [address] [place], [address] Cholesterol in VLDL [Mass/Vol] 15 mg/dL Normal 5-40 [facility] Comment on above: Order Comment: Order Date: 08/26/23Order Info: 07- - CMPOrder Info: [id number] - LIPIDOrder Info: [id number] - TIBCOrder Info: [id number] - FEOrder Info: [id number] - BROOKE Performed By: #### L 501.1800, M100.651, L500.2500, L100.0100, L501.9985 #### [facility] [address] [place], [address] Triglyceride [Mass/Vol] 73 mg/dL Normal [facility] Comment on above: Order Comment: Order Date: 08/26/23Order Info: [id number] - CMPOrder Info: [id number] - LIPIDOrder Info: [id number] - TIBCOrder Info: [id number] - FEOrder Info: [id number] - BROOKE Result Comment: The drugs N-Acetylcysteine and Metamizole may falsely depress this assay. Serum Triglycerides Reference Interval Normal <150 mg/dL Borderline high 150 - 199 mg/dL High 200 - 499 mg/dL Very High > or = 500 mg/dL Performed By: #### L 501.1800, M100.651, L500.2500, L100.0100, L501.9985 #### [facility] [address] [place], [address] Microalb:Creat Ratio,Random URon 11-19-2023 Creatinine [Mass/Vol] 46.50 mg/dL Normal NO RAN GE EST. [facility] Comment on above: Order Comment: Order Date: 08/26/23Order Info: [id number] - MIACRE Performed By: #### L 501.1800, M100.651, L500.2500, L100.0100, L501.9985 #### [facility] [address] [place], [address] MALB:CRE TNP Normal <30 mg/g CRE [facility] Comment on above: Order Comment: Order Date: 08/26/23Order Info: [id number] - MIACRE Performed By: #### L 501.1800, M100.651, L500.2500, L100.0100, L501.9985 #### [facility] [address] [place], [address] MICROALBUMIN,UR < 5.0 Normal NO RANGE EST. [facility] Comment on above: Order Comment: Order Date: 08/26/23Order Info: [id number] - MIACRE Performed By: #### L 501.1800, M100.651, L500.2500, L100.0100, L501.9985 #### [facility] [address] [place], [address] Bedside Glucoseon 11-12-2023 FINGERSTICK GLU 167 mg/dL High 74-106 [facility] Comment on above: Result Comment: SAUD ARMSTRONG OF PATIENT CARE PER NURSING PROTOCOL Performed By: #### L 501.1800, M100.651, L500.2500, L100.0100, L501.9985 #### [facility] [address] [place], [address] EGD Reporton 11-12-2023 EGD Report [facility] Medical Records Department [address] [place] [address] EGD Report MR#: [id number] Acct: [id number] Name: CHELLE SUN Rep #: [id number] : 1945 78 From: Paolo Fiore MD PCP: Dr. Teodoro Castro MD Status:[facility] Patient Name: Chelle Sun Procedure Date: 11/12/2023 7:32 AM Date of : 1945 Age: 78 Procedure: Upper GI endoscopy Indications: Heartburn Providers: Paolo Fiore MD Referring MD: Paolo Fiore MD Medicines: Propofol per Anesthesia Patient Profile: This is a 78 year old male. Refer to note in patient chart for documentation of history and physical. Complications: No immediate complications. Estimated blood loss: Minimal. Procedure: Pre-Anesthesia Assessment: - Prior to the procedure, a History and Physical was performed, and patient medications and allergies were reviewed. The patient's tolerance of previous anesthesia was also reviewed. The risks and benefits of the procedure and the sedation options and risks were discussed with the patient. All questions were answered, and informed consent was obtained. Prior Anticoagulants: The patient has taken no anticoagulant or antiplatelet agents. After reviewing the risks and benefits, the patient was deemed in satisfactory condition to undergo the procedure. After obtaining informed consent, the endoscope was passed under direct vision. Throughout the procedure, the patient's blood pressure, pulse, and oxygen saturations were monitored continuously. The Endoscope was introduced through the mouth, and advanced to the duodenal bulb. The upper GI endoscopy was accomplished without difficulty. The patient tolerated the procedure well. Scope In: 7:42:02 AM Scope Out: 7:46:44 AM Total Procedure Duration Time 0 hours 4 minutes 42 seconds Findings: One non-bleeding cratered duodenal ulcer with no stigmata of bleeding was found in the first portion of the duodenum. Biopsies were taken with a cold forceps for histology. The stomach was normal. The esophagus was normal. Impression: - Non-bleeding duodenal ulcer with no stigmata of bleeding. Biopsied. - Normal stomach. - Normal esophagus. Recommendation: - Discharge patient to home. - Resume previous diet. - Use Prilosec (omeprazole) 20 mg PO BID for 8 weeks. - Repeat upper endoscopy in 8 weeks to check healing. - Continue present medications. Procedure Code(s): --- Professional --- 88332, Esophagogastroduodenoscop y, flexible, transoral; with biopsy, single or multiple Diagnosis Code(s): --- Professional --- K26.9, Duodenal ulcer, unspecified as acute or chronic, without hemorrhage or perforation R12, Heartburn CPT copyright 2021 [place]. All rights reserved. The codes documented in this report are preliminary and upon court worker review may be revised to meet current compliance requirements. Paolo Fiore MD 11/12/2023 7:58:18 AM This report has been signed electronically. Number of Addenda: 0 Note Initiated On: 11/12/2023 7:32 AM 11/12/23 0758 Date Paolo Fiore MD Cosigner Signature: Date (if indicated) CC: Dr. Poalo Fiore MD; Dr. Teodoro Castro MD Date Dictated: 11/12/23 0732 Date Transcribed: Body Care Manager: PRACHI Signed [facility] MR/POSTOP.ANEon 11-12-2023 MR/POSTOP.[facility] Medical Records Department [address] [place] [address] Anesthesia Postop Eval I 11/12/23 0757 MR#: [id number] Acct: [id number] Name: CHELLE SUN Rep #: [id number] : 1945 78 From: Deion Martel PCP: Dr. Teodoro Castro MD Status:[facility] Y Race: C Location: [place] [address] Anesthesia: Postop Eval I Current Vital Signs Temperature: 97.9 F Pulse Rate: 67 Blood Pressure: 95/52 Respiratory Rate: 14 Pulse Ox: 100 Oxygen Delivery Method: Room Air Assessment Airway patent: Yes Spontaneous unlabored respirations: Yes Mental status: Asleep nausea: No Vomiting: No Anesthesia Complication: No Fluid Hydration Crystalloid volume administer (ml): 400 Total IV fluid infused: 400 Progress Note Anesthesia document: Postop Eval 1 completed: Yes 11/12/23757 Date Deion Varela Signature: Date CC: Signed [facility] MR/[id number] 11-12-2023 MR/POSTOPAN2 [facility] Medical Records Department [address] [place] [address] Anesthesia Postop Eval II 11/12/23 1249 MR#: [id number] Acct: [id number] Name: CHELLE SUN ROWDY Rep #: [id number] : 1945 78 From: Charles Carpenter MD PCP: Dr. Teodoro Castro MD Status:[facility] Y Race: C Location: [place] Anesthesia Postop Eval I Sum Postop Eval Completion status Anesthesia document: Postop Eval 1 completed: Yes Anesthesia Postop Eval I Summary Anesthesia Postop Eval I Summary: Anesthesia Postop Eval I: Assessment Summary Airway patent Yes 11/12/23 07:58 [email or web address] Spontaneous unlabored Yes 11/12/23 07:58 [email or web address] respirations Mental status Asleep 11/12/23 07:58 [email or web address] nausea No 11/12/23 07:58 [email or web address] Vomiting No 11/12/23 07:58 [email or web address] Anesthesia Postop Eval I: Fluid Summary Crystalloid volume administer 400 11/12/23 07:58 [email or web address] (ml) Colloids volume administered ( ml) Blood Product volume administered (ml) Total IV fluid infused 400 11/12/23 07:58 [email or web address] Anesthesia Postop Eval I: Summary Notes Anesthesia Complication No 11/12/23 07:58 [email or web address] Anesthesia Complication Comment: Post-operative progress note Anesthesia: Postop Eval II Evaluation Mental status: Awake Pain Level: 0 nausea: No Vomiting: No 11/12/23 1249 Date Charles Varela Signature: Date CC: Signed Normal [facility] Surgery Specimen Level Jacquie 11-12-2023 Surgery Specimen Level IV Patient Age/Sex Location Account Attending Physician CHELLE SUN 78/M EN [id number] Dr. Paolo Fiore MD Specimen: [id number] Received: 11/12/23 Status: JULIANA Hernandez Num: [id number] Spec Type: EGD BIOPSY Subm Dr: Dr. Paolo Fiore MD HEADER OPERATION: EGD with biopsies PRE-OP DIAGNOSIS: Gastroesophageal reflux disease TISSUE SUBMITTED: Duodenal ulcer biopsy MICROSCOPIC DIAGNOSIS Duodenal ulcer, biopsy: Fragments of duodenal mucosa with acute and chronic inflammation. 11/15/2023 MICROSCOPIC DESCRIPTION Slides are reviewed. GROSS DESCRIPTION Received in fixative is one container labeled with the patient's name and designated Duodenal ulcer biopsy. The specimen consists of multiple irregular fragments of light nguyen soft tissue that in aggregate measure 0.5 x 0.3 x 0.1 cm. The specimen is totally submitted in one cassette. 11/12/2023 TC:2 CPT:05534 Patient Age/Sex Location Account Attending Physician CHELLE SUN 78/M EN [id number] Dr. Paolo Fiore MD Signed (signature on file) Dr. Marlon Hernandez MD 11/15/23 1104 Normal [facility] Comment on above: Performed By: #### L 501.1800, M100.651, L500.2500, L100.0100, L501.9985 #### [facility] [address] [place], [place], [id number] Absolute lymphocyte countOrd ered By: Teodoro Castro on 06-28-2023 Lymphocytes Auto (Unsp spec) [#/Vol] 2.25 10*3/uL 0.83-4.51 [facility] Automated lymphocyte count a s percentage of total leukocytesOrdered By: Teodoro Gloria on 06-28-2023 Lymphocytes/100 WBC Auto (Unsp spec) 30.5 % 19-41 [facility] Basophil percentageOrdered B y: Teodoro Ferminletty on 06-28-2023 Basophils/100 WBC (Bld) 0.8 % 0-1 [facility] Bilirubin [Mass/Vol] 0.50 mg/dL 0.20-1.00 [facility] Comment on above: For patients on eltr ombopag therapy, use of Dimension [place] TBIL is not recommended. Chloride [Moles/Vol] 100 mmol/L 98-107 [facility] Cholesterol [Mass/Vol] 130 mg/dL <200 [facility] Comment on above: <200 mg/dL Desirable 200-240 mg/dL Borderline >240 mg/dL High Risk Eosinophils/100 WBC (Bld) 4.5 % 0-5 [facility] Glucose [Mass/Vol] 320 mg/dL 74-106 [facility] Comment on above: Glucose result great er than or equal to 200 mg/dLsuggests DIABETES MELLITUS per A.D.A. criteria. Hemoglobin (Bld) [Mass/Vol] 11.2 g/dL 13.0-16.5 [facility] Monocytes/100 WBC (Bld) 6.6 % 0-10 [facility] Neutrophils (Bld) [#/Vol] 4.2 10*3/uL 2.0-7.7 [facility] Neutrophils/100 WBC (Bld) 57.3 % 47-70 [facility] Potassium [Moles/Vol] 4.9 mmol/L 3.5-5.1 [facility] Protein [Mass/Vol] 6.9 g/dL 6.4-8.2 [facility] Sodium [Moles/Vol] 134 mmol/L 136-145 [facility] Triglyceride [Mass/Vol] 47 mg/dL <199 [facility] Comment on above: The drugs N-Acetylcy steine and Metamizole may falsely depress this assay.Serum Triglycerides Reference Interval Normal <150 mg/dL Borderline high 150 - 199 mg/dL High 200 - 499 mg/dL Very High > or = 500 mg/dL WBC (Bld) [#/Vol] 7.4 10*3/uL 4.4-11.0 [facility] Determination of erythrocyte mean corpuscular volume (MCV)Ordered By: Teodoro Castro on 06-28-2023 MCV (RBC) [Entitic vol] 90.3 fL 80-94 [facility] Erythrocyte distribution wid th ratioOrdered By: Teodoro Castro on 06-28-2023 Erythrocyte distribution width (RBC) [Ratio] 13.0 % 11.6-14.6 [facility] Erythrocyte distribution wid th standard deviationOrdered By: Teodoro Castro on 06-28-2023 Erythrocyte distribution width (RBC) [Entitic vol] 42.6 fL 35.1-43.9 [facility] Hematocrit Auto (Bld) [Volum e fraction]Ordered By: Teodoro Castro on 06-28-2023 Hematocrit (Bld) [Volume fraction] 35.5 % 40-54 [facility] Immature granulocytes/100 WB C Auto (Bld)Ordered By: Teodoro Castro on 06-28-2023 Immature granulocytes/100 WBC (Bld) 0.300 % 0.0-0.9 [facility] Comment on above: IG% - Immature Granu locytes (promyelocytes, myelocytes and metamyelocytes) > 1% indicates that a LEFT SHIFT is Present. Iron measurement (mass/mass) Ordered By: Teodoro Castro on 06-28-2023 Iron (Unsp spec) [Mass/Mass] 84 ug/dL 65-175 [facility] - Chemistry and C hemistry - challengeOrdered By: Teodoro Castro on 06-28-2023 Albumin/Globulin [Mass ratio] 1.0 {ratio} 0.9-2.4 [facility] ALP [Catalytic activity/Vol] 53 U/L 45-117 [facility] ALT [Catalytic activity/Vol] 23 U/L 16-61 [facility] Cholesterol in HDL [Mass/Vol] 43 mg/dL >40 [facility] Comment on above: The drugs N-Acetylcy steine and Metamizole may falsely depress this assay. Reference Range HDL <40 mg/dL Low HDL Cholesterol HDL >or= 60 mg/dL High HDL Cholesterol Cholesterol in LDL [Mass/Vol] 78 mg/dL 0-130 [facility] CO2 [Moles/Vol] 27.0 mmol/L 21.0-32.0 [facility] Ferritin [Mass/Vol] 33 ng/mL 26-388 [facility] Globulin (S) [Mass/Vol] 3.4 g/dL 2.2-4.2 [facility] Urea nitrogen/Creatinine [Mass ratio] 16.2 mg/mg 10-20 [facility] - Hematology and Cell countsOrdered By: Teodoro Castro on 06-28-2023 MCH (RBC) [Entitic mass] 28.5 pg 27.0-32.0 [facility] MCHC (RBC) [Mass/Vol] 31.5 g/dL 32-36 [facility] Nucleated RBC/100 WBC (Bld) [Ratio] 0 % 0-5 [facility] Platelet mean volume (Bld) [Entitic vol] 10.1 fL 6.2-12.0 [facility] Platelets (Bld) [#/Vol] 302 10*3/uL 150-450 [facility] No Panel InformationOrdered By: Teodoro Castro on 06-28-2023 Estimated GFR (MDRD) Amer 78 mL/min >60 [facility] Comment on above: GFR Calc Estimated GFR (MDRD) Non-Af Amer 64 mL/min >60 [facility] Comment on above: Non- GFR Calc Total Iron Binding Capacity 349 ug/dL 250-450 [facility] VLDL Cholesterol 9 mg/dL 5-40 [facility] RBC Auto (Bld) [#/Vol]Ordere d By: Teodoro Castro on 06-28-2023 RBC (Bld) [#/Vol] 3.93 10*6/uL 4.6-6.2 [facility] Serum or plasma calcium petrona urement (mass/volume)Ordered By: Teodoro Castro on 06-28-2023 Calcium [Mass/Vol] 8.8 mg/dL 8.5-10.1 [facility] Serum or plasma creatinine m easurement (mass/volume)Ordered By: Teodoro Castro on 06-28-2023 Creatinine [Mass/Vol] 1.17 mg/dL 0.70-1.30 [facility] Comment on above: The validity of the calculated GFR & GFRAA in patients over 70 years has not been determined. Clinical correlation is essential. Serum or plasma urea nitroge n measurement (mass/volume)Ordered By: Teodoro Castro on 06-28-2023 Urea nitrogen [Mass/Vol] 19 mg/dL 7-18 [facility] Thin prep Papanicolaou smear with manual screeningOrdered By: Teodoro Castro on 06-28-2023 Thin prep Papanicolaou smear with manual screening 3.5 g/dL 3.2-5.0 [facility] Thin prep Papanicolaou smear with manual screening 15 U/L 15-37 [facility] Thin prep Papanicolaou smear with manual screening 7 5-15 [facility] Whole blood hemoglobin A1c/t otal hemoglobin ratio (mass fraction)Ordered By: Teodoro Castro on 06-28-2023 HbA1c (Bld) [Mass fraction] 8.2 % 3.8-5.6 [facility] Comment on above: Normal < 5.7 % Predi abetic 5.7 - 6.4 % Diabetic >or= 6.5 % Please note range changes. Absolute lymphocyte countOrd ered By: Teodoro Castro on 05-21-2023 Lymphocytes Auto (Unsp spec) [#/Vol] 2.07 10*3/uL 0.83-4.51 [facility] Automated lymphocyte count a s percentage of total leukocytesOrdered By: Teodoro Castro on 05-21-2023 Lymphocytes/100 WBC Auto (Unsp spec) 19.6 % 19-41 [facility] Basophil percentageOrdered B y: Teodoro Castro on 05-21-2023 Basophil percentage 3.0 mg/dL 2.5-4.9 [facility] Basophils/100 WBC (Bld) 0.5 % 0-1 [facility] Bilirubin [Mass/Vol] 0.50 mg/dL 0.20-1.00 [facility] Comment on above: For patients on eltr ombopag therapy, use of Dimension [place] TBIL is not recommended. Chloride [Moles/Vol] 104 mmol/L 98-107 [facility] Cholesterol [Mass/Vol] 124 mg/dL <200 [facility] Comment on above: <200 mg/dL Desirable 200-240 mg/dL Borderline >240 mg/dL High Risk Eosinophils/100 WBC (Bld) 3.2 % 0-5 [facility] Glucose [Mass/Vol] 186 mg/dL 74-106 [facility] Comment on above: Fasting Glucose resu lt greater than or equal to 126 mg/dL suggests DIABETES MELLITUS per A.D.A. criteria. Hemoglobin (Bld) [Mass/Vol] 12.4 g/dL 13.0-16.5 [facility] Monocytes/100 WBC (Bld) 6.2 % 0-10 [facility] Neutrophils (Bld) [#/Vol] 7.4 10*3/uL 2.0-7.7 [facility] Neutrophils/100 WBC (Bld) 70.2 % 47-70 [facility] Potassium [Moles/Vol] 4.9 mmol/L 3.5-5.1 [facility] Protein [Mass/Vol] 7.5 g/dL 6.4-8.2 [facility] Sodium [Moles/Vol] 137 mmol/L 136-145 [facility] Triglyceride [Mass/Vol] 67 mg/dL <199 [facility] Comment on above: The drugs N-Acetylcy steine and Metamizole may falsely depress this assay.Serum Triglycerides Reference Interval Normal <150 mg/dL Borderline high 150 - 199 mg/dL High 200 - 499 mg/dL Very High > or = 500 mg/dL WBC (Bld) [#/Vol] 10.6 10*3/uL 4.4-11.0 [facility] Determination of erythrocyte mean corpuscular volume (MCV)Ordered By: Teodoro Castro on 05-21-2023 MCV (RBC) [Entitic vol] 89.3 fL 80-94 [facility] Erythrocyte distribution wid th ratioOrdered By: Teodoro Castro on 05-21-2023 Erythrocyte distribution width (RBC) [Ratio] 13.4 % 11.6-14.6 [facility] Erythrocyte distribution wid th standard deviationOrdered By: Teodoro Castro on 05-21-2023 Erythrocyte distribution width (RBC) [Entitic vol] 43.8 fL 35.1-43.9 [facility] Hematocrit Auto (Bld) [Volum e fraction]Ordered By: Teodoro Castro on 05-21-2023 Hematocrit (Bld) [Volume fraction] 37.7 % 40-54 [facility] Immature granulocytes/100 WB C Auto (Bld)Ordered By: Teodoro Castro on 05-21-2023 Immature granulocytes/100 WBC (Bld) 0.300 % 0.0-0.9 [facility] Comment on above: IG% - Immature Granu locytes (promyelocytes, myelocytes and metamyelocytes) > 1% indicates that a LEFT SHIFT is Present. Iron measurement (mass/mass) Ordered By: Teodoro Castro on 05-21-2023 Iron (Unsp spec) [Mass/Mass] 51 ug/dL 65-175 [facility] Laboratory - Chemistry and C hemistry - challengeOrdered By: Teodoro Castro on 05-21-2023 Cobalamin (Vitamin B12) [Mass/Vol] 333 pg/mL 211-911 [facility] Ferritin [Mass/Vol] 32 ng/mL 26-388 [facility] Albumin/Globulin [Mass ratio] 1.0 {ratio} 0.9-2.4 [facility] ALP [Catalytic activity/Vol] 62 U/L 45-117 [facility] ALT [Catalytic activity/Vol] 25 U/L 16-61 [facility] Cholesterol in HDL [Mass/Vol] 49 mg/dL >40 [facility] Comment on above: The drugs N-Acetylcy steine and Metamizole may falsely depress this assay. Reference Range HDL <40 mg/dL Low HDL Cholesterol HDL >or= 60 mg/dL High HDL Cholesterol Cholesterol in LDL [Mass/Vol] 62 mg/dL 0-130 [facility] CO2 [Moles/Vol] 29.0 mmol/L 21.0-32.0 [facility] Globulin (S) [Mass/Vol] 3.8 g/dL 2.2-4.2 [facility] Urea nitrogen/Creatinine [Mass ratio] 17.6 mg/mg 10-20 [facility] Laboratory - Hematology and Cell countsOrdered By: Teodoro Castro on 05-21-2023 MCH (RBC) [Entitic mass] 29.4 pg 27.0-32.0 [facility] MCHC (RBC) [Mass/Vol] 32.9 g/dL 32-36 [facility] Nucleated RBC/100 WBC (Bld) [Ratio] 0 % 0-5 [facility] Platelet mean volume (Bld) [Entitic vol] 10.2 fL 6.2-12.0 [facility] Platelets (Bld) [#/Vol] 320 10*3/uL 150-450 [facility] No Panel InformationOrdered By: Teodoro Castro on 05-21-2023 Total Iron Binding Capacity 392 ug/dL 250-450 [facility] Estimated GFR (MDRD) Amer 91 mL/min >60 [facility] Comment on above: GFR Calc Estimated GFR (MDRD) Non-Af Amer 75 mL/min >60 [facility] Comment on above: Non- GFR Calc Vitamin D 25-Hydroxy 48.5 ng/mL [facility] Comment on above: Vitamin D 25(OH) Sta tus Range Deficiency <20 ng/mL (50nmol/L) Insufficiency 20 - 30 ng/mL (50 - 75 nmol/L) Sufficiency 30 - 100 ng/mL (75 - 250 nmol/L) Toxicity >100 ng/mL (>250 nmol/L) VLDL Cholesterol 13 mg/dL 5-40 [facility] RBC Auto (Bld) [#/Vol]Ordere d By: Teodoro Castro on 05-21-2023 RBC (Bld) [#/Vol] 4.22 10*6/uL 4.6-6.2 [facility] Serum or plasma calcium petrona urement (mass/volume)Ordered By: Teodoro Castro on 05-21-2023 Calcium [Mass/Vol] 9.0 mg/dL 8.5-10.1 [facility] Serum or plasma creatinine m easurement (mass/volume)Ordered By: Teodoro Castro on 05-21-2023 Creatinine [Mass/Vol] 1.02 mg/dL 0.70-1.30 [facility] Comment on above: The validity of the calculated GFR & GFRAA in patients over 70 years has not been determined. Clinical correlation is essential. Serum or plasma iron saturat ion measurement (mass fraction)Ordered By: Teodoro Castro on 05-21-2023 Iron saturation [Mass fraction] 13.0 % 15.0-55.0 [facility] Serum or plasma urea nitroge n measurement (mass/volume)Ordered By: Teodoro Castro on 05-21-2023 Urea nitrogen [Mass/Vol] 18 mg/dL 7-18 [facility] Thin prep Papanicolaou smear with manual screeningOrdered By: Teodoro Castro on 05-21-2023 Protein (U) [Mass/Vol] 7.4 mg/dL 0.0-11.8 [facility] Thin prep Papanicolaou smear with manual screening 3.7 g/dL 3.2-5.0 [facility] Thin prep Papanicolaou smear with manual screening 17 U/L 15-37 [facility] Thin prep Papanicolaou smear with manual screening 4 5-15 [facility] Urine creatinine measurement (mass/volume)Ordered By: Teodoro Castro on 05-21-2023 Creatinine (U) [Mass/Vol] 44.70 mg/dL NO RANGE EST. [facility] Urine protein/creatinine mas s ratioOrdered By: Teodoro Castro on 05-21-2023 Protein/Creatinine (U) [Mass ratio] 166 mg/g CRE 0-200 [facility] Whole blood hemoglobin A1c/t otal hemoglobin ratio (mass fraction)Ordered By: Teodoro Castro on 05-21-2023 HbA1c (Bld) [Mass fraction] 8.3 % 3.8-5.6 [facility] Comment on above: Normal < 5.7 % Predi abetic 5.7 - 6.4 % Diabetic >or= 6.5 % Please note range changes. Absolute lymphocyte countOrd ered By: Teodoro Castro on 04-07-2023 Lymphocytes Auto (Unsp spec) [#/Vol] 1.57 10*3/uL 0.83-4.51 [facility] Automated lymphocyte count a s percentage of total leukocytesOrdered By: Teodoro Castro on 04-07-2023 Lymphocytes/100 WBC Auto (Unsp spec) 16.5 % 19-41 [facility] Basophil percentageOrdered B y: Teodoro Castro on 04-07-2023 Basophils/100 WBC (Bld) 0.4 % 0-1 [facility] Bilirubin [Mass/Vol] 0.40 mg/dL 0.20-1.00 [facility] Comment on above: For patients on eltr ombopag therapy, use of Dimension [place] TBIL is not recommended. Chloride [Moles/Vol] 99 mmol/L 98-107 [facility] Eosinophils/100 WBC (Bld) 1.2 % 0-5 [facility] Glucose [Mass/Vol] 344 mg/dL 74-106 [facility] Comment on above: Glucose result great er than or equal to 200 mg/dLsuggests DIABETES MELLITUS per A.D.A. criteria. Hemoglobin (Bld) [Mass/Vol] 12.3 g/dL 13.0-16.5 [facility] Monocytes/100 WBC (Bld) 4.5 % 0-10 [facility] Neutrophils (Bld) [#/Vol] 7.4 10*3/uL 2.0-7.7 [facility] Neutrophils/100 WBC (Bld) 77.1 % 47-70 [facility] Potassium [Moles/Vol] 4.5 mmol/L 3.5-5.1 [facility] Protein [Mass/Vol] 7.3 g/dL 6.4-8.2 [facility] Sodium [Moles/Vol] 132 mmol/L 136-145 [facility] WBC (Bld) [#/Vol] 9.5 10*3/uL 4.4-11.0 [facility] Determination of erythrocyte mean corpuscular volume (MCV)Ordered By: Teodoro Castro on 04-07-2023 MCV (RBC) [Entitic vol] 89.3 fL 80-94 [facility] Erythrocyte distribution wid th ratioOrdered By: Teodoro Castro on 04-07-2023 Erythrocyte distribution width (RBC) [Ratio] 12.9 % 11.6-14.6 [facility] Erythrocyte distribution wid th standard deviationOrdered By: Teodoro Castro on 04-07-2023 Erythrocyte distribution width (RBC) [Entitic vol] 42.3 fL 35.1-43.9 [facility] Hematocrit Auto (Bld) [Volum e fraction]Ordered By: Teodoro Castro on 04-07-2023 Hematocrit (Bld) [Volume fraction] 37.6 % 40-54 [facility] Immature granulocytes/100 WB C Auto (Bld)Ordered By: Teodoro Castro on 04-07-2023 Immature granulocytes/100 WBC (Bld) 0.300 % 0.0-0.9 [facility] Comment on above: IG% - Immature Granu locytes (promyelocytes, myelocytes and metamyelocytes) > 1% indicates that a LEFT SHIFT is Present. Laboratory - Chemistry and C hemistry - challengeOrdered By: Teodoro Castro on 04-07-2023 Albumin/Globulin [Mass ratio] 1.0 {ratio} 0.9-2.4 [facility] ALP [Catalytic activity/Vol] 67 U/L 45-117 [facility] ALT [Catalytic activity/Vol] 23 U/L 16-61 [facility] CO2 [Moles/Vol] 26.0 mmol/L 21.0-32.0 [facility] Globulin (S) [Mass/Vol] 3.7 g/dL 2.2-4.2 [facility] Lipase [Catalytic activity/Vol] 15 U/L 13-75 [facility] Comment on above: Please note:LIPASE r evised reference range effective 22. New Lipase methodology. Expected to produce lower values than the previous assay method. NEW Reference Range: 13 - 75 U/L Urea nitrogen/Creatinine [Mass ratio] 13.1 mg/mg 10-20 [facility] Laboratory - Hematology and Cell countsOrdered By: Teodoro Castro on 04-07-2023 MCH (RBC) [Entitic mass] 29.2 pg 27.0-32.0 [facility] MCHC (RBC) [Mass/Vol] 32.7 g/dL 32-36 [facility] Nucleated RBC/100 WBC (Bld) [Ratio] 0 % 0-5 [facility] Platelets (Bld) [#/Vol] 314 10*3/uL 150-450 [facility] No Panel InformationOrdered By: Teodoro Castro on 04-07-2023 Estimated GFR (MDRD) Amer 74 mL/min >60 [facility] Comment on above: GFR Calc Estimated GFR (MDRD) Non-Af Amer 61 mL/min >60 [facility] Comment on above: Non- GFR Calc Platelet mean volume Daniel-Ec ker (Bld) [Entitic vol]Ordered By: Teodoro Castro on 04-07-2023 Platelet mean volume (Bld) [Entitic vol] 9.8 fL 6.2-12.0 [facility] RBC Auto (Bld) [#/Vol]Ordere d By: Teodoro Castro on 04-07-2023 RBC (Bld) [#/Vol] 4.21 10*6/uL 4.6-6.2 [facility] Serum or plasma calcium petrona urement (mass/volume)Ordered By: Teodoro Castro on 04-07-2023 Calcium [Mass/Vol] 9.0 mg/dL 8.5-10.1 [facility] r [facility] Serum or plasma creatinine m easurement (mass/volume)Ordered By: Teodoro Castro on 04-07-2023 Creatinine [Mass/Vol] 1.22 mg/dL 0.70-1.30 [facility] Comment on above: The validity of the calculated GFR & GFRAA in patients over 70 years has not been determined. Clinical correlation is essential. Serum or plasma urea nitroge n measurement (mass/volume)Ordered By: Teodoro Castro on 04-07-2023 Urea nitrogen [Mass/Vol] 16 mg/dL 7-18 [facility] Thin prep Papanicolaou smear with manual screeningOrdered By: Teodoro Castro on 04-07-2023 Thin prep Papanicolaou smear with manual screening 3.6 g/dL 3.2-5.0 [facility] Thin prep Papanicolaou smear with manual screening 14 U/L 15-37 [facility] Thin prep Papanicolaou smear with manual screening 7 5-15 [facility] No Panel InformationOrdered By: Cielo Ga on 02-25-2023 Prostate Specific Antigen Total 1.47 ng/mL 0.0-4.0 [facility] Comment on above: This test was perfor med using the TPSA assay method for the[employer] chemistry system. Values obtained with differentassay methods cannot be used interchangably.When changing PSA assays in the course of monitoring apatient, additional sequential testing should be carriedout to confirm baseline values. Absolute lymphocyte countOrd ered By: Teodoro Castro on 02-18-2023 Lymphocytes Auto (Unsp spec) [#/Vol] 2.17 10*3/uL 0.83-4.51 [facility] Basophil percentageOrdered B y: Teodoro Castro on 02-18-2023 Basophils/100 WBC (Bld) 0.6 % 0-1 [facility] Bilirubin [Mass/Vol] 0.70 mg/dL 0.20-1.00 [facility] Comment on above: For patients on eltr ombopag therapy, use of Dimension [place] TBIL is not recommended. Chloride [Moles/Vol] 98 mmol/L 98-107 [facility] Cholesterol [Mass/Vol] 128 mg/dL <200 [facility] Comment on above: <200 mg/dL Desirable 200-240 mg/dL Borderline >240 mg/dL High Risk Eosinophils/100 WBC (Bld) 3.5 % 0-5 [facility] Glucose [Mass/Vol] 157 mg/dL 74-106 [facility] Comment on above: Fasting Glucose resu lt greater than or equal to 126 mg/dL suggests DIABETES MELLITUS per A.D.A. criteria. Neutrophils (Bld) [#/Vol] 4.7 10*3/uL 2.0-7.7 [facility] Neutrophils/100 WBC (Bld) 60.7 % 47-70 [facility] Potassium [Moles/Vol] 4.7 mmol/L 3.5-5.1 [facility] Protein [Mass/Vol] 7.5 g/dL 6.4-8.2 [facility] Sodium [Moles/Vol] 134 mmol/L 136-145 [facility] Triglyceride [Mass/Vol] 79 mg/dL <199 [facility] Comment on above: The drugs N-Acetylcy steine and Metamizole may falsely depress this assay.Serum Triglycerides Reference Interval Normal <150 mg/dL Borderline high 150 - 199 mg/dL High 200 - 499 mg/dL Very High > or = 500 mg/dL WBC (Bld) [#/Vol] 7.7 10*3/uL 4.4-11.0 [facility] Blood erythrocytes count (nu mber/volume)Ordered By: Teodoro Castro on 02-18-2023 RBC (Bld) [#/Vol] 4.50 10*6/uL 4.6-6.2 [facility] Blood hemoglobin measurement (mass/volume)Ordered By: Teodoro Castro on 02-18-2023 Hemoglobin (Bld) [Mass/Vol] 13.2 g/dL 13.0-16.5 [facility] Blood lymphocytes/100 leukoc ytesOrdered By: Teodoro Castro on 02-18-2023 Lymphocytes/100 WBC (Bld) 28.1 % 19-41 [facility] Blood monocytes/100 leukocyt esOrdered By: Teodoro Castro on 02-18-2023 Monocytes/100 WBC (Bld) 6.7 % 0-10 [facility] Blood platelet mean volumeOr dered By: Teodoro Castro on 02-18-2023 Platelet mean volume (Bld) [Entitic vol] 10.1 fL 6.2-12.0 [facility] Determination of erythrocyte mean corpuscular volume (MCV)Ordered By: Teodoro Castro on 02-18-2023 MCV (RBC) [Entitic vol] 90.2 fL 80-94 [facility] Hematocrit Auto (Bld) [Volum e fraction]Ordered By: Teodoro Castro on 02-18-2023 Hematocrit (Bld) [Volume fraction] 40.6 % 40-54 [facility] Laboratory - Chemistry and C hemistry - challengeOrdered By: Teodoro Castro on 02-18-2023 ALP [Catalytic activity/Vol] 60 U/L 45-117 [facility] ALT [Catalytic activity/Vol] 27 U/L 16-61 [facility] CO2 [Moles/Vol] 28.0 mmol/L 21.0-32.0 [facility] Globulin (S) [Mass/Vol] 3.6 g/dL 2.2-4.2 [facility] Urea nitrogen/Creatinine [Mass ratio] 17.1 mg/mg 10-20 [facility] Laboratory - Hematology and Cell countsOrdered By: Teodoro Castro on 02-18-2023 Erythrocyte distribution width (RBC) [Entitic vol] 43.0 fL 35.1-43.9 [facility] Erythrocyte distribution width (RBC) [Ratio] 13.1 % 11.6-14.6 [facility] Immature granulocytes/100 WBC (Bld) 0.400 % 0.0-0.9 [facility] Comment on above: IG% - Immature Granu locytes (promyelocytes, myelocytes and metamyelocytes) > 1% indicates that a LEFT SHIFT is Present. MCH (RBC) [Entitic mass] 29.3 pg 27.0-32.0 [facility] Nucleated RBC/100 WBC (Bld) [Ratio] 0 % 0-5 [facility] MCHC Auto (RBC) [Mass/Vol]Or dered By: Teodoro Castro on 02-18-2023 MCHC (RBC) [Mass/Vol] 32.5 g/dL 32-36 [facility] No Panel InformationOrdered By: Teodoro Castro on 02-18-2023 Estimated GFR (MDRD) Amer 83 mL/min >60 [facility] Comment on above: GFR Calc Estimated GFR (MDRD) Non-Af Amer 68 mL/min >60 [facility] Comment on above: Non- GFR Calc Platelets bldOrdered By: Amadeo Castro on 02-18-2023 Platelets (Bld) [#/Vol] 280 10*3/uL 150-450 [facility] Serum or plasma albumin petrona urement (mass/volume)Ordered By: Teodoro Castro on 02-18-2023 Albumin [Mass/Vol] 3.9 g/dL 3.2-5.0 [facility] Serum or plasma albumin/glob ulin mass ratioOrdered By: Teodoro Castro on 02-18-2023 Albumin/Globulin [Mass ratio] 1.1 {ratio} 0.9-2.4 [facility] Serum or plasma calcium petrona urement (mass/volume)Ordered By: Teodoro Castro on 02-18-2023 Calcium [Mass/Vol] 8.7 mg/dL 8.5-10.1 [facility] Serum or plasma cholesterol in HDL measurement (mass/volume)Ordered By: Teodoro Castro on 02-18-2023 Cholesterol in HDL [Mass/Vol] 55 mg/dL >40 [facility] Comment on above: The drugs N-Acetylcy steine and Metamizole may falsely depress this assay. Reference Range HDL <40 mg/dL Low HDL Cholesterol HDL >or= 60 mg/dL High HDL Cholesterol Serum or plasma cholesterol in VLDL measurement (mass/volume)Ordered By: Teodoro Castro on 02-18-2023 Cholesterol in VLDL [Mass/Vol] 16 mg/dL 5-40 [facility] Serum or plasma creatinine m easurement (mass/volume)Ordered By: Teodoro Castro on 02-18-2023 Creatinine [Mass/Vol] 1.11 mg/dL 0.70-1.30 [facility] Comment on above: The validity of the calculated GFR & GFRAA in patients over 70 years has not been determined. Clinical correlation is essential. Serum or plasma low density lipoprotein (LDL) cholesterol measurement (mass/volume)Ordered By: Teodoro Castro on 02-18-2023 Cholesterol in LDL [Mass/Vol] 57 mg/dL 0-130 [facility] Serum or plasma urea nitroge n measurement (mass/volume)Ordered By: Teodoro Castro on 02-18-2023 Urea nitrogen [Mass/Vol] 19 mg/dL 7-18 [facility] Thin prep Papanicolaou smear with manual screeningOrdered By: Teodoro Castro on 02-18-2023 Thin prep Papanicolaou smear with manual screening 17 U/L 15-37 [facility] Thin prep Papanicolaou smear with manual screening 8 5-15 [facility] Whole blood hemoglobin A1c/t otal hemoglobin ratio (mass fraction)Ordered By: Teodoro Castro on 02-18-2023 HbA1c (Bld) [Mass fraction] 7.4 % 3.8-5.6 [facility] Comment on above: Normal < 5.7 % Predi abetic 5.7 - 6.4 % Diabetic >or= 6.5 % Please note range changes. Absolute lymphocyte countOrd ered By: Teodoro Castro on 11-18-2022 Lymphocytes Auto (Unsp spec) [#/Vol] 2.12 10*3/uL 0.83-4.51 [facility] Basophil percentageOrdered B y: Teodoro Castro on 11-18-2022 Basophils/100 WBC (Bld) 0.8 % 0-1 [facility] Bilirubin [Mass/Vol] 0.60 mg/dL 0.20-1.00 [facility] Comment on above: For patients on eltr ombopag therapy, use of Dimension [place] TBIL is not recommended. Chloride [Moles/Vol] 102 mmol/L 98-107 [facility] Cholesterol [Mass/Vol] 132 mg/dL <200 [facility] Comment on above: <200 mg/dL Desirable 200-240 mg/dL Borderline >240 mg/dL High Risk Eosinophils/100 WBC (Bld) 3.6 % 0-5 [facility] Glucose [Mass/Vol] 162 mg/dL 74-106 [facility] Comment on above: Fasting Glucose resu lt greater than or equal to 126 mg/dL suggests DIABETES MELLITUS per A.D.A. criteria. Neutrophils (Bld) [#/Vol] 4.4 10*3/uL 2.0-7.7 [facility] Neutrophils/100 WBC (Bld) 59.8 % 47-70 [facility] Potassium [Moles/Vol] 4.8 mmol/L 3.5-5.1 [facility] Protein [Mass/Vol] 7.5 g/dL 6.4-8.2 [facility] Sodium [Moles/Vol] 134 mmol/L 136-145 [facility] Triglyceride [Mass/Vol] 80 mg/dL <199 [facility] Comment on above: The drugs N-Acetylcy steine and Metamizole may falsely depress this assay.Serum Triglycerides Reference Interval Normal <150 mg/dL Borderline high 150 - 199 mg/dL High 200 - 499 mg/dL Very High > or = 500 mg/dL WBC (Bld) [#/Vol] 7.4 10*3/uL 4.4-11.0 [facility] Blood erythrocytes count (nu mber/volume)Ordered By: Teodoro Castro on 11-18-2022 RBC (Bld) [#/Vol] 4.44 10*6/uL 4.6-6.2 [facility] Blood hemoglobin measurement (mass/volume)Ordered By: Teodoro Castro on 11-18-2022 Hemoglobin (Bld) [Mass/Vol] 13.0 g/dL 13.0-16.5 [facility] Blood lymphocytes/100 leukoc ytesOrdered By: Teodoro Castro on 11-18-2022 Lymphocytes/100 WBC (Bld) 28.5 % 19-41 [facility] Blood monocytes/100 leukocyt esOrdered By: Teodoro Castro on 08-30-2023 Monocytes/100 WBC (Bld) 6.9 % 0-10 [facility] Blood platelet mean volumeOr dered By: Teodoro Castro on 11-18-2022 Platelet mean volume (Bld) [Entitic vol] 10.1 fL 6.2-12.0 [facility] Determination of erythrocyte mean corpuscular volume (MCV)Ordered By: Teodoro Castro on 11-18-2022 MCV (RBC) [Entitic vol] 90.5 fL 80-94 [facility] Hematocrit Auto (Bld) [Volum e fraction]Ordered By: Teodoro Castro on 11-18-2022 Hematocrit (Bld) [Volume fraction] 40.2 % 40-54 [facility] Laboratory - Chemistry and C hemistry - challengeOrdered By: Teodoro Castro on 11-18-2022 ALP [Catalytic activity/Vol] 61 U/L 45-117 [facility] ALT [Catalytic activity/Vol] 27 U/L 16-61 [facility] CO2 [Moles/Vol] 28.0 mmol/L 21.0-32.0 [facility] Globulin (S) [Mass/Vol] 3.7 g/dL 2.2-4.2 [facility] Urea nitrogen/Creatinine [Mass ratio] 15.0 mg/mg 10-20 [facility] Laboratory - Hematology and Cell countsOrdered By: Teodoro Castro on 11-18-2022 Erythrocyte distribution width (RBC) [Entitic vol] 44.9 fL 35.1-43.9 [facility] Erythrocyte distribution width (RBC) [Ratio] 13.4 % 11.6-14.6 [facility] Immature granulocytes/100 WBC (Bld) 0.400 % 0.0-0.9 [facility] Comment on above: IG% - Immature Granu locytes (promyelocytes, myelocytes and metamyelocytes) > 1% indicates that a LEFT SHIFT is Present. MCH (RBC) [Entitic mass] 29.3 pg 27.0-32.0 [facility] Nucleated RBC/100 WBC (Bld) [Ratio] 0 % 0-5 [facility] MCHC Auto (RBC) [Mass/Vol]Or dered By: Teodoro Castro on 11-18-2022 MCHC (RBC) [Mass/Vol] 32.3 g/dL 32-36 [facility] No Panel InformationOrdered By: Teodoro Castro on 11-18-2022 Estimated GFR (MDRD) Amer 81 mL/min >60 [facility] Comment on above: GFR Calc Estimated GFR (MDRD) Non-Af Amer 67 mL/min >60 [facility] Comment on above: Non- GFR Calc Platelets bldOrdered By: Amadeo Castro on 11-18-2022 Platelets (Bld) [#/Vol] 275 10*3/uL 150-450 [facility] Serum or plasma albumin petrona urement (mass/volume)Ordered By: Teodoro Castro on 11-18-2022 Albumin [Mass/Vol] 3.8 g/dL 3.2-5.0 [facility] Serum or plasma albumin/glob ulin mass ratioOrdered By: Teodoro Castro on 11-18-2022 Albumin/Globulin [Mass ratio] 1.0 {ratio} 0.9-2.4 [facility] Serum or plasma calcium petrona urement (mass/volume)Ordered By: Teodoro Castro on 11-18-2022 Calcium [Mass/Vol] 8.8 mg/dL 8.5-10.1 [facility] Serum or plasma cholesterol in HDL measurement (mass/volume)Ordered By: Teodoro Castro on 11-18-2022 Cholesterol in HDL [Mass/Vol] 52 mg/dL >40 [facility] Comment on above: The drugs N-Acetylcy steine and Metamizole may falsely depress this assay. Reference Range HDL <40 mg/dL Low HDL Cholesterol HDL >or= 60 mg/dL High HDL Cholesterol Serum or plasma cholesterol in VLDL measurement (mass/volume)Ordered By: Teodoro Castro on 11-18-2022 Cholesterol in VLDL [Mass/Vol] 16 mg/dL 5-40 [facility] Serum or plasma creatinine m easurement (mass/volume)Ordered By: Teodoro Castro on 11-18-2022 Creatinine [Mass/Vol] 1.13 mg/dL 0.70-1.30 [facility] Comment on above: The validity of the calculated GFR & GFRAA in patients over 70 years has not been determined. Clinical correlation is essential. Serum or plasma low density lipoprotein (LDL) cholesterol measurement (mass/volume)Ordered By: Teodoro Castro on 11-18-2022 Cholesterol in LDL [Mass/Vol] 64 mg/dL 0-130 [facility] Serum or plasma urea nitroge n measurement (mass/volume)Ordered By: Teodoro Castro on 11-18-2022 Urea nitrogen [Mass/Vol] 17 mg/dL 7-18 [facility] Thin prep Papanicolaou smear with manual screeningOrdered By: Teodoro Castro on 11-18-2022 Thin prep Papanicolaou smear with manual screening 18 U/L 15-37 [facility] Thin prep Papanicolaou smear with manual screening 4 5-15 [facility] Whole blood hemoglobin A1c/t otal hemoglobin ratio (mass fraction)Ordered By: Teodoro Castro on 11-18-2022 HbA1c (Bld) [Mass fraction] 7.4 % 3.8-5.6 [facility] Comment on above: Normal < 5.7 % Predi abetic 5.7 - 6.4 % Diabetic >or= 6.5 % Please note range changes. Absolute lymphocyte countOrd ered By: Dr. Castro on 07-16-2022 Lymphocytes Auto (Unsp spec) [#/Vol] 1.76 10*3/uL 0.83-4.51 [facility] Basophil percentageOrdered B y: Dr. Castro on 07-16-2022 Basophil percentage 0 SEEN /hpf 0-5 [facility] Basophil percentage 2.3 mg/dL 2.5-4.9 [facility] Basophils/100 WBC (Bld) 0.7 % 0-1 [facility] Bilirubin [Mass/Vol] 0.40 mg/dL 0.20-1.00 [facility] Comment on above: For patients on eltr ombopag therapy, use of Dimension [place] TBIL is not recommended. Chloride [Moles/Vol] 104 mmol/L 98-107 [facility] Cholesterol [Mass/Vol] 122 mg/dL <200 [facility] Comment on above: <200 mg/dL Desirable 200-240 mg/dL Borderline >240 mg/dL High Risk Eosinophils/100 WBC (Bld) 2.0 % 0-5 [facility] Glucose [Mass/Vol] 163 mg/dL 74-106 [facility] Comment on above: Fasting Glucose resu lt greater than or equal to 126 mg/dL suggests DIABETES MELLITUS per A.D.A. criteria. Neutrophils (Bld) [#/Vol] 5.2 10*3/uL 2.0-7.7 [facility] Neutrophils/100 WBC (Bld) 67.8 % 47-70 [facility] Potassium [Moles/Vol] 4.4 mmol/L 3.5-5.1 [facility] Protein [Mass/Vol] 7.5 g/dL 6.4-8.2 [facility] Sodium [Moles/Vol] 133 mmol/L 136-145 [facility] Triglyceride [Mass/Vol] 78 mg/dL <199 [facility] Comment on above: The drugs N-Acetylcy steine and Metamizole may falsely depress this assay.Serum Triglycerides Reference Interval Normal <150 mg/dL Borderline high 150 - 199 mg/dL High 200 - 499 mg/dL Very High > or = 500 mg/dL WBC (Bld) [#/Vol] 7.7 10*3/uL 4.4-11.0 [facility] Bilirubin Test strip Ql (U)O rdered By: Dr. Castro on 07-16-2022 Bilirubin Ql (U) Negative Negative [facility] Blood erythrocytes count (nu mber/volume)Ordered By: Dr. Castro on 07-16-2022 RBC (Bld) [#/Vol] 4.41 10*6/uL 4.6-6.2 [facility] Blood hemoglobin measurement (mass/volume)Ordered By: Dr. Castro on 07-16-2022 Hemoglobin (Bld) [Mass/Vol] 12.9 g/dL 13.0-16.5 [facility] Blood lymphocytes/100 leukoc ytesOrdered By: Dr. Castro on 07-16-2022 Lymphocytes/100 WBC (Bld) 22.9 % 19-41 [facility] Blood monocytes/100 leukocyt esOrdered By: Dr. Castro on 07-16-2022 Monocytes/100 WBC (Bld) 6.3 % 0-10 [facility] Blood platelet mean volumeOr dered By: Dr. Castro on 07-16-2022 Platelet mean volume (Bld) [Entitic vol] 10.3 fL 6.2-12.0 [facility] Determination of erythrocyte mean corpuscular volume (MCV)Ordered By: Dr. Castro on 07-16-2022 MCV (RBC) [Entitic vol] 92.5 fL 80-94 [facility] Hematocrit Auto (Bld) [Volum e fraction]Ordered By: Dr. Castro on 07-16-2022 Hematocrit (Bld) [Volume fraction] 40.8 % 40-54 [facility] Ketones Test strip Ql (U)Ord ered By: Dr. Castro on 07-16-2022 Ketones Ql (U) Negative Negative [facility] Laboratory - Chemistry and C hemistry - challengeOrdered By: Dr. Castro on 07-16-2022 ALP [Catalytic activity/Vol] 61 U/L 45-117 [facility] ALT [Catalytic activity/Vol] 33 U/L 16-61 [facility] CO2 [Moles/Vol] 27.0 mmol/L 21.0-32.0 [facility] Globulin (S) [Mass/Vol] 3.7 g/dL 2.2-4.2 [facility] Urea nitrogen/Creatinine [Mass ratio] 17.8 mg/mg 10-20 [facility] Laboratory - Hematology and Cell countsOrdered By: Dr. Castro on 07-16-2022 Erythrocyte distribution width (RBC) [Entitic vol] 45.0 fL 35.1-43.9 [facility] Erythrocyte distribution width (RBC) [Ratio] 13.2 % 11.6-14.6 [facility] Immature granulocytes/100 WBC (Bld) 0.300 % 0.0-0.9 [facility] Comment on above: IG% - Immature Granu locytes (promyelocytes, myelocytes and metamyelocytes) > 1% indicates that a LEFT SHIFT is Present. MCH (RBC) [Entitic mass] 29.3 pg 27.0-32.0 [facility] Nucleated RBC/100 WBC (Bld) [Ratio] 0 % 0-5 [facility] MCHC Auto (RBC) [Mass/Vol]Or dered By: Dr. Castro on 07-16-2022 MCHC (RBC) [Mass/Vol] 31.6 g/dL 32-36 [facility] Mucus LM Ql (Urine sed)Order ed By: Dr. Castro on 07-16-2022 Mucus Ql (Urine sed) 0 SEEN /hpf [facility] Nitrite Test strip Ql (U)Ord ered By: Dr. Castro on 07-16-2022 Nitrite Ql (U) Negative Negative [facility] No Panel InformationOrdered By: Dr. Castro on 07-16-2022 Urine Microalbumin/Creatinine Ratio TNP [facility] Comment on above: Test not performed Estimated GFR (MDRD) Amer 86 mL/min >60 [facility] Comment on above: GFR Calc Estimated GFR (MDRD) Non-Af Amer 71 mL/min >60 [facility] Comment on above: Non- GFR Calc Parathyroid Hormone (Intact) 63.6 pg/mL 18.4-80.1 [facility] Platelets bldOrdered By: Dr. Castro on 07-16-2022 Platelets (Bld) [#/Vol] 306 10*3/uL 150-450 [facility] Protein Test strip Ql (U)Ord ered By: Dr. Castro on 07-16-2022 Protein Ql (U) Negative Negative [facility] Serum or plasma albumin petrona urement (mass/volume)Ordered By: Dr. Castro on 07-16-2022 Albumin [Mass/Vol] 3.8 g/dL 3.2-5.0 [facility] Serum or plasma albumin/glob ulin mass ratioOrdered By: Dr. Castro on 07-16-2022 Albumin/Globulin [Mass ratio] 1.0 {ratio} 0.9-2.4 [facility] Serum or plasma calcium petrona urement (mass/volume)Ordered By: Dr. Castro on 07-16-2022 Calcium [Mass/Vol] 8.9 mg/dL 8.5-10.1 [facility] Serum or plasma cholesterol in HDL measurement (mass/volume)Ordered By: Dr. Castro on 07-16-2022 Cholesterol in HDL [Mass/Vol] 51 mg/dL >40 [facility] Comment on above: The drugs N-Acetylcy steine and Metamizole may falsely depress this assay. Reference Range HDL <40 mg/dL Low HDL Cholesterol HDL >or= 60 mg/dL High HDL Cholesterol Serum or plasma cholesterol in VLDL measurement (mass/volume)Ordered By: Dr. Castro on 07-16-2022 Cholesterol in VLDL [Mass/Vol] 16 mg/dL 5-40 [facility] Serum or plasma creatinine m easurement (mass/volume)Ordered By: Dr. Castro on 07-16-2022 Creatinine [Mass/Vol] 1.07 mg/dL 0.70-1.30 [facility] Comment on above: The validity of the calculated GFR & GFRAA in patients over 70 years has not been determined. Clinical correlation is essential. Serum or plasma low density lipoprotein (LDL) cholesterol measurement (mass/volume)Ordered By: Dr. Castro on 07-16-2022 Cholesterol in LDL [Mass/Vol] 55 mg/dL 0-130 [facility] Serum or plasma urea nitroge n measurement (mass/volume)Ordered By: Dr. Castro on 07-16-2022 Urea nitrogen [Mass/Vol] 19 mg/dL 7-18 [facility] Squamous epithelial cells de tection in urine sediment by light microscopyOrdered By: Dr. Castro on 07-16-2022 Epithelial cells.squamous LM Ql (Urine sed) 0 SEEN /hpf 0-5 [facility] Thin prep Papanicolaou smear with manual screeningOrdered By: Dr. Castro on 07-16-2022 Thin prep Papanicolaou smear with manual screening < 5.0 mg/L NO RANGE EST. [facility] Thin prep Papanicolaou smear with manual screening 24 U/L 15-37 [facility] Thin prep Papanicolaou smear with manual screening 2 5-15 [facility] Urine blood detectionOrdered By: Dr. Castro on 07-16-2022 RBC Ql (U) Negative Negative [facility] RBC Ql (U) 0 SEEN /hpf 0-5 [facility] Urine clarityOrdered By: Dr. Castro on 07-16-2022 Clarity (U) Clear Clear [facility] Urine color determinationOrd ered By: Dr. Castro on 07-16-2022 Color (U) Yellow Yellow [facility] Urine creatinine measurement (mass/volume)Ordered By: Dr. Castro on 07-16-2022 Creatinine (U) [Mass/Vol] 30.00 mg/dL NO RANGE EST. [facility] Urine glucose detectionOrder ed By: Dr. Castro on 07-16-2022 Glucose Ql (U) Normal mg/dl Normal [facility] Urine leukocyte esterase det ection by dipstickOrdered By: Dr. Castro on 07-16-2022 Leukocyte esterase Test strip Ql (U) Negative Negative [facility] Urine pHOrdered By: Dr. Leonel reyna on 07-16-2022 pH (U) 6.5 [pH] 5.0 - 8.0 [facility] Urine protein measurement (m ass/volume)Ordered By: Dr. Castro on 07-16-2022 Protein (U) [Mass/Vol] mg/dL 0.0-11.8 [facility] Urine protein/creatinine mas s ratioOrdered By: Dr. Castro on 07-16-2022 Protein/Creatinine (U) [Mass ratio] 193 mg/g CRE 0-200 [facility] Urine sediment bacteria coun t by microscopy (number/high power field)Ordered By: Dr. Castro on 07-16-2022 Bacteria LM.HPF (Urine sed) [#/Area] 0 /[HPF] None Seen [facility] Urine specific gravity measu rementOrdered By: Dr. Castro on 07-16-2022 Specific gravity (U) [Rel density] 1.010 1.002-1.03 0 [facility] Urobilinogen Auto test strip Ql (U)Ordered By: Dr. Castro on 07-16-2022 Urobilinogen Ql (U) Normal mg/dl Normal [facility] Whole blood hemoglobin A1c/t otal hemoglobin ratio (mass fraction)Ordered By: Dr. Castro on 07-16-2022 HbA1c (Bld) [Mass fraction] 7.0 % 3.8-5.6 [facility] Comment on above: Normal < 5.7 % Predi abetic 5.7 - 6.4 % Diabetic >or= 6.5 % Please note range changes. Absolute lymphocyte countOrd ered By: Dr. Castro on 04-15-2022 Lymphocytes Auto (Unsp spec) [#/Vol] 2.29 10*3/uL 0.83-4.51 [facility] Basophil percentageOrdered B y: Dr. Castro on 04-15-2022 Basophils/100 WBC (Bld) 0.7 % 0-1 [facility] Bilirubin [Mass/Vol] 0.50 mg/dL 0.20-1.00 [facility] Comment on above: For patients on eltr ombopag therapy, use of Dimension [place] TBIL is not recommended. Chloride [Moles/Vol] 99 mmol/L 98-107 [facility] Cholesterol [Mass/Vol] 147 mg/dL <200 [facility] Comment on above: <200 mg/dL Desirable 200-240 mg/dL Borderline >240 mg/dL High Risk Eosinophils/100 WBC (Bld) 3.8 % 0-5 [facility] Glucose [Mass/Vol] 164 mg/dL 74-106 [facility] Comment on above: Fasting Glucose resu lt greater than or equal to 126 mg/dL suggests DIABETES MELLITUS per A.D.A. criteria. Neutrophils (Bld) [#/Vol] 4.3 10*3/uL 2.0-7.7 [facility] Neutrophils/100 WBC (Bld) 57.3 % 47-70 [facility] Potassium [Moles/Vol] 4.8 mmol/L 3.5-5.1 [facility] Protein [Mass/Vol] 7.6 g/dL 6.4-8.2 [facility] Sodium [Moles/Vol] 133 mmol/L 136-145 [facility] Triglyceride [Mass/Vol] 88 mg/dL <199 [facility] Comment on above: The drugs N-Acetylcy steine and Metamizole may falsely depress this assay.Serum Triglycerides Reference Interval Normal <150 mg/dL Borderline high 150 - 199 mg/dL High 200 - 499 mg/dL Very High > or = 500 mg/dL WBC (Bld) [#/Vol] 7.4 10*3/uL 4.4-11.0 [facility] Blood erythrocytes count (nu mber/volume)Ordered By: Dr. Castro on 01-25-2023 RBC (Bld) [#/Vol] 4.42 10*6/uL 4.6-6.2 [facility] Blood hemoglobin measurement (mass/volume)Ordered By: Dr. Castro on 04-15-2022 Hemoglobin (Bld) [Mass/Vol] 13.1 g/dL 13.0-16.5 [facility] Blood lymphocytes/100 leukoc ytesOrdered By: Dr. Castro on 04-15-2022 Lymphocytes/100 WBC (Bld) 30.9 % 19-41 [facility] Blood monocytes/100 leukocyt esOrdered By: Dr. Castro on 04-15-2022 Monocytes/100 WBC (Bld) 7.2 % 0-10 [facility] Blood platelet mean volumeOr dered By: Dr. Castro on 04-15-2022 Platelet mean volume (Bld) [Entitic vol] 10.2 fL 6.2-12.0 [facility] Determination of erythrocyte mean corpuscular volume (MCV)Ordered By: Dr. Castro on 04-15-2022 MCV (RBC) [Entitic vol] 89.4 fL 80-94 [facility] Hematocrit Auto (Bld) [Volum e fraction]Ordered By: Dr. Castro on 04-15-2022 Hematocrit (Bld) [Volume fraction] 39.5 % 40-54 [facility] Iron measurement (mass/mass) Ordered By: Dr. Castro on 04-15-2022 Iron (Unsp spec) [Mass/Mass] 81 ug/dL 65-175 [facility] Laboratory - Chemistry and C hemistry - challengeOrdered By: Dr. Castro on 04-15-2022 ALP [Catalytic activity/Vol] 56 U/L 45-117 [facility] ALT [Catalytic activity/Vol] 24 U/L 16-61 [facility] CO2 [Moles/Vol] 29.0 mmol/L 21.0-32.0 [facility] Cobalamin (Vitamin B12) [Mass/Vol] 417 pg/mL 211-911 [facility] Globulin (S) [Mass/Vol] 3.7 g/dL 2.2-4.2 [facility] Urea nitrogen/Creatinine [Mass ratio] 14.7 mg/mg 10-20 [facility] Laboratory - Hematology and Cell countsOrdered By: Dr. Castro on 04-15-2022 Erythrocyte distribution width (RBC) [Entitic vol] 43.0 fL 35.1-43.9 [facility] Erythrocyte distribution width (RBC) [Ratio] 13.0 % 11.6-14.6 [facility] Immature granulocytes/100 WBC (Bld) 0.100 % 0.0-0.9 [facility] Comment on above: IG% - Immature Granu locytes (promyelocytes, myelocytes and metamyelocytes) > 1% indicates that a LEFT SHIFT is Present. MCH (RBC) [Entitic mass] 29.6 pg 27.0-32.0 [facility] Nucleated RBC/100 WBC (Bld) [Ratio] 0 % 0-5 [facility] MCHC Auto (RBC) [Mass/Vol]Or dered By: Dr. Castro on 04-15-2022 MCHC (RBC) [Mass/Vol] 33.2 g/dL 32-36 [facility] No Panel InformationOrdered By: Dr. Castro on 04-15-2022 Estimated GFR (MDRD) Amer 85 mL/min >60 [facility] Comment on above: GFR Calc Estimated GFR (MDRD) Non-Af Amer 70 mL/min >60 [facility] Comment on above: Non- GFR Calc Total Iron Binding Capacity 399 ug/dL 250-450 [facility] Platelets bldOrdered By: Dr. Castro on 04-15-2022 Platelets (Bld) [#/Vol] 285 10*3/uL 150-450 [facility] Serum or plasma albumin petrona urement (mass/volume)Ordered By: Dr. Castro on 04-15-2022 Albumin [Mass/Vol] 3.9 g/dL 3.2-5.0 [facility] Serum or plasma albumin/glob ulin mass ratioOrdered By: Dr. Castro on 04-15-2022 Albumin/Globulin [Mass ratio] 1.1 {ratio} 0.9-2.4 [facility] Serum or plasma calcium petrona urement (mass/volume)Ordered By: Dr. Castro on 04-15-2022 Calcium [Mass/Vol] 9.2 mg/dL 8.5-10.1 [facility] Serum or plasma cholesterol in HDL measurement (mass/volume)Ordered By: Dr. Castro on 04-15-2022 Cholesterol in HDL [Mass/Vol] 48 mg/dL >40 [facility] Comment on above: The drugs N-Acetylcy steine and Metamizole may falsely depress this assay. Reference Range HDL <40 mg/dL Low HDL Cholesterol HDL >or= 60 mg/dL High HDL Cholesterol Serum or plasma cholesterol in VLDL measurement (mass/volume)Ordered By: Dr. Castro on 04-15-2022 Cholesterol in VLDL [Mass/Vol] 18 mg/dL 5-40 [facility] Serum or plasma creatinine m easurement (mass/volume)Ordered By: Dr. Castro on 04-15-2022 Creatinine [Mass/Vol] 1.09 mg/dL 0.70-1.30 [facility] Comment on above: The validity of the calculated GFR & GFRAA in patients over 70 years has not been determined. Clinical correlation is essential. Serum or plasma ferritin mary surement (mass/volume)Ordered By: Dr. Castro on 04-15-2022 Ferritin [Mass/Vol] 29 ng/mL 26-388 [facility] Serum or plasma folate measu rement (mass/volume)Ordered By: Dr. Castro on 04-15-2022 Folate [Mass/Vol] 48.60 ng/mL 3.1-55.4 [facility] Serum or plasma low density lipoprotein (LDL) cholesterol measurement (mass/volume)Ordered By: Dr. Castro on 04-15-2022 Cholesterol in LDL [Mass/Vol] 81 mg/dL 0-130 [facility] Serum or plasma urea nitroge n measurement (mass/volume)Ordered By: Dr. Castro on 04-15-2022 Urea nitrogen [Mass/Vol] 16 mg/dL 7-18 [facility] Thin prep Papanicolaou smear with manual screeningOrdered By: Dr. Castro on 04-15-2022 Thin prep Papanicolaou smear with manual screening 16 U/L 15-37 [facility] Thin prep Papanicolaou smear with manual screening 5 5-15 [facility] Whole blood hemoglobin A1c/t otal hemoglobin ratio (mass fraction)Ordered By: Dr. Castro on 04-15-2022 HbA1c (Bld) [Mass fraction] 7.6 % 3.8-5.6 [facility] Comment on above: Normal < 5.7 % Predi abetic 5.7 - 6.4 % Diabetic >or= 6.5 % Please note range changes. No Panel InformationOrdered By: Dr. Pulliam on 02-23-2022 Prostate Specific Antigen Screen 1.73 ng/mL 0.00-4.00 [facility] Comment on above: This test was perfor med using the TPSA assay method for [employer] chemistry system. Values obtained with differentassay methods cannot be used interchangably.When changing PSA assays in the course of monitoring apatient, additional sequential testing should be carriedout to confirm baseline values. Absolute lymphocyte counton 12-10-2021 Lymphocytes Auto (Unsp spec) [#/Vol] 2.20 10*3/uL 0.83-4.51 [facility] Work Phone: Basophil percentageon 2021 Basophils/100 WBC (Bld) 0.7 % 0-1 [facility] Work Phone: Bilirubin [Mass/Vol] 0.50 mg/dL 0.20-1.00 [facility] Work Phone: Comment on above: For patients on eltr ombopag therapy, use of Dimension [place] TBIL is not recommended. Chloride [Moles/Vol] 103 mmol/L 98-107 [facility] Work Phone: Cholesterol [Mass/Vol] 129 mg/dL <200 [facility] Work Phone: Comment on above: <200 mg/dL Desirable 200-240 mg/dL Borderline >240 mg/dL High Risk Eosinophils/100 WBC (Bld) 5.2 % 0-5 [facility] Work Phone: Glucose [Mass/Vol] 142 mg/dL 74-106 [facility] Work Phone: Comment on above: Fasting Glucose resu lt greater than or equal to 126 mg/dL suggests DIABETES MELLITUS per A.D.A. criteria. Neutrophils (Bld) [#/Vol] 4.7 10*3/uL 2.0-7.7 [facility] Work Phone: Neutrophils/100 WBC (Bld) 58.6 % 47-70 [facility] Work Phone: Potassium [Moles/Vol] 4.5 mmol/L 3.5-5.1 [facility] Work Phone: Protein [Mass/Vol] 7.4 g/dL 6.4-8.2 [facility] Work Phone: Sodium [Moles/Vol] 139 mmol/L 136-145 [facility] Work Phone: Triglyceride [Mass/Vol] 70 mg/dL <199 [facility] Work Phone: Comment on above: The drugs N-Acetylcy steine and Metamizole may falsely depress this assay.Serum Triglycerides Reference Interval Normal <150 mg/dL Borderline high 150 - 199 mg/dL High 200 - 499 mg/dL Very High > or = 500 mg/dL WBC (Bld) [#/Vol] 8.0 10*3/uL 4.4-11.0 [facility] Work Phone: Blood erythrocytes count (nu mber/volume)on 12-10-2021 RBC (Bld) [#/Vol] 4.22 10*6/uL 4.6-6.2 [facility] Work Phone: Blood hemoglobin measurement (mass/volume)on 12-10-2021 Hemoglobin (Bld) [Mass/Vol] 12.4 g/dL 13.0-16.5 [facility] Work Phone: Blood lymphocytes/100 leukoc yteson 12-10-2021 Lymphocytes/100 WBC (Bld) 27.4 % 19-41 [facility] Work Phone: Blood monocytes/100 leukocyt eson 12-10-2021 Monocytes/100 WBC (Bld) 7.7 % 0-10 [facility] Work Phone: [phone] Blood platelet mean volumeon 12-10-2021 Platelet mean volume (Bld) [Entitic vol] 10.4 fL 6.2-12.0 [facility] Work Phone: Determination of erythrocyte mean corpuscular volume (MCV)on 12-10-2021 MCV (RBC) [Entitic vol] 92.2 fL 80-94 [facility] Work Phone: Hematocrit Auto (Bld) [Volum e fraction]on 12-10-2021 Hematocrit (Bld) [Volume fraction] 38.9 % 40-54 [facility] Work Phone: Iron measurement (mass/mass) on 12-10-2021 Iron (Unsp spec) [Mass/Mass] 59 ug/dL 65-175 [facility] Work Phone: Laboratory - Chemistry and C hemistry - challengeon 12-10-2021 ALP [Catalytic activity/Vol] 62 U/L 45-117 [facility] Work Phone: ALT [Catalytic activity/Vol] 26 U/L 16-61 [facility] Work Phone: CO2 [Moles/Vol] 30.0 mmol/L 21.0-32.0 [facility] Work Phone: Cobalamin (Vitamin B12) [Mass/Vol] 408 pg/mL 211-911 [facility] Work Phone: Globulin (S) [Mass/Vol] 3.7 g/dL 2.2-4.2 [facility] Work Phone: Urea nitrogen/Creatinine [Mass ratio] 20.3 mg/mg 10-20 [facility] Work Phone: Laboratory - Hematology and Cell countson 12-10-2021 Erythrocyte distribution width (RBC) [Entitic vol] 46.2 fL 35.1-43.9 [facility] Work Phone: Erythrocyte distribution width (RBC) [Ratio] 13.5 % 11.6-14.6 [facility] Work Phone: Immature granulocytes/100 WBC (Bld) 0.400 % 0.0-0.9 [facility] Work Phone: Comment on above: IG% - Immature Granu locytes (promyelocytes, myelocytes and metamyelocytes) > 1% indicates that a LEFT SHIFT is Present. MCH (RBC) [Entitic mass] 29.4 pg 27.0-32.0 [facility] Work Phone: Nucleated RBC/100 WBC (Bld) [Ratio] 0 % 0-5 [facility] Work Phone: MCHC Auto (RBC) [Mass/Vol]on 12-10-2021 MCHC (RBC) [Mass/Vol] 31.9 g/dL 32-36 [facility] Work Phone: No Panel Informationon 12-10 Estimated GFR (MDRD) Amer 77 mL/min >60 [facility] Work Phone: Comment on above: GFR Calc Estimated GFR (MDRD) Non-Af Amer 64 mL/min >60 [facility] Work Phone: Comment on above: Non- GFR Calc Total Iron Binding Capacity 362 ug/dL 250-450 [facility] Work Phone: Urine Microalbumin/Creatinine Ratio TNP [facility] Work Phone: Comment on above: Test not performed Platelets bldon 12-10-2021 Platelets (Bld) [#/Vol] 289 10*3/uL 150-450 [facility] Work Phone: Serum or plasma albumin petrona urement (mass/volume)on 12-10-2021 Albumin [Mass/Vol] 3.7 g/dL 3.2-5.0 [facility] Work Phone: Serum or plasma albumin/glob ulin mass ratioon 12-10-2021 Albumin/Globulin [Mass ratio] 1.0 {ratio} 0.9-2.4 [facility] Work Phone: Serum or plasma calcium petrona urement (mass/volume)on 12-10-2021 Calcium [Mass/Vol] 9.0 mg/dL 8.5-10.1 [facility] Work Phone: Serum or plasma cholesterol in HDL measurement (mass/volume)on 12-10-2021 Cholesterol in HDL [Mass/Vol] 52 mg/dL >40 [facility] Work Phone: Comment on above: The drugs N-Acetylcy steine and Metamizole may falsely depress this assay. Reference Range HDL <40 mg/dL Low HDL Cholesterol HDL >or= 60 mg/dL High HDL Cholesterol Serum or plasma cholesterol in VLDL measurement (mass/volume)on 12-10-2021 Cholesterol in VLDL [Mass/Vol] 14 mg/dL 5-40 [facility] Work Phone: Serum or plasma creatinine m easurement (mass/volume)on 12-10-2021 Creatinine [Mass/Vol] 1.18 mg/dL 0.70-1.30 [facility] Work Phone: Comment on above: The validity of the calculated GFR & GFRAA in patients over 70 years has not been determined. Clinical correlation is essential. Serum or plasma ferritin mary surement (mass/volume)on 12-10-2021 Ferritin [Mass/Vol] 24 ng/mL 26-388 [facility] Work Phone: Serum or plasma folate measu rement (mass/volume)on 12-10-2021 Folate [Mass/Vol] 39.50 ng/mL 3.1-55.4 [facility] Work Phone: Serum or plasma low density lipoprotein (LDL) cholesterol measurement (mass/volume)on 12-10-2021 Cholesterol in LDL [Mass/Vol] 63 mg/dL 0-130 [facility] Work Phone: Serum or plasma urea nitroge n measurement (mass/volume)on 12-10-2021 Urea nitrogen [Mass/Vol] 24 mg/dL 7-18 [facility] Work Phone: Thin prep Papanicolaou smear with manual screeningon 12-10-2021 Thin prep Papanicolaou smear with manual screening 15 U/L 15-37 [facility] Work Phone: Thin prep Papanicolaou smear with manual screening 6 5-15 [facility] Work Phone: Thin prep Papanicolaou smear with manual screening < 5.0 mg/L NO RANGE EST. [facility] Work Phone: Urine creatinine measurement (mass/volume)on 12-10-2021 Creatinine (U) [Mass/Vol] 57.90 mg/dL NO RANGE EST. [facility] Work Phone: Whole blood hemoglobin A1c/t otal hemoglobin ratio (mass fraction)on 12-10-2021 HbA1c (Bld) [Mass fraction] 7.3 % 3.8-5.6 [facility] Work Phone: Comment on above: Normal < 5.7 % Predi abetic 5.7 - 6.4 % Diabetic >or= 6.5 % Please note range changes. Absolute lymphocyte counton 08-08-2021 Lymphocytes Auto (Unsp spec) [#/Vol] 2.22 10*3/uL 0.83-4.51 [facility] Work Phone: Basophil percentageon 2021 Basophils/100 WBC (Bld) 0.6 % 0-1 [facility] Work Phone: Bilirubin [Mass/Vol] 0.50 mg/dL 0.20-1.00 [facility] Work Phone: Comment on above: For patients on eltr ombopag therapy, use of Dimension [place] TBIL is not recommended. Chloride [Moles/Vol] 102 mmol/L 98-107 [facility] Work Phone: Cholesterol [Mass/Vol] 138 mg/dL <200 [facility] Work Phone: Comment on above: <200 mg/dL Desirable 200-240 mg/dL Borderline >240 mg/dL High Risk Eosinophils/100 WBC (Bld) 4.5 % 0-5 [facility] Work Phone: Glucose [Mass/Vol] 159 mg/dL 74-106 [facility] Work Phone: Comment on above: Fasting Glucose resu lt greater than or equal to 126 mg/dL suggests DIABETES MELLITUS per A.D.A. criteria. Neutrophils (Bld) [#/Vol] 4.9 10*3/uL 2.0-7.7 [facility] Work Phone: Neutrophils/100 WBC (Bld) 59.8 % 47-70 [facility] Work Phone: Potassium [Moles/Vol] 4.7 mmol/L 3.5-5.1 [facility] Work Phone: Protein [Mass/Vol] 7.4 g/dL 6.4-8.2 [facility] Work Phone: Sodium [Moles/Vol] 135 mmol/L 136-145 [facility] Work Phone: Triglyceride [Mass/Vol] 75 mg/dL [facility] Work Phone: Comment on above: The drugs N-Acetylcy steine and Metamizole may falsely depress this assay.Serum Triglycerides Reference Interval Normal <150 mg/dL Borderline high 150 - 199 mg/dL High 200 - 499 mg/dL Very High > or = 500 mg/dL WBC (Bld) [#/Vol] 8.2 10*3/uL 4.4-11.0 [facility] Work Phone: Blood erythrocytes count (nu mber/volume)on 08-08-2021 RBC (Bld) [#/Vol] 4.28 10*6/uL 4.6-6.2 [facility] Work Phone: Blood hemoglobin measurement (mass/volume)on 08-08-2021 Hemoglobin (Bld) [Mass/Vol] 12.4 g/dL 13.0-16.5 [facility] Work Phone: Blood lymphocytes/100 leukoc yteson 08-08-2021 Lymphocytes/100 WBC (Bld) 27.2 % 19-41 [facility] Work Phone: Blood monocytes/100 leukocyt eson 08-08-2021 Monocytes/100 WBC (Bld) 7.7 % 0-10 [facility] Work Phone: Blood platelet mean volumeon 08-08-2021 Platelet mean volume (Bld) [Entitic vol] 10.0 fL 6.2-12.0 [facility] Work Phone: Determination of erythrocyte mean corpuscular volume (MCV)on 08-08-2021 MCV (RBC) [Entitic vol] 91.1 fL 80-94 [facility] Work Phone: Hematocrit Auto (Bld) [Volum e fraction]on 08-08-2021 Hematocrit (Bld) [Volume fraction] 39.0 % 40-54 [facility] Work Phone: Iron measurement (mass/mass) on 08-08-2021 Iron (Unsp spec) [Mass/Mass] 80 ug/dL 65-175 [facility] Work Phone: Laboratory - Chemistry and C hemistry - challengeon 08-08-2021 ALP [Catalytic activity/Vol] 59 U/L 45-117 [facility] Work Phone: ALT [Catalytic activity/Vol] 26 U/L 16-61 [facility] Work Phone: CO2 [Moles/Vol] 28.0 mmol/L 21.0-32.0 [facility] Work Phone: Cobalamin (Vitamin B12) [Mass/Vol] 404 pg/mL 211-911 [facility] Work Phone: Globulin (S) [Mass/Vol] 3.6 g/dL 2.2-4.2 [facility] Work Phone: Urea nitrogen/Creatinine [Mass ratio] 18.0 mg/mg 01-08 [facility] Work Phone: Laboratory - Hematology and Cell countson 08-08-2021 Erythrocyte distribution width (RBC) [Entitic vol] 43.5 fL 35.1-43.9 [facility] Work Phone: Erythrocyte distribution width (RBC) [Ratio] 13.0 % 11.6-14.6 [facility] Work Phone: Immature granulocytes/100 WBC (Bld) 0.200 % 0.0-0.9 [facility] Work Phone: Comment on above: IG% - Immature Granu locytes (promyelocytes, myelocytes and metamyelocytes) > 1% indicates that a LEFT SHIFT is Present. MCH (RBC) [Entitic mass] 29.0 pg 27.0-32.0 [facility] Work Phone: Nucleated RBC/100 WBC (Bld) [Ratio] 0 % 0-5 [facility] Work Phone: MCHC Auto (RBC) [Mass/Vol]on 08-08-2021 MCHC (RBC) [Mass/Vol] 31.8 g/dL 32-36 [facility] Work Phone: No Panel Informationon 08-08 Estimated GFR (MDRD) Amer 83 mL/min >60 [facility] Work Phone: Comment on above: GFR Calc Estimated GFR (MDRD) Non-Af Amer 69 mL/min >60 [facility] Work Phone: Comment on above: Non- GFR Calc Thyroid Stimulating Hormone (TSH) 0.73 uIU/mL 0.358-3.74 [facility] Work Phone: Total Iron Binding Capacity 377 ug/dL 250-450 [facility] Work Phone: Urine Microalbumin/Creatinine Ratio 7.4 mg/g CRE <30 [facility] Work Phone: Platelets bldon 08-08-2021 Platelets (Bld) [#/Vol] 304 10*3/uL 150-450 [facility] Work Phone: Serum or plasma albumin petrona urement (mass/volume)on 08-08-2021 Albumin [Mass/Vol] 3.8 g/dL 3.2-5.0 [facility] Work Phone: Serum or plasma albumin/glob ulin mass ratioon 08-08-2021 Albumin/Globulin [Mass ratio] 1.1 {ratio} 0.9-2.4 [facility] Work Phone: Serum or plasma calcium petrona urement (mass/volume)on 08-08-2021 Calcium [Mass/Vol] 9.1 mg/dL 8.5-10.1 [facility] Work Phone: Serum or plasma cholesterol in HDL measurement (mass/volume)on 08-08-2021 Cholesterol in HDL [Mass/Vol] 47 mg/dL [facility] Work Phone: Comment on above: The drugs N-Acetylcy steine and Metamizole may falsely depress this assay. Reference Range HDL <40 mg/dL Low HDL Cholesterol HDL >or= 60 mg/dL High HDL Cholesterol Serum or plasma cholesterol in VLDL measurement (mass/volume)on 08-08-2021 Cholesterol in VLDL [Mass/Vol] 15 mg/dL 5-40 [facility] Work Phone: Serum or plasma creatinine m easurement (mass/volume)on 08-08-2021 Creatinine [Mass/Vol] 1.11 mg/dL 0.70-1.30 [facility] Work Phone: Comment on above: The validity of the calculated GFR & GFRAA in patients over 70 years has not been determined. Clinical correlation is essential. Serum or plasma ferritin mary surement (mass/volume)on 08-08-2021 Ferritin [Mass/Vol] 26 ng/mL 26-388 [facility] Work Phone: Serum or plasma folate measu rement (mass/volume)on 08-08-2021 Folate [Mass/Vol] 46.10 ng/mL 3.1-55.4 [facility] Work Phone: Serum or plasma low density lipoprotein (LDL) cholesterol measurement (mass/volume)on 08-08-2021 Cholesterol in LDL [Mass/Vol] 76 mg/dL 0-130 [facility] Work Phone: Serum or plasma urea nitroge n measurement (mass/volume)on 08-08-2021 Urea nitrogen [Mass/Vol] 20 mg/dL 7-18 [facility] Work Phone: Thin prep Papanicolaou smear with manual screeningon 08-08-2021 Thin prep Papanicolaou smear with manual screening 17 U/L 15-37 [facility] Work Phone: Thin prep Papanicolaou smear with manual screening 5 5-15 [facility] Work Phone: Thin prep Papanicolaou smear with manual screening 5.6 mg/L NO RANGE EST. [facility] Work Phone: Urine creatinine measurement (mass/volume)on 08-08-2021 Creatinine (U) [Mass/Vol] 76.40 mg/dL NO RANGE EST. [facility] Work Phone: Whole blood hemoglobin A1c/t otal hemoglobin ratio (mass fraction)on 08-08-2021 HbA1c (Bld) [Mass fraction] 7.2 % 3.8-5.6 [facility] Work Phone: Comment on above: Normal < 5.7 % Predi abetic 5.7 - 6.4 % Diabetic >or= 6.5 % Please note range changes. Office Visit: Incision and D rainage of cyst Left lower backon 02-15-2017 Documentation of current medications (procedure) Done Invalid Interpretation Code [facility] [employer] Work Phone: Fall risk assessment No Invalid Interpretation Code [facility] [employer] Work Phone: Tobacco smoking status NHIS Never Invalid Interpretation Code [facility] Work Phone: Tobacco smoking status NHIS Tobacco smoking status NHIS Invalid Interpretation Code [facility] [employer] Work Phone: Tobacco use HS Former smoker Invalid Interpretation Code [facility] [employer] Work Phone: Office Visit: Incision and D rainage of cyst Left lower backon 04-24-2009 Colonoscopy (procedure) Colonoscopy (procedure) Invalid Interpretation Code [facility] [employer] Work Phone: Vital Signs Date Time Vital Sign Value Performing Clinician Facility 06-22-2024 14:12-0400 Body temperature 98.4 [degF] Dr. Teodoro Castro MD Work Phone: [facility] 06-22-2024 14:12-0400 Diastolic blood pressure 68 mm[Hg] Dr. Teodoro Castro MD Work Phone: [facility] 06-22-2024 14:12-0400 Heart rate 99 /min Dr. Teodoro Castro MD Work Phone: [facility] 06-22-2024 14:12-0400 Respiratory rate 16 /min Dr. Teodoro Castro MD Work Phone: [facility] 06-22-2024 14:12-0400 SaO2% (BldA) [Mass fraction] 97 % Dr. Teodoro Castro MD Work Phone: [facility] 06-22-2024 14:12-0400 Systolic blood pressure 132 mm[Hg] Dr. Teodoro Castro MD Work Phone: [facility] 06-22-2024 10:05-0400 Inhaled oxygen flow rate 4 L/min Dr. Teodoro Castro MD Work Phone: [facility] 06-22-2024 06:33-0400 Body height 172.[address] Teodoro Castro MD Work Phone: [facility] 06-22-2024 06:33-0400 Body mass index (BMI) [Ratio] 21.4 kg/m2 Dr. Teodoro Castro MD Work Phone: [facility] 06-22-2024 06:33-0400 Body weight [address] Teodoro Castro MD Work Phone: [facility] 02-15-2017 13:06-0500 BMI (Body Mass Index) 22.89 kg/m2 Karen Rader PA-C [facility] Work Phone: 02-15-2017 13:06-0500 Body Temperature 97.9 [degF] Karen Rader PA-C [facility] Work Phone: 02-15-2017 13:06-0500 BP Diastolic 76 mm[Hg] Karen Rader LEISAJuan [facility] Work Phone: 02-15-2017 13:06-0500 BP Systolic 150 mm[Hg] Karen Rader LEISACarloKavita [facility] Work Phone: 02-15-2017 13:06-0500 Height 175.26 cm Karen Rader LEISACarloKavita [facility] Work Phone: 02-15-2017 13:06-0500 Pulse (Heart Rate) 90 /min Karen Rader LEISAJuan [facility] Work Phone: 02-15-2017 13:06-0500 Respiratory Rate 18 /min Karen Wheelershakira DE LA FUENTEJuan [facility] Work Phone: 02-15-2017 13:06-0500 Weight 70.31 kg Karen Rader LEISAJuan [facility] Work Phone: Encounters Encounter Date Encounter Type Care Provider Facility Start: 11-01-2024 End: 11-01-2024 Patient encounter procedure Linus [facility] Work Phone: Start: 11-01-2024 End: 11-01-[address] Teodoro Castro MD Work Phone: [facility] Start: 08-01-2024 End: 08-01-2024 Patient encounter procedure Linus [facility] Work Phone: Start: 08-01-2024 End: 08-01-[address] Teodoro Castro MD Work Phone: [facility] Work Phone: Start: 07-28-2024 End: 07-28-[address] Teodoro Castro MD Work Phone: [facility] Work Phone: Start: 07-28-2024 End: 07-28-[address] Teodoro Castro MD -Cat Scan, [facility] Work Phone: Start: 07-28-2024 End: 07-28-2024 ambulatory Linus Lo Facility:[facility] Start: 07-18-2024 End: 07-18-[address] Teodoro Castro MD -Ultrasound, [facility] Work Phone: Start: 07-18-2024 End: 07-18-2024 ambulatory Teodoro Castro Facility:[facility] Start: 07-14-2024 End: 07-14-[address] Teodoro Castro MD -Laboratory, [facility] Work Phone: Start: 07-14-2024 End: 07-14-2024 ambulatory Teodoro Castro Facility:[facility] Start: 07-12-2024 End: 07-12-[address] Teodoro Castro MD Work Phone: [facility] Work Phone: Start: 07-12-2024 End: 07-12-[address] Teodoro Castro MD -Laboratory, [facility] Start: 07-12-2024 End: 07-12-2024 ambulatory Teodoro Castro Facility:[facility] Start: 06-22-2024 End: 06-22-2024 Admission to same day surgery center Dr. Holger Stoner DO -[facility] Start: 06-22-2024 End: 06-22-[address] Teodoro Castro MD Work Phone: [facility] Work Phone: Start: 06-07-2024 Encounter for other preprocedural examination [facility] Start: 06-05-2024 Encounter for preprocedural cardiovascular examination [facility] Start: 05-26-2024 End: 05-26-[address] Teodoro Castro MD Work Phone: [facility] Work Phone: Start: 05-26-2024 End: 05-26-[address] Holger Stoner DO -Cat Scan, [facility] Work Phone: Start: 05-26-2024 End: 05-26-2024 ambulatory Holger Stoner Facility:[facility] Start: 05-23-2024 End: 05-23-[address] Teodoro Castro MD Work Phone: [facility] Work Phone: Start: 05-23-2024 End: 05-23-[address] [facility] Start: 05-23-2024 End: 05-23-2024 ambulatory Holger Stoner Facility:[facility] Start: 03-24-2024 End: 03-24-[address] Teodoro Castro MD -[facility] Start: 03-24-2024 End: 03-24-2024 ambulatory Teodoro Castro Facility:[facility] Start: 03-01-2024 End: 03-01-2024 Patient encounter procedure Cielo Ga -[facility] Start: 03-01-2024 End: 03-01-2024 ambulatory Cielo Ga Facility:[facility] Start: 01-07-2024 End: 01-07-2024 ambulatory Teodoro Castro Facility:[facility] Start: 11-19-2023 End: 11-19-2023 ambulatory Teodoro Castro Facility:[facility] Start: 11-12-2023 ambulatory Teodoro Castro Facilit y:[facility] Start: 11-12-2023 End: 11-12-2023 ambulatory Teodroo Castro Facility:[facility] Start: 06-28-2023 End: 06-28-2023 ambulatory [facility] Work Phone: Start: 06-28-2023 End: 06-28-2023 Patient encounter procedure [facility] Start: 05-21-2023 End: 05-21-2023 ambulatory [facility] Work Phone: Start: 05-21-2023 End: 05-21-2023 [facility] Start: 04-08-2023 End: 04-08-2023 ambulatory [facility] Work Phone: Start: 04-08-2023 End: 04-08-2023 Patient encounter procedure [facility]-Ultrasound, [facility] Work Phone: Start: 04-07-2023 End: 04-07-2023 ambulatory [facility] Work Phone: Start: 04-07-2023 End: 04-07-2023 [facility] Start: 02-25-2023 End: 02-25-2023 ambulatory [facility] Work Phone: Start: 02-25-2023 End: 02-25-2023 [facility] Start: 02-18-2023 End: 02-18-2023 [facility] Start: 11-18-2022 End: 11-18-2022 ambulatory [facility] Work Phone: Start: 11-18-2022 End: 11-18-2022 [facility] Start: 07-31-2022 End: 07-31-2022 [facility] Work Phone: Start: 07-16-2022 End: 07-16-2022 ambulatory [facility] Work Phone: Start: 07-16-2022 End: 07-16-2022 [facility] Start: 04-15-2022 End: 04-15-2022 ambulatory [facility] Work Phone: Start: 04-15-2022 End: 04-15-2022 [facility] Start: 02-23-2022 End: 02-23-2022 ambulatory [facility] Work Phone: Start: 02-23-2022 End: 02-23-2022 Patient encounter procedure [facility] Start: 12-10-2021 End: 12-10-2021 Patient encounter procedure [facility], [facility] Start: 08-08-2021 End: 08-08-2021 [facility] Procedures Date Procedure Procedure Detail Performing Clinician Start: 07-28-2024 Computed tomography of abdomen and pelvis with contrast Dr. Teodoro Castro MD Work Phone: Start: 07-28-2024 Total iron binding c apacity measurement Dr. Teodoro Castro MD Work Phone: Start: 07-28-2024 Vitamin D, 25-hydrox y measurement Dr. Teodoro Castro MD Work Phone: Comment on above: Vitamin D StatusDefi ciency: <20 ng/mL (50nmol/L)Insufficiency: 20-30 ng/mL (50-75 nmol/L)Sufficiency: 30-100 ng/mL (75-250 nmol/L)Toxicity: >100 ng/mL (>250 nmol/L) Start: 07-18-[address] Teodoro Castro MD Work Phone: Start: 07-14-[address] Teodoro dutta MD Work Phone: Comment on above: Test Ordered: [id number] Stool CultureSalmonella/Shigella Screen Note: CB Final report Reference Range: .Result 1 Comment CB Reference Range: .No Salmonella or Shigella recovered.Campylobacter Culture Note: CB Final report Reference Range: .Result 1 Comment CB Reference Range: .No Campylobacter species isolated.E coli Shiga Toxin EIA Negative CB Reference Range: NegativePerformed at: - [facility] [id number] Director: Nathan Rouse PhD, Phone: [phone] Start: 07-14-2024 [address] e detection Dr. Teodoro Castro MD Work Phone: Start: 07-14-[address] Tedooro Castro MD Work Phone: Start: 07-12-2024 Vitamin D, 25-hydrox y measurement Dr. Teodoor Castro MD Work Phone: Comment on above: Vitamin D StatusDefi ciency: <20 ng/mL (50nmol/L)Insufficiency: 20-30 ng/mL (50-75 nmol/L)Sufficiency: 30-100 ng/mL (75-250 nmol/L)Toxicity: >100 ng/mL (>250 nmol/L) Start: 06-22-2024 Plain X-ray of shoulder Dr. Teodoro Castro MD Work Phone: Start: 06-22-2024 Reverse prosthetic t otal arthroplasty of left shoulder Dr. Teodoro Castro MD Work Phone: Start: 05-26-2024 Methicillin resistan t Staphylococcus aureus screening test Dr. Teodoro Castro MD Work Phone: Start: 05-26-2024 CT of upper limb wit hout contrast Dr. Teodoro Castro MD Work Phone: Start: 05-23-2024 Methicillin resistan t Staphylococcus aureus screening test Dr. Teodoro Castro MD Work Phone: Start: 04-08-2023 Ultrasonography of abdomen Start: 02-15-2017 End: 02-15-2017 Incision & drainage abscess complicated/multiple Karen Rader PA-C Work Phone: History of repair of inguinal hernia Hx of left inguinal hernia repair History of repair of inguinal hernia S/P right inguinal hernia repair Comment on above: 08/12/2011 History of repair of musculotendinous cuff of shoulder S/P right rotator cuff repair Comment on above: 2010 History of tonsillectomy Hx of tonsillect leatha Plan of Treatment Date Care Activity Detail Author Start: 07-14-2024 Procedure [facility] Start: 06-23-2024 Complete blood count [facility] Start: 06-22-2024 Anes arthroscopic total shoulder replacement ANESTH SHOULDER REPLACEMENT [facility] Start: 06-22-2024 Arthroplasty glenohumeral joint total shoulder RECONSTRUCT SHOULDER JOINT [facility] Start: 06-22-2024 Injection aa&/strd brachial plexus NJX AA&/STRD BRCH PLXS IMG [facility] Start: 06-22-2024 Patient discharge [facility] Start: 06-22-[address] [facility] Start: 06-22-2024 Application of device [facility] Start: 06-22-2024 Assessment of risk of venous thromboembolism [facility] Start: 06-22-2024 Catheterization of vein [facility] Start: 06-22-2024 Following clinical pathway protocol [facility] Start: 06-22-2024 Incentive spirometry [facility] Start: 06-22-2024 Introduction of urinary catheter [facility] Start: 06-22-2024 Measuring intake and output [facility] Start: 06-22-2024 Neurovascular assessment [facility] Start: 06-22-2024 Patient education [facility] Start: 06-22-2024 Procedure discontinued [facility] Start: 06-22-2024 Provision of activity privileges [facility] Start: 06-22-2024 Referral to occupational therapist [facility] Start: 06-22-2024 Vital signs measurements [facility] Start: 06-22-2024 Wound care [facility] Start: 06-22-2024 [facility] Start: 02-22-2017 End: 02-22-2017 Appointment Appointment [facility] Work Phone: Start: 02-15-2017 End: 02-15-2017 Appointment Appointment [facility] Work Phone: Electrocardiographic procedure [facility] Patient referral [facility] Work Phone: Procedure [facility] Work Phone: Immunizations Immunization Date Immunization Notes Care Provider Roz jovel 09-17-2015 tetanus toxoid, redu don diphtheria toxoid, and acellular pertussis vaccine, adsorbed [facility] Payers Date Payer Category Payer Self-pay [id number] 2015 Private Health Insurance [id number] 2011 Medicare [id number] Unknown [id number] 2.16.8 [id number] Unknown [id number] 2.16.8 40.1.551608.3.579.2.462 Unknown [id number] 2.16.8 40.1.997153.3.579.2.462 Unknown [id number] 2.16.8 40.1.009170.3.579.2.462 Unknown [id number] 2.16.8 40.1.067385.3.579.2.462 Unknown [id number] 2.16.8 40.1.570028.3.579.2.462 Unknown [id number] 2.16.8 40.1.546247.3.579.2.462 Unknown [id number] 2.16.8 40.1.293917.3.579.2.462 Unknown [id number] 2.16.8 40.1.854979.3.579.2.462 Unknown [id number] 2.16.8 40.1.824392.3.579.2.462 Unknown [id number] 2.16.8 40.1.628914.3.579.2.462 Unknown [id number] 2.16.8 40.1.778594.3.579.2.462 Unknown [id number] 2.16.8 40.1.637403.3.579.2.462 Unknown [id number] 2.16.8 40.1.530864.3.579.2.462 Unknown [id number] 2.16.8 40.1.373889.3.579.2.462 Unknown [id number] 2.16.8 40.1.287681.3.579.2.462 Unknown [id number] 2.16.8 40.1.406760.3.579.2.462 Social History Date Type Detail Facility Start: 05-10-2019 End: 05-10-2019 Tobacco smoking status NHIS Unknown if ever smoked [facility] Start: 08-28-[address] [facility] Start: 08-28-[address] [facility] Start: 1945 Sex Assigned At Male [facility] Start: 05-24-2024 [facility] Start: 06-05-2024 End: 07-17-2024 Sex Male (finding) [facility] Medical Equipment Procedure Code Equipment Code Equipment Origin al Text Equipment Identifier Dates Screw FDA Start: 06-22-2024 Polyethylene rev erse shoulder prosthesis cup ()[id number] FDA Start: 06-22-2024 Coated shoulder humeral stem prosthesis ()[id number] FDA Start: 06-22-2024 Reverse shoulder prosthesis head ()[id number] [id number] FDA Start: 06-22-2024 Orthopaedic bone screw, non-bioabsorbable, sterile ()[id number] [id number] FDA Start: 06-22-2024 Reverse shoulder prosthesis base plate ()[id number] FDA Start: 06-22-2024 Screw FDA Start: 06-22-2024 Screw FDA Start: 06-22-2024 Screw FDA Start: 06-22-2024 Screw FDA Start: 06-22-2024 Goals Date Patient Goal Desired Activity /State Mental Status Date Assessment Result Facility 06-22-2024 Cognitive function Voice/Name [facility] Work Phone: Clinical Notes 11-12-2023 to 08-01-2024 Note Date & Type Note Facility 08-01-2024 Evaluation note Diagnosis Onset Date Resolution Diarrhea acute August 01, 2024 7:29am GERD (gastroesophageal reflux disease) acute August 01, 2024 7 :29am S/P colonoscopy acute August 01, 2024 7:29am [facility] Work Phone: 1(531) 427-584205-09-2025 Radiology Diagnostic study note [facility] Imaging Services [address] [place] [address] Abdomen/Pelvis WITH Contrast MR#: [id number] Acct: [id number] Name: CHELLE SUN Rep #: [id number] : 1945 M 79 From: Henrietta Koenig MD PCP: Dr. Teodoro Castro MD Status: RE G CLI Study:Abdomen/Pelvis WITH Contrast Date of Ex am: 07/28/24 Exam# [id number] Ordering Dr: Teodoro Castro MD PROCEDURE: ABDOMEN/PELVIS WITH CONTRAST 07/28/2024 REASON FOR EXAM: DIVERTICULITIS/ABDOMINAL PAIN TECHNIQUE: Contiguous axial scans of 3.75 mm slice thicknesses. Sagittal and coronal reconstruction images were obtained. One or more dose reduction techniques were used (e.g., automated exposure control, adjustment of mAand/or kv according to patient size, use of iterative reconstruction technique). PATIENT PREPARATION: Per protocol ORAL CONTRAST TYPE: Given CONTRAST: Isovue-300 VOLUME: Not given. RADIATION DOSE SUMMARY: DLP: 257.64 mGycm COMPARISON: No relevant prior. FINDINGS: Lung bases: Unremarkable. Liver: Normal-size and attenuation. No masses. Gallbladder: No gallstones. No ductal dilatation. Spleen: Normal in size. Pancreas: Unremarkable. Prominence of the pancreatic duct. Adrenals: No nodules. No thickening Kidneys: Excrete contrast material symmetrically. Kidneys normal in size. No masses or calcifications. Bladder: Unremarkable. Reproductive Organs: Small prostate gland. Calcifications in the prostate. Bowel: , Sigmoid colon. No definite signs of diverticulitis. Large amount of fecal debris in the rectum. Appendix: Unremarkable. Lymph nodes: No lymphadenopathy. Vasculature: Atherosclerotic calcifications of the aorta, mild. Peritoneum / Retroperitoneum: No masses, free air, or free fluid. Bones: Multilevel spondylosis and degenerative disc disease. Lumbar levocurvature. Small bone islands are noted in the bilateral femoral necks. CT/Abdomen/Pelvis WITH Contrast IMPRESSION: Diverticulosis of the sigmoid colon. No definite signs of diverticulitis although very early inflammation can not be excluded. Large amount of fecal debris in the rectum. Chronic prostatitis. Other nonacute findings detailed above. Reading Location: [id number] CC: Dr. Teodoro Castro MD ~ Body Care Manager: Signed [facility]04-03-2025 Consult note [facility] Medical Records Department [address] [place] [address] Anesthesia Postop Eval II 06/22/24 1051 MR#: [id number] Acct: [id number] Name: CHELLE SUN Rep #:[id number] : 1945 79 From: Pamela Sam PCP: Dr. Teodoro Castro MD Status:[facility] Y Race: C Location: [place] [address] Anesthesia Postop Eval I Sum Postop Eval Completion status Anesthesia document: Postop Eval 1 completed: Yes Anesthesia Postop Eval I Summary Anesthesia Postop Eval I Summary: Anesthesia Postop Eval I: Assessment Summary Airway patent Yes 06/22/24 09:24 CAN FILLING ROOM SWEEPER.TNES Spontaneous unlabored Yes 06/22/24 09:24 CAN FILLING ROOM SWEEPER.TNES respirations Mental status nausea No 06/22/24 09:24 CAN FILLING ROOM SWEEPER.TNES Vomiting No 06/22/24 09:24 CAN FILLING ROOM SWEEPER.TNES Anesthesia Postop Eval I: Fluid Summary Crystalloid volume administer 1,300 06/22/24 09:24 CAN FILLING ROOM SWEEPER.TNES (ml) Colloids volume administered ( ml) Blood Product volume administered (ml) Total IV fluid infused 1,300 06/22/24 09:24 CAN FILLING ROOM SWEEPER.TNES Anesthesia Postop Eval I: Summary Notes Anesthesia Complication No 06/22/24 09:24 CAN FILLING ROOM SWEEPER.TNES Anesthesia Complication Comment: Post-operative progress note Anesthesia: Postop Eval II Evaluation Mental status: Awake and Calm Pain Level: 0 nausea: No Vomiting: No Complications Anesthesia Complication: No 06/22/24 1051 > Date _ Pamela Sam Cosigner Signature: Date CC: ~ Signed [facility]04-03-2025 Consult note Author Pamela Sam [facility] Note Date/Time June 22, 2024 2:15 pm [facility] Medical Records Department [address] [place] [address] Anesthesia Postop Eval II 06/22/24 1051 MR#: [id number] Acct: [id number] Name: CHELLE SUN Rep #:[id number] : 1945 79 From: Pamela Sam PCP: Dr. Teodoro Castro MD Status:[facility] Y Race: C Location: [address] Anesthesia Postop Eval I Sum Postop Eval Completion status Anesthesia document: Postop Eval 1 completed: Yes Anesthesia Postop Eval I Summary Anesthesia Postop Eval I Summary: Anesthesia Postop Eval I: Assessment Summary Airway patent Yes 06/22/24 09:24 CAN FILLING ROOM SWEEPER.TNES Spontaneous unlabored Yes 06/22/24 09:24 CAN FILLING ROOM SWEEPER.TNES respirations Mental status nausea No 06/22/24 09:24 CAN FILLING ROOM SWEEPER.TNES Vomiting No 06/22/24 09:24 CAN FILLING ROOM SWEEPER.TNES Anesthesia Postop Eval I: Fluid Summary Crystalloid volume administer 1,300 06/22/24 09:24 CAN FILLING ROOM SWEEPER.TNES (ml) Colloids volume administered ( ml) Blood Product volume administered (ml) Total IV fluid infused 1,300 06/22/24 09:24 CAN FILLING ROOM SWEEPER.TNES Anesthesia Postop Eval I: Summary Notes Anesthesia Complication No 06/22/24 09:24 CAN FILLING ROOM SWEEPER.TNES Anesthesia Complication Comment: Post-operative progress note Anesthesia: Postop Eval II Evaluation Mental status: Awake and Calm Pain Level: 0 nausea: No Vomiting: No Complications Anesthesia Complication: No 06/22/24 1051 <Electronically signed by Pamela Sam > Date _ Pamela Dotterer Cosigner Signature: Date CC: ~ Signed [facility] Work Phone: 1(322) 307-188904-03-2025 Consult note Author Kaiser Wallace [facility] Note Date/Time June 22, 2024 9:25 am [facility] Medical Records Department [address] [place] [address] Anesthesia Postop Eval I 06/22/24923 MR#: [id number] Acct: [id number] Name: CHELLE SUN Rep #:[id number] : 1945 79 From: Kaiser NGUYEN PCP: Dr. Teodoro Castro MD Status:[facility] Y Race: C Location: [place] [address] Anesthesia: Postop Eval I Current Vital Signs Temperature: 97 F Pulse Rate: 82 Blood Pressure: 112/62 Respiratory Rate: 16 Pulse Ox: 95 Assessment Airway patent: Yes Spontaneous unlabored respirations: Yes nausea: No Vomiting: No Anesthesia Complication: No Fluid Hydration Crystalloid volume administer (ml): 1,300 Total IV fluid infused: 1,300 Progress Note Anesthesia document: Postop Eval 1 completed: Yes 06/22/24924 <Electronically signed by Kaiser Wallace CRNA> Date _ Kaiser Wallace CAN FILLING ROOM SWEEPER Cosigner Signature: Date CC: ~ Signed [facility] Work Phone: 1(489) 726-893804-03-2025 Radiology Diagnostic study note [facility] Imaging Services [address] [place], [place] [id number] Shoulder min 2 Views MR#: [id number] Acct: [id number] Name: CHELLE SUN Rep #: [id number] : 1945 M 79 From: Abisai Clayton MD PCP: Dr. Teodoro Castro MD Status: [facility] Study:Shoulder min 2 Views Date of Exam: 06/22/24 Exam# [id number] Ordering Dr: Holger Stoner DO PROCEDURE: SHOULDER MIN 2 VIEWS 06/22/2024 REASON FOR EXAM: POST OP TECHNIQUE: Two views of the left shoulder were obtained. COMPARISON: None FINDINGS: The patient is status post left reverse shoulder replacement. There is good alignment. Postoperative soft tissue changes. RAD/Shoulder min 2 Views IMPRESSION: Status post left reverse shoulder replacement. There is good alignment. Postoperative soft tissue changes. Reading Location: [place] [address] CC: Dr. Teodoro Castro MD; Dr. Holger Stoner DO Body Care Manager: Signed [facility]04-03-2025 Procedure note [facility] Medical Records Department [address] [place] [address] Operative Report 06/22/24 0921 MR#: [id number] Acct: [id number] Name: CHELLE SUN Rep #:[id number] : 1945 79 From: Holger taylor DO PCP: Dr. Teodoro Castro MD Status:[facility] Location: [place] [address] Operative Report (Standard) Operative Information Date of Procedure: 06/22/24 Pre-Operative Diagnosis: Left shoulder rotator cuff tear arthropathy Post-Operative Diagnosis: Left shoulder rotator cuff tear arthropathy Surgery/Procedure Performed: Left reverse total shoulder arthroplasty bilingual social worker: Yes Shipping Coordinator: Lina Lyons Tasks completed by first aid teacher: Opening & closing, Implanting device, Hemostasis: Electrocautery and Retracting Additional pastry assistant?: No Type of Anesthesia: General/Regional RN Documented Start/Stop Times: Operation Date: 06/22/24 07:30 Case Time Into Pre-Op 06/22/24 05:39 Anesthesia Start 06/22/24 07:34 Into Room 06/22/24 07:34 Procedure Start 06/22/24 08:06 Procedure End 06/22/24 09:07 Anesthesia End 06/22/24 09:17 Out of Room 06/22/24 09:17 Procedure Start Time: 08:06 Procedure Stop Time: :07 Select all DRAINS/GRAFTS/IMPLANTS that apply: Implanted device Implanted device details: Tornier Aequalis PerFORM+ reversed baseplate 29 mm diameter +6 mm lateralization, standard glenosphere cobalt chrome 42 mm diameter, Tornier perform inlay stem size #4, + 3 mm retentive size number 4 42 mm diameter polyethylene insert, short central post and peripheral screws x4. Estimated Blood Loss: 50 cc Specimen collected: Yes Description of specimen(s) removed: Left humeral head Description of surgery: Patient arrived to [facility] morning of the procedure and was greeted by the same day surgery staff. Prior to his procedure, I greeted the patient in the preoperative holding area I identified the patient by name, record number, and date of . Informed consent was confirmed. The operative extremity was marked. All questions were answered to patient satisfaction. An interscalene block was administered prior to procedure by anesthesia staff for postoperative and intraoperative analgesia. At time of his procedure, patient was brought to the operative suite and positioned supine on a standard table with a beachchair attachment. General anesthesia was induced after all bony prominences were well-padded. Endotracheal tube was placed. After adequate anesthesia and securing the tube, we prepared the patient to be positioned in the beachchair position. A well-padded head school custodian was applied. The nonoperative extremity was placed in a wellarm carrillo. He was then brought into the beachchair position after we confirmedan appropriate blood pressure. We then spun the bed 45 degrees. The operative extremity was then prepared. In the butterfly wing of the bed was removed and awell-padded torso strap was applied to secure the patient to the bed. The operative extremity was now free. We then prepped and draped the left upper extremity in normal, sterile orthopedic fashion. We then performed a timeout with all parties in attendance in agreement with theside, site, and operation be performed. 2 g Ancef was administered prior to incision by anesthesia staff, as well as 1 g TXA IV. No concerns were voiced and we elected to proceed. I first marked a standard deltopectoral incision just lateral to the coracoid process in line with the long axis of the humerus. Skin was sharply incised with 10 blade scalpel. I then dissected bluntly through the subcutaneous layersand found the fat stripe between the deltoid and pectoralis major.The cephalicvein was then identified and protected. It was retracted laterally with the deltoid. I then bluntly dissected underneath the deltoid with a Reeves elevator. Kolbel retractor was placed. Theupper 1 cm of the pectoralis major was released. I then identified the long head of the biceps tendon in the intertubercular groove. This was tenodesed in situ with #2 FiberWire. I then amputated thebiceps proximal to the tenodesis site and followed the tendon to the supraglenoid tubercle where itwas amputated. This identified the lesser and greater tuberosities. The supraspinatus was completely torn and retracted with an exposed greater tuberosity. I then performed a subscapularis peel whilerotating the humerus externally. I tagged the subscapularis for possible repairlater with a tagging suture. Humeral head was then dislocated anteriorly. Appropriate access to the humeral head was confirmed. I then subluxed the humeral head posteriorly with a Fukuda retractor placed around the posterior lipof the glenoid. Inferior capsule was tension. I was able to palpate the axillary nerve. Inferior capsule was then released to the 4 o'clock position of the glenoid face. 3 sided subscapularis releasewas performed with Bovie cautery. I then remove the Fukuda retractor and redislocated the shoulder anteriorly. I then made a anatomic neck cut of the cartilaginous surface of the humeral head. Sizing plate for a size # 4 stem was utilized to determine appropriate reaming size. A central pin was placed engaging the lateral cortex of the humerus. A size # 4 reamer was used to ream the humeral metaphysis and prepare for the inlay stem. A canal finding reamer was utilized prior to sequential broaching to a size # 4 short stem with excellent rotational and axial purchase in the humerus. I remove the broach handle left the size # [address] I then subluxed the humerus posterior to the glenoid. I then placed retractors around the posterior and anterior glenoid to expose theglenoid. Glenoid labrum was removed with Bovie cautery protecting the axillary nerve. We then used the custom guide from [employer] to position our centering pin, exiting approximately 25 mm from the joint surface along the anterior scapula. Guide was removed and pin was analyzed and compared to preoperative planning. Itappeared to be in appropriate position. The Nautilus shaped reamer was then placed over top of the centering pin. I reamed a flat surface of the glenoid. We then removed the reamer and used the cannulated drill for the short central post. Post and baseplate was assembled on the back table. Caryn inserted the baseplate and central post the assembled baseplate to an appropriate depth with good press-fit purchase. A Witten was used to confirm depth. Cortical screws then were placed in the peripheral holes with good purchase. The baseplate had excellent purchase and the entire scapula would rotate with rotation of the baseplate. We then impacted the 42 mm glenosphere with a standard eccentricity and tightened the locking screw mechanism. We then removed retractors and turned our attention back to the humerus. I placed a standard +3 millimeters retentive polyethylene insert. I then reduced the shoulder. There was excellent range of motion and stability in all planes of motion. We selected this as our final size. We removed trials from the humerus after final dislocation. I copiously irrigated the canal. Broach was placed on hand and then impacted to an appropriate depth. Final + 3 mm retentive polyethylene insert was placed. Final reduction was then performed. The subscapularis was then identified with a tagging suture. Repair would have been likely under undue tension and likely failed. I elected to not perform a subscapularis repair. We then copiously irrigated the wound with sterile Betadine and normal saline solution. We reapproximated the interval with 0 Vicryl suture. Subcutaneous layers were reapproximated with 2 -0 Vicryl suture. Skin was finally running V- Loc 3-0 Monocryl suture and Dermabond. A sterile silver Mepilex dressing was applied. Patient was then placed in an ultra sling. Patient tolerated procedure well without complication. He was positioned back in the supine position extubated in the operative suite. He was transferred to the [place] and subsequently to PACU in stable condition. Need for skilled pastry assistant: Lina Lyons PA-C was critical to the outcome of thecase. During the course of the procedure the physician pastry assistant played a vitalrole. Her intimate knowledge of my stepsin the procedure aided in safe and expedient completion of the procedure. The PA played a vital role in positioning particularly in obtaining the appropriate positioning. The PA was also vital in theretraction of soft tissues during the exposure and protecting vital structures. The PA was also vital and protecting soft tissues during times of bony cuts. She also played a vital role in closure with my direct supervision. The PA was also important during reduction and dislocation of the joint and trials intraoperatively. Intraoperative medications: 2 g Ancef IV, 1 g TXA IV x2 Post Operative Plan: Weightbearing: Nonweightbearing left upper extremity, okay for pendulums. Rangeof motion of wrist elbow and hand as tolerated. Antibiotics: 2 g Ancef IV prior to incision, 24 hours IV antibiotics postoperatively DVT Prophylaxis: Aspirin enteric-coated 81 mg twice daily starting tomorrow Rushing: None Dressing: Maintain silver dressing x5 days. Okay to shower dressing on started on day 4 X-Rays: 2 weeks postop in the office Pain Medication: Oxycodone Rx upon discharge Follow-up: 2 weeks post-operatively with me in the office Surgical Findings: Cuff tear arthropathy with massive rotator cuff tear. Stable shoulder followingfinal reduction Complications Complications: No Admit VTE Documentation VTE Present on Admission: No VTE Mechan Device Prophylaxis: SCD's VTE Pharm Prophylaxis ordered?: Yes 06/22/24926 Cosigner Signature (if applicable): CC: Dr. Teodoro Castro MD; Dr. Holger Stoner DO~ Signed [facility]04-03-2025 Consult note [facility] Medical Records Department [address] [place] [address] Anesthesia Postop Eval I 06/22/24923 MR#: [id number] Acct: [id number] Name: CHELLE SUN Rep #:[id number] : 1945 79 From: Kaiser NGUYEN PCP: Dr. 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 Teodoro Castro MD Status: G [place] [facility] [place] Y Race: C Location: [place] [address] ASA Classification* ASA Classification ASA Classification: 2 Assessment & Plan Anesthesia* Anesthesia Assessment Anesthesia Assessment: Discussed sedation and/or anesthesia options, risks, benefits, and alternatives with patient/parents/legal guardian/POA. Questions invited. The patient/parents/legal guardian/POA seems to understand and agrees to proceedwith anesthesia plan. Reviewed the physical assessment, medical history, allergy history and patient home medications list prior to surgery/procedure/anesthetic and documented any changes. Performed airway and anesthesia risk assessments. Anesthesia Type Anesthesia Type: General and Block (Patient is consented for interscalene block.) Anesthesia Focused Assessment* Temperature: 98.2 F Pulse Rate: 86 Blood Pressure: 158/74 Respiratory Rate: 18 Pulse Ox: 100 Oxygen Delivery Method: Room Air Airway Assessment Mouth opens: >3 cm Mallampati Score: II Teeth Condition: Dentures (Patient has top dentures.) and Missing (Patient is missing several molars on the lower jaw. Rest are tight.) Neck Range of motion (ROM): Limited ROM (Slight decrease in extension) Focused Labs Anesthesia Preop lab: CBC WBC 6.5 K/mm3 (4.4-11.0) 05/26/24 08:12 05/26/24 RBC 4.46 M/mm3 (4.6-6.2) L 05/26/24 08:12 05/26/24 Hgb 13.3 g/dL (13.0-16.5) 05/26/24 08:12 05/26/24 Hct 40.2 % (40-54) 05/26/24 08:12 05/26/24 Plt Count 297 K/mm3 (150-450) 05/26/24 08:12 05/26/24 CHEMISTRY Potassium 4.7 mmol/L (3.3-5.1) 05/26/24 08:12 05/26/24 Sodium 137 mmol/L (133-145) 05/26/24 08:12 05/26/24 Magnesium 2.0 mg/dL (1.5-2.2) 05/26/24 08:11 05/26/24 Phosphorus 3.1 mg/dL (2.5-4.9) 03/24/24 08:03 03/24/24 BUN 20 mg/dL (4-19) H 05/26/24 08:12 05/26/24 Creatinine 1.22 mg/dL (0.70-1.20) H 05/26/24 08:12 Glucose 182 mg/dL (70-99) H 05/26/24 08:12 05/26/24 POC Glucose 191 mg/dL (74-106) H 01/07/24 09:00 01/07/24 TSH 0.73 uIU/mL (0.358-3.74) 08/08/21 08:23 COAG Pre-Assessment Diagnosis/Proposed Procedure Planned Operative Procedure(s): LEFT REVERSE TOTAL SHOULDER ARTHROPLASTY Anesthesia History Anesthesia History - paraoptometric: Anesthesia History - paraoptometric Hx Hospitalization No 05/24/24 09:07 Any Problems With Anesthesia No 05/24/24 09:07 Cholinesterase deficiency No 05/24/24 09:07 You/Your Family Experience No 05/24/24 09:07 fever (hyperthermia) with Relationship Recent Exposure to Contagious No 06/22/24 06:33 Disease Does patient have nerve No 05/24/24 09:07 stimulator Patient instructed to have device shut off --Does patient have Pacemaker No 06/22/24 06:33 or ICD? When Was Last Pacemaker Check QUESTION #4 FULL TEXT: You/Your Family Experience fever (hyperthermia) with Anesthesia Last Oral Intake Last Oral intake: Last Oral Intake NPO since 03:30 06/22/24 06:33 Meds taken in AM with sips of Yes 06/22/24 06:33 water? Meds patient instructed to amlodipine, famotidine 06/22/24 06:33 take am of surgery Any additional information?: Yes NPO since: 03:30 (Patient had preop Ensure at 3:30 AM) Meds taken in AM with sips of water?: Yes PONV PONV - paraoptometric: PONV - paraoptometric Female No 05/24/24 09:07 HX of Motion Sickness No 05/24/24 09:07 HX of N/V After Surgery No 05/24/24 09:07 Non-Smoker Yes 05/24/24 09:07 Duration of Surgery greater Yes 05/24/24 09:07 than 60 minutes Number of Risk Factors 2 05/24/24 09:07 PONV Score Moderate Risk 05/24/24 09:07 Height & Weight Height & Weight: Anesthesia: Height & Weight Height 5 ft 8 in 06/22/24 06:33 Weight: 64 kg 06/22/24 06:33 Body Mass Index (BMI) 21.4 06/22/24 06:33 Respiratory Assessment Respiratory Assessment - paraoptometric: Respiratory Tract Infection Hx - paraoptometric Hx Respiratory Tract Infection No 05/24/24 09:07 STOP Sleep Apnea STOP Sleep Apnea - paraoptometric: STOP Sleep Apnea - paraoptometric Hx Hypertension Yes 05/24/24 09:07 Hx Sleep Apnea No 05/24/24 09:07 CPAP BIPAP Do you snore loudly (louder No 05/24/24 09:07 than talking or can be heard Do you often feel tired/ No 05/24/24 09:07 fatigued/ sleepy during daytime? Has anyone observed you stop No 05/24/24 09:07 breathing during sleep? STOP Results Negative 05/24/24 09:07 QUESTION #5 FULL TEXT : Do you snore loudly (louder than talking or can be heard through closed doors)? 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 Specify any problems Hx of Preganancy in last 3 N/A 05/24/24 09:07 Months Nurse Filling Out Transfusion [email or web address] 05/24/24 09:07 & Questions: Date: 05/24/24 05/24/24 09:07 Time: 09:08 05/24/24 09:07 Patient unable to answer at this time (ie. confused, unrespo /Reproduction History /Reproductive History - paraoptometric: /Reproductive Hx- paraoptometric Hx Now Gestational Age (in weeks): EDC: Hx Hx Para Hx Section SAB Active Medications Active Medications: Current Medications Generic Name Dose Route Start Last Admin Trade Name Freq PRN Reason Stop Dose Admin Acetaminophen 1,000 mg 06/22/24 07:30 06/22/24 06:43 Acetaminophen 500 Mg Tablet PO 06/22/24 07:31 1,000 mg X1 ONE Administration Celecoxib 400 mg 06/22/24 07:30 06/22/24 06:43 Celecoxib 200 Mg Capsule PO 06/22/24 07:31 400 mg X1 ONE Administration Gabapentin 600 mg 06/22/24 07:30 06/22/24 06:43 Gabapentin 600 Mg Tablet PO 06/22/24 07:31 600 mg X1 ONE Administration Cefazolin Sodium 2 gm/ N/A 20 mls @ 400 mls/hr 06/22/24 07:30 IV 06/22/24 07:32 PREOP ONE Tranexamic Acid 1,000 mg/ 110 mls @ 660 mls/hr 06/22/24 07:30 Sodium Chloride IV 06/22/24 07:39 X1 ONE Magnesium Sulfate 1 gm/ 102 mls @ 408 mls/hr 06/22/24 07:30 06/22/24 06:00 Dextrose IV 06/22/24 07:44 408 mls/hr X1 ONE Administration Lactated Ringer's 1,000 mls @ 999 mls/hr 06/22/24 06:00 06/22/24 05:55 IV 06/22/24 07:00 999 mls/hr .Q1H1M PAULA Administration Lactated Ringer's 1,000 mls @ 75 mls/hr 06/22/24 06:00 IV .[id number] PAULA Insulin Human Lispro 1 - 6 unit 06/22/24 07:30 Insulin Lispro 100 Unit/Ml Insuln.Pen SC Q4H PRN PRN BG>/= 180, SEE PROTOCOL Protocol PFSH Medical History Former smoker Wears dentures Wears glasses Diabetes Arthritis High cholesterol History of diverticulitis Non-smoker Hypertension GERD (gastroesophageal reflux disease) Screening for malignant neoplasm of intestine Benign neoplasm of colon Hypertrophy of prostate without urinary obstruction Laceration of ear HLD (hyperlipidemia) Diverticular disease of colon Type II diabetes mellitus, uncontrolled Home Medications ?Medication ?Instructions ?Recorded ?Last Taken ?Type aspirin 81 mg tablet,delayed 81 mg PO DAILY 09/17/15 0 06/17/24 History release metformin 500 mg tablet,extended 1,000 mg PO BID 09/1606/21/24 18:00 History release 24 hr azbahhuw-ztf-vaeyc acid 0.4 1 ea PO DAILY 09/17/15 History mg-lycopene 300 mcg-lutein 250 mcg tablet pravastatin 20 mg tablet 20 mg PO DAILY 09/17/15 0405/16 History amlodipine 10 mg tablet 10 mg PO QDAY 09/15/2306/22 03:30 History finasteride 5 mg tablet 5 mg PO DAILY 09/15/2306/19 History glipizide 5 mg tablet 5 mg PO DAILY 09/15/2306/21 History solifenacin 10 mg tablet 10 mg PO DAILY 09/15/2305/16 History inulin-sorbitol 2 gram chewable 1 tab PO DAILY 4 06/21/24 History tablet (Fiber Supplement (inulin)) lisinopril 5 mg tablet 5 mg PO DAILY 11/10/2306/21 History acetaminophen 650 mg 1,300 mg PO Q12H PRN pain 06/21/24 05:00 History tablet,extended release (8 Hour Pain Reliever) empagliflozin 25 mg tablet 25 mg PO DAILY 05/24/24 History (Jardiance) famotidine 20 mg tablet 20 mg PO DAILY 05/24/2406/13 History Allergy/AdvReac Type Severity Reaction Status Date / Time cephalexin monohydrate (From AdvReac Diarrhea Verified 06/22/24 06:28 Keflex) oxycodone AdvReac Other Verified 06/22/24 06:28 sertraline HCl (From Zoloft) AdvReac Upset Verified 06/22/24 06:28 Stomach Family History Mother Diabetes Heart disease Father Heart disease Surgical History History of esophagogastroduodenoscopy (EGD) Hx of external ear surgery S/P cataract extraction Hx of tonsillectomy Hx of left inguinal hernia repair History of total cystectomy S/P right rotator cuff repair S/P right inguinal hernia repair S/P colonoscopy Social History Smoking Status: Never smoker second hand exposure: No alcohol intake: never substance use type: does not use caffeine: Yes what type of physical activity do you participate in: walking frequency: 5-6 times per week seatbelt use: always Review of Systems (Anesthesia) ROS Narrative System reviewed and no additional complaints, except as documented. 06/22/24 0659 <Electronically signed by Jesus ramirez MD> Date _ [facility] Signature: Date CC: ~ Signed [facility] Work Phone: 1(792) 703-923204-03-2025 Consult note [facility] Medical Records Department [address] [place] [address] Pre-Anesthesia Evaluation 06/22/24 0652 MR#: [id number] Acct: [id number] Name: CHELLE SUN Rep #:[id number] : 1945 79 From: Jesus Anderson MD PCP: Dr. Teodoro Castro MD Status: G [place] [facility] [place] Y Race: C Location: [place] [address] ASA Classification* ASA Classification ASA Classification: 2 Assessment & Plan Anesthesia* Anesthesia Assessment Anesthesia Assessment: Discussed sedation and/or anesthesia options, risks, benefits, and alternatives with patient/parents/legal guardian/POA. Questions invited. The patient/parents/legal guardian/POA seems to understand and agrees to proceedwith anesthesia plan. Reviewed the physical assessment, medical history, allergy history and patient home medications list prior to surgery/procedure/anesthetic and documented any changes. Performed airway and anesthesia risk assessments. Anesthesia Type Anesthesia Type: General and Block (Patient is consented for interscalene block.) Anesthesia Focused Assessment* Temperature: 98.2 F Pulse Rate: 86 Blood Pressure: 158/74 Respiratory Rate: 18 Pulse Ox: 100 Oxygen Delivery Method: Room Air Airway Assessment Mouth opens: >3 cm Mallampati Score: II Teeth Condition: Dentures (Patient has top dentures.) and Missing (Patient is missing several molars on the lower jaw. Rest are tight.) Neck Range of motion (ROM): Limited ROM (Slight decrease in extension) Focused Labs Anesthesia Preop lab: CBC WBC 6.5 K/mm3 (4.4-11.0) 05/26/24 08:12 05/26/24 RBC 4.46 M/mm3 (4.6-6.2) L 05/26/24 08:12 05/26/24 Hgb 13.3 g/dL (13.0-16.5) 05/26/24 08:12 05/26/24 Hct 40.2 % (40-54) 05/26/24 08:12 05/26/24 Plt Count 297 K/mm3 (150-450) 05/26/24 08:12 05/26/24 CHEMISTRY Potassium 4.7 mmol/L (3.3-5.1) 05/26/24 08:12 05/26/24 Sodium 137 mmol/L (133-145) 05/26/24 08:12 05/26/24 Magnesium 2.0 mg/dL (1.5-2.2) 05/26/24 08:11 05/26/24 Phosphorus 3.1 mg/dL (2.5-4.9) 03/24/24 08:03 03/24/24 BUN 20 mg/dL (4-19) H 05/26/24 08:12 05/26/24 Creatinine 1.22 mg/dL (0.70-1.20) H 05/26/24 08:12 Glucose 182 mg/dL (70-99) H 05/26/24 08:12 05/26/24 POC Glucose 191 mg/dL (74-106) H 01/07/24 09:00 01/07/24 TSH 0.73 uIU/mL (0.358-3.74) 08/08/21 08:23 COAG Pre-Assessment Diagnosis/Proposed Procedure Planned Operative Procedure(s): LEFT REVERSE TOTAL SHOULDER ARTHROPLASTY Anesthesia History Anesthesia History - paraoptometric: Anesthesia History - paraoptometric Hx Hospitalization No 05/24/24 09:07 Any Problems With Anesthesia No 05/24/24 09:07 Cholinesterase deficiency No 05/24/24 09:07 You/Your Family Experience No 05/24/24 09:07 fever (hyperthermia) with Relationship Recent Exposure to Contagious No 06/22/24 06:33 Disease Does patient have nerve No 05/24/24 09:07 stimulator Patient instructed to have device shut off --Does patient have Pacemaker No 06/22/24 06:33 or ICD? When Was Last Pacemaker Check QUESTION #4 FULL TEXT: You/Your Family Experience fever (hyperthermia) with Anesthesia Last Oral Intake Last Oral intake: Last Oral Intake NPO since 03:30 06/22/24 06:33 Meds taken in AM with sips of Yes 06/22/24 06:33 water? Meds patient instructed to amlodipine, famotidine 06/22/24 06:33 take am of surgery Any additional information?: Yes NPO since: 03:30 (Patient had preop Ensure at 3:30 AM) Meds taken in AM with sips of water?: Yes PONV PONV - paraoptometric: PONV - paraoptometric Female No 05/24/24 09:07 HX of Motion Sickness No 05/24/24 09:07 HX of N/V After Surgery No 05/24/24 09:07 Non-Smoker Yes 05/24/24 09:07 Duration of Surgery greater Yes 05/24/24 09:07 than 60 minutes Number of Risk Factors 2 05/24/24 09:07 PONV Score Moderate Risk 05/24/24 09:07 Height & Weight Height & Weight: Anesthesia: Height & Weight Height 5 ft 8 in 06/22/24 06:33 Weight: 64 kg 06/22/24 06:33 Body Mass Index (BMI) 21.4 06/22/24 06:33 Respiratory Assessment Respiratory Assessment - paraoptometric: Respiratory Tract Infection Hx - paraoptometric Hx Respiratory Tract Infection No 05/24/24 09:07 STOP Sleep Apnea STOP Sleep Apnea - paraoptometric: STOP Sleep Apnea - paraoptometric Hx Hypertension Yes 05/24/24 09:07 Hx Sleep Apnea No 05/24/24 09:07 CPAP BIPAP Do you snore loudly (louder No 05/24/24 09:07 than talking or can be heard Do you often feel tired/ No 05/24/24 09:07 fatigued/ sleepy during daytime? Has anyone observed you stop No 05/24/24 09:07 breathing during sleep? STOP Results Negative 05/24/24 09:07 QUESTION #5 FULL TEXT : Do you snore loudly (louder than talking or can be heard through closeddoors)? 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 Specify any problems Hx of Preganancy in last 3 N/A 05/24/24 09:07 Months Nurse Filling Out Transfusion [email or web address] 05/24/24 09:07 & Questions: Date: 05/24/24 05/24/24 09:07 Time: 09:08 05/24/24 09:07 Patient unable to answer at this time (ie. confused, unrespo /Reproduction History /Reproductive History - paraoptometric: /Reproductive Hx- paraoptometric Hx Now Gestational Age (in weeks): EDC: Hx Hx Para Hx Section SAB Active Medications Active Medications: Current Medications Generic Name Dose Route Start Last Admin Trade Name Freq PRN Reason Stop Dose Admin Acetaminophen 1,000 mg 06/22/24 07:30 06/22/24 06:43 Acetaminophen 500 Mg Tablet PO 06/22/24 07:31 1,000 mg X1 ONE Administration Celecoxib 400 mg 06/22/24 07:30 06/22/24 06:43 Celecoxib 200 Mg Capsule PO 06/22/24 07:31 400 mg X1 ONE Administration Gabapentin 600 mg 06/22/24 07:30 06/22/24 06:43 Gabapentin 600 Mg Tablet PO 06/22/24 07:31 600 mg X1 ONE Administration Cefazolin Sodium 2 gm/ N/A 20 mls @ 400 mls/hr 06/22/24 07:30 IV 06/22/24 07:32 PREOP ONE Tranexamic Acid 1,000 mg/ 110 mls @ 660 mls/hr 06/22/24 07:30 Sodium Chloride IV 06/22/24 07:39 X1 ONE Magnesium Sulfate 1 gm/ 102 mls @ 408 mls/hr 06/22/24 07:30 06/22/24 06:00 Dextrose IV 06/22/24 07:44 408 mls/hr X1 ONE Administration Lactated Ringer's 1,000 mls @ 999 mls/hr 06/22/24 06:00 06/22/24 05:55 IV 06/22/24 07:00 999 mls/hr .Q1H1M PAULA Administration Lactated Ringer's 1,000 mls @ 75 mls/hr 06/22/24 06:00 IV .[id number] PAULA Insulin Human Lispro 1 - 6 unit 06/22/24 07:30 Insulin Lispro 100 Unit/Ml Insuln.Pen SC Q4H PRN PRN BG>/= 180, SEE PROTOCOL Protocol PFSH Medical History Former smoker Wears dentures Wears glasses Diabetes Arthritis High cholesterol History of diverticulitis Non-smoker Hypertension GERD (gastroesophageal reflux disease) Screening for malignant neoplasm of intestine Benign neoplasm of colon Hypertrophy of prostate without urinary obstruction Laceration of ear HLD (hyperlipidemia) Diverticular disease of colon Type II diabetes mellitus, uncontrolled Home Medications ?Medication ?Instructions ?Recorded ?Last Taken ?Type aspirin 81 mg tablet,delayed 81 mg PO DAILY 09/17/15 0 06/17/24 History release metformin 500 mg tablet,extended 1,000 mg PO BID 09/1606/21/24 18:00 History release 24 hr ojvlpquu-rzb-fxwzk acid 0.4 1 ea PO DAILY 09/17/15 History mg-lycopene 300 mcg-lutein 250 mcg tablet pravastatin 20 mg tablet 20 mg PO DAILY 09/17/1505/16 History amlodipine 10 mg tablet 10 mg PO QDAY 09/15/2306/22 03:30 History finasteride 5 mg tablet 5 mg PO DAILY 09/15/2306/19 History glipizide 5 mg tablet 5 mg PO DAILY 09/15/2306/21 History solifenacin 10 mg tablet 10 mg PO DAILY 09/15/2305/16 History inulin-sorbitol 2 gram chewable 1 tab PO DAILY 4 06/21/24 History tablet (Fiber Supplement (inulin)) lisinopril 5 mg tablet 5 mg PO DAILY 11/10/2306/21 History acetaminophen 650 mg 1,300 mg PO Q12H PRN pain 06/21/24 05:00 History tablet,extended release (8 Hour Pain Reliever) empagliflozin 25 mg tablet 25 mg PO DAILY 05/24/24 History (Jardiance) famotidine 20 mg tablet 20 mg PO DAILY 05/24/24 04/0 06/13 History Allergy/AdvReac Type Severity Reaction Status Date / Time cephalexin monohydrate (From AdvReac Diarrhea Verified 06/22/24 06:28 Keflex) oxycodone AdvReac Other Verified 06/22/24 06:28 sertraline HCl (From Zoloft) AdvReac Upset Verified 06/22/24 06:28 Stomach Family History Mother Diabetes Heart disease Father Heart disease Surgical History History of esophagogastroduodenoscopy (EGD) Hx of external ear surgery S/P cataract extraction Hx of tonsillectomy Hx of left inguinal hernia repair History of total cystectomy S/P right rotator cuff repair S/P right inguinal hernia repair S/P colonoscopy Social History Smoking Status: Never smoker second hand exposure: No alcohol intake: never substance use type: does not use caffeine: Yes what type of physical activity do you participate in: walking frequency: 5-6 times per week seatbelt use: always Review of Systems (Anesthesia) ROS Narrative System reviewed and no additional complaints, except as documented. 06/22/24 0659 james [email or web address]> Date _ Jesus Anderson MD Cosigner Signature: Date CC: ~ Signed [facility]2025 Hospital Discharge instructionsAmbulatory Orders* 12 Lead EKG [[facility]] Time Frame: 05/26/24, Location: None Selected [facility] Work Phone: [phone]) 463-714903-07-2025 Radiology Diagnostic study note [facility] Imaging Services [address] [place] [address] Extremity Upper without Contra MR#: [id number] Acct: [id number] Name: CHELLE SUN Rep #: [id number] : 1945 M 79 From: Abisai Clayton MD PCP: Dr. Teodoro Castro MD Status: RE G CLI Study:Extremity Upper without Contra Date of Exam: 05/26/24 Exam# [id number] Ordering Dr: Holger Stoner DO PROCEDURE: EXTREMITY UPPER WITHOUT CONTRA REASON FOR EXAM: Primary osteoarthritis of the left shoulder. TECHNIQUE: Multiple axial tomographic images of the left shoulder were obtained without intravenous contrast administration. Coronal and sagittal reconstruction was obtained as well. COMPARISON: None. FINDINGS: Bones: No evidence of fracture. Joints: Osteoarthritis of the left acromioclavicular joint. There is narrowing of the distance between the acromion and humeral head most likely secondary to rotator cuff pathology and possible impingement. There is a txsb-rb-yvjngphj degree of joint space narrowing of the left glenohumeral joint. Soft Tissues: The visualized portions of the lung are unremarkable. CT/Extremity Upper without Contra IMPRESSION: Degenerative changes of the acromioclavicular joint and glenohumeral joint as described with findings suggestive of possible impingement due to rotator cuff pathology. One or more dose reduction techniques were used (e.g., Automated exposure control, adjustment of the mA and/or kV according to patient size, use of iterative reconstruction technique). Reading Location: [id number] CC: Dr. Teodoro Castro MD; Dr. Holger Stoner DO ~ Body Care Manager: Signed [facility]08-23-2024 [facility] Medical Records Department [address] [place] [address] History Physical Exam 11/12/23724 MR#: [id number] Acct: [id number] Name: CHELLE SUN Rep #: [id number] : 1945 78 From: Paolo Fiore MD PCP: Dr. Teodoro Castro MD Status:[facility] Location: [place] [address] History and Physical Date of Admission: 11/12/23 Intake Vital Signs 09/15/2407:06 Height 5 ft 8 in Weight: 144 lb BMI 21.9 BP 171/76 H Blood Pressure Location Rt brachial Position Sitting Respiration 18 Intake Visit Reasons: Gastroesophageal reflux disease (GERD) Chief Complaint: GERD Supervisor Quilting Required: No Is patient in pain?: No Allergies testosterone (From AndroGel) Allergy (Verified 09/15/23 08:07) Unknowncephalexin monohydrate (From Keflex) Adverse Reaction (Verified 09/15/23 08:07) Diarrheaoxycodone Adverse Reaction (Verified 09/15/23 08:07) Othersertraline HCl (From Zoloft) Adverse Reaction (Verified 09/15/23 08:07) Upset Stomach Medications ???Medication ???Instructions ???Recorded ???Confirmed ???Type aspirin 81 mg tablet,delayed 162 mg PO DAILY 09/17/15 05/10/19 History release metformin 500 mg tablet,extended 1,000 mg PO BID 09/17/15 05/10/19 History release 24 hr spthadgj-icb-awlyc acid 0.4 1 ea PO DAILY 09/17/15 05/10/19 History mg-lycopene 300 mcg-lutein 250 mcg tablet pravastatin 20 mg tablet 20 mg PO DAILY 09/17/15 05/10/19 History ibuprofen 200 mg tablet 600 mg PO BID PRN pain 05/10/19 05/10/19 History amlodipine 10 mg tablet 10 mg PO QDAY 09/15/23 09/15/23 History famotidine 20 mg tablet 20 mg PO QDAY 09/15/23 09/15/23 History finasteride 5 mg tablet mg PO 09/15/23 09/15/23 History glipizide 5 mg tablet mg PO 09/15/23 09/15/23 History solifenacin 10 mg tablet mg PO 09/15/23 09/15/23 History Have you fallen in the past year?: No PFSH Medical History GERD (gastroesophageal reflux disease) Screening for malignant neoplasm of intestine Benign neoplasm of colon Hypertrophy of prostate without urinary obstruction Laceration of ear HLD (hyperlipidemia) Diverticular disease of colon Type II diabetes mellitus, uncontrolled Surgical History S/P cataract extraction Hx of tonsillectomy Hx of left inguinal hernia repair History of total cystectomy S/P right rotator cuff repair S/P right inguinal hernia repair S/P colonoscopy Family History Mother Diabetes Heart diseaseFather Heart disease Social History Smoking Status: Former smoker second hand exposure: No alcohol intake: never substance use type: does not use caffeine: Yes what type of physical activity do you participate in: walking frequency: 5-6 times per week seatbelt use: always HPI HPI HPI: Patient is a 78-year-old male here for reflux. He reports his GERD has been severe lately. He is Pepcid. He denies nausea or vomiting. He had an ultrasound of his gallbladder did not show any gallstones or pathology. ROS General General: Yes weight change; No appetite, fatigue, colon cancer, breast cancer or weakness HEENT HEENT: No difficulty swallowing, eye injury, eye surgery, swollen glands or hoarseness Endo Endocrine: Yes diabetes mellitus; No thyroid disease, thyroid cancer, Hair loss, heat intolerance or cold intolerance Skin Skin: No rash or changing moles Breast Breast: No left breast lump, right breast lump, nipple discharge, breast pain, abnormal mammogram, abnormal US or breast enlargement Musc Musculoskeletal: No back problems, arthritis, rheumatoid arthritis, gout or joint pain Cardio Cardiovascular: Yes high blood pressure; No murmur, pacemaker, heart disease, atrial fibrillation, heart attack, heart stent, palpitations, shortness of breat with exertion or chest pain Psych Psychiatric: No depression, anxiety or hearing voices Resp Respiratory: No shortness of breath, No sleep apnea, No cough, No COPD, No asthma, No emphysema and No wheezing Gastro Gastrointestinal: No abdominal pain, No nausea or vomiting, No diarrhea, No constipation, No blood in stool, Yes acid reflux, No hemorrhoids, No ulcers, No gallbladder problem and No black,tarry stools Gt Hematologic: No blood thinners, No blood disorders, No bleeding, No anemia and No blood clots Neuro Neurologic: No system reviewed and no additional complaints, except as documented, No as per HPI, No abnormal gait, No abnormal hearing, No abnormal movements, No abnormal speech, No behavioral changes, No burning sensations, No confusion, No convulsions, No disequilibrium, No dizziness, No localized weakness, No frequent falls, No headache(s), No lack of c (more content not included)...[facility] noteNo assessment information availableW[facility] Work Phone: Reason for referral (narrative)No reason for referral information availableWMemorial [facility] Work Phone: Family History No Family History Records Found Relationship Condition Age at Onset Recorded Date/T yue mother Diabetes mellitus Unknown Cardiac disease Unknown father Cardiac disease Unknown Advance Directives No Advanced Directives Records Found Advance Directive Response Recorded Date/ Time Living Will No September 17, 2015 11:46am Power of Can Closing Machine Tender No September 16 6 11:46am Advance Directive Response Recorded Date/ Time Living Will No September 17, 2015 10:46am Power of Can Closing Machine Tender No September 16 6 10:46am Advance Directive Response Recorded Date/ Time Living Will No May 24, 2024 10:07am Do you have a Healthcare Power of Can Closing Machine Tender? No May 24, 2024 10:07am Chief Complaint and Reason for Visit Chief Complaint RUQ PAIN, EVAL GB Chief Complaint Admit Date Primary osteoarthritis, left shoulder [facility] 2024 7:40am Chief Complaint Admit Date Primary osteoarthritis, left shoulder [facility] 2024 7:40am ERAS, LEFT REVERSE TOTAL SHOULDER ARTHRO PLASTY June 22, 2024 5:26am Chief Complaint Admit Date Primary osteoarthritis, left shoulder [facility] 2024 7:40am ERAS, LEFT REVERSE TOTAL SHOULDER ARTHRO PLASTY June 22, 2024 5:26am FECAL ABNORMALITIES July 18, 2024 7:1 6am Diverticulitis of intestine, part unspec ified, wit July 28, 2024 9:36am LOOSE STOOL, L LOWER ABD PAIN August 01, 2024 7:29am Reason for Visit Admit Date Diarrhea August 01, 2024 7:29a m GERD (gastroesophageal reflux disease) M ay 2024 7:29am S/P colonoscopy August 01, 2024 7:29a m Chief Complaint Admit Date FECAL ABNORMALITIES July 18, 2024 7:1 6am Diverticulitis of intestine, part unspec ified, wit July 28, 2024 9:36am LOOSE STOOL, L LOWER ABD PAIN August 01, 2024 7:29am 3 M FU November 01, 2024 10 :46am Summary Purpose Additional Source Comments Goals (unrecognized section and content) Goals may be documented in a n alternate sectionGoals may be documented in an alternate sectionGoals may be documented in an alternate sectionGoals may be documented in an alternate sectionGoals may be documented in an alternate sectionGoals may be documented in an alternate sectionGoals may be documented in an alternate sectionGoals may be documented in an alternate sectionGoals may be documented in an alternate sectionGoals may be documented in an alternate sectionGoals may be documented in an alternate sectionGoals may be documented in an alternate sectionGoals may be documented in an alternate section Care Teams (unrecognized sec tion and content) Team Status: Active Member Role Status Dates Dr. Teodoro Castro MD Family Provider Active Dr. Teodoro Castro MD Primary Care Provider Active Team Status: Inactive Member Role Status Dates Dr. Teodoro Castro MD Primary Care Provider Active Dr. Bro Pulliam MD Attending Provider, Referr ing Provider Active Team Status: Inactive Member Role Status Dates Dr. Teodoro Castro MD Primary Care Pr ovider, Attending Provider, Referring Provider Active Team Status: Inactive Member Role Status Dates Dr. Teodoro Castro MD Primary Care Provider, Attend ing Provider Active Team Status: Inactive Member Role Status Dates Dr. Teodoro Castro MD Primary Care Provider Active Cielo Ga Attending Provider, Referring Provide r Active Team Status: Active Member Role Status Dates Dr. Teodoro Castro MD Primary Care Pr ovider, Attending Provider, Referring Provider Active Team Status: Active Member Role Status Dates Dr. Teodoro Castro MD Primary Care Provider Active Team Status: Inactive Member Role Status Dates Dr. Teodoro Castro MD Primary Care Provider Active Start: March 01, 2024 End: March 01, 2024 Cielo Avitiaing Attending Provider Active Start : March 01, 2024 End: March 01, 2024 Team Status: Inactive Member Role Status Dates Dr. Teodoro Castro MD Primary Care Provider Active Start: March 24, 2024 End: March 24, 2024 Dr. Teodoro Castro MD Attending Provider Active Start: March 24, 2024 End: March 24, 2024 Dr. Teodoro Castro MD Referring Provider Active Start: March 24, 2024 End: March 24, 2024 Team Status: Inactive Member Role Status Dates Dr. Teodoro Castro MD Primary Care Provider Active Start: May 23, 2024 End: May 23, 2024 Dr. Holger Stoner DO Attending Provider Active Start: May 23, 2024 End: May 23, 2024 Dr. Holger Stoner DO Referring Provider Active Start: May 23, 2024 End: May 23, 2024 Team Status: Active Member Role Status Dates Dr. Teodoro Castro MD Primary Care Provider Active Start: May 26, 2024 Dr. Holger Stoner DO Attending Provider Active Start: May 26, 2024 Dr. Holger Stoner DO Referring Provider Active Start: May 26, 2024 Team Status: Inactive Member Role Status Dates Dr. Teodoro Castro MD Primary Care Provider Active Start: May 26, 2024 End: May 26, 2024 Dr. Holger Stoner DO Attending Provider Active Start: May 26, 2024 End: May 26, 2024 Dr. Holger Stoner DO Referring Provider Active Start: May 26, 2024 End: May 26, 2024 Team Status: Inactive Member Role Status Dates Dr. Teodoro Castro MD Primary Care Provider Active Start: June 22, 2024 End: June 22, 2024 Dr. Holger Stoner DO Attending Provider Active Start: June 22, 2024 End: June 22, 2024 Dr. Holger Stoner DO Referring Provider Active Start: June 22, 2024 End: June 22, 2024 Team Status: Inactive Member Role Status Dates Dr. Teodoro Castro MD Primary Care Provider Active Start: July 12, 2024 End: July 12, 2024 Dr. Teodoro Castro MD Attending Provider Active Start: July 12, 2024 End: July 12, 2024 Dr. Teodoro Castro MD Referring Provider Active Start: July 12, 2024 End: July 12, 2024 Team Status: Active Member Role Status Dates Dr. Teodoro Castro MD Primary Care Provider Active Start: July 14, 2024 Dr. Teodoro Castro MD Attending Provider Active Start: July 14, 2024 Dr. Teodoro Castro MD Referring Provider Active Start: July 14, 2024 Team Status: Inactive Member Role Status Dates Dr. Teodoro Castro MD Primary Care Provider Active Start: July 14, 2024 End: July 14, 2024 Dr. Teodoro Castro MD Attending Provider Active Start: July 14, 2024 End: July 14, 2024 Dr. Teodoro Castro MD Referring Provider Active Start: July 14, 2024 End: July 14, 2024 Team Status: Inactive Member Role Status Dates Dr. Teodoro Castro MD Primary Care Provider Active Start: July 18, 2024 End: July 18, 2024 Dr. Teodoro Castro MD Attending Provider Active Start: July 18, 2024 End: July 18, 2024 Dr. Teodoro Castro MD Referring Provider Active Start: July 18, 2024 End: July 18, 2024 Team Status: Active Member Role Status Dates Dr. Teodoro Castro MD Primary Care Provider Active Start: July 28, 2024 Dr. Teodoro Castro MD Attending Provider Active Start: July 28, 2024 Dr. Teodoro Castro MD Referring Provider Active Start: July 28, 2024 Team Status: Active Member Role Status Dates Dr. Teodoro Castro MD Primary Care Provider Active Start: July 28, 2024 Dr. Teodoro Castro MD Attending Provider Active Start: July 28, 2024 Dr. Teodoro Castro MD Referring Provider Active Start: July 28, 2024 Dr. Linus Lo DO Other Provider Active St art: July 28, 2024 Team Status: Inactive Member Role Status Dates Dr. Teodoro Castro MD Primary Care Provider Active Start: August 01, 2024 End: August 01, 2024 Dr. Teodoro Castro MD Referring Provider Active Start: August 01, 2024 End: August 01, 2024 Dr. Linus Lo DO Attending Provider Active Start: August 01, 2024 End: August 01, 2024 Team Status: Inactive Member Role Status Dates Dr. Teodoro Castro MD Primary Care Provider Active Start: July 28, 2024 End: July 28, 2024 Dr. Teodoro Castro MD Attending Provider Active Start: July 28, 2024 End: July 28, 2024 Dr. Teodoro Castro MD Referring Provider Active Start: July 28, 2024 End: July 28, 2024 Team Status: Inactive Member Role Status Dates Dr. Teodoro Castro MD Primary Care Provider Active Start: July 28, 2024 End: July 28, 2024 Dr. Teodoro Castro MD Attending Provider Active Start: July 28, 2024 End: July 28, 2024 Dr. Teodoro Castro MD Referring Provider Active Start: July 28, 2024 End: July 28, 2024 Dr. Linus Lo DO Other Provider Active St art: July 28, 2024 End: July 28, 2024 Team Status: Active Member Role/Relationship Status Dates Dr. Teodoro Castro MD Primary Care Provider Active Team Status: Inactive Member Role/Relationship Status Dates Dr. Teodoro Castro MD Primary Care Provider Active Start: July 12, 2024 End: July 12, 2024 Dr. Teodoro Castro MD Attending Provider Active Start: July 12, 2024 End: July 12, 2024 Dr. Teodoro Castro MD Referring Provider Active Start: July 12, 2024 End: July 12, 2024 Team Status: Inactive Member Role/Relationship Status Dates Dr. Teodoro Castro MD Primary Care Provider Active Start: July 14, 2024 End: July 14, 2024 Dr. Teodoro Castro MD Attending Provider Active Start: July 14, 2024 End: July 14, 2024 Dr. Teodoro Castro MD Referring Provider Active Start: July 14, 2024 End: July 14, 2024 Team Status: Inactive Member Role/Relationship Status Dates Dr. Teodoro Castro MD Primary Care Provider Active Start: July 18, 2024 End: July 18, 2024 Dr. Teodoro Castro MD Attending Provider Active Start: July 18, 2024 End: July 18, 2024 Dr. Teodoro Castro MD Referring Provider Active Start: July 18, 2024 End: July 18, 2024 Team Status: Inactive Member Role/Relationship Status Dates Dr. Teodoro Castro MD Primary Care Provider Active Start: July 28, 2024 End: July 28, 2024 Dr. Teodoro Castro MD Attending Provider Active Start: July 28, 2024 End: July 28, 2024 Dr. Teodoro Castro MD Referring Provider Active Start: July 28, 2024 End: July 28, 2024 Team Status: Inactive Member Role/Relationship Status Dates Dr. Teodoro Castro MD Primary Care Provider Active Start: July 28, 2024 End: July 28, 2024 Dr. Teodoro Castro MD Attending Provider Active Start: July 28, 2024 End: July 28, 2024 Dr. Teodoro Castro MD Referring Provider Active Start: July 28, 2024 End: July 28, 2024 Dr. Linus Lo DO Other Provider Active St art: July 28, 2024 End: July 28, 2024 Team Status: Inactive Member Role/Relationship Status Dates Dr. Teodoro Castro MD Primary Care Provider Active Start: August 01, 2024 End: August 01, 2024 Dr. Teodoro Castro MD Referring Provider Active Start: August 01, 2024 End: August 01, 2024 Dr. Linus Lo DO Attending Provider Active Start: August 01, 2024 End: August 01, 2024 Team Status: Inactive Member Role/Relationship Status Dates Dr. Teodoro Castro MD Primary Care Provider Active Start: November 01, 2024 End: November 01, 2024 Dr. Teodoro Castro MD Referring Provider Active Start: November 01, 2024 End: November 01, 2024 Dr. Linus Lo DO Attending Provider Active Start: November 01, 2024 End: November 01, 2024 (unrecognized sect ion and content) No Status Records Found INFORMATION SOURCE (unrecogn ized section and content) DATE CREATED AUTHOR 11/03/2024 [facility] FOR RECORDS PERTAINING TO PATIENTS WHO ARE [...] BE BASED ON THE PRIMARY CLINICAL RECORDS. [facility]. provides no warranty or guarantee of the accuracy or completeness of information in this document.
[2024-11-15 10:11] LABS: Hematocrit 38.4 % (40-54); Hemoglobin 12.5 g/dL (13.0-16.5); Immature Granulocytes Count 0.010 X10^3/uL (0.0-0.0); Mean Corp Hgb Conc 32.6 g/dL (32-36); Mean Corpuscular Volume 90.1 fL (80-94); Mean Platelet Vol. 10.3 fl (6.2-12.0); NRBC Flagged by Analyzer 0 % (0-5); Platelet Count 266 K/mm3 (150-450); RBC Distribution Width CV 14.4 % (11.6-14.6); RBC Distribution Width SD 47.3 fl (35.1-43.9); Red Blood Count 4.26 M/mm3 (4.6-6.2); White Blood Count 8.0 K/mm3 (4.4-11.0)
[2024-11-15 10:41] LABS: AST(SGOT) 19 U/L (<=37); Alanine Aminotransfer ALT/SGPT 21 U/L (<=46); Albumin, Serum 4.4 g/dL (3.4-4.8); Alkaline Phosphatase 71 U/L (40-129); Anion Gap 12 (5-15); BUN 20 mg/dL (4-19); BUN/Creat Ratio 18.9 RATIO (10-20); Calcium,Total 9.3 mg/dL (7.6-11.0); Carbon Dioxide 24.4 mmol/L (21.0-32.0); Chloride 101 mmol/L (98-108); Cholesterol 123 mg/dL (<=200); Globulin 3.0 g/dL (2.2-4.2); Glucose 160 mg/dL (70-99); Low Density Lipoprotein Calc. 50 mg/dL; Potassium 4.3 mmol/L (3.3-5.1); Triglycerides 101 mg/dL; Very Low Density Lipoprotein 20 mg/dL (5-40); cholesterol:hdl ratio screen 2.34
[2024-11-15 14:57] LABS: Creatinine, Urine (random) 34.00 mg/dL (39.00-259.00)
[2024-11-15 14:58] LABS: Microalbumin,Random Urine < 12.0 mg/L (<20 mg/L)
== END | disposition home or self-care (01) ==
LOC: MFPLAB 08:07
PROVIDERS: PCP Family Medicine; Referring Provider Family Medicine; Visit Provider Family Medicine
DX: E11.8 Type 2 diabetes mellitus with unspecified complications (principal)
CPT/HCPCS: 36415; 80053; 80061; 82043; 82570; 83036; 85025

== ENCOUNTER → 2024-11-22 | Outpatient (CLI) | payer MEDICARE, OTHER, SELFPAY ==
[2024-11-22 10:09] LABS: Hematocrit 37.7 % (40-54); Hemoglobin 12.4 g/dL (13.0-16.5); Immature Granulocytes Count 0.020 X10^3/uL (0.0-0.0); Mean Corp Hgb Conc 32.9 g/dL (32-36); Mean Corpuscular Volume 89.5 fL (80-94); Mean Platelet Vol. 10.2 fl (6.2-12.0); NRBC Flagged by Analyzer 0 % (0-5); Platelet Count 260 K/mm3 (150-450); RBC Distribution Width CV 14.4 % (11.6-14.6); RBC Distribution Width SD 46.9 fl (35.1-43.9); Red Blood Count 4.21 M/mm3 (4.6-6.2); White Blood Count 8.6 K/mm3 (4.4-11.0)
[2024-11-22 13:16] LABS: Ferritin 50 ng/mL (37-417); Iron 107 ug/dL (65-175); Iron Binding Capacity,Total 352 ug/dL (250-450); Iron Binding Capacity,Unsat 245 ug/dL (228-428)
== END | disposition home or self-care (01) ==
LOC: MFPLAB 09:05
PROVIDERS: PCP Family Medicine; Visit Provider Family Medicine
DX: D50.9 Iron deficiency anemia, unspecified (principal)
CPT/HCPCS: 36415; 82728; 83540; 83550; 85025

== ENCOUNTER → 2025-01-24 | Outpatient (CLI) | payer MEDICARE, OTHER, SELFPAY ==
[2025-01-24 10:28] LABS: Hematocrit 37.4 % (40-54); Hemoglobin 12.4 g/dL (13.0-16.5); Immature Granulocytes Count 0.020 X10^3/uL (0.0-0.0); Mean Corp Hgb Conc 33.2 g/dL (32-36); Mean Corpuscular Volume 89.7 fL (80-94); Mean Platelet Vol. 10.2 fl (6.2-12.0); NRBC Flagged by Analyzer 0 % (0-5); Platelet Count 296 K/mm3 (150-450); RBC Distribution Width CV 13.6 % (11.6-14.6); RBC Distribution Width SD 44.4 fl (35.1-43.9); Red Blood Count 4.17 M/mm3 (4.6-6.2); White Blood Count 7.7 K/mm3 (4.4-11.0)
[2025-01-24 10:52] LABS: AST(SGOT) 20 U/L (<=37); Alanine Aminotransfer ALT/SGPT 20 U/L (<=46); Albumin, Serum 4.3 g/dL (3.4-4.8); Alkaline Phosphatase 67 U/L (40-129); Anion Gap 10 (5-15); BUN 24 mg/dL (4-19); BUN/Creat Ratio 22.6 RATIO (10-20); Calcium,Total 9.5 mg/dL (7.6-11.0); Carbon Dioxide 26.3 mmol/L (21.0-32.0); Chloride 100 mmol/L (98-108); Cholesterol 134 mg/dL (<=200); Globulin 3.0 g/dL (2.2-4.2); Glucose 172 mg/dL (70-99); Low Density Lipoprotein Calc. 65 mg/dL; Potassium 4.9 mmol/L (3.3-5.1); Triglycerides 105 mg/dL; Very Low Density Lipoprotein 21 mg/dL (5-40); cholesterol:hdl ratio screen 2.69
== END | disposition home or self-care (01) ==
LOC: MTLAB 08:06
PROVIDERS: PCP Family Medicine; Referring Provider Family Medicine; Visit Provider Family Medicine
DX: E11.69 Type 2 diabetes mellitus with other specified complication (principal); E11.59 Type 2 diabetes mellitus with other circulatory complications
CPT/HCPCS: 36415; 80053; 80061; 83036; 85025

== ENCOUNTER → 2025-02-05 | Outpatient (CLI) | payer MEDICARE, OTHER, SELFPAY ==
--- NOTE | 2025-02-05 12:52 | CT_ITS ---
PROCEDURE: ABDOMEN/PELVIS WITH CONTRAST 02/05/2025 REASON FOR EXAM: DIARRHEA TECHNIQUE: Procedure Code: [id number] Modality: CT Procedure: ABDOMEN/PELVIS WITH CONTRAST Coronal and Sagittal reconstruction series were provided. CONTRAST: Isovue 370 VOLUME: 100 mL One or more dose reduction techniques were used (e.g., Automated exposure control, adjustment of the mA and/or kV according to patient size, use of iterative reconstruction technique. RADIATION DOSE SUMMARY: CTDlvol: 19.31 mGy DLP: 466.07 mGycm COMPARISON: 07/28/2024 FINDINGS: Lung bases: Clear Liver: Normal size. No mass. Gallbladder: Unremarkable Spleen: Normal size. Pancreas: Normal size without evidence of mass surrounding inflammation or ductal dilation. Adrenals: Unremarkable Kidneys: No obstructive uropathy or suspicious solid renal lesion Bladder: Distends normally Bowel: Nondistended fluid-filled small bowel loops suggestive of ileus. There is retained stool throughout the entirety of the colon including scattered diverticula in the descending and sigmoid colon without CT evidence of acute diverticulitis. Appendix: Not visualized Lymph nodes: No suspicious mesenteric or retroperitoneal adenopathy Vasculature: Mild diffuse atherosclerotic calcifications are noted. Peritoneum / Retroperitoneum: No free fluid or air Bones: Degenerative bony changes CT/Abdomen/Pelvis WITH Contrast IMPRESSION: Small-bowel ileus likely due to retained stool throughout the entirety of the c olon. Extensive sigmoid diverticulosis without CT evidence of acute diverticulitis. No suspicious solid organ abnormality No free intraperitoneal fluid, air, or suspicious adenopathy Degenerative bony changes Reading Location: [id number]
== END | disposition home or self-care (01) ==
LOC: CT 12:50
PROVIDERS: PCP Family Medicine; Referring Provider Internal Medicine Gastroenterology; Visit Provider Internal Medicine Gastroenterology
DX: R19.7 Diarrhea, unspecified (principal)
CPT/HCPCS: 74177; Q9967; A4216